=== PATIENT | female | born 1975 | race Caucasian/White ===

== ENCOUNTER 2024-04-29 10:21 | Emergency (ER) | payer OTHER, SELFPAY ==
--- NOTE | ~2024-04-29 | XR_ITS ---
CLINICAL HISTORY: ams sob cp 1 view chest x-ray Comparison: None Findings: The lungs are clear. Normal size heart. No acute fracture. IMPRESSION: 1. No acute findings. This document has been electronically signed by: Kavya Carnes MD on 04/29/2024 16:16:31
--- NOTE | ~2024-04-29 | CT_ITS ---
CLINICAL HISTORY: seizure CT head without contrast Comparison: None Findings: No intra-axial mass, midline shift, hydrocephalus, or acute hemorrhage. No significant atrophy-like change or white matter disease. The visualized paranasal sinuses and mastoid air cells are normal. The orbits are unremarkable. There is no acute fracture. IMPRESSION: 1. No acute intracranial findings. This document has been electronically signed by: Kavya Carnes MD on 04/29/2024 13:44:03
[2024-04-29 10:32] VITALS: BP 102/60; BP 98/47; PULSE 47; PULSE 58; RESP 15; TEMP 36.6; O2SAT 96; O2SAT 97; BMI 33.1
--- NOTE | 2024-04-29 10:36 | ECG_ITS ---
Test Reason : seizure Blood Pressure : */* mmHG Vent. Rate : 45 BPM Atrial Rate : 45 BPM P-R Int : 172 ms QRS Dur : 100 ms QT Int : 534 ms P-R-T Axes : 43 43 45 degrees QTcB Int : 461 ms Sinus bradycardia Otherwise normal ECG No previous ECGs available Referred By: Charles Bolton Electronically Signed By: VINAYAK PEDRO MD
--- NOTE | 2024-04-29 10:43 | ED_ITS ---
HPI - General Adult General Chief complaint: General Medical Stated complaint: SEIZURE PRIOR TO EMS Time Seen by Provider: 04/29/24 10:32 Source: patient Mode of arrival: ambulatory Limitations: altered mental status History of Present Illness ED Provider: DEMETRIS Bolton HPI narrative: 48-year-old female presents with complaints of chest pain that started this morning substernal nonradiating also states she thinks she had a seizure no seizure history. Patient is dozing off during my history taking she is unable to provide me with a good history. She states she does not feel well. She appears lethargic she arouses only to painful stimuli. Very limited history due to patient's altered mental status. Related Data Allergies Allergy/AdvReac Type Severity Reaction Status Date / Time haloperidol [From Haldol] Allergy Anaphylaxis Verified 04/29/24 10:34 naloxone Allergy Anaphylaxis Verified 04/29/24 10:34 promethazine [From Phenergan] Allergy Anaphylaxis Verified 04/29/24 10:34 Review of Systems 2 Review of Systems: Yes all other systems are reviewed and are negative PMFSH Past Medical History Attestation statement: The following information was validated with the patient. Source: old records reviewed and nursing notes reviewed Social History Social History Advance Directives: No Advance Directives Information Provided: Yes Do you have a plan to hurt others: No Plan Physical Exam ED Vital Signs: Vital Signs - 24 hr 04/29/24 10:32 Temperature 97.8 F Pulse Rate 47 L Respiratory Rate 15 Blood Pressure 102/60 Pulse Oximetry 97 Oxygen Delivery Method Room Air BMI result Body Mass Index 33.1 Mild hypotension and bradycardia Appearance: Alert.? Oriented X3.? No acute distress.? Head: Normocephalic, atraumatic, no step-offs or deformities Eyes: Pupils equal, round and reactive to light.? Neck: Normal inspection.? Neck supple.? CVS: Normal heart rate and rhythm.? Pulses normal.? Respiratory: No respiratory distress.? Breath sounds normal.? Abdomen: Soft and nontender.? Skin: Skin warm and dry.? Normal skin color.? Normal skin turgor.? Extremities: No lower extremity edema.? No calf ttp. 5/5 strength to bilateral upper and lower extremities Neuro: Oriented X 3.? No motor deficit.? No sensory deficit. CN 2-12 intact Course Reevaluation(s) Reevaluation #1: My attending put in a L EJ on this patient. As she has a very difficult stick. CBC with a normocytic anemia no acute findings. Chemistry unremarkable. CPK elevated however not meeting criteria for rhabdo. lactic normal unlikley seizure. Troponin negative, EKG nonischemic. Urine without infection. Urine toxicology positive for methadone negative for everything else. Ethanol negative. D-dimer negative. CT head is pending. Time: 13:04 Reevaluation #2: Patient is acting her normal self she is alert and oriented x4 she is sitting in the bed in coloring does not appear to be in any acute distress. Completely different presentation than when she 1st came in. Time: 13:05 Reevaluation #3: Head CT no acute findings. Repeat trop negative. Time: 14:41 Additional Reevaluation(s): Patient not having chest pain, shortness of breath no seizure-like activity while here. She appears well. Coloring acting normal. No complaints. Educated patient on diagnosis and treatment plan, answered all question, patient verbalizes understanding. At this time patient will be discharged home, advised to return with new or worsening symptoms. Educated on worrisome signs and symptoms and when to return. At this time I feel comfortable discharge home. Medical Decision Making Medical Decision Making [facility] Narrative: 1044 48-year-old female presents with a chest discomfort and question seizure. Poor historian appears lethargic Physical exam patient appears lethargic History and physical exam concerning for chest pain will rule out ACS although unlikely. Less likely PE. Patient may have had a seizure but I am concerned for substance abuse. Will rule out metabolic derangements. Plan- labs, urine, imaging Differential Diagnosis Differential Diagnoses: The differential diagnosis associated with the presentation includes Admission/Observation Consideration of admission/observation: Escalation of care including admission/observation considered Lab Data [facility] Lab Attestation statement: I reviewed the patient's lab results. 04/29/24 10:54 04/29/24 10:54 Labs: Lab Results 04/29/24 04/29/24 04/29/24 Range/Units 10:54 10:54 11:30 WBC 5.4 (4.8-10.8) X10*3/uL RBC 3.93 L (4.20-5.50) X10*6/uL Hgb 11.9 L (12.0-16.0) g/dl Hct 34.5 L (37.0-47.0) % MCV 87.8 (80.0-98.0) fL MCH 30.3 (27.0-33.0) pg MCHC 34.5 (31.0-35.0) g/dl RDW 13.1 (11.0-16.0) % Plt Count 118 L (160-400) X10*3/uL MPV 10.0 (9.4-12.3) fL Immature Gran % (Auto) 0.2 (0.0-0.4) % Neut % (Auto) 43.1 L (45-73) % Lymph % (Auto) 44.4 H (20-40) % [place] % (Auto) 8.2 (2-11) % Eos % (Auto) 3.7 (0-4) % Baso % (Auto) 0.4 (0-2) % Lymph # (Auto) 2.4 (1.2-4.9) X10*3/uL [place] # (Auto) 0.4 (0.1-1.2) X10*3/uL Eos # (Auto) 0.2 (0.0-0.4) X10*3/uL Baso # (Auto) 0.0 (0.0-0.2) X10*3/uL Abs Immat Gran (auto) 0.01 (0.00-0.03) X10*3/uL Absolute Neuts (auto) 2.3 (2.0-8.3) x10*3/uL Absolute Nucleated RBC 0.000 (0.0-0.012) X10*3/uL Nucleated RBC % (auto) 0.0 (0.0-0.2) /100WBC D-Dimer High Sensitivty < 150 NG/ML Sodium 139 (135-145) mmol/L Potassium 4.0 (3.3-5.1) mmol/L Chloride 109 H (96-108) mmol/L Carbon Dioxide 24 (22-29) mmol/L Anion Gap 10 L (12-20) BUN 11 (9-16) mg/dL Creatinine 0.60 (0.5-1.4) mg/dL Estim Creat Clear Calc 133.1 Estimated GFR > 60 Random Glucose 124 H (60-115) mg/dL Lactic Acid 1.5 (0.5-2.0) mmol/L Calcium 9.2 (8.4-10.2) mg/dL Magnesium 2.0 (1.6-2.6) mg/dL Total Bilirubin 0.2 (0.0-1.0) mg/dL AST 29 (5-31) U/L ALT 33 H (0-31) U/L Alkaline Phosphatase 74 (39-117) U/L Total Creatine Kinase 147 H (26-140) U/L Troponin I High Sens < 2.7 (<3.5-17.0) ng/L Total Protein 7.9 (6.5-8.0) g/dL Albumin 4.0 (3.5-5.0) g/dL Urine Color Urine Appearance Urine pH (5.0-9.0) Ur Specific [place] (1.005-1.025) Urine Protein (Neg-Trace) mg/dL Urine Glucose (UA) (Negative) mg/dL Urine Ketones (Negative) mg/dL Urine Blood (Negative) Urine Nitrite (Negative) Ur Leukocyte Esterase (Negative) Urine Opiates Screen (Not Detect) Ur Buprenorphine Scrn (Not Detect) ng/mL Ur Oxycodone Screen (Not Detect) ng/mL Urine Methadone Screen (Not Detect) ng/mL Urine Fentanyl Screen (Not Detect) Ur Barbiturates Screen (Not Detect) Ur Phencyclidine Scrn (Not Detect) Ur Amphetamines Screen (Not Detect) U Benzodiazepines Scrn (Not Detect) Urine Cocaine Screen (Not Detect) U Marijuana (THC) Screen (Not Detect) Ethyl Alcohol < 10 Cancelled mg/dL 04/29/24 04/29/24 04/29/24 Range/Units 11:59 12:00 13:49 WBC (4.8-10.8) X10*3/uL RBC (4.20-5.50) X10*6/uL Hgb (12.0-16.0) g/dl Hct (37.0-47.0) % MCV (80.0-98.0) fL MCH (27.0-33.0) pg MCHC (31.0-35.0) g/dl RDW (11.0-16.0) % Plt Count (160-400) X10*3/uL MPV (9.4-12.3) fL Immature Gran % (Auto) (0.0-0.4) % Neut % (Auto) (45-73) % Lymph % (Auto) (20-40) % [place] % (Auto) (2-11) % Eos % (Auto) (0-4) % Baso % (Auto) (0-2) % Lymph # (Auto) (1.2-4.9) X10*3/uL [place] # (Auto) (0.1-1.2) X10*3/uL Eos # (Auto) (0.0-0.4) X10*3/uL Baso # (Auto) (0.0-0.2) X10*3/uL Abs Immat Gran (auto) (0.00-0.03) X10*3/uL Absolute Neuts (auto) (2.0-8.3) x10*3/uL Absolute Nucleated RBC (0.0-0.012) X10*3/uL Nucleated RBC % (auto) (0.0-0.2) /100WBC D-Dimer High Sensitivty NG/ML Sodium (135-145) mmol/L Potassium (3.3-5.1) mmol/L Chloride (96-108) mmol/L Carbon Dioxide (22-29) mmol/L Anion Gap (12-20) BUN (9-16) mg/dL Creatinine (0.5-1.4) mg/dL Estim Creat Clear Calc Estimated GFR Random Glucose (60-115) mg/dL Lactic Acid (0.5-2.0) mmol/L Calcium (8.4-10.2) mg/dL Magnesium (1.6-2.6) mg/dL Total Bilirubin (0.0-1.0) mg/dL AST (5-31) U/L ALT (0-31) U/L Alkaline Phosphatase (39-117) U/L Total Creatine Kinase (26-140) U/L Troponin I High Sens < 2.7 (<3.5-17.0) ng/L Total Protein (6.5-8.0) g/dL Albumin (3.5-5.0) g/dL Urine Color Dark Yellow Urine Appearance Turbid Urine pH 5.5 (5.0-9.0) Ur Specific [place] >= 1.030 H (1.005-1.025) Urine Protein Trace (Neg-Trace) mg/dL Urine Glucose (UA) Negative (Negative) mg/dL Urine Ketones Negative (Negative) mg/dL Urine Blood Negative (Negative) Urine Nitrite Negative (Negative) Ur Leukocyte Esterase Negative (Negative) Urine Opiates Screen Not Detected (Not Detect) Ur Buprenorphine Scrn Not Detected (Not Detect) ng/mL Ur Oxycodone Screen Not Detected (Not Detect) ng/mL Urine Methadone Screen Positive H (Not Detect) ng/mL Urine Fentanyl Screen Not Detected (Not Detect) Ur Barbiturates Screen Not Detected (Not Detect) Ur Phencyclidine Scrn Not Detected (Not Detect) Ur Amphetamines Screen Not Detected (Not Detect) U Benzodiazepines Scrn Not Detected (Not Detect) Urine Cocaine Screen Not Detected (Not Detect) U Marijuana (THC) Screen Not Detected (Not Detect) Ethyl Alcohol mg/dL Critical Care Time Critical Care Time Critical Care Time: Yes Total Critical Care Time: 35 Attestation: I attest to this time spent taking care of the patient, obtaining history, physical, reviewing labs, imaging, treatment of patients condition +/- specialist/hospitalist consult Discharge Plan Discharge Clinical Impression: Chest pain, Malaise Patient Disposition: Home, Self-Care Instructions: Chest Pain (ED), Fatigue (ED) Additional Instructions: Take your medications as prescribed. If you were prescribed antibiotics today, it is important that you take your medication to their entirety, do not skip any doses, do not finish them early. Follow-up with your primary care provider this week. Return to the emergency department with new or worsening symptoms. Such as fevers, chills, chest pain, shortness of breath, nausea, vomiting, dizziness, headache, vision changes, lethargy In case of emergency call 911 Referrals: Physician,Davina J [Primary Care Provider] - 2 days Stand Alone Forms: Work/School Release Print Language: Bulgarian
[2024-04-29 11:01] LABS: MANUAL DIFF FLAG NO
[2024-04-29 11:02] LABS: Basophils Percent Auto 0.4 % (0-2); Eosinophils Absolute Auto 0.2 X10*3/uL (0.0-0.4); Eosinophils Percent Auto 3.7 % (0-4); Hematocrit 34.5 % (37.0-47.0); Hemoglobin 11.9 g/dl (12.0-16.0); Imm Gran Abs Auto 0.01 X10*3/uL (0.00-0.03); Imm Gran Pct Auto 0.2 % (0.0-0.4); Lymphocytes Absolute Auto 2.4 X10*3/uL (1.2-4.9); Lymphocytes Percent Auto 44.4 % (20-40); Mean Corpuscular HGB Conc 34.5 g/dl (31.0-35.0); Mean Corpuscular Hemoglobin 30.3 pg (27.0-33.0); Mean Corpuscular Volume 87.8 fL (80.0-98.0); Monocytes Absolute Auto 0.4 X10*3/uL (0.1-1.2); Monocytes Percent Auto 8.2 % (2-11); Neutrophils Absolute Auto 2.3 x10*3/uL (2.0-8.3); Neutrophils Percent Auto 43.1 % (45-73); Platelet Count 118 X10*3/uL (160-400); Red Blood Count 3.93 X10*6/uL (4.20-5.50); Red Cell Distribution Width 13.1 % (11.0-16.0); White Blood Count 5.4 X10*3/uL (4.8-10.8)
[2024-04-29 11:25] LABS: Lactic Acid 1.5 mmol/L (0.5-2.0)
[2024-04-29 11:27] LABS: Alanine Aminotransferase 33 U/L (0-31); Alkaline Phosphatase 74 U/L (39-117); Anion Gap 10 (12-20); Bilirubin Total 0.2 mg/dL (0.0-1.0); Blood Urea Nitrogen 11 mg/dL (9-16); Calcium 9.2 mg/dL (8.4-10.2); Carbon Dioxide 24 mmol/L (22-29); Chloride 109 mmol/L (96-108); Creatinine Clr Calc Pharmacy 133.1; Estimated Glomerular Filt Rate > 60; Ethanol < 10 mg/dL; Glucose Random 124 mg/dL (60-115); Sodium 139 mmol/L (135-145); Total Protein 7.9 g/dL (6.5-8.0)
[2024-04-29 11:33] LABS: Troponin-I High Sensitivity < 2.7 ng/L (<3.5-17.0)
[2024-04-29 11:38] LABS: Aspartate Amino Transferase 29 U/L (5-31)
[2024-04-29 11:44] LABS: D Dimer High Sensitivity < 150 NG/ML
[2024-04-29 12:07] LABS: Appearance Urine Turbid; Color Urine Dark Yellow; Glucose Urine UA Negative (Negative); Leukocyte Esterase Urine Negative (Negative); Nitrite Urine Negative (Negative); PH 5.5 (5.0-9.0); Specific Gravity - Urine >= 1.030 (1.005-1.025); Urine Blood Negative (Negative); Urine Ketones Negative (Negative); Urine Protein Trace mg/dL (Neg-Trace)
--- OUTSIDE RECORDS SUMMARY | 2024-04-29 12:12 | XMS_ITS | Encounter Summary ---
Author Organization [facility] Address [address] [place] [address] Care Team Providers Care Round Kiln Drawer Name Role Phone Isaac Alaniz MD, lAex Tariq Primary Care Provider [phone]- [phone] Encounter Details Date Type Department Care Team (Late st Contact Info) Description 03/22/2019 Lab Requisition [address] [id number] Unknown Illness, unspecified Social History Tobacco Use Types Packs/Day Years Used Date Smoking Tobacco: Every Day Cigarettes Smokeless Tobacco: Never Comments:vape Alcohol Use Standard Drinks/Week Comments Not Currently 4 (1 standard drink = 0.6 oz pur e alcohol) Comments No Sex and Gender Information Value Date Recorded Sex Assigned at Female 11/04/2023 7:55 PM EDT Legal Sex Female 11:16 AM EDT Gender Identity Female 11/04/2023 7:55 PM EDT Sexual Orientation Straight 11/04/2023 7: 55 PM EDT documented as of this encounter Plan of Treatment Not on file documented as of this encounter Visit Diagnoses Diagnosis Illness, unspecified documented in this encounter Additional Health Concerns Infection Onset Date Last Indicated Resolved Time MRSA Comment:Cleared 05/19/21 nf MRSA blood/chin 03/14/19 sa 03/14/2019 03/17/2019 2021 2 :15 PM EST PUI COVID 01/01/2024 01/01/2024 01/01/2024 1:19 PM EDT documented as of this encounter Care Teams Round Kiln Drawer Relationship Specialty Start Date End Date Alex Gray Jr., MD [address] [place] [phone] PCP - General Internal Medicine 08/15/18 documented as of this encounter
--- OUTSIDE RECORDS SUMMARY | 2024-04-29 12:12 | XMS_ITS | Encounter Summary ---
Author Organization [facility] Address [address] [place] [address] Care Team Providers Care Airline Reservationist Name Role Phone Isaac Alaniz MD, Alex Tariq Primary Care Provider [phone]- [phone] Encounter Details Date Type Department Care Team (Late st Contact Info) Description 03/17/2024 [facility] [address] [place] [address] Social History Tobacco Use Types Packs/Day Years Used Date Smoking Tobacco: Every Day Cigarettes Smokeless Tobacco: Never Comments:vape Alcohol Use Standard Drinks/Week Comments Not Currently 4 (1 standard drink = 0.6 oz pur e alcohol) Housing Stability - SDOH Screener Answer Date Recorded What is your living situation today? Unsteady ho using 01/02/2024 Do you need help with Housing/Long-Term resources? Not on file 01/02/2024 Patient indicated no issues from the most recent SDOH questionnaire Not on file 01/02/2024 Homeless diagnosis active in problem list or in an encounter in the past year? Not on file 01/02/2024 Transportation - SDOH Screener Answer D ate Recorded Do you have trouble getting transportation to medical appointments? Yes 01/02/2024 Do you need help with Transp ortation to medical appointments? Not on file 01/02/2024 Patient indicated no issues from the most recent SDOH questionnaire Not on file 01/02/2024 Food Insecurity - SDOH Screener Answer Date Recorded Within the past 12 months, t he food you bought just didn't last and you didn't have money to get more? Sometimes true Within the past 12 months, y ou worried whether your food would run out before you got money to buy more? Often true 2023 Do you need help with Food resources? Not on elinor e 01/02/2024 Patient indicated no issues from the most recent SDOH questionnaire Not on file 01/02/2024 Utilities - SDOH Screener Answer Date R ecorded Do you have trouble paying y our heating and/or electricity bill? Yes 01/02/2024 Do you need help with Utilities? Not on file 01/02/2024 Patient indicated no issues from the most recent SDOH questionnaire Not on file 01/02/2024 Comments No Sex and Gender Information Value Date Recorded Sex Assigned at Female 11/04/2023 7:55 PM EDT Legal Sex Female 11:16 AM EDT Gender Identity Female 11/04/2023 7:55 PM EDT Sexual Orientation Straight 11/04/2023 7: 55 PM EDT documented as of this encounter Plan of Treatment Not on file documented as of this encounter Visit Diagnoses Not on filedocumented in this encounter Care Teams Airline Reservationist Relationship Specialty Start Date End Date Alex Gray Jr., MD [address] [place] [phone] PCP - General Internal Medicine 08/15/18 documented as of this encounter
--- OUTSIDE RECORDS SUMMARY | 2024-04-29 12:12 | XMS_ITS | Encounter Summary ---
Author Organization [facility] Address [address] [place] [address] Care Team Providers Care Slitter Scorer Cut Off Operator Name Role Phone Isaac Alaniz MD, Alex Tariq Primary Care Provider [phone]- [phone] Encounter Details Date Type Department Care Team (Late st Contact Info) Description 05/25/2023 Procedure Pass [facility] - [address] [address] Social History Tobacco Use Types Packs/Day Years [...] PM EDT documented as of this encounter Last Filed Vital Signs Vital Sign Reading Time Taken Comments Blood Pressure - - Pulse - - Temperature - - Respiratory Rate - - Oxygen Saturation - - Inhaled Oxygen Concentration - - Weight 108 kg (239 lb) 05/25/2023 5:55 PM EST Height 170.2 cm (5' 7 ) 05/25/2023 5:55 PM EST Body Mass Index 37.43 05/25/2023 5:55 PM EST documented in this encounter Plan of Treatment Not on file documented as of this encounter Visit Diagnoses Not on filedocumented in this encounter Additional Health Concerns Infection Onset Date Last Indicated Resolved Time PUI COVID 01/01/2024 01/01/2024 01/01/2024 1:19 PM EDT documented as of this encounter Care Teams Slitter Scorer Cut Off Operator Relationship Specialty Start Date End Date Alex Gray Jr., MD [address] [place] [phone] PCP - General Internal Medicine 08/15/18 documented as of this encounter
--- OUTSIDE RECORDS SUMMARY | 2024-04-29 12:12 | XMS_ITS | Encounter Summary ---
Author Organization [facility] Address [address] [place] [address] Care Team Providers Care Merchandise Appraiser Name Role Phone Isaac Alaniz MD, Alex Tariq Primary Care Provider [phone]- [phone] Encounter Details Date Type Department Care Team (Late st Contact Info) Description 01/07/2024 Pharm[facility] [address] [place] [address] Social History Tobacco Use Types Packs/Day Years Used Date Smoking Tobacco: Every Day Cigarettes Smokeless Tobacco: Never Comments:vape Alcohol Use Standard Drinks/Week Comments Not Currently 4 (1 standard drink = 0.6 oz pur e alcohol) Housing Stability - SDOH Screener Answer Date Recorded What is your living situation today? Unsteady ho using 01/02/2024 Do you need help with Housing/Skilled Nursing resources? Not on file 01/02/2024 Patient indicated [...] on filedocumented in this encounter Care Teams Merchandise Appraiser Relationship Specialty Start Date End Date Alex Gray Jr., MD [address] [place] [phone] PCP - General Internal Medicine 08/15/18 documented as of this encounter
--- OUTSIDE RECORDS SUMMARY | 2024-04-29 12:12 | XMS_ITS | Encounter Summary ---
Author Organization [facility] Address [address] [place] [address] Care Team Providers Care Die Maker Bench Stamping Name Role Phone Jen Saunders NP Primary Care Provider [phone] Isaac Alaniz MD, Alex Tariq Primary Care Provider [phone]- [phone] Encounter Details Date Type Department Care Team (Late st Contact Info) Description 08/01/2018 Procedure Pass [address] [address] Social History Tobacco Use Types Packs/Day Years Used Date Smoking Tobacco: Every Day Cigarettes Smokeless Tobacco: Never Alcohol Use Standard Drinks/Week Comments Yes 4 (1 standard drink = 0.6 oz [...] - Inhaled Oxygen Concentration - - Weight 81.6 kg (180 lb) 08/03/2018 6:34 PM EDT Height 172.7 cm (5' 8 ) 08/03/2018 6:34 PM EDT Body Mass Index 27.37 08/03/2018 6:34 PM EDT documented in this encounter Plan of Treatment Not on file documented as of this encounter Visit Diagnoses Not on filedocumented in this encounter Additional Health Concerns Infection Onset Date Last Indicated Resolved Time MRSA Comment:Cleared 05/19/21 nf MRSA blood/chin 03/14/19 sa 03/14/2019 03/17/2019 2021 2 :15 PM EST PUI COVID 01/01/2024 01/01/2024 01/01/2024 1:19 PM EDT documented as of this encounter Care Teams Die Maker Bench Stamping Relationship Specialty Start Date End Date Jen Saunders NP PCP - General Pain Medicine 09/24/17 08/14/18 Alex Gray Jr., MD [address] [place] [phone] PCP - General Internal Medicine 08/15/18 documented as of this encounter
--- OUTSIDE RECORDS SUMMARY | 2024-04-29 12:12 | XMS_ITS | Encounter Summary ---
Author Organization [facility] Address [address] [facility] Main Number: [phone] (26/[address]) [place] [address] Care Team Providers Care Soft Crab Shedder Name Role Phone Alex Gray MD Primary Care Provider Encounter Details Date Type Department Care Team ([facility] st Contact Info) Description 04/13/2024 Telephone [facility] [address] [facility] [place] [address] Charlee Patterson LICSW [address] [address] Social History Tobacco Use Types Packs/Day Years Used Date Smoking Tobacco: Never Assessed Sex and Gender Information Value Date Recorded Sex Assigned at Not on file Gender Identity Not on file Sexual Orientation Not on file documented as of this encounter Miscellaneous Notes * Telephone Encounter - ERNST Toscano - 04/13/2024 2:05 PM EST I attempted to contact this patient for a post-acute follow-up encounter. I attempted patient by telephone 8 times, greater than 5 minutes apart. Outcome of outreach: Left voicemail at only working number on file, , and I provided the call back number for the post-acute follow-up voice message box, . documented in this encounter Plan of Treatment Not on file documented as of this encounter Visit Diagnoses Not on filedocumented in this encounter Care Teams Soft Crab Shedder Relationship Specialty Start Date End Date Alex Gray MD [address] [place] [id number] PCP - General 01/28/23 documented as of this encounter
--- OUTSIDE RECORDS SUMMARY | 2024-04-29 12:12 | XMS_ITS | Encounter Summary ---
Author Organization [facility] Address [address] [place] [address] Care Team Providers Care Sawing And Assembly Supervisor Name Role Phone Jen Saunders NP Primary Care Provider Isaac Alaniz MD, Alex Tariq Primary Care Provider [phone]- [phone] Encounter Details Date Type Department Care Team (Late st Contact Info) Description 10/01/[address] [facility] [address] [place] [address] Jen Saunders NP [address] [place], [place] [phone] Rash and other nonspecific skin eruption Social History Tobacco Use Types Packs/Day Years Used Date Smoking Tobacco: Every Day Cigarettes Smokeless Tobacco: Never Alcohol Use Standard Drinks/Week Comments No 0 (1 standard drink = 0.6 oz pur e alcohol) Comments Unknown Sex and Gender Information Value Date Recorded Sex Assigned at Female 11/04/2023 7:55 PM EDT Legal Sex Female 11:16 AM EDT Gender Identity Female 11/04/2023 7:55 PM EDT Sexual Orientation Straight 11/04/2023 7: 55 PM EDT documented as of this encounter Plan of Treatment Not on file documented as of this encounter Procedures Procedure Name Priority Date/Time Associated Diagnosis Comments OVA AND PARASITE Routine 10/01/2017 5:00 PM EDT Rash and other nonspecific skin eruption documented in this encounter Results * Ova and Parasite Screen (10/01/2017 5:00 PM EDT) Specimen Source Stool 5:57 AM EDT [facility] Concentrate Result No ova and parasites seen No O and P seen 10/09/2017 5:57 AM EDT [facility] Comment:REFERENCE RANGE: No ova and parasites seen Trichrome Result No ova and parasites seen No O and P seen 10/09/2017 5:57 AM EDT [facility] Comment: ? REFERENCE RANGE: No ova and parasites seen ?? Routine Ova and Parasite exam may not detect ?? some parasites that occasionally cause diarrheal ?? illness. Test code(s) 17453 67666E (82458) (Cryptosporidium Ag., ?? DFA) and/or 32256 [id number] (76899) (Cyclospora and Isospora Exam) ?? may be ordered to detect these parasites. One negative sample ?? does not necessarily rule out the presence of parasitic infection. Stool Collection / Unknown 10/01/2017 5:00 PM EDT 10/01/2017 6:00 PM EDT us Jen Saunders NP MICROBIOLOGY - GENERAL ORDERA BLES Final Result Performing Organization Address City/State/[facility] Co de Phone Number [facility] [address] [place] [phone] documented in this encounter Visit Diagnoses Diagnosis Rash and other nonspecific skin eruption documented in this encounter Additional Health Concerns Infection Onset Date Last Indicated Resolved Time MRSA Comment:Cleared 05/19/21 nf MRSA blood/chin 03/14/19 sa 03/14/2019 03/17/2019 2021 2 :15 PM EST PUI COVID 01/01/2024 01/01/2024 01/01/2024 1:19 PM EDT documented as of this encounter Care Teams Sawing And Assembly Supervisor Relationship Specialty Start Date End Date Jen Saunders NP PCP - General Pain Medicine 09/24/17 08/14/18 Alex Gray Jr., MD [address] [place] [phone] PCP - General Internal Medicine 08/15/18 documented as of this encounter
--- OUTSIDE RECORDS SUMMARY | 2024-04-29 12:12 | XMS_ITS | Encounter Summary ---
Author Organization [facility] Address [address] [place] [address] Care Team Providers Care Cessation Systems Outreach Specialist Name Role Phone Isaac Alaniz MD, Alex Tariq Primary Care Provider +1- [phone] Encounter Details Date Type Department Care Team (Late st Contact Info) Description 03/10/2023 Procedure Pass [address] [phone] Social History Tobacco Use Types [...] documented as of this encounter Care Teams Cessation Systems Outreach Specialist Relationship Specialty Start Date End Date Alex Gray Jr., MD [address] [place] [phone] PCP - General Internal Medicine 08/15/18 documented as of this encounter
--- OUTSIDE RECORDS SUMMARY | 2024-04-29 12:12 | XMS_ITS | Encounter Summary ---
Author Organization [facility] Address [address] [place] [address] Care Team Providers Care Employment Attorney Name Role Phone Isaac Alaniz MD, Alex Tariq Primary Care Provider +1- [phone] Encounter Details Date Type Department Care Team (Late st Contact Info) Description 02/07/2023 Procedure Pass [facility] - [address] [phone] Social History Tobacco Use Types [...] - Inhaled Oxygen Concentration - - Weight 101 kg (222 lb) 02/07/2023 10:31 AM EST Height 170.2 cm (5' 7 ) 02/07/2023 10:31 AM EST Body Mass Index 34.77 02/07/2023 10:31 AM EST documented in this encounter Plan of Treatment Not on file documented as of this encounter Visit Diagnoses Not on filedocumented in this encounter Additional Health Concerns Infection Onset Date Last Indicated Resolved Time PUI COVID 01/01/2024 01/01/2024 01/01/2024 1:19 PM EDT documented as of this encounter Care Teams Employment Attorney Relationship Specialty Start Date End Date Alex Gray Jr., MD [address] [place] [phone] PCP - General Internal Medicine 08/15/18 documented as of this encounter
--- OUTSIDE RECORDS SUMMARY | 2024-04-29 12:12 | XMS_ITS | Encounter Summary ---
Author Organization [facility] Address [address] [place] [address] Care Team Providers Care Global Chief Experience Officer Name Role Phone Isaac Alaniz MD, Alex Tariq Primary Care Provider +1- [phone] Encounter Details Date Type Department Care Team (Late st Contact Info) Description 04/17/2024 Orders Only [facility] [address] [place] [phone] Alex Gray Jr., MD [address] [place] [phone] Bipolar disorder, current episode depressed, severe, without psychotic features (HCC); Delusional disorders (HCC); Personal history of other endocrine, nutritional and metabolic disease; Chronic obstructive pulmonary disease with (acute) exacerbation (HCC) Social History Tobacco Use Types Packs/Day Years Used Date Smoking Tobacco: Every Day Cigarettes Smokeless Tobacco: Never Comments:vape Alcohol Use Standard Drinks/Week Comments Not Currently 4 (1 standard drink = 0.6 oz pur e alcohol) Housing Stability - SDOH Screener Answer Date Recorded What is your living situation today? Unsteady ho using 01/02/2024 Do you need help with Housing/Assisted resources? Not on file 01/02/2024 Patient indicated [...] as of this encounter Plan of Treatment Scheduled Orders Name Type Priority Associated Diagnoses Orde r Schedule CBC and Auto Differential Lab Routine Bipolar disorder, current episode depressed, severe, without psychotic features (HCC) Delusional disorders (HCC) Personal history of other endocrine, nutritional and metabolic disease Chronic obstructive pulmonary disease with (acute) exacerbation (HCC) 1 Occurrences starting 04/17/2024 until 07/16/2025 Comprehensive metabolic panel Lab Routine Bipolar disorder, current episode depressed, severe, without psychotic features (HCC) Delusional disorders (HCC) Personal history of other endocrine, nutritional and metabolic disease Chronic obstructive pulmonary disease with (acute) exacerbation (HCC) 1 Occurrences starting 04/17/2024 until 07/16/2025 Aptima HCV Quant Dx Lab Routine Bipolar disorder, current episode depressed, severe, without psychotic features (HCC) Delusional disorders (HCC) Personal history of other endocrine, nutritional and metabolic disease Chronic obstructive pulmonary disease with (acute) exacerbation (HCC) 1 Occurrences starting 04/17/2024 until 07/16/2025 Hepatitis C Genotype-R Lab Routine Bipolar disorder, current episode depressed, severe, without psychotic features (HCC) Delusional disorders (HCC) Personal history of other endocrine, nutritional and metabolic disease Chronic obstructive pulmonary disease with (acute) exacerbation (HCC) 1 Occurrences starting 04/17/2024 until 07/16/2025 TSH with reflex to Free T4 Lab Routine Bipolar disorder, current episode depressed, severe, without psychotic features (HCC) Delusional disorders (HCC) Personal history of other endocrine, nutritional and metabolic disease Chronic obstructive pulmonary disease with (acute) exacerbation (HCC) 1 Occurrences starting 04/17/2024 until 07/16/2025 T4, Free Lab Routine Bipolar disorder, current episode depressed, severe, without psychotic features (HCC) Delusional disorders (HCC) Personal history of other endocrine, nutritional and metabolic disease Chronic obstructive pulmonary disease with (acute) exacerbation (HCC) 1 Occurrences starting 04/17/2024 until 07/16/2025 Lipid panel Lab Routine Bipolar disorder, current episode depressed, severe, without psychotic features (HCC) Delusional disorders (HCC) Personal history of other endocrine, nutritional and metabolic disease Chronic obstructive pulmonary disease with (acute) exacerbation (HCC) 1 Occurrences starting 04/17/2024 until 07/16/2025 Hemoglobin A1c Lab Routine Bipolar disorder, current episode depressed, severe, without psychotic features (HCC) Delusional disorders (HCC) Personal history of other endocrine, nutritional and metabolic disease Chronic obstructive pulmonary disease with (acute) exacerbation (HCC) 1 Occurrences starting 04/17/2024 until 07/16/2025 Cortisol Lab Routine Bipolar disorder, current episode depressed, severe, without psychotic features (HCC) Delusional disorders (HCC) Personal history of other endocrine, nutritional and metabolic disease Chronic obstructive pulmonary disease with (acute) exacerbation (HCC) 1 Occurrences starting 04/17/2024 until 07/16/2025 Vitamin B12 Lab Routine Bipolar disorder, current episode depressed, severe, without psychotic features (HCC) Delusional disorders (HCC) Personal history of other endocrine, nutritional and metabolic disease Chronic obstructive pulmonary disease with (acute) exacerbation (HCC) 1 Occurrences starting 04/17/2024 until 07/16/2025 documented as of this encounter Visit Diagnoses Diagnosis Bipolar disorder, current episode depressed, severe, without psychotic features (HCC) Delusional disorders (HCC) Personal history of other endocrine, nutritional and metabolic disease Chronic obstructive pulmonary disease with (acute) exacerbation (HCC) documented in this encounter Care Teams Global Chief Experience Officer Relationship Specialty Start Date End Date Alex Gray Jr., MD [address] [place] [phone] PCP - General Internal Medicine 08/15/18 documented as of this encounter
--- OUTSIDE RECORDS SUMMARY | 2024-04-29 12:12 | XMS_ITS | Clinical Summary ---
Author Organization [facility] Address [address] [facility] Main Number: [phone] (26/10) [place] [address] Care Team Providers Care Residential Designer Name Role Phone Alex Gray MD Primary Care Provider [phone] Allergies No known active allergies Medications Medication Sig Dispensed Refills Start Date End Date Status gabapentin (NEURONTIN) 300 mg capsule take 2 capsules by mouth three times a day 01/23/2023 Active docusate (COLACE) 100 mg capsule Take 100 mg by mouth 2 (two) times a day. 01/23/2023 Active cloNIDine (CATAPRES) 0.2 mg tablet Take 0.2 mg by mouth 2 (two) times a day. 01/23/2023 Active clonazePAM (KLONOPIN) 1 mg tablet Take 1 mg by mouth 3 (three) times a day. 01/23/2023 Active cefadroxil (DURICEF) 500 MG capsule Take 500 mg by mouth 2 (two) times a day. 01/23/2023 Active bisacodyL (DULCOLAX) 10 mg suppository UNWRAP AND INSERT 1 SUPPOSITORY INTO RECTUM ONCE A DAY NEEDED FOR CONSTIPATION 01/23/2023 Active VENTOLIN HFA HFA inhaler inhale 1 puffs by mouth and INTO THE LUNGS every 4 hours if neede... (REFER TO PRESCRIPTION NOTES). 01/23/2023 Active hydrOXYzine (ATARAX) 25 mg tablet take 1 tablet by mouth twice a day if needed for anxiety 01/23/2023 Active ibuprofen (ADVIL,MOTRIN) 600 mg tablet take 1 tablet by mouth every 6 hours if needed for pain 01/23/2023 Active lurasidone (LATUDA) 20 mg tablet Take 20 mg by mouth. 01/23/2023 Ac tive mirtazapine (REMERON) 45 MG tablet Take 45 mg by mouth nightly. 01/23/2023 Active topiramate (TOPAMAX) 50 MG tablet Take 50 mg by mouth nightly. 01/23/2023 Active SENNA 8.6 mg tablet Take 2 tablets by mouth nightly. 01/23/2023 Active polyethylene glycol (MIRALAX) 17 gram packet dissolve 1 packet INTO WATER AND TAKE ONCE DAILY BY MOUTH 01/23/2023 Active zolpidem (AMBIEN) 10 mg tablet take 1 tablet by mouth at bedtime if needed for sleep 01/23/2023 Active methocarbamoL (ROBAXIN) 500 MG tablet take 1 tablet by mouth every 4 hours if needed for muscle spasm 01/23/2023 Active lamoTRIgine (LAMICTAL) 25 mg tablet TAKE 1 TABLET BY ORAL ROUTE EVERY DAY AT BEDTIME 11/07/2022 Active Active Problems No known active problems Encounters Date Type Department Care Team Description 04/13[facility] [address] [facility] [place] [address] Charlee Patterson LICSW from Last 3 Months Immunizations Name Administration Dates Next Due Covid-19 Vaccine, (MODERNA R ED CAP_12+ PRIMARY SERIES), mRNA, intramuscular PF injection 05/15/2021 Influenza vaccine (FLULAVAL/ FLUZONE/FLUARIX TRIV) intramuscular PF syringe (>=6 months and older) 03/17/2019 Influenza, seasonal, injecta ble, preservative free 11/13/2016,11/08/2015 TDAP 09/07/2022,02/11/2021,12/13/2016 Social History Tobacco Use Types Packs/Day Years Used Date Smoking Tobacco: Never Assessed Sex and Gender Information Value Date Recorded Sex Assigned at Not on file Gender Identity Not on file Sexual Orientation Not on file Plan of Treatment Health Maintenance Due Date Last Done Comments Colonoscopy FOBT- Positive 1976 Colonoscopy 1976 Colorectal Cancer Screening 1976 Diabetes Screening 1976 FOBT 1976 HIV Lifetime Screening 1976 Hepatitis B sAg Lifetime Screening 1976 Hepatitis C Antibody Lifetime Screening 1976 LIPID PANEL 1976 Sigmoidoscopy 1976 THRIVE SCREENING 1976 Oral Health Screen 1976 HEIP Disability Screen 1981 BEHAVIORAL HEALTH SCREEN 1988 Psych Substance Use Screen 1988 Relationship Safety Screening 1991 Cervical Cancer Screening 1997 Colposcopy 1997 PAP SMEAR 1997 Pap + HPV 1997 MAMMOGRAM 2016 COVID-19 Vaccine ( season) 2023 05/04/2023, 05/15/2021 INFLUENZA VACCINE (#1) 2023 , 03/17/2019, 11/13/2016, Additional history exists Zoster Vaccine (1 of 2) 2026 DTAP/TDAP VACCINE (4 - Td or Tdap) 09/07/2032 09/07/2022, 02/11/2021, 12/13/2016 HPV VACCINES Aged Out No longer eligi ble based on patient's age to complete this topic IPV VACCINES Aged Out No longer eligi ble based on patient's age to complete this topic Pneumonia Vaccine 0-64 Aged Out No lo nger eligible based on patient's age to complete this topic ROTAVIRUS VACCINES Aged Out No longer eligible based on patient's age to complete this topic Care Teams Residential Designer Relationship Specialty Start Date End Date Alex Gray MD [address] [place] [phone] PCP - General 01/28/23
--- OUTSIDE RECORDS SUMMARY | 2024-04-29 12:12 | XMS_ITS | Encounter Summary ---
Author Organization [facility] Address [address] [place] [address] Care Team Providers Care Child Care Attendant Name Role Phone Isaac Alaniz MD, Alex Tariq Primary Care Provider [phone]- [phone] Encounter Details Date Type Department Care Team (Late st Contact Info) Description 01/03/[address] [facility] [address] [place] [address] Social History Tobacco Use Types Packs/Day Years Used Date Smoking Tobacco: Every Day Cigarettes Smokeless Tobacco: Never Comments:vape Alcohol Use Standard Drinks/Week Comments Not Currently 4 (1 standard drink = 0.6 oz pur e alcohol) Housing Stability - SDOH Screener Answer Date Recorded What is your living situation today? Unsteady ho using 01/02/2024 Do you need help with Housing/Snf resources? Not on file 01/02/2024 Patient indicated [...] on filedocumented in this encounter Care Teams Child Care Attendant Relationship Specialty Start Date End Date Alex Gray Jr., MD [address] [place] [phone] PCP - General Internal Medicine 08/15/18 documented as of this encounter
--- OUTSIDE RECORDS SUMMARY | 2024-04-29 12:12 | XMS_ITS | Encounter Summary ---
Author Organization [facility] Address [address] [place] [address] Care Team Providers Care Home Weatherizing Worker Name Role Phone Isaac Alaniz MD, Alex Tariq Primary Care Provider [phone]- [phone] Encounter Details Date Type Department Care Team (Late Contact Info) Description 05/31/2023 Procedure Pass [facility] [address] [place] [phone] Social History Tobacco Use Types Packs/Day Years [...] documented as of this encounter Care Teams Home Weatherizing Worker Relationship Specialty Start Date End Date Alex Gray Jr., MD [address] [place] [phone] PCP - General Internal Medicine 08/15/18 documented as of this encounter
--- OUTSIDE RECORDS SUMMARY | 2024-04-29 12:12 | XMS_ITS | Encounter Summary ---
Author Organization [facility] Address [address] [place] [address] Care Team Providers Care Aircraft Painter Name Role Phone Isaac Alaniz MD, Alex Tariq Primary Care Provider [phone]- [phone] Encounter Details Date Type Department Care Team (Late st Contact Info) Description 12/03/2022 Lab Requisition [address] [phone] Demetria Garner, EDUCATION TRAINER [address] [place] [address] Illness, unspecified Social History Tobacco Use Types [...] Procedure Name Priority Date/Time Associated Diagnosis Comments MRSA CULTURE Routine 12/03/2022 5:00 AM EDT Illness, unspecified documented in this encounter Results * MRSA Culture (12/03/2022 5:00 AM EDT) Culture No S. aureus (MRSA or MSSA) isolated SUSCEPTIBIL ITY TESTING 12/04/2022 3:33 PM EDT [facility] Swab Both anterior nares / Unknown Collection / Unknown 12/03/2022 5:00 AM EDT 12/03/2022 9:05 AM EDT us Demetria Garner EDUCATION TRAINER MICROBIOLOGY - GENERAL ORD ERABLES Final Result [facility] [address] [place] [address] documented in this encounter Visit Diagnoses Diagnosis Illness, unspecified documented in this encounter Additional Health Concerns Infection Onset Date Last Indicated Resolved Time PUI COVID 01/01/2024 01/01/2024 01/01/2024 1:19 PM EDT documented as of this encounter Care Teams Aircraft Painter Relationship Specialty Start Date End Date Alex Gray Jr., MD [address] [place] [phone] PCP - General Internal Medicine 08/15/18 documented as of this encounter
--- OUTSIDE RECORDS SUMMARY | 2024-04-29 12:12 | XMS_ITS | Clinical Summary ---
Author Organization [facility] Address [address] [place] [address] Care Team Providers Care Machine Assistant Name Role Phone Isaac Alaniz MD, Alex Tariq Primary Care Provider [phone] Allergies Active Allergy Reactions Criticality Noted Date Comments Haloperidol Other (See Comments) 12/09/2015 lockjaw Naloxone 04/24/2016 Naltrexone Rash Low 11/18/2022 Promethazine Hcl Tremor High 03/21/2019 Dystonia Promethazine Anaphylaxis High 12/09/2015 Medications albuterol sulfate (PROAIR HFA) 108 (90 Base) MCG/ACT inhalation aerosol Inhale 2 puffs every 4 (four) hours as needed for wheezing or shortness of breath Active cloNIDine (CATAPRES) 0.2 MG tablet Take 1 tablet (0.2 mg total) by mouth 2 (two) times a day Active gabapentin (NEURONTIN) 300 MG capsule Take 2 capsules (600 mg total) by mouth 3 (three) times a day Active mirtazapine 45 MG tablet Take 1 tablet (45 mg total) by mouth at bedtime Active lidocaine 4 % patch Place 1 patch on the skin daily 30 patch 01/11/20 24 Active linaCLOtide (LINZESS) 145 MCG capsule Take 1 capsule (145 mcg total) by mouth every morning before breakfast 30 capsule 4 5:04 PM EDT 01/11/20 24 Active nicotine 14 MG/24HR transdermal system patch Place 1 patch on the skin daily 28 patch 01/11/20 24 Active valACYclovir (VALTREX) 500 MG tabletIndications :Recurrent Mucocutaneous Herpes Simplex Infection Take 2 tablets (1,000 mg total) by mouth 2 (two) times a day for 10 days Indications: 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 40 tablet 4 5:04 PM EDT 01/10/20 24 Active senna (SENOKOT) 8.6 MG tablet Take 1 tablet (8.6 mg total) by mouth 2 (two) times a day 60 tablet 4 5:04 PM EDT 01/10/20 24 Active polyethylene glycol 3350 17 g/Scoop powder for oral solution Mix 17 g as directed and take by mouth 2 (two) times a day 1020 g 4 5:04 PM EDT 01/10/20 24 Active doxycycline hyclate 100 MG capsule Take 1 capsule (100 mg total) by mouth 2 (two) times a day 20 capsule 02/14/20 24 Active permethrin 5 % cream Apply to affected area once 60 g 03/17/20 24 Active predniSONE (DELTASONE) 50 MG tablet Take 1 tablet (50 mg total) by mouth daily 4 tablet 11/06/19 21 022 Discontinued Active Problems Problem Noted Date Diagnosed Date Abscess of right elbow 01/08/2024 Splenomegaly 01/04/2024 Assessment & Plan (01/06/2024 12:52 PM EDT): Enlarged spleen noted on CT abdomen Assessment & Plan (01/05/2024 1:02 PM EDT): Enlarged spleen noted on CT abdomen Assessment & Plan (01/04/2024 4:04 PM EDT): Enlarged spleen noted on CT abdomen Retroperitoneal lymphadenopathy 01/04/2024 Assessment & Plan (01/06/2024 12:52 PM EDT): Retroperitoneal lymphadenopathy noted with largest lymph node around the yunier hepatitis measuring up to 6 cm According to Radiology, can not exclude underlying malignancy Oncology consulted - case personally discussed with Dr. Plasencia today - likely reactive LAD, however given large lymph node, recommended proceeding with abdominal MRI. Depending on the results, patient may need lymph node biopsy Flow cytometry pending Assessment & Plan (01/05/2024 1:02 PM EDT): Retroperitoneal lymphadenopathy noted with largest lymph node around the yunier hepatitis According to Radiology, can not exclude underlying malignancy Oncology consulted - likely reactive LAD, however recommended short term follow up image Assessment & Plan (01/04/2024 4:04 PM EDT): Retroperitoneal lymphadenopathy noted with largest lymph node around the yunier hepatitis According to Radiology, can not exclude underlying malignancy Oncology is being consulted for further recommendations Severe substance use disorder 01/03/2024 Assessment & Plan (01/06/2024 12:52 PM EDT): Severe substance use disorder, including IVDU SW consult in place - Seen by disaster recovery consultant who is assisting the patient on securing a bed at a detox program on discharge Patient tells me that she was sober until recently when she had a relapse - seems motivated to quit the use of illicit substances Continue home regimen of Remeron and clonidine Assessment & Plan (01/05/2024 1:02 PM EDT): Severe substance use disorder, including IVDU SW consult in place - Seen by disaster recovery consultant - working on securing a bed at a detox program. Patient tells me that she was sober until recently when she had a relapse - seems motivated to quit the use of illicit substances Continue home regimen of Remeron and clonidine Assessment & Plan (01/04/2024 4:04 PM EDT): Severe substance use disorder, including IVDU SW consult is still pending - Will involve disaster recovery consultant Patient tells me that she was sober until recently when she had a relapse - seems motivated to quit the use of illicit substances Continue home regimen of Remeron and clonidine Assessment & Plan (01/03/2024 3:31 PM EDT): Severe substance use disorder, smoking, snorting and IVDU SW consult is pending Resume home dose of Remeron and clonidine Cigarette nicotine dependence 01/03/2024 Assessment & Plan (01/06/2024 12:52 PM EDT): Nicotine patch daily Assessment & Plan (01/05/2024 1:02 PM EDT): Nicotine patch daily Assessment & Plan (01/04/2024 4:04 PM EDT): Nicotine patch daily Assessment & Plan (01/03/2024 3:31 PM EDT): Nicotine patch ordered Skin lesion due to intravenous drug abuse 2023 Assessment & Plan (01/06/2024 12:52 PM EDT): Multiple skin lesions, likely due to IV drug use, however can not exclude bedbugs as patient tells me that the apartment where she was living was not sanitary Skin care per protocol No evidence of skin infection Assessment & Plan (01/05/2024 1:02 PM EDT): Multiple skin lesions, likely due to IV drug use, however can not exclude bedbugs as patient tells me that the apartment where she was living was not sanitary Skin care per protocol No evidence of skin infection Assessment & Plan (01/04/2024 4:04 PM EDT): Multiple skin lesions, likely due to IV drug use, however can not exclude bedbugs as patient tells me that the apartment where she was living was not sanitary Skin care per protocol No evidence of skin infection Assessment & Plan (01/03/2024 3:31 PM EDT): Multiple skin lesions, likely due to IV drug use Patient reports smoking cocaine and injecting fentanyl - she is unaware if fentanyl was laced with Xylazine Skin care per protocol No evidence of skin infection Electrolyte imbalance 01/03/2024 Assessment & Plan (01/06/2024 12:52 PM EDT): Hypophosphatemia and hypokalemia corrected with repletion Assessment & Plan (01/05/2024 1:02 PM EDT): Hypophosphatemia and hypokalemia corrected with repletion Assessment & Plan (01/04/2024 4:04 PM EDT): Hypophosphatemia and hypokalemia corrected with repletion Assessment & Plan (01/03/2024 3:31 PM EDT): Severe hypophosphatemia, hypokalemia also noted Replete IV NPO, repeat labs in a.m. Methadone dependence 01/03/2024 Assessment & Plan (01/06/2024 12:52 PM EDT): Continue methadone 155 mg daily - dose has been confirmed with methadone clinic Assessment & Plan (01/05/2024 1:02 PM EDT): Continue methadone 155 mg daily - dose has been confirmed with methadone clinic Assessment & Plan (01/04/2024 4:04 PM EDT): Continue methadone 155 mg daily - dose has been confirmed with methadone clinic Assessment & Plan (01/03/2024 3:31 PM EDT): Continue methadone 155 mg daily - dose has been confirmed with methadone clinic Abnormal urine findings 01/03/2024 Assessment & Plan (01/06/2024 12:52 PM EDT): Urine studies on admission were consistent with contaminated sample No evidence of UTI Assessment & Plan (01/05/2024 1:02 PM EDT): Abnormal UA on admission likely secondary to contaminated sample Urine culture with mixed organisms corroborates suspicion for urine sample contamination No evidence of UTI Assessment & Plan (01/04/2024 4:04 PM EDT): Abnormal UA on admission likely secondary to contaminated sample Urine culture with mixed organisms corroborates suspicion for urine sample contamination No evidence of UTI Assessment & Plan (01/03/2024 3:31 PM EDT): UA on admission showed leukocyte esterase, WBCs, few bacteria and many squamous epithelial cells Urine culture showing more than 3 Gram-positive organisms High number of squamous epithelial cells is consistent with simple contamination Patient was initially started on Zosyn IV and finished 2 day course of antibiotic therapy Given lack of findings to support UTI, I will discontinue antibiotics Thrombocytopenia 01/03/2024 Assessment & Plan (01/06/2024 12:52 PM EDT): Patient has chronic thrombocytopenia, however platelet count noted to drop further following admission as low as 50,000 Thrombocytopenia most likely reactive in nature Platelet count up to 110,000 today Assessment & Plan (01/05/2024 1:02 PM EDT): Patient has chronic thrombocytopenia, however platelet count noted to drop further following admission Possibly related to viral infection Platelet count up to 100,000 today Assessment & Plan (01/04/2024 4:04 PM EDT): Patient has chronic thrombocytopenia, however platelet count noted to drop further following admission Possibly related to viral infection Platelet count up to 73,000 today Assessment & Plan (01/03/2024 3:31 PM EDT): Patient has chronic thrombocytopenia, however platelet count has been dropping since admission Possibly related to viral infection, less likely related to Zosyn IV Hold DVT prophylaxis, DC Zosyn Recheck platelet count in a.m. If further drop, will consider Hematology evaluation Lymphocytosis 01/03/2024 Assessment & Plan (01/06/2024 12:52 PM EDT): Elevated lymphocyte count noted on CBC - improving Possibly related to underlying viral infection however can not rule out hematologic malignancy Seen by Oncology - undergoing further investigation Assessment & Plan (01/05/2024 1:02 PM EDT): Elevated lymphocyte count noted on CBC Possibly related to underlying viral infection however can not rule out hematologic malignancy Seen by Oncology Assessment & Plan (01/04/2024 4:04 PM EDT): Elevated lymphocyte count noted on CBC Possibly related to underlying viral infection however can not rule out hematologic malignancy CMV/EBV serology Assessment & Plan (01/03/2024 3:31 PM EDT): Elevated lymphocyte count noted on CBC Possibly related to underlying viral infection - hepatitis C qualitative test is pending. Tested negative for COVID/RSV/influenza Will check CMV/EBV serology Elevated LFTs 01/01/2024 Assessment & Plan (01/06/2024 12:52 PM EDT): According to GI, likely DILI vs hep C reinfection AFP within normal limits INR 1.1 EBV/CMV serology consistent with prior infection, tick panel pending, Babesia smear negative, hepatitis-C antibody positive, hep C quantitative is pending. Hep B negative, hep a showing prior infection. Tylenol/salicylate levels were negative HIV negative GI recommended bowel regimen as they have a suspicion for overflow diarrhea and recommended initiating Movantik on discharge LFTs continue to improve Assessment & Plan (01/05/2024 1:02 PM EDT): Noted to have significant transaminitis on admission LFTs remain elevated, however continue to slowly trend down - hyperbilirubinemia resolved Right upper quadrant ultrasound showed CBD dilation Underwent MRCP which showed no evidence cholelithiasis or choledocholithiasis, no CBD dilation, mild hepatic enlargement CT abdomen and pelvis with contrast showed retroperitoneal lymphadenopathy for which malignancy could not be excluded, largest lymph node measuring 2.3 x 4 x 5.9 cm at the yunier hepatis, enlarged spleen also noted Patient reports being treated for hepatitis-C in the past - however transaminitis could possibly be resulting from reinfection with hepatitis-C hep C, viral load is currently pending AFP within normal limits INR 1.1 EBV/CMV serology consistent with prior infection Babesia smear was negative - tick panel pending Stool cx pending, fecal leukocytes negative, Shiga/E. Coli toxin negative Tylenol/salicylate levels were negative HIV negative GI suspects HCV reinfection vs DILI GI recommended bowel regimen as they have a suspicion for overflow diarrhea Assessment & Plan (01/04/2024 4:04 PM EDT): Noted to have significant transaminitis on admission LFTs remain elevated, however continue to slowly trend down - hyperbilirubinemia has now resolved Right upper quadrant ultrasound showed CBD dilation Underwent MRCP which showed no evidence cholelithiasis or choledocholithiasis, no CBD dilation, mild hepatic enlargement CT abdomen and pelvis with contrast showed retroperitoneal lymphadenopathy for which malignancy could not be excluded, largest lymph node measuring 2.3 x 4 x 5.9 cm at the yunier hepatis, enlarged spleen also noted Patient reports being treated for hepatitis-C in the past - however transaminitis could possibly be resulting from reinfection with hepatitis-C hep C, viral load is currently pending AFP within normal limits INR 1.1 EBV/CMV serology is pending Babesia smear was negative - tick panel pending Stool studies ordered and pending Tylenol/salicylate levels were negative HIV negative GI suspects HCV reinfection vs DILI GI recommended bowel regimen as they have a suspicion for overflow diarrhea Assessment & Plan (01/03/2024 3:31 PM EDT): Noted to have significant transaminitis on admission LFTs remain elevated, however slightly lower than yesterday - hyperbilirubinemia has now resolved Right upper quadrant ultrasound showed CBD dilation Underwent MRCP today which showed no evidence cholelithiasis or choledocholithiasis, no CBD dilation, mild hepatic enlargement Patient reports being treated for hepatitis-C in the past - possibly reinfected with hep C, viral load is currently pending AFP within normal limits I do not see coagulation tests ordered during this admission - INR stat ordered Patient noted to have worsening thrombocytopenia today, therefore I discontinued Lovenox and will provide DVT prophylaxis with compression device Patient reported diarrhea, stool studies ordered however not yet collected Tylenol/salicylate levels were negative Will check EBV/CMV serology Retest for HIV, however tested negative on 11/2023 Waiting on further GI recommendations Given persistent abdominal discomfort, will order CT abdomen/pelvis Neck pain 11/05/2023 Polysubstance use disorder 11/05/2023 Spondylodiscitis 11/05/2023 Uncomplicated alcohol dependence 11/05/2023 Cellulitis of finger of left hand 11/05/2023 Abnormal MRI 11/05/2023 Chronic sacroiliac joint pain 05/14/2023 S/P lumbar laminectomy 05/14/2023 Chronic bilateral low back pain without sciatica 02/07/2023 Assessment & Plan (01/06/2024 12:52 PM EDT): Patient reported severe LS back pain on admission Patient has a prior history of diskitis/osteomyelitis Underwent L-spine MRI with and without contrast - MRI showed abnormal signal enhancement within disc space of L5-S1, unchanged from prior images and likely chronic sequela of prior diskitis and osteomyelitis. No epidural extension and no evidence of epidural abscess/fluid collection. No new areas of diskitis/osteomyelitis identified. Minimal DJD with stable bilateral neuroforaminal narrowing at L5-S1 Continue supportive care Continue oxycodone 10 mg q.6 hours for severe pain S patient has a low pain tolerance in the setting of substance use disorder Continue gabapentin Daily lidocaine patch Assessment & Plan (01/05/2024 1:02 PM EDT): Patient reports severe LS back pain Patient has a prior history of diskitis/osteomyelitis Underwent L-spine MRI with and without contrast - MRI showed abnormal signal enhancement within disc space of L5-S1, unchanged from prior images and likely chronic sequela of prior diskitis and osteomyelitis. No epidural extension and no evidence of epidural abscess/fluid collection. No new areas of diskitis/osteomyelitis identified. Minimal DJD with stable bilateral neuroforaminal narrowing at L5-S1 Continue supportive care Continue oxycodone 10 mg q.4 hours for severe pain and oxycodone 5 mg q.4 hours for moderate pain Continue gabapentin Daily lidocaine patch Assessment & Plan (01/04/2024 4:04 PM EDT): Patient reports severe LS back pain Patient has a prior history of diskitis/osteomyelitis Underwent L-spine MRI with and without contrast - MRI showed abnormal signal enhancement within disc space of L5-S1, unchanged from prior images and likely chronic sequela of prior diskitis and osteomyelitis. No epidural extension and no evidence of epidural abscess/fluid collection. No new areas of diskitis/osteomyelitis identified. Minimal DJD with stable bilateral neuroforaminal narrowing at L5-S1 Continue supportive care Continue oxycodone 10 mg q.4 hours for severe pain and oxycodone 5 mg q.4 hours for moderate pain Continue gabapentin Daily lidocaine patch Assessment & Plan (01/03/2024 3:31 PM EDT): Patient reports severe LS back pain Patient has a prior history of diskitis/osteomyelitis Underwent L-spine MRI with and without contrast today. MRI showed abnormal signal enhancement within disc space of L5-S1, unchanged from prior images and likely chronic sequela of prior diskitis and osteomyelitis. No epidural extension and no evidence of epidural abscess/fluid collection. No new areas of diskitis/osteomyelitis identified. Minimal DJD with stable bilateral neuroforaminal narrowing at L5-S1 Continue supportive care Patient has a lower tolerance/threshold for pain considering IVDU and methadone use Increase oxycodone 10 mg q.4 hours for severe pain and oxycodone 5 mg q.4 hours for moderate pain Continue gabapentin Add lidocaine patch Osteomyelitis of lumbar spine 02/07/2023 Discitis of lumbar region 11/30/2022 Abscess in epidural space of cervical spine 11/04 Sepsis 11/30/2022 Transaminitis 11/30/2022 Obesity, Class I, BMI 30-34.9 11/25/2022 Cellulitis of foot 11/24/2022 Acute midline low back pain without sciatica Opiate overdose 04/11/2019 Cellulitis of chin 03/18/2019 Overview (03/18/2019): MRSA MSSA bacteremia 03/18/2019 Cellulitis due to MRSA 03/14/2019 PNA (pneumonia) 03/14/2019 Acute systolic heart failure 03/14/2019 Separation of left acromioclavicular joint 08/01 Overview (08/01/2018): Grade 5, with bone resorption Partial tear of left rotator cuff 08/01/2018 Bicipital tendinitis of left shoulder 08/01/2018 Overdose 08/04/2017 Altered mental status 08/04/2017 Encounters Date Type Department Care Team Description 04/17/2024 Orders Only [facility] - [address] [place] [address] Alex Gray Jr., MD Bipolar disorder, current episode depressed, severe, without psychotic features (HCC); Delusional disorders (HCC); Personal history of other endocrine, nutritional and metabolic disease; Chronic obstructive pulmonary disease with (acute) exacerbation (HCC) 03/17/2024 12:39 AM EST - 03/17/2024 3:[address] [address] Virgen Rivera DO Bug bites (Primary Dx) Discharge Disposition: Home or Self Care 03/17/[address] [facility] [address] [place] [address] 02/23/2024 5:05 PM EST - 02/23/2024 6:[address] [address] Angelito Rodriguez PA Substance abuse (HCC) (Primary Dx) Discharge Disposition: Home or Self Care 02/14/2024 1:09 AM EST - 02/14/2024 2:[address] [address] Cara Liz NP Skin infection (Primary Dx) Discharge Disposition: Home or Self Care 02/14/2024 Travel 01/31/[address] [facility] [address] [place] [phone] 01/28/[address] [facility] [address] [place] [address] from Last 3 Months Immunizations Name Administration Dates Next Due Influenza (Flucelvax), Egg F ree, Quadrivalent, Preservative Free 05/04/2023 Influenza, Quadrivalent, Preservative Free 03/17 Family History Medical History Relation Name Comments Cancer Father No Known Problems Mother Relation Name Status Comments Father Alive Mother Alive Social History Tobacco Use Types Packs/Day Years Used Date Smoking Tobacco: Every Day Cigarettes Smokeless Tobacco: Never Tobacco Cessation:Ready to Q uit: Not Asked; Counseling Given: Not Answered Comments:vape Alcohol Use Standard Drinks/Week Comments Not Currently 4 (1 standard drink = 0.6 oz pur e alcohol) Housing Stability - [facility] Screener Answer Date Recorded What is your living situation today? Unsteady ho using 01/02/2024 Do you need help with Housing/Alf resources? Not on file 01/02/2024 Patient indicated [...] Orientation Straight 11/04/2023 7: 55 PM EDT Last Filed Vital Signs Vital Sign Reading Time Taken Comments Blood Pressure 112/68 03/17/2024 12:42 AM EST Pulse 56 03/17/2024 12:42 AM EST Temperature 36.7 ??C (98 ??F) 03/17/2024 12:42 AM EST Respiratory Rate 16 03/17/2024 12:42 AM EST Oxygen Saturation 95% 03/17/2024 12:42 AM EST Inhaled Oxygen Concentration - - Weight 85 kg (187 lb 6.3 oz) 03/17/2024 12:42 AM EST Height 170.2 cm (5' 7 ) 02/14/2024 12:30 AM EST Body Mass Index 29.35 02/14/2024 12:30 AM EST Plan of Treatment Health Maintenance Due Date Last Done Comments Annual Physical 1979 Pneumococcal Vaccines 0-64 yrs (includes High Risk) (1 of 2 - PCV) 1982 Hepatitis B Screening 1994 Hepatitis A Vaccine (1 of 2 - Risk 2-dose series) 1995 Breast Cancer [address]ening [address] Colonography 2021 Cholesterol Screening 2021 Colonoscopy 2021 Colorectal Cancer Screening 2021 FIT-DNA 2021 FOBT 2021 Sigmoidoscopy 2021 COVID-19 Vaccine ( season) 2023 05/15/2021 Influenza Vaccine (#1) 2023 , 03/17/2019, 11/13/2016, Additional history exists DTaP,Tdap,and Td Vaccines (4 - Td or Tdap) 09/07/2032 09/07/2022, 02/11/2021, 12/13/2016 HIB Vaccines Aged Out No longer eligi ble based on patient's age to complete this topic Medical Devices Implanted Type Area Regulator Operator Device Identifier Shelf Expiration Date Model / Serial / Lot Screw Screw Left: Ankle Insurance [facility] [employer] Advance Directives For more information, please contact: [phone] Documents on File Type Date Recorded Patient [employer] Consultant Expl anation Health Care Proxy 03/21/2019 3:50 PM heal th care proxy * Full Code (Latest Code Status on File) Date Activated Date Inactivated Comments 01/01/2024 6:23 PM 01/10/2024 8:11 PM * Full Code Date Activated Date Inactivated Comments 11/05/2023 11:30 AM 11/08/2023 5:58 PM * Full Code Date Activated Date Inactivated Comments 02/07/2023 7:25 PM 02/25/2023 2:47 PM * Full Code Date Activated Date Inactivated Comments 11/25/2022 12:16 AM 12/02/2022 11:24 PM * Full Code Date Activated Date Inactivated Comments 04/11/2019 6:40 PM 04/11/2019 11:22 PM Care Teams Machine Assistant Relationship Specialty Start Date End Date Alex Gray Jr., MD [address] [place] [id number] PCP - General Internal Medicine 08/15/18
--- OUTSIDE RECORDS SUMMARY | 2024-04-29 12:12 | XMS_ITS | Encounter Summary ---
Author Organization [facility] Address [address] [place] [address] Care Team Providers Care Customer Care Agent Name Role Phone Isaac Alaniz MD, Alex Tariq Primary Care Provider +1- [phone] Reason for Referral * Diagnostic Imaging (Routine) - Closed Specialty Diagnoses / Procedures Referred By Suhas paris Referred To Contact Radiology Diagnoses Viral bronchitis Procedures X-ray chest 2 views Alex Gray Jr., MD [address] [place] [address] Phone: tel: fax: Referral ID Status Reason Start Date Expiration Date Visits Re quested Visits Authorized [id number] Closed 09/14/2018 09/15/2019 1 1 Encounter Details Date Type Department Care Team (Late st Contact Info) Description 09/14/2018 Ancillary Orders [facility] [address] [place] [phone] Alex Gray Jr., MD [address] [place] [address] Viral bronchitis Social History Tobacco Use Types Packs/Day Years [...] on file documented as of this encounter Results * X-ray chest 2 views (09/14/2018 4:20 PM EDT) Anatomical Region Laterality Modality Chest, Ortho Chest Digital Radio graphy 09/14/2018 4:45 PM EDT Narrative 09/18/2018 6:16 PM EDT HISTORY: Cough. Follow-up pneumonia. FINDINGS: Frontal and lateral views of the chest demonstrate resolution of the previously visualized opacities in the lungs. At this point, no consolidation, pleural effusion or pneumothorax is seen. Heart is not enlarged. Pulmonary vasculature is unremarkable. Procedure Note Angelito Salazar MD - 09/18/2018 HISTORY: Cough. Follow-up pneumonia. FINDINGS: Frontal and lateral views of the chest demonstrate resolution of thepreviously visualized opacities in the lungs. At this point, noconsolidation, pleural effusion or pneumothorax is seen. Heart is notenlarged. Pulmonary vasculature is unremarkable. Alex Gray Jr., MD IMG DIAGNOSTIC IMAGING ORD ERABLES Final Result documented in this encounter Visit Diagnoses Diagnosis Viral bronchitis Acute bronchitis Viral bronchitis Acute bronchitis documented in this encounter Additional Health Concerns Infection Onset Date Last Indicated Resolved Time MRSA Comment:Cleared 05/19/21 nf MRSA blood/chin 03/14/19 sa 03/14/2019 03/17/2019 2021 2 :15 PM EST PUI COVID 01/01/2024 01/01/2024 01/01/2024 1:19 PM EDT documented as of this encounter Care Teams Customer Care Agent Relationship Specialty Start Date End Date Alex Gray Jr., MD [address] [place] [phone] PCP - General Internal Medicine 08/15/18 documented as of this encounter
--- OUTSIDE RECORDS SUMMARY | 2024-04-29 12:12 | XMS_ITS | Encounter Summary ---
Author Organization [facility] Address [address] [place] [address] Care Team Providers Care Accounts Collector Name Role Phone Isaac Alaniz MD, Alex Tariq Primary Care Provider +1- [phone] Reason for Referral * Diagnostic Imaging (Routine) - Closed Specialty Diagnoses / Procedures Referred By Contac t Referred To Contact Radiology Diagnoses Abnormal MRI, lumbar spine History of lumbar laminectomy Procedures MRI lumbar spine without contrast MRI lumbar spine with and without contrast Nicci Delgado NP [address] [place] [address] Phone: tel: fax: Referral ID Status Reason Start Date Expiration Date Visits Re quested Visits Authorized [id number] Closed 03/30/2023 09/26/2023 1 1 Encounter Details Date Type Department Care Team (Late st Contact Info) Description 04/08/2023 Ancillary Orders [facility] [address] [phone] Nicci Delgado NP [address] [place] [id number] Abnormal MRI, lumbar spine (Primary Dx); History of lumbar laminectomy; Back pain; Bilateral leg paresthesia Social History Tobacco Use Types Packs/Day Years [...] documented as of this encounter Results * MRI lumbar spine without contrast (04/08/2023 5:44 PM EST) Anatomical Region Laterality Modality T-spine, Ortho L-spine Magnetic Resonance 04/09/2023 1:43 PM EST Impressions 04/09/2023 2:54 PM EST IMPRESSION: 1. Redemonstration of findings in keeping with discitis/osteomyelitis at L5-S1. The amount of fluid in the L5-S1 disc space has decreased compared to the prior exam. There is persistent ventral epidural thickening at L5-S1 which may represent phlegmon, granulation tissue, or a combination of these. While no gross evidence of focal epidural collection is detected, evaluation in this regard is quite limited without intravenous contrast, which could not be administered due to poor intravenous access. See above for a complete discussion. 2. Additional unchanged degenerative and postoperative findings. Report faxed to the office of Nicci Delgado 04/09/2023 at 2:13 PM Adri Mckinley confirmed receipt 04/09/2023 at 2:49 PM RS: [id number] Narrative 04/09/2023 2:54 PM EST HISTORY: repeat MRI exam per ID/internal medicine request/Abnormal MRI, lumbar spine/History of lumbar laminectomy. Patient reports chronic lumbar back pain radiating to the bilateral hips. Prior lumbar spine surgery. Relevant history obtained by the radiologist is that the patient has a known prior history of epidural abscess and discitis osteomyelitis. Status post L5-S1 laminectomy and epidural abscess evacuation. Lumbar spine MRI 02/07/2023 showed findings of discitis osteomyelitis with epidural phlegmon and/or granulation tissue. Most recent available clinical note from 03/10/2023 from neurosurgery reports that there are no focal neurological deficits and that the patient shows 5 out of 5 muscle strength. Ongoing low back pain and lower extremity paresthesias. TECHNIQUE: Noncontrast MR images of the lumbar spine were performed on a 3.0 Roseann magnet according to the standard protocol. Intravenous contrast was planned but could not be performed due to poor intravenous access despite multiple attempts according to the technologist note. COMPARISON: Lumbar spine MRI 02/07/2023. FINDINGS: Redemonstration of abnormal T1 hypointensity and T2/STIR hyperintensity involving the L5 and S1 vertebral bodies, with L5 inferior endplate and S1 superior endplate irregularity and disc space fluid. The osseous changes appears similar to the prior exam. The amount of fluid in the disc space has decreased. There remains apparent ventral dural thickening along the posterior aspects of the L5 and S1 vertebrae similar to the prior examination. No gross evidence of focal epidural fluid collection is detected, though evaluation is limited in this regard without intravenous contrast. Redemonstration of postsurgical changes related to L5/S1 decompressive laminectomy. Height and signal of the remaining lumbar vertebral bodies is grossly normal. The conus has a normal configuration and terminates at an appropriate level. No spondylolisthesis. Intervertebral disc space findings are as follows: L1/2: Disc space height loss and disc desiccation with a mild disc bulge that results in minimal central canal stenosis, unchanged. No significant neural foraminal narrowing. L2/3: No significant central canal stenosis or neural foraminal narrowing. L3/4: No significant central canal stenosis or neural foraminal narrowing. L4/5: Mild disc bulge results in flattening of the ventral thecal sac with mild central canal stenosis similar to prior. Degenerative changes result in mild inferior neural foraminal narrowing bilaterally. L5/S1: Redemonstration of abnormalities discussed above including abnormal signal, endplate irregularity, and disc space fluid. See above. In addition, degenerative changes result in severe bilateral neural foraminal narrowing. Paraspinal soft tissues: No acute abnormality. Procedure Note Prashanth Wyatt MD - 04/09/2023 HISTORY: repeat MRI exam per ID/internal medicine request/Abnormal MRI,lumbar spine/History of lumbar laminectomy. Patient reports chronic lumbarback pain radiating to the bilateral hips. Prior lumbar spine surgery.Relevant history obtained by the radiologist is that the patient has a known prior history of epiduralabscess and discitis osteomyelitis. Status post L5-S1 laminectomy andepidural abscess evacuation. Lumbar spine MRI 02/07/2023 showed findings ofdiscitis osteomyelitis with epidural phlegmon and/or granulation tissue. Most recent available clinical notefrom 03/10/2023 from neurosurgery reports that there are no focalneurological deficits and that the patient shows 5 out of 5 musclestrength. Ongoing low back pain and lower extremity paresthesias. TECHNIQUE: Noncontrast MR images of the lumbar spine were performed on a3.0 Roseann magnet according to the standard protocol. Intravenous contrastwas planned but could not be performed due to poor intravenous accessdespite multiple attempts according to the technologist note. COMPARISON: Lumbar spine MRI 02/07/2023. FINDINGS: Redemonstration of abnormal T1 hypointensity and T2/STIR hyperintensityinvolving the L5 and S1 vertebral bodies, with L5 inferior endplate and B4gadignfu endplate irregularity and disc space fluid. The osseous changesappears similar to the prior exam. The amount of fluid in the disc space has decreased. There remainsapparent ventral dural thickening along the posterior aspects of the L5and S1 vertebrae similar to the prior examination. No gross evidence offocal epidural fluid collection is detected, though evaluation is limited in this regard without intravenouscontrast. Redemonstration of postsurgical changes related to L5/S1 decompressivelaminectomy. Height and signal of the remaining lumbar vertebral bodies isgrossly normal. The conus has a normal configuration and terminates at anappropriate level. No spondylolisthesis. Intervertebral disc space findings are as follows: L1/2: Disc space height loss and disc desiccation with a mild disc bulgethat results in minimal central canal stenosis, unchanged. No significantneural foraminal narrowing. L2/3: No significant central canal stenosis or neural foraminalnarrowing. L3/4: No significant central canal stenosis or neural foraminalnarrowing. L4/5: Mild disc bulge results in flattening of the ventral thecal sac withmild central canal stenosis similar to prior. Degenerative changes resultin mild inferior neural foraminal narrowing bilaterally. L5/S1: Redemonstration of abnormalities discussed above including abnormalsignal, endplate irregularity, and disc space fluid. See above. Inaddition, degenerative changes result in severe bilateral neural foraminalnarrowing. Paraspinal soft tissues: No acute abnormality. IMPRESSION: 1. Redemonstration of findings in keeping with discitis/osteomyelitis atL5-S1. The amount of fluid in the L5-S1 disc space has decreased comparedto the prior exam. There is persistent ventral epidural thickening atL5-S1 which may represent phlegmon, granulation tissue, or a combination of these. While no gross evidence offocal epidural collection is detected, evaluation in this regard is quitelimited without intravenous contrast, which could not be administered dueto poor intravenous access. See above for a complete discussion. 2. Additional unchanged degenerative and postoperative findings. Report faxed to the office of Nicci Delgado 04/09/2023 at 2:13 PM Adri Mckinley confirmed receipt 04/09/2023 at 2:49 PM RS: [id number] Nicci Delgado SAND MILL OPERATOR IMG MRI ORDERABLES Final Result documented in this encounter Visit Diagnoses Diagnosis Abnormal MRI, lumbar spine History of lumbar laminectomy Abnormal MRI, lumbar spine- Primary History of lumbar laminectomy Back pain Unspecified backache Bilateral leg paresthesia Disturbance of skin sensation documented in this encounter Additional Health Concerns Infection Onset Date Last Indicated Resolved Time PUI COVID 01/01/2024 01/01/2024 01/01/2024 1:19 PM EDT documented as of this encounter Care Teams Accounts Collector Relationship Specialty Start Date End Date Alex Gray Jr., MD [address] [place] [phone] PCP - General Internal Medicine 08/15/18 documented as of this encounter
--- OUTSIDE RECORDS SUMMARY | 2024-04-29 12:12 | XMS_ITS | Encounter Summary ---
Author Organization [facility] Address [address] [place] [address] Care Team Providers Care Property Developer Name Role Phone Isaac Alaniz MD, Alex Tariq Primary Care Provider +1- [phone] Encounter Details Date Type Department Care Team (Late st Contact Info) Description 11/26/2022 Procedure Pass [address] [phone] Social History Tobacco Use Types [...] documented as of this encounter Care Teams Property Developer Relationship Specialty Start Date End Date Alex Gray Jr., MD [address] [place] [phone] PCP - General Internal Medicine 08/15/18 documented as of this encounter
--- OUTSIDE RECORDS SUMMARY | 2024-04-29 12:12 | XMS_ITS | Encounter Summary ---
Author Organization [facility] Address [address] [place] [address] Care Team Providers Care Fruit Vendor Name Role Phone Isaac Alaniz MD, Alex Tariq Primary Care Provider +1- [phone] Encounter Details Date Type Department Care Team (Late st Contact Info) Description 01/06/2024 Procedure Pass [facility] [address] [place] [address] Social History Tobacco Use Types Packs/Day Years Used Date Smoking Tobacco: Every Day Cigarettes Smokeless Tobacco: Never Comments:vape Alcohol Use Standard Drinks/Week Comments Not Currently 4 (1 standard drink = 0.6 oz pur e alcohol) Housing Stability - SDOH Screener Answer Date Recorded What is your living situation today? Unsteady ho using 01/02/2024 Do you need help with Housing/[facility] resources? Not on file 01/02/2024 Patient indicated [...] on filedocumented in this encounter Care Teams Fruit Vendor Relationship Specialty Start Date End Date Alex Gray Jr., MD [address] [place] [phone] PCP - General Internal Medicine 08/15/18 documented as of this encounter
--- OUTSIDE RECORDS SUMMARY | 2024-04-29 12:12 | XMS_ITS | Encounter Summary ---
Author Organization [facility] Address [address] [place] [address] Care Team Providers Care Plastic Design Applier Name Role Phone Isaac Alaniz MD, Alex Tariq Primary Care Provider +1- [phone] Encounter Details Date Type Department Care Team (Late st Contact Info) Description 03/22/2019 Lab Requisition [address] [phone] Unknown Illness, unspecified Social History Tobacco Use Types Packs/Day Years Used Date Smoking Tobacco: Never Assessed Comments No Sex and Gender Information Value [...] Priority Date/Time Associated Diagnosis Comments MRSA CULTURE Timed 03/21/2019 8:00 PM EST Illness, unspecified [ICD-10-CM] documented in this encounter Results * MRSA Culture (03/21/2019 8:00 PM EST) Culture No S. aureus (MRSA or MSSA) isolated SUSCEPTIBIL ITY TESTING 03/23/2019 10:16 AM EST [facility] Swab (specimen) Both anterior nares / Unknown Collection / Unknown 03/21/2019 8:00 PM EST 03/22/2019 6:35 AM EST us Unknown MICROBIOLOGY - GENERAL ORDERABLE S Final Result [facility] [address] [place], [place] documented in this encounter Visit Diagnoses Diagnosis Illness, unspecified documented in this encounter Additional Health Concerns Infection Onset Date Last Indicated Resolved Time MRSA Comment:Cleared 05/19/21 nf MRSA blood/chin 03/14/19 sa 03/14/2019 03/17/2019 2021 2 :15 PM EST PUI COVID 01/01/2024 01/01/2024 01/01/2024 1:19 PM EDT documented as of this encounter Care Teams Plastic Design Applier Relationship Specialty Start Date End Date Alex Gray Jr., MD [address] [place] [phone] PCP - General Internal Medicine 08/15/18 documented as of this encounter
--- OUTSIDE RECORDS SUMMARY | 2024-04-29 12:12 | XMS_ITS | Encounter Summary ---
Author Organization [facility] Address [address] [place] [address] Care Team Providers Care Leather Etcher Name Role Phone Jen Saunders NP Primary Care Provider Isaac Alaniz MD, Alex Tariq Primary Care Provider +1- [phone] Encounter Details Date Type Department Care Team (Late st Contact Info) Description 09/24/2017 Lab Requisition [facility] [address] [place] [address] Jen Saunders NP [address] [place], [place] [phone] Acute vaginitis Social History Tobacco Use Types Packs/Day Years [...] Procedure Name Priority Date/Time Associated Diagnosis Comments VAGINITIS PANEL(WET PREP) Routine 09/24/2017 8:20 AM EDT Acute vaginitis documented in this encounter Results * (ABNORMAL) Vaginitis Panel (09/24/2017 8:20 AM EDT) Clue Cells Clue cells seen (suggestive of Bacterial Vaginosis).(A ) Negative 09/24/2017 7:30 PM EDT [facility] Yeast, Wet Prep Negative Negative 8 7:30 PM EDT [facility] Trichomonas Antigen Negative Negative 09/24/2017 7:30 PM EDT [facility] Specimen from genital system (specimen) Vaginal structure / Unknown 09/24/2017 8:20 AM EDT 09/24/2017 5:48 PM EDT us Jen Saunders DIRECTOR OF HEALTHCARE SYSTEMS MICROBIOLOGY - GENERAL ORDERA BLES Final Result [facility] [address] [place] [address] documented in this encounter Visit Diagnoses Diagnosis Acute vaginitis Unspecified vaginitis and vulvovaginitis documented in this encounter Additional Health Concerns Infection Onset Date Last Indicated Resolved Time MRSA Comment:Cleared 05/19/21 nf MRSA blood/chin 03/14/19 sa 03/14/2019 03/17/2019 2021 2 :15 PM EST PUI COVID 01/01/2024 01/01/2024 01/01/2024 1:19 PM EDT documented as of this encounter Care Teams Leather Etcher Relationship Specialty Start Date End Date Jen Saunders NP PCP - General Pain Medicine 09/24/17 08/14/18 Alex Gray Jr., MD [address] [place] [phone] PCP - General Internal Medicine 08/15/18 documented as of this encounter
--- OUTSIDE RECORDS SUMMARY | 2024-04-29 12:12 | XMS_ITS | Encounter Summary ---
Author Organization [facility] Address [address] [place] [address] Care Team Providers Care Instrumentation Engineering Technician Name Role Phone Isaac Alaniz MD, Alex Tariq Primary Care Provider +1- [phone] Encounter Details Date Type Department Care Team (Late st Contact Info) Description 03/17/2019 Procedure Pass [facility] - [address] [address] Social History Tobacco Use Types [...] - Inhaled Oxygen Concentration - - Weight 77.1 kg (170 lb) 03/17/2019 12:28 PM EST Height 172.7 cm (5' 8 ) 03/17/2019 12:28 PM EST Body Mass Index 25.85 03/17/2019 12:28 PM EST documented in this encounter Plan [...] documented as of this encounter Care Teams Instrumentation Engineering Technician Relationship Specialty Start Date End Date Alex Gray Jr., MD [address] [place] [phone] PCP - General Internal Medicine 08/15/18 documented as of this encounter
--- OUTSIDE RECORDS SUMMARY | 2024-04-29 12:12 | XMS_ITS | Encounter Summary ---
Author Organization [facility] Address [address] [place] [address] Care Team Providers Care Marshmallow Maker Name Role Phone Isaac Alaniz MD, Alex Tariq Primary Care Provider +1- [phone] Reason for Visit * Reason Onset Date Comments Prior Authorization 06/03/2023 Encounter Details Date Type Department Care Team (Late st Contact Info) Description 06/03/2023 Telephone [facility] [address] [place] [phone] Violetta Dumont, BEHAVIORAL HEALTH ASSOCIATE [address] [place] [address] Prior Authorization Social History Tobacco Use Types Packs/Day Years [...] PM EDT documented as of this encounter Miscellaneous Notes * Telephone Encounter - Aurora Escalera - 06/03/2023 3:27 PM EST Please see below * Telephone Encounter - Violetta Dumont NP - 06/03/2023 2:47 PM EST MRI does NOT need to be done. She had MRI of cervical, thoracic and lumbar per ED after my visit. Thank you * Telephone Encounter - Aurora Escalera - 06/03/2023 11:53 AM EST Please see below documented in this encounter Plan of Treatment Not on file documented as of this encounter Visit Diagnoses Not on filedocumented in this encounter Additional Health Concerns Infection Onset Date Last Indicated Resolved Time PUI COVID 01/01/2024 01/01/2024 01/01/2024 1:19 PM EDT documented as of this encounter Care Teams Marshmallow Maker Relationship Specialty Start Date End Date Alex Gray Jr., MD [address] [place] [phone] PCP - General Internal Medicine 08/15/18 documented as of this encounter
--- OUTSIDE RECORDS SUMMARY | 2024-04-29 12:12 | XMS_ITS | Encounter Summary ---
Author Organization [facility] Address [address] [place] [address] Care Team Providers Care Water/Wastewater Project Manager Name Role Phone Isaac Alaniz MD, Alex Tariq Primary Care Provider +1- [phone] Encounter Details Date Type Department Care Team (Late st Contact Info) Description 12/07/2022 Lab Requisition [address] [id number] Unknown Illness, unspecified Social History Tobacco Use [...] Procedure Name Priority Date/Time Associated Diagnosis Comments C-REACTIVE PROTEIN INFLAMMATION Routine 12/07/2022 5:56 AM EDT Illness, unspecified CBC AND AUTO DIFFERENTIAL Routine 12/07/2022 5:56 AM EDT Illness, unspecified PHOSPHORUS Routine 12/07/2022 5:56 AM EDT Illness, unspecified MAGNESIUM Routine 12/07/2022 5:56 AM EDT Illness, unspecified COMPREHENSIVE METABOLIC PANEL Routine 12/07/2022 5:56 AM EDT Illness, unspecified documented in this encounter Results * Phosphorus (12/07/2022 5:56 AM EDT) Phosphorus 4.3 2.4 - 5.1 mg/dL 12/07/2022 10:18 AM EDT [facility] Blood Venipuncture / Unknown 12/07/2022 5:56 AM EDT 12/07/2022 9:28 AM EDT us Unknown LAB BLOOD ORDERABLES Final Resul t Performing Organization Address [facility] Co de Phone Number [facility] [address] [place] [phone] * (ABNORMAL) CRP, Inflammation (12/07/2022 5:56 AM EDT) CRP, Inflammation 55.35(H) 0.00 - 3.00 mg/L 12/07/2022 10:28 AM EDT [facility] Blood Venipuncture / Unknown 12/07/2022 5:56 AM EDT 12/07/2022 9:28 AM EDT Narrative [facility] - 12/07/2022 10:28 AM EDT >10.0 ?Consider infection/inflammation us Unknown LAB BLOOD ORDERABLES Final Resul t [facility] [address] [place] [address] * Magnesium (12/07/2022 5:56 AM EDT) Magnesium 1.8 1.6 - 2.6 mg/dL 12/07/2022 10:18 AM EDT [facility] Blood Venipuncture / Unknown 12/07/2022 5:56 AM EDT 12/07/2022 9:28 AM EDT us Unknown LAB BLOOD ORDERABLES Final Resul t [facility] [address] [place] [address] * (ABNORMAL) Comprehensive metabolic panel (12/07/2022 5:56 AM EDT) Sodium 134(L) 136 - 145 mEq/L 12/07/2022 10:28 AM EDT [facility] Potassium 3.6 3.5 - 5.1 mEq/L 12/07/2022 10:28 AM EDT [facility] Chloride 98 98 - 107 mEq/L 12/07/2022 10:28 AM EDT [facility] CO2 26 20 - 31 mEq/L 12/07/2022 10:28 AM EDT [facility] Anion Gap 10 4 - 15 mEq/L 12/07/2022 10:28 AM EDT [facility] Glucose 122(H) 70 - 100 mg/dL 12/07/2022 10:28 AM EDT [facility] Creatinine 0.67 0.50 - 1.00 mg/dL 12/07/2022 10:28 AM EDT [facility] eGFR (Female) >60 60 - 115 mL/min 12/07/2022 10:28 AM EDT [facility] BUN 10 9 - 23 mg/dL 12/07/2022 10:28 AM EDT [facility] Calcium 9.2 8.7 - 10.4 mg/dL 12/07/2022 10:28 AM EDT [facility] Total Protein 8.3(H) 5.7 - 8.2 g/dL 12/07/2022 10:28 AM EDT [facility] Albumin 3.6 3.2 - 4.8 g/dL 12/07/2022 10:28 AM EDT [facility] A/G Ratio 0.8(L) 1.0 - 2.3 12/07/2022 10:28 AM EDT [facility] Total Bilirubin 0.2 0.2 - 1.0 mg/dL 12/07/2022 10:28 AM EDT [facility] AST 78(H) 13 - 40 U/L 12/07/2022 10:28 AM EDT [facility] Alkaline Phosphatase 115 46 - 116 IU/L 12/07/2022 10:28 AM EDT [facility] ALT 87(H) 7 - 40 U/L 12/07/2022 10:28 AM EDT [facility] Blood Venipuncture / Unknown 12/07/2022 5:56 AM EDT 12/07/2022 9:28 AM EDT us Unknown LAB BLOOD ORDERABLES Final Resul t [facility] [address] [place] [address] * (ABNORMAL) CBC and Auto Differential (12/07/2022 5:56 AM EDT) WBC 7.9 4.8 - 11.2 10*3/??L 12/07/2022 9:55 AM EDT [facility] RBC 3.72 3.60 - 5.40 10*6/??L 12/07/2022 9:55 AM EDT [facility] HGB 11.4(L) 12.0 - 15.8 g/dL 12/07/2022 9:55 AM EDT [facility] HCT 33.3(L) 36.0 - 48.0 % 12/07/2022 9:55 AM EDT [facility] MCV 89.5 82.0 - 98.0 fL 12/07/2022 9:55 AM EDT [facility] MCH 30.5 27.0 - 35.0 pg 12/07/2022 9:55 AM EDT [facility] MCHC 34.1 32.0 - 37.0 g/dL 12/07/2022 9:55 AM EDT [facility] RDW 12.9 12.0 - 15.0 % 12/07/2022 9:55 AM EDT [facility] PLT 235 150 - 400 10*3/??L 12/07/2022 9:55 AM EDT [facility] MPV 8.2 7.0 - 14.0 fL 12/07/2022 9:55 AM EDT [facility] Neut % 55.1 45.0 - 85.0 % 12/07/2022 9:55 AM EDT [facility] Lymph % 32.3 15.0 - 45.0 % 12/07/2022 9:55 AM EDT [facility] [place] % 10.1 0.0 - 12.0 % 12/07/2022 9:55 AM EDT [facility] Eos % 1.6 0.0 - 7.0 % 12/07/2022 9:55 AM EDT [facility] Baso % 0.9 0.0 - 3.0 % 12/07/2022 9:55 AM EDT [facility] NRBC% 0 0 /100 WBC /100 WBC 12/07/2022 9:55 AM EDT [facility] Neut # 4.3 2.2 - 9.5 10*3/??L 12/07/2022 9:55 AM EDT [facility] Lym # 2.5 0.7 - 5.0 10*3/??L 12/07/2022 9:55 AM EDT [facility] [place] # 0.8 0.0 - 1.3 10*3/??L 12/07/2022 9:55 AM EDT [facility] Eos # 0.1 0.0 - 0.4 10*3/??L 12/07/2022 9:55 AM EDT [facility] Baso # 0.1 0.0 - 0.3 10*3/??L 12/07/2022 9:55 AM EDT [facility] Blood Venipuncture / Unknown 12/07/2022 5:56 AM EDT 12/07/2022 9:28 AM EDT us Unknown LAB BLOOD ORDERABLES Final Resul t [facility] [address] [place] [address] documented in this encounter Visit Diagnoses Diagnosis Illness, unspecified documented in this encounter Additional Health Concerns Infection Onset Date Last Indicated Resolved Time PUI COVID 01/01/2024 01/01/2024 01/01/2024 1:19 PM EDT documented as of this encounter Care Teams Water/Wastewater Project Manager Relationship Specialty Start Date End Date Alex Gray Jr., MD [address] [place] [phone] PCP - General Internal Medicine 08/15/18 documented as of this encounter
--- OUTSIDE RECORDS SUMMARY | 2024-04-29 12:12 | XMS_ITS | Encounter Summary ---
Author Organization [facility] Address [address] [place] [address] Care Team Providers Care Clerical Aide Teacher Name Role Phone Jen Saunders NP Primary Care Provider [phone] Isaac Alaniz MD, Alex Tariq Primary Care Provider [phone]- [phone] Encounter Details Date Type Department Care Team (Late st Contact Info) Description 10/14/2017 Lab Requisition [address] [address] Alex Gray Jr., MD [address] [place] [phone] Delusional disorder (HCC); Dysuria Social History Tobacco Use Types Packs/Day Years [...] Procedure Name Priority Date/Time Associated Diagnosis Comments URINE COMPLETE Routine 10/14/2017 9:00 AM EDT Delusional disorder (HCC) Dysuria OVA AND PARASITE Routine 10/14/2017 9:00 AM EDT Delusional disorder (HCC) Dysuria URINE CULTURE AND COLONY COUNT Routine 10/14/2017 9:00 AM EDT Delusional disorder (HCC) Dysuria documented in this encounter Results * Ova and Parasite Screen (10/14/2017 9:00 AM EDT) Pathologist [facility] Specimen Source Stool 8 6:26 PM EDT [facility] Concentrate Result No ova and parasites seen 10/20/2017 6:26 PM EDT [facility] Comment:REFERENCE RANGE: No ova and parasites seen Trichrome Result No ova and parasites seen 10/20/2017 6:26 PM EDT [facility] Comment: ? REFERENCE RANGE: No ova and parasites seen ?? Routine Ova and Parasite exam may not detect ?? some parasites that occasionally cause diarrheal ?? illness. Test code(s) 89026 80652Y (91998) (Cryptosporidium Ag., ?? DFA) and/or 16003 01917F (28343) (Cyclospora and Isospora Exam) ?? may be ordered to detect these parasites. One negative sample ?? does not necessarily rule out the presence of parasitic infection. Stool Collection / Unknown 10/14/2017 9:00 AM EDT 10/14/2017 2:49 PM EDT us Alex Gray Jr., MD MICROBIOLOGY - GENERAL ORD ERABLES Final Result [facility] [address] [place] [address] * (ABNORMAL) Urine Complete (10/14/2017 9:00 AM EDT) Pathologist [facility] Clarity, UA Slightly Cloudy(A) Clear 10/14/2017 5:16 PM EDT [facility] Color Yellow Yellow 10/14/2017 5:16 PM EDT [facility] Specific Sweet Grass 1.009 1.005 - 1.030 10/14/2017 5:16 PM EDT [facility] pH 8.0(H) 5.0 - 7.0 10/14/2017 5:16 PM EDT [facility] Protein Negative Negative mg/dL 10/14/2017 5:16 PM EDT [facility] Glucose Negative Negative mg/dL 10/14/2017 5:16 PM EDT [facility] Ketones Negative Negative mg/dL 10/14/2017 5:16 PM EDT [facility] Blood Negative Negative mg/dL 10/14/2017 5:16 PM EDT [facility] Bilirubin UA Negative Negative mg/dL 10/14/2017 5:16 PM EDT [facility] Urobilinogen Normal Normal mg/dL 10/14/2017 5:16 PM EDT [facility] Nitrite Negative Negative 10/14/2017 5:16 PM T [facility] Leukocyte Esterase 25(A) Negative Maggie/uL 10/14/2017 5:16 PM EDT [facility] WBC 3-5(A) 0 - 2 HPF 10/14/2017 5:16 PM EDT [facility] Squam Epithelial Many(A) Few HPF 10/15/[facility] Non-Squamous Epithelil Few(A) None Seen HPF 10/14/2017 5:16 PM T [facility] Mucus Few Few HPF 10/14/2017 5:16 PM EDT [facility] Bacteria Few(A) None Seen HPF 10/14/2017 5:16 PM T [facility] Ca Oxalate Crystals Few(A) None Seen HPF 10/14/2017 5:16 PM T [facility] Urine specimen (specimen) Urine specimen / Unknown Collection / Unknown 10/14/2017 9:00 AM EDT 10/14/2017 2:49 PM EDT us Alex Gray Jr., MD URINE ORDERABLES Final Res ult [facility] [address] [place] [address] * (ABNORMAL) Urine Culture and [place] Count (10/14/2017 9:00 AM EDT) Culture < 10,000 colonies/ml Gram Negative Organism SUSCEPTIBI LITY TESTING 10/15/2017 3:37 PM EDT [facility] Culture > 100,000 colonies/ml Staphylococcus coagulase negative(A) SUSCEPTIBI LITY TESTING 10/15/2017 3:37 PM EDT [facility] Urine specimen (specimen) Urine specimen / Unknown Collection / Unknown 10/14/2017 9:00 AM EDT 10/14/2017 2:49 PM EDT Narrative [facility] - 10/15/2017 3:37 PM EDT CLSI guideline:? Routine susceptibility testing of urine isolates of Coagulase negative Staph is not advised because infections respond to concentrations achieved in urine of ??antimicrobial agents commonly used to treat acute, ??uncomplicated urinary tract infections ??(i.e., nitrofurantoin, trimeth/sulfa, or a ??fluoroquinolone.) Alex Gray Jr., MD MICROBIOLOGY - GENERAL ORD ERABLES Final Result [facility] [address] [place], [place] documented in this encounter Visit Diagnoses Diagnosis Delusional disorder (HCC) Dysuria documented in this encounter Additional Health Concerns Infection Onset Date Last Indicated Resolved Time MRSA Comment:Cleared 05/19/21 nf MRSA blood/chin 03/14/19 sa 03/14/2019 03/17/2019 2021 2 :15 PM EST PUI COVID 01/01/2024 01/01/2024 01/01/2024 1:19 PM EDT documented as of this encounter Care Teams Clerical Aide Teacher Relationship Specialty Start Date End Date Jen Saunders NP PCP - General Pain Medicine 09/24/17 08/14/18 Alex Gray Jr., MD [address] [place] [phone] PCP - General Internal Medicine 08/15/18 documented as of this encounter
--- OUTSIDE RECORDS SUMMARY | 2024-04-29 12:12 | XMS_ITS | Encounter Summary ---
Author Organization [facility] Address [address] [place] [address] Care Team Providers Care Assistant Front End Manager Name Role Phone Isaac Alaniz MD, Alex Tariq Primary Care Provider [phone]- [phone] Encounter Details Date Type Department Care Team (Late st Contact Info) Description 11/04/2023 Procedure Pass [facility] - [address] [address] Social History Tobacco Use Types [...] - Inhaled Oxygen Concentration - - Weight 109 kg (240 lb) 11/04/2023 9:51 PM EDT Height 170.2 cm (5' 7 ) 11/04/2023 9:51 PM EDT Body Mass Index 37.59 11/04/2023 9:51 PM EDT documented in this encounter Plan of Treatment Not on file documented as of this encounter Visit Diagnoses Not on filedocumented in this encounter Additional Health Concerns Infection Onset Date Last Indicated Resolved Time PUI COVID 01/01/2024 01/01/2024 01/01/2024 1:19 PM EDT documented as of this encounter Care Teams Assistant Front End Manager Relationship Specialty Start Date End Date Alex Gray Jr., MD [address] [place] [phone] PCP - General Internal Medicine 08/15/18 documented as of this encounter
--- OUTSIDE RECORDS SUMMARY | 2024-04-29 12:12 | XMS_ITS | Referral Summary ---
Author Organization [facility] Address [address] Main Number: [phone] (26/10) [place] [address] Care Team Providers Care Motor Polarizer Name Role Phone Alex Gray MD Primary Care Provider Encounters Date Type Department Care Team Description 04/13/2024 Telephone [facility] [address] [place] [address] Charlee Patterson LICSW from Last 3 Months Allergies No known active allergies Medications Medication [...] Active Active Problems No known active problems Immunizations Name Administration Dates Next Due Covid-19 [...] Orientation Not on file Plan of Treatment Not on file Care Teams Motor Polarizer Relationship Specialty Start Date End Date Alex Gray MD [address] [place] [phone] PCP - General 01/28/23
--- OUTSIDE RECORDS SUMMARY | 2024-04-29 12:12 | XMS_ITS | Encounter Summary ---
Author Organization [facility] Address [address] [place] [address] Care Team Providers Care Medical Records Tech Name Role Phone Isaac Alaniz MD, Alex Tariq Primary Care Provider [phone]- [phone] Encounter Details Date Type Department Care Team (Late st Contact Info) Description 02/19/2023 Pharmacy Visit [facility] [address] [place] [address] Social History Tobacco Use Types Packs/Day [...] documented as of this encounter Care Teams Medical Records Tech Relationship Specialty Start Date End Date Alex Gray Jr., MD [address] [place] [phone] PCP - General Internal Medicine 08/15/18 documented as of this encounter
--- OUTSIDE RECORDS SUMMARY | 2024-04-29 12:12 | XMS_ITS | Encounter Summary ---
Author Organization [facility] Address [address] [place] [address] Care Team Providers Care Pipefitter Welder Name Role Phone Isaac Alaniz MD, Alex Tariq Primary Care Provider +[phone]- [phone] Encounter Details Date Type Department Care Team (Late st Contact Info) Description 08/13/2023 Procedure Pass [facility] - [address] [address] Social History Tobacco Use Types [...] - - Weight 109 kg (240 lb) 08/13/2023 9:00 AM EDT Height 170.2 cm (5' 7 ) 08/13/2023 9:00 AM EDT Body Mass Index 37.59 08/13/2023 9:00 AM EDT documented in this encounter Plan of Treatment Not on file documented as of this encounter Visit Diagnoses Not on filedocumented in this encounter Additional Health Concerns Infection Onset Date Last Indicated Resolved Time PUI COVID 01/01/2024 01/01/2024 01/01/2024 1:19 PM EDT documented as of this encounter Care Teams Pipefitter Welder Relationship Specialty Start Date End Date Alex Gray Jr., MD [address] [place] [phone] PCP - General Internal Medicine 08/15/18 documented as of this encounter
--- OUTSIDE RECORDS SUMMARY | 2024-04-29 12:12 | XMS_ITS | Clinical Summary ---
Author Organization [facility] Address [address] [place] [address] Care Team Providers Care Refrigerator Repairman Name Role Phone Alex Gray MD Primary Care Provider [phone] Allergies Active Allergy Reactions Criticality Noted Date Comments Haloperidol 09/16/2023 Naltrexone 09/16/2023 Phenergan Plain 09/16/2023 Medications mirtazapine (REMERON) 45 MG tablet Take 1 (one) tablet (45 mg total) by mouth at bedtime. Active methadone (DOLOPHINE) 10 MG tabletIndicatio ns:Intractable pain Take 20 (twenty) tablets (200 mg total) by mouth once daily. 1 tablet 09/23/2023 Active Active Problems Problem Noted Date Diagnosed Date Intractable pain 09/19/2023 Infectious diarrhea in adult patient 09/18/2023 Obesity 09/18/2023 Intractable abdominal pain 09/18/2023 Discitis 09/17/2023 Abnormal MRI 09/17/2023 Social History Tobacco Use Types Packs/Day Years Used Date Smoking Tobacco: Former Cigarettes Tobacco Cessation:Counseling Given: No [facility] Utilities Answer Date Recorded In the past 12 months has e [employer], oil, or water [employer] threatened to shut off services in your home? Yes 09/17/2023 Humiliation, Afraid, Rape, and Kick questionnair e Answer Date Recorded Within the last year, have y ou been afraid of your partner or ex-partner? No 09/17/2023 Emotionally Abused Not on file 09/17/2023 Physically Abused Not on file 09/17/2023 Sexually Abused Not on file 09/17/2023 AUDIT-C Answer Date Recorded Q1: How often do you have a drink containing alcohol? Never 09/17/2023 Q2: How many drinks containi ng alcohol do you have on a typical day when you are drinking? Patient does not drink Q3: How often do you have si x or more drinks on one occasion? Never 09/17/2023 Overall Financial Resource Strain (CARDIA) Answe r Date Recorded How hard is it for you to pa y for the very basics like food, housing, medical care, and heating? Very hard 09/17/2023 PHQ-2 Answer Date Recorded Patient Health Questionnaire-2 Score for SDOH 2 09/17/2023 [facility] Occupat ional Health - Occupational Stress Questionnaire Answer Date Recorded Do you feel stress - tense, restless, nervous, or anxious, or unable to sleep at night because your mind is troubled all the time - these days? Rather much 09/17/2023 Hunger Vital Sign Answer Date Recorded Within the past 12 months, y ou worried that your food would run out before you got the money to buy more. Often true 09/17/19 24 Ran Out of Food in the Last Year Not on file 09/17/2023 PRAPARE - Transportation Answer Date Re corded In the past 12 months, has l ack of transportation kept you from medical appointments or from getting medications? Yes 09/03 In the past 12 months, has l ack of transportation kept you from meetings, work, or from getting things needed for daily living? Yes 09/17/2023 Housing Stability Vital Sign Answer Juan e Recorded Unable to Pay for Housing in the Last Year Not o n file 09/17/2023 Number of Times Moved in the Last Year Not on fi le 09/17/2023 At any time in the [facility] were you homeless or living in a [facility] (including now)? Yes 09/17/2023 Substance Use Answer Date Recorded Use of Non-Prescription Medicines Yes 10/13/2023 Comments Unknown Sex and Gender Information Value Date Recorded Sex Assigned at Not on file Legal Sex Female 3:08 PM EST Gender Identity Not on file Sexual Orientation Not on file Last Filed Vital Signs Vital Sign Reading Time Taken Comments Blood Pressure 110/50 09/23/2023 8:12 AM EDT Pulse 53 09/23/2023 8:12 AM EDT Temperature 36.1 ??C (96.9 ??F) 09/23/2023 5:28 AM ED T Respiratory Rate 20 09/23/2023 8:12 AM EDT Oxygen Saturation 99% 09/23/2023 8:12 AM EDT Inhaled Oxygen Concentration - - Weight 101.1 kg (222 lb 12.8 oz) 2023 12:04 PM EDT Height 170.2 cm (5' 7 ) 09/17/2023 1:00 PM EDT Body Mass Index 34.9 09/17/2023 12:04 PM EDT Plan of Treatment Health Maintenance Due Date Last Done Comments HEPATITIS C SCREENING 1993 Cervical Cancer Screening 1997 Pap Smear 1997 HPV Test 2006 MAMMOGRAM 2016 COLONOSCOPY (CRC) 2021 COLORECTAL CANCER SCREENING (CRC) 2021 CT COLONOGRAPHY (CRC) 2021 FIT-DNA (CRC) 2021 FIT/iFOBT (CRC) 2021 SIGMOIDOSCOPY (CRC) 2021 INFLUENZA VACCINE (#1) 2023 , 03/17/2019, 11/13/2016, Additional history exists COVID-19 IMMUNIZATION (2 - season) 2023 05/15/2021 ZOSTER VACCINE (1 of 2) 2026 DTAP/TDAP/TD VACCINES (4 - Td or Tdap) 09/07/2032 09/07/2022, 02/11/2021, 12/13/2016 RSV IMMUNIZATION (1 - 1-dose 75+ series) 2051 IPV VACCINES Aged Out No longer eligi ble based on patient's age to complete this topic MENINGOCOCCAL B VACCINE Aged Out No l onger eligible based on patient's age to complete this topic Insurance [facility] Advance Directives For more information, please contact: [phone] * Full Code (Latest Code Status on File) Date Activated Date Inactivated Comments 09/17/2023 10:09 AM Care Teams Refrigerator Repairman Relationship Specialty Start Date End Date Alex Gray MD [address] [place] [phone] PCP - General Infectious Diseases 09/15/21
--- OUTSIDE RECORDS SUMMARY | 2024-04-29 12:12 | XMS_ITS | Encounter Summary ---
Author Organization [facility] Address [address] [place] [address] Care Team Providers Care Customer Experience Manager Name Role Phone Isaac Alaniz MD, Alex Tariq Primary Care Provider [phone]- [phone] Encounter Details Date Type Department Care Team (Late st Contact Info) Description 11/26/2022 Procedure Pass [address] [address] Social History Tobacco Use Types [...] as of this encounter Care Teams Customer Experience Manager Relationship Specialty Start Date End Date Alex Gray Jr., MD [address] [place] [phone] PCP - General Internal Medicine 08/15/18 documented as of this encounter
--- OUTSIDE RECORDS SUMMARY | 2024-04-29 12:12 | XMS_ITS | Encounter Summary ---
Author Organization [facility] Address [address] [place] [address] Care Team Providers Care Dipping Machine Operator Name Role Phone Isaac Alanzi MD, Alex Tariq Primary Care Provider [phone]- [phone] Encounter Details Date Type Department Care Team (Late st Contact Info) Description 02/08/2023 Procedure Pass [address] [address] Social History Tobacco Use Types [...] documented as of this encounter Care Teams Dipping Machine Operator Relationship Specialty Start Date End Date Alex Gray Jr., MD [address] [place] [phone] PCP - General Internal Medicine 08/15/18 documented as of this encounter
--- OUTSIDE RECORDS SUMMARY | 2024-04-29 12:12 | XMS_ITS | Encounter Summary ---
Author Organization [facility] Address [address] [place] [address] Care Team Providers Care Vice President Planning Name Role Phone Isaac Alaniz MD, Alex Tariq Primary Care Provider +1- [phone] Reason for Visit * Auth/Cert (Routine) Specialty Diagnoses / Procedures Referred By Suhas t Referred To Contact Diagnoses Sacroiliac Joint Pain Procedures ND INJECT SI JOINT ARTHRGRPHY&/ANES/STEROID W/YAIMA ND INJ FOR SACROILIAC JT ANESTH SACROILIAC JOINT INJECTION - LEFT Referral ID Status Reason Start Date Expiration Date Visits Re quested Visits Authorized [id number] 1 1 Encounter Details Date Type Department Care Team ([facility] Contact Info) Description 05/31/2023 Hospital Encounter [facility] [address] [place] [address] Khoi Garcia MD [address] [place] [id number] Social History Tobacco Use Types Packs/Day Years Used Date Smoking Tobacco: Every Day Cigarettes Smokeless Tobacco: Never Comments:vape Alcohol Use Standard Drinks/Week Comments Not Currently 4 (1 standard drink = 0.6 oz pur e alcohol) Housing Stability - SDOH Screener Answer Date Recorded What is your living situation today? Unsteady ho using 01/02/2024 Do you need help with Housing/Usp resources? Not on file 01/02/2024 Patient indicated [...] documented as of this encounter Care Teams Vice President Planning Relationship Specialty Start Date End Date Alex Gray Jr., MD [address] [place] [phone] PCP - General Internal Medicine 08/15/18 documented as of this encounter
--- OUTSIDE RECORDS SUMMARY | 2024-04-29 12:12 | XMS_ITS | Encounter Summary ---
Author Organization [facility] Address [address] [place] [address] Care Team Providers Care Technology Lab Teacher Name Role Phone Isaac Alaniz MD, Alex Tariq Primary Care Provider +1- [phone] Encounter Details Date Type Department Care Team (Late st Contact Info) Description 03/23/2019 Lab Requisition [address] [phone] Unknown Illness, unspecified Social History Tobacco Use [...] Name Priority Date/Time Associated Diagnosis Comments URINE MICROSCOPIC (SEDIMENT ONLY) Routine 03/22/2019 8:00 PM EST Illness, unspecified [ICD-10-CM] URINALYSIS, REFLEX TO CULTURE Routine 03/22/2019 8:00 PM EST Illness, unspecified [ICD-10-CM] documented in this encounter Results * (ABNORMAL) Urine Microscopic (sediment only) (03/22/2019 8:00 PM EST) WBC 3-5(A) 0 - 2 HPF 03/23/2019 8:30 AM [facility] RBC 0-2 0 - 2 HPF 03/23/2019 8:30 AM [facility] Squam Epithelial Many(A) Few HPF 03/23/2019 8:30 AM [facility] Mucus Few Few HPF 03/23/2019 8:30 AM [facility] Ca Oxalate Crystals Few(A) None Seen HPF 03/23/2019 8:30 AM [facility] Urine specimen (specimen) Urine specimen / Unknown Collection / Unknown 03/22/2019 8:00 PM EST 03/23/2019 6:46 AM EST us Unknown URINE ORDERABLES Final Result Performing Organization Address City/State/[facility] Co de Phone Number [facility] [address] [place] [address] * (ABNORMAL) Urinalysis, Reflex to Culture (03/22/2019 8:00 PM EST) Color Yellow Yellow 03/23/2019 8:27 AM [facility] Clarity, UA Slightly Cloudy(A) Clear 03/23/2019 8:27 AM [facility] Specific [place] 1.024 1.005 - 1.030 03/23/2019 8:27 AM [facility] pH 6.0 5.0 - 7.0 03/23/2019 8:27 AM [facility] Protein Negative Negative mg/dL 03/23/2019 8:27 AM [facility] Glucose Negative Negative mg/dL 03/23/2019 8:27 AM [facility] Ketones Negative Negative mg/dL 03/23/2019 8:27 AM [facility] Blood Negative Negative mg/dL 03/23/2019 8:27 AM [facility] Bilirubin UA Negative Negative mg/dL 03/23/2019 8:27 AM [facility] Urobilinogen Normal Normal mg/dL 03/23/2019 8:27 AM EST [facility] Nitrite Negative Negative 03/23/2019 8:27 AM EST [facility] Leukocyte Esterase 25(A) Negative Maggie/uL 03/23/2019 8:27 AM EST [facility] Urine specimen (specimen) Urine specimen / Unknown Collection / Unknown 03/22/2019 8:00 PM EST 03/23/2019 6:46 AM EST us Unknown URINE ORDERABLES Final Result [facility] [address] [place], [place] documented in this encounter Visit Diagnoses Diagnosis Illness, unspecified documented in this encounter Additional Health Concerns Infection Onset Date Last Indicated Resolved Time MRSA Comment:Cleared 05/19/21 nf MRSA blood/chin 03/14/19 sa 03/14/2019 03/17/2019 2021 2 :15 PM EST PUI COVID 01/01/2024 01/01/2024 01/01/2024 1:19 PM EDT documented as of this encounter Care Teams Technology Lab Teacher Relationship Specialty Start Date End Date Alex Gray Jr., MD [address] [place] [phone] PCP - General Internal Medicine 08/15/18 documented as of this encounter
--- OUTSIDE RECORDS SUMMARY | 2024-04-29 12:12 | XMS_ITS | Encounter Summary ---
Author Organization [facility] Address [address] [place] [address] Care Team Providers Care Processing Spec Name Role Phone Isaac Alaniz MD, Alex Tariq Primary Care Provider +1- [phone] Encounter Details Date Type Department Care Team (Late st Contact Info) Description 12/03/2022 Lab Requisition [address] [phone] Unknown Illness, unspecified Social History Tobacco Use [...] Associated Diagnosis Comments C-REACTIVE PROTEIN INFLAMMATION Routine 12/03/2022 5:45 AM EDT Illness, unspecified CBC AND AUTO DIFFERENTIAL Routine 12/03/2022 5:45 AM EDT Illness, unspecified PHOSPHORUS Routine 12/03/2022 5:45 AM EDT Illness, unspecified MAGNESIUM Routine 12/03/2022 5:45 AM EDT Illness, unspecified COMPREHENSIVE METABOLIC PANEL Routine 12/03/2022 5:45 AM EDT Illness, unspecified documented in this encounter Results * (ABNORMAL) CRP, Inflammation (12/03/2022 5:45 AM EDT) Pathologist [facility] CRP, Inflammation 49.10(H) 0.00 - 3.00 mg/L 12/03/2022 10:13 AM EDT [facility] Blood Venipuncture / Unknown 12/03/2022 5:45 AM EDT 12/03/2022 9:18 AM EDT Narrative [facility] - 12/03/2022 10:13 AM EDT >10.0 ?Consider infection/inflammation us Unknown LAB BLOOD ORDERABLES Final Resul t Performing Organization Address City/[facility] Co de Phone Number [facility] [address] [place] [phone] * Phosphorus (12/03/2022 5:45 AM EDT) Pathologist [facility] Phosphorus 4.4 2.4 - 5.1 mg/dL 12/03/2022 10:12 AM EDT [facility] Blood Venipuncture / Unknown 12/03/2022 5:45 AM EDT 12/03/2022 9:18 AM EDT us Unknown LAB BLOOD ORDERABLES Final Resul t Performing Organization Address City/[facility]/ZIP Co de Phone Number [facility] [address] [place] [phone] * Magnesium (12/03/2022 5:45 AM EDT) Pathologist [facility] Magnesium 2.1 1.6 - 2.6 mg/dL 12/03/2022 10:12 AM EDT [facility] Blood Venipuncture / Unknown 12/03/2022 5:45 AM EDT 12/03/2022 9:18 AM EDT us Unknown LAB BLOOD ORDERABLES Final Resul t [facility] [address] [place] [address] * (ABNORMAL) Comprehensive metabolic panel (12/03/2022 5:45 AM EDT) Sodium 134(L) 136 - 145 mEq/L 12/03/2022 10:13 AM EDT [facility] Potassium 4.5 3.5 - 5.1 mEq/L 12/03/2022 10:13 AM EDT [facility] Chloride 100 98 - 107 mEq/L 12/03/2022 10:13 AM EDT [facility] CO2 26 20 - 31 mEq/L 12/03/2022 10:13 AM EDT [facility] Anion Gap 8 4 - 15 mEq/L 12/03/2022 10:13 AM EDT [facility] Glucose 127(H) 70 - 100 mg/dL 12/03/2022 10:13 AM EDT [facility] Creatinine 0.68 0.50 - 1.00 mg/dL 12/03/2022 10:13 AM EDT [facility] eGFR (Female) >60 60 - 115 mL/min 12/03/2022 10:13 AM EDT [facility] BUN 14 9 - 23 mg/dL 12/03/2022 10:13 AM EDT [facility] Calcium 8.9 8.7 - 10.4 mg/dL 12/03/2022 10:13 AM EDT [facility] Total Protein 8.0 5.7 - 8.2 g/dL 12/03/2022 10:13 AM EDT [facility] Albumin 3.7 3.2 - 4.8 g/dL 12/03/2022 10:13 AM EDT [facility] A/G Ratio 0.9(L) 1.0 - 2.3 12/03/2022 10:13 AM EDT [facility] Total Bilirubin 0.3 0.2 - 1.0 mg/dL 12/03/2022 10:13 AM EDT [facility] AST 107(H) 13 - 40 U/L 12/03/2022 10:13 AM EDT [facility] Alkaline Phosphatase 121(H) 46 - 116 IU/L 12/03/2022 10:13 AM EDT [facility] ALT 128(H) 7 - 40 U/L 12/03/2022 10:13 AM EDT [facility] Blood Venipuncture / Unknown 12/03/2022 5:45 AM EDT 12/03/2022 9:18 AM EDT us Unknown LAB BLOOD ORDERABLES Final Resul t [facility] [address] [place] [address] * (ABNORMAL) CBC and Auto Differential (12/03/2022 5:45 AM EDT) WBC 10.3 4.8 - 11.2 10*3/??L 12/03/2022 10:24 AM EDT [facility] RBC 3.91 3.60 - 5.40 10*6/??L 12/03/2022 10:24 AM EDT [facility] HGB 12.0 12.0 - 15.8 g/dL 12/03/2022 10:24 AM EDT [facility] HCT 34.9(L) 36.0 - 48.0 % 12/03/2022 10:24 AM EDT [facility] MCV 89.3 82.0 - 98.0 fL 12/03/2022 10:24 AM EDT [facility] MCH 30.6 27.0 - 35.0 pg 12/03/2022 10:24 AM EDT [facility] MCHC 34.3 32.0 - 37.0 g/dL 12/03/2022 10:24 AM EDT [facility] RDW 13.5 12.0 - 15.0 % 12/03/2022 10:24 AM EDT [facility] PLT 351 150 - 400 10*3/??L 12/03/2022 10:24 AM EDT [facility] MPV 8.0 7.0 - 14.0 fL 12/03/2022 10:24 AM EDT [facility] Neut % 62.1 45.0 - 85.0 % 12/03/2022 10:24 AM EDT [facility] Lymph % 25.5 15.0 - 45.0 % 12/03/2022 10:24 AM EDT [facility] [place] % 10.3 0.0 - 12.0 % 12/03/2022 10:24 AM EDT [facility] Eos % 1.4 0.0 - 7.0 % 12/03/2022 10:24 AM EDT [facility] Baso % 0.7 0.0 - 3.0 % 12/03/2022 10:24 AM EDT [facility] NRBC% 0 0 /100 WBC /100 WBC 12/03/2022 10:24 AM EDT [facility] Neut # 6.4 2.2 - 9.5 10*3/??L 12/03/2022 10:24 AM EDT [facility] Lym # 2.6 0.7 - 5.0 10*3/??L 12/03/2022 10:24 AM EDT [facility] [place] # 1.1 0.0 - 1.3 10*3/??L 12/03/2022 10:24 AM EDT [facility] Eos # 0.1 0.0 - 0.4 10*3/??L 12/03/2022 10:24 AM EDT [facility] Baso # 0.1 0.0 - 0.3 10*3/??L 12/03/2022 10:24 AM EDT [facility] Blood Venipuncture / Unknown 12/03/2022 5:45 AM EDT 12/03/2022 9:18 AM EDT Narrative [facility] - 12/03/2022 10:24 AM EDT This is an appended report. ??These results have been appended to a previously verified report. us Unknown LAB BLOOD ORDERABLES Final Resul t [facility] [address] [place] [address] documented in this encounter Visit Diagnoses Diagnosis Illness, unspecified documented in this encounter Additional Health Concerns Infection Onset Date Last Indicated Resolved Time PUI COVID 01/01/2024 01/01/2024 01/01/2024 1:19 PM EDT documented as of this encounter Care Teams Processing Spec Relationship Specialty Start Date End Date Alex Gray Jr., MD [address] [place] [phone] PCP - General Internal Medicine 08/15/18 documented as of this encounter
--- OUTSIDE RECORDS SUMMARY | 2024-04-29 12:12 | XMS_ITS | Encounter Summary ---
Author Organization [facility] Address [address] [place] [address] Care Team Providers Care Blindstitch Machine Operator Name Role Phone Isaac Alaniz MD, Alex Tariq Primary Care Provider +1- [phone] Encounter Details Date Type Department Care Team (Late st Contact Info) Description 05/25/2023 Procedure Pass [facility] - [address] [phone] Social History Tobacco Use Types [...] - Weight 108 kg (239 lb) 05/25/2023 5:40 PM EST Height 170.2 cm (5' 7 ) 05/25/2023 5:40 PM EST Body Mass Index 37.43 05/25/2023 5:40 PM EST documented in this encounter Plan of Treatment Not on file documented as of this encounter Visit Diagnoses Not on filedocumented in this encounter Additional Health Concerns Infection Onset Date Last Indicated Resolved Time PUI COVID 01/01/2024 01/01/2024 01/01/2024 1:19 PM EDT documented as of this encounter Care Teams Blindstitch Machine Operator Relationship Specialty Start Date End Date Alex Gray Jr., MD [address] [place] [phone] PCP - General Internal Medicine 08/15/18 documented as of this encounter
--- OUTSIDE RECORDS SUMMARY | 2024-04-29 12:12 | XMS_ITS | Encounter Summary ---
Author Organization [facility] Address [address] [place] [address] Care Team Providers Care Career Representative Name Role Phone Isaac Alaniz MD, Alex Tariq Primary Care Provider +1- [phone] Encounter Details Date Type Department Care Team (Late st Contact Info) Description 05/25/2023 Procedure Pass [facility] - [address] [phone] Social History Tobacco Use Types [...] - Weight 108 kg (239 lb) 05/25/2023 6:57 PM EST Height 170.2 cm (5' 7 ) 05/25/2023 6:57 PM EST Body Mass Index 37.43 05/25/2023 6:57 PM EST documented in this encounter Plan of Treatment Not on file documented as of this encounter Visit Diagnoses Not on filedocumented in this encounter Additional Health Concerns Infection Onset Date Last Indicated Resolved Time PUI COVID 01/01/2024 01/01/2024 01/01/2024 1:19 PM EDT documented as of this encounter Care Teams Career Representative Relationship Specialty Start Date End Date Alex Gray Jr., MD [address] [place] [phone] PCP - General Internal Medicine 08/15/18 documented as of this encounter
--- OUTSIDE RECORDS SUMMARY | 2024-04-29 12:12 | XMS_ITS | Encounter Summary ---
Author Organization [facility] Address [address] [place] [address] Care Team Providers Care Thermometer Maker Name Role Phone Isaac Alaniz MD, Alex Tariq Primary Care Provider +1- [phone] Encounter Details Date Type Department Care Team (Late st Contact Info) Description 11/05/2023 Procedure Pass [facility] - [address] [phone] Social History Tobacco Use Types [...] - - Weight 109 kg (240 lb) 11/05/2023 10:35 AM EDT Height 170.2 cm (5' 7 ) 11/05/2023 10:35 AM EDT Body Mass Index 37.59 11/05/2023 10:35 AM EDT documented in this encounter Plan of Treatment Not on file documented as of this encounter Visit Diagnoses Not on filedocumented in this encounter Additional Health Concerns Infection Onset Date Last Indicated Resolved Time PUI COVID 01/01/2024 01/01/2024 01/01/2024 1:19 PM EDT documented as of this encounter Care Teams Thermometer Maker Relationship Specialty Start Date End Date Alex Gray Jr., MD [address] [place] [phone] PCP - General Internal Medicine 08/15/18 documented as of this encounter
--- OUTSIDE RECORDS SUMMARY | 2024-04-29 12:12 | XMS_ITS | Encounter Summary ---
Author Organization [facility] Address [address] [place] [address] Care Team Providers Care Concreter Name Role Phone Isaac Alaniz MD, Alex Tariq Primary Care Provider +1- [phone] Encounter Details Date Type Department Care Team (Late st Contact Info) Description 11/28/2022 Procedure Pass [address] [phone] Social History Tobacco Use Types [...] documented as of this encounter Care Teams Concreter Relationship Specialty Start Date End Date Alex Gray Jr., MD [address] [place] [phone] PCP - General Internal Medicine 08/15/18 documented as of this encounter
--- OUTSIDE RECORDS SUMMARY | 2024-04-29 12:12 | XMS_ITS | Encounter Summary ---
Author Organization [facility] Address [address] [place] [address] Care Team Providers Care Archeology Professor Name Role Phone Isaac Alaniz MD, Alex Tariq Primary Care Provider +1- [phone] Encounter Details Date Type Department Care Team (Late st Contact Info) Description 12/01/2022 Procedure Pass [facility] - [address] [phone] Social History Tobacco Use Types [...] - Inhaled Oxygen Concentration - - Weight 96.2 kg (212 lb) 12/01/2022 7:45 AM EDT Height 170.2 cm (5' 7 ) 12/01/2022 7:45 AM EDT Body Mass Index 33.2 12/01/2022 7:45 AM EDT documented in this encounter Plan of Treatment Not on file documented as of this encounter Visit Diagnoses Not on filedocumented in this encounter Additional Health Concerns Infection Onset Date Last Indicated Resolved Time PUI COVID 01/01/2024 01/01/2024 01/01/2024 1:19 PM EDT documented as of this encounter Care Teams Archeology Professor Relationship Specialty Start Date End Date Alex Gray Jr., MD [address] [place] [phone] PCP - General Internal Medicine 08/15/18 documented as of this encounter
--- OUTSIDE RECORDS SUMMARY | 2024-04-29 12:12 | XMS_ITS | Encounter Summary ---
Author Organization [facility] Address [address] [place] [address] Care Team Providers Care Wireless Development Manager Name Role Phone Isaac Alaniz MD, Alex Tariq Primary Care Provider [phone]- [phone] Encounter Details Date Type Department Care Team (Late st Contact Info) Description 03/22/2019 Lab Requisition [address] [phone] Unknown Illness, unspecified Social History Tobacco Use [...] Procedure Name Priority Date/Time Associated Diagnosis Comments SEDIMENTATION RATE, AUTOMATED Routine 03/22/2019 5:03 AM EST Illness, unspecified [ICD-10-CM] CBC AND AUTO DIFFERENTIAL Routine 03/22/2019 5:03 AM EST Illness, unspecified [ICD-10-CM] HEMOGLOBIN A1C Routine 03/22/2019 5:03 AM EST Illness, unspecified [ICD-10-CM] VANCOMYCIN TROUGH Routine 03/22/2019 5:0 3 AM EST Illness, unspecified [ICD-10-CM] COMPREHENSIVE METABOLIC PANEL Routine 03/22/2019 5:03 AM EST Illness, unspecified [ICD-10-CM] documented in this encounter Results * Vancomycin, trough (03/22/2019 5:03 AM EST) Vancomycin Tr 19.2 10.0 - 20.0 ug/mL 03/22/2019 8:36 AM EST [facility] Blood specimen (specimen) Non-[facility] Collection / Unknown 03/22/2019 5:03 AM EST 03/22/2019 6:51 AM EST us Unknown LAB BLOOD ORDERABLES Final Resul t Performing Organization Address [facility] Phone Number [facility] [address] [place] [address] * (ABNORMAL) Sedimentation Rate, automated (03/22/2019 5:03 AM EST) Sed Rate 35(H) 0 - 20 mm/hr 03/22/2019 7:30 AM EST [facility] Blood specimen (specimen) Non-[facility]G Collection / Unknown 03/22/2019 5:03 AM EST 03/22/2019 6:51 AM EST us Unknown LAB BLOOD ORDERABLES Final Resul t Performing Organization Address [facility] Phone Number [facility] [address] [place] [address] * Hemoglobin A1c (03/22/2019 5:03 AM EST) Hemoglobin A1C 5.0 4.6 - 6.0 % 03/22/2019 7:29 AM EST [facility] Estimated Average Glucose eAG 96.8 85.0 - 126.0 mg/dL 03/22/2019 7:29 AM EST [facility] Blood specimen (specimen) Non-[facility]G Collection / Unknown 03/22/2019 5:03 AM EST 03/22/2019 6:51 AM EST us Unknown LAB BLOOD ORDERABLES Final Resul t [facility] [address] [place] [place], [place] * (ABNORMAL) Comprehensive metabolic panel (03/22/2019 5:03 AM EST) Sodium 139 137 - 147 mEq/L 03/22/2019 8:31 AM [facility] Potassium 4.2 3.5 - 5.4 mEq/L 03/22/2019 8:31 AM [facility] Chloride 102 96 - 107 mEq/L 03/22/2019 8:31 AM [facility] CO2 24 24 - 34 mEq/L 03/22/2019 8:31 AM [facility] Anion Gap 13 4 - 15 mEq/L 03/22/2019 8:31 AM [facility] Glucose 140(H) 70 - 100 mg/dL 03/22/2019 8:31 AM [facility] Creatinine 0.61 0.50 - 1.30 mg/dL 03/22/2019 8:31 AM [facility] eGFR >60 60 - 115 mL/min 03/22/2019 8:31 AM [facility] BUN 15 6 - 26 mg/dL 03/22/2019 8:31 AM [facility] Calcium 8.7 8.7 - 10.5 mg/dL 03/22/2019 8:31 AM [facility] Total Protein 7.0 6.4 - 8.6 g/dL 03/22/2019 8:31 AM [facility] Albumin 3.6 3.4 - 4.8 g/dL 03/22/2019 8:31 AM [facility] A/G Ratio 1.1 1.0 - 2.3 03/22/2019 8:31 AM [facility] Total Bilirubin <0.2(L) 0.2 - 1.2 mg/dL 03/22/2019 8:31 AM [facility] AST 34 0 - 40 U/L 03/22/2019 8:31 AM [facility] Alkaline Phosphatase 60 40 - 150 IU/L 03/22/2019 8:31 AM [facility] ALT 68(H) 0 - 45 U/L 03/22/2019 8:31 AM [facility] Blood specimen (specimen) Non-[facility]G Collection / Unknown 03/22/2019 5:03 AM EST 03/22/2019 6:51 AM EST us Unknown LAB BLOOD ORDERABLES Final Resul t [facility] [address] [place] [address], [place] * CBC and Auto Differential (03/22/2019 5:03 AM EST) WBC 8.3 4.8 - 11.2 10*3/??L 03/22/2019 7:25 AM [facility] RBC 3.93 3.60 - 5.40 10*6/??L 03/22/2019 7:25 AM [facility] HGB 12.7 12.0 - 15.8 g/dL 03/22/2019 7:25 AM [facility] HCT 36.9 36.0 - 48.0 % 03/22/2019 7:25 AM [facility] MCV 94.0 82.0 - 98.0 fL 03/22/2019 7:25 AM [facility] MCH 32.4 27.0 - 35.0 pg 03/22/2019 7:25 AM [facility] MCHC 34.5 32.0 - 37.0 g/dL 03/22/2019 7:25 AM [facility] RDW 13.2 12.0 - 15.0 % 03/22/2019 7:25 AM [facility] PLT 231 150 - 400 10*3/??L 03/22/2019 7:25 AM [facility] MPV 8.3 7.0 - 14.0 fL 03/22/2019 7:25 AM [facility] Neut % 52.5 45.0 - 85.0 % 03/22/2019 7:25 AM [facility] Lymph % 36.0 15.0 - 45.0 % 03/22/2019 7:25 AM EST [facility] [place] % 10.3 0.0 - 12.0 % 03/22/2019 7:25 AM EST [facility] Eos % 0.9 0.0 - 7.0 % 03/22/2019 7:25 AM EST [facility] Baso % 0.3 0.0 - 3.0 % 03/22/2019 7:25 AM EST [facility] NRBC% 0 0 /100 WBC /100 WBC 03/22/2019 7:25 AM EST [facility] Neut # 4.4 2.2 - 9.5 10*3/??L 03/22/2019 7:25 AM EST [facility] Lym # 3.0 0.7 - 5.0 10*3/??L 03/22/2019 7:25 AM EST [facility] [place] # 0.9 0.0 - 1.3 10*3/??L 03/22/2019 7:25 AM EST [facility] Eos # 0.1 0.0 - 0.4 10*3/??L 03/22/2019 7:25 AM EST [facility] Baso # 0.0 0.0 - 0.3 10*3/??L 03/22/2019 7:25 AM EST [facility] Blood specimen (specimen) Non-SHG Collection / Unknown 03/22/2019 5:03 AM EST 03/22/2019 6:51 AM EST us Unknown LAB BLOOD ORDERABLES Final Resul t [facility] [address] [place], [place] documented in this encounter Visit Diagnoses Diagnosis Illness, unspecified documented in this encounter Additional Health Concerns Infection Onset Date Last Indicated Resolved Time MRSA Comment:Cleared 05/19/21 nf MRSA blood/chin 03/14/19 sa 03/14/2019 03/17/2019 2021 2 :15 PM EST PUI COVID 01/01/2024 01/01/2024 01/01/2024 1:19 PM EDT documented as of this encounter Care Teams Wireless Development Manager Relationship Specialty Start Date End Date Alex Gray Jr., MD [address] [place] [phone] PCP - General Internal Medicine 08/15/18 documented as of this encounter
--- OUTSIDE RECORDS SUMMARY | 2024-04-29 12:12 | XMS_ITS | Patient Health Record ---
Author Organization [facility] Address [address] [place] [address] Care Team Providers Care Validation Consultant Name Role Phone Isaac Alex Primary Care Provider Elsa Ballard Unavailable Unavailable Allergies Allergen (clinical drug ingredient) Drug/Non Drug Allergy documented on EMR Reaction Allergy Type Onset Date Status buprenorphine buprenorphine (uncoded) Unknown Allergy Active haloperidol haloperidol (uncoded) Unknown Allergy Active ibuprofen ibuprofen (uncoded) Unknown Allergy Active naloxone naloxone (uncoded) Unknown Allergy A ctive promethazine promethazine (uncoded) Unknown Allergy Active Results Component Value Reference Range Notes MR lumbar spine wo/w con (No t yet reviewed by provider) Interpretation: Performing Lab: Notes/Report: See Below For Report [facility] See Below For Report Reason For Referral No Information Medications Medication SIG (Take, Route, Frequency, Duration) Notes Start Date End Date Status Colace 100 MG 1 capsule as needed Orally Once a day for 30 day(s) Active Levothyroxine Sodium 75 MCG 1 PO QD Jasmeet12/29/2007 Entered by LALO LOU M.D. 12/14/2007 Entered by MEKA MAI 11/25/2007 Entered by LALO LOU M.D. 12/27/2007 Not-Taking Saline Nasal [place] 0.65 % 2 sprays in each nostril as needed Nasally every 2 hrs Active cloNIDine HCl 0.1 MG 1 tablet Orally Once a day for 30 day(s) Active Topicaine Active Gabapentin 300 MG 1 capsule Orally Once a day for 30 day(s) Active tiZANidine HCl 4 MG 1 tablet as needed Orally Three times a day Active Levothyroxine Sodium 75 MCG 1 PO QD Jasmeet12/29/2007 Entered by LALO LOU M.D. 12/14/2007 Entered by MEKA MAI 11/25/2007 Entered by LALO LOU M.D. 12/27/2007 Active Social History Tobacco Use: Social History Observation Description Date Details (start date - stop date) Current Smoker NA - NA Alcohol Screen Question Answer Notes Did you have a drink contain ing alcohol in the past year? Yes How often did you have a dri nk containing alcohol in the past year? Monthly or less (1 point) How many drinks did you have on a typical day when you were drinking in the past year? 1 or 2 drinks (0 point) How often did you have 6 or more drinks on one occasion in the past year? Monthly (2 points) Points 3 Interpretation Positive Tobacco Use/Smoking Question Answer Notes Patient is a: current smoker How often do you smoke? every day How many cigarettes a day do you smoke? 6-10 Section Notes: exercise-a little bit everyd ay Problems Problem Type SNOMED Code ICD Code Onset Dates Problem Status W/U Status Risk Notes Problem Ethanol abuse (84216296) ETOH abuse (F10.10) Active confirmed Problem 19349751 Ischemic colitis (K55.9) Active confirmed Problem 083426008 Polysubstance abuse (F19.10) Active confirmed Problem 923615165 Hallux valgus of right foot (M20.11) Active confirmed Problem 837966983 Chronic liver failure without hepatic coma (K72.10) Active confirmed Plan Of Treatment Pending Test Test Name Order Date MR lumbar spine wo/w con 10/22/2023 Future Test Test Name Order Date XRAY FOOT RIGHT 11/14/2018 Insurance Providers Payer Name Payer Address Payer Phone Subscriber Number Group Number Insured Name Patient Relationship to Insured Coverage Start Date Coverage End Date [facility] [employer] Plan [address] [address] [place], [place] [id number] Tabitha Weaver Self - patient is the insured 8 Medical (General) History Medical History History ICD Code high blood pressure anxiety depression adrenal insufficiency Surgical History Surgery Date(Month/Year) left ankle right foot right knee Hospitalization History Reason Date(Month/Year) right knee right foot left ankle
--- OUTSIDE RECORDS SUMMARY | 2024-04-29 12:12 | XMS_ITS | Encounter Summary ---
Author Organization [facility] Address [address] [place] [address] Care Team Providers Care Grant Officer Name Role Phone Isaac Alaniz MD, Alex Tariq Primary Care Provider +1- [phone] Reason for Visit * Reason Onset Date Comments Sick Call 02/04/2023 Encounter Details Date Type Department Care Team ([facility] st Contact Info) Description 02/04/2023 Telephone [facility] [address] [place] [phone] Pako Reed DO [address], [place] [phone] Sick Call Social History Tobacco Use Types Packs/Day Years [...] encounter Miscellaneous Notes * Telephone Encounter - Yris Resendez [place] - 02/04/2023 4:08 PM EDT Spoke with pt again and she states she will go home and grab some things and head to the ED * Telephone Encounter - Pako Reed DO - 02/04/2023 4:01 PM EDT Thank you Yris. My recommendation is for emergency department. She can call her neurologist as well but I think her symptoms warrant emergent evaluation. * Telephone Encounter - Yris Resendez MA - 02/04/2023 3:26 PM EDT Pt [place] that [place] and that she didn't want to go to the ED because she doesn'twant to wait hours to be seen and that the ED drs wouldn't know what to do to her states this is a matter to the neurologist who did her surgery She asked that I look up Dr Aguilar's # so that she could call his office * Telephone Encounter - Ene Maldonado MA - 02/04/2023 3:09 PM EDT Please be sure pt was seen in the ED. * Telephone Encounter - Pako Reed DO - 02/04/2023 3:07 PM EDT I would agree with the evaluation in the emergency room. * Telephone Encounter - Db Guerra - 02/04/2023 1:04 PM EDT Patient Reporting Increased Pain Location of pain: Legs Description of pain: burning legs, can't get up and or move. Best call back number: [phone] Are they are on the verbal consent? YES Patient calling in pain, experiencing a lot of pain feeling burning down her legs. States she can'ttake this pain anymore. She is having trouble moving and walking. I advised patient to go to ER andcall an ambulance. Please advise, thank you. documented in this encounter Plan of Treatment Not on file documented as of this encounter Visit Diagnoses Not on filedocumented in this encounter Additional Health Concerns Infection Onset Date Last Indicated Resolved Time PUI COVID 01/01/2024 01/01/2024 01/01/2024 1:19 PM EDT documented as of this encounter Care Teams Grant Officer Relationship Specialty Start Date End Date Alex Gray Jr., MD [address] [place] [phone] PCP - General Internal Medicine 08/15/18 documented as of this encounter
--- OUTSIDE RECORDS SUMMARY | 2024-04-29 12:12 | XMS_ITS | Encounter Summary ---
Author Organization 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 coma Social History Tobacco Use Types Packs/Day Years [...] Procedure Name Priority Date/Time Associated Diagnosis Comments HCV FIBROSURE Routine 10/05/2017 10:00 AM EDT Viral hepatitis C without hepatic coma IRON AND TIBC Routine 10/05/2017 10:00 AM EDT Viral hepatitis C without hepatic coma [id number] Routine 10/05/2017 1 0:00 AM EDT Viral hepatitis C without hepatic coma CERULOPLASMIN Routine 10/05/2017 10:00 AM EDT Viral hepatitis C without hepatic coma MITOCHONDRIAL (M2) ANTIBODY IGG Routine 10/05/2017 10:00 AM EDT Viral hepatitis C without hepatic coma SMOOTH MUSCLE ANTIBODY WITH REFLEX TO TITER Routine 10/05/2017 10:00 AM EDT Viral hepatitis C without hepatic coma PROTIME-INR Routine 10/05/2017 10:00 AM EDT Viral hepatitis C without hepatic coma LACTATE DEHYDROGENASE Routine 10/05/2017 10:00 AM EDT Viral hepatitis C without hepatic coma FERRITIN Routine 10/05/2017 10:00 AM EDT Viral hepatitis C without hepatic coma documented in this encounter Results * (ABNORMAL) Protime-INR (10/05/2017 10:00 AM EDT) Protime 14.8(H) 11.5 - 14.3 seconds 10/05/2017 6:43 PM EDT [facility] INR 1.20(L) 1.50 - 4.00 10/05/2017 6:43 PM EDT [facility] Blood specimen (specimen) Venipuncture / Unknown 10/05/2017 10:00 AM EDT 10/05/2017 6:06 PM EDT Narrative [facility] - 10/05/2017 6:43 PM EDT ? INR Recommendations for Oral Anticoagulant Therapy ? Populations ?INR Value ?New PT Value (Sec) Low Intensity OAC Therapy ?1.5-2.0 ?17.6-22.0 Mod Intensity OAC Therapy ?2.0-3.0 ?22.0-33.0 High Intensity OAC Therapy ?? 2.5-4.0 ?26.1-37.4 us Alex Gray Jr., MD LAB BLOOD ORDERABLES Final Result Performing Organization Address [facility] Co de Phone Number [facility] [address] [place] [address] * Mitochondrial (M2) antibody (10/05/2017 10:00 AM EDT) Pathologist [facility] Mitochondria M2 Ab (IgG) < 20.1 <20.1 Units 10/09/2017 10:35 AM EDT [facility] Comment: ?? REFERENCE RANGE for MITOCHONDRIA M2 ANTIBODY (IGG), EIA ?Less than 20.1 . . . . . . Negative ?20.1 - 24.9 ??. . . . . . . Equivocal ?Greater than 24.9 ??. . . . Positive Blood specimen (specimen) Venipuncture / Unknown 10/05/2017 10:00 AM EDT 10/05/2017 6:06 PM EDT us Alex Gray Jr., MD LAB BLOOD ORDERABLES Final Result Performing Organization Address [facility]/ZIP Co de Phone Number [facility] [address] [place] [address] * (ABNORMAL) Ferritin (10/05/2017 10:00 AM EDT) Ferritin 233.2(H) 10.0 - 130.0 ng/mL 10/05/2017 9:59 PM EDT [facility] Blood specimen (specimen) Venipuncture / Unknown 10/05/2017 10:00 AM EDT 10/05/2017 6:06 PM EDT us Alex Gray Jr., MD LAB BLOOD ORDERABLES Final Result Performing Organization Address City/[facility]/ZIP Co de Phone Number [facility] [address] [place], [place] * Lactate Dehydrogenase (10/05/2017 10:00 AM EDT) LD 225 100 - 245 IU/L 10/05/2017 7:03 PM EDT [facility] Blood specimen (specimen) Venipuncture / Unknown 10/05/2017 10:00 AM EDT 10/05/2017 6:06 PM EDT us Alex Gray Jr., MD LAB BLOOD ORDERABLES Final Result Performing Organization Address [facility] Co de Phone Number [facility] [address] [place] [address] * Iron and TIBC (10/05/2017 10:00 AM EDT) Iron 74 30 - 160 ug/dL 10/05/2017 9:59 PM EDT [facility] UIBC 200 110 - 370 ug/dL 10/05/2017 9:59 PM EDT [facility] TIBC 274 228 - 428 ug/dL 10/05/2017 9:59 PM EDT [facility] Iron Saturation 27 20 - 50 % 8 9:59 PM EDT [facility] Blood specimen (specimen) Venipuncture / Unknown 10/05/2017 10:00 AM EDT 10/05/2017 6:06 PM EDT Result Curtis Gray Jr., MD LAB BLOOD ORDERABLES Final Result Performing Organization Address [facility] Co de Phone Number [facility] [address] [place], [place] * (ABNORMAL) HCV Fibrosure $$$$ (10/05/2017 10:00 AM EDT) Fibrosis Score 0.64 10/09/2017 3:24 PM EDT [facility] Fibrosis Stage F3 10/09/2017 3:24 PM EDT [facility] Necroinflammat Activity Score 0.63 10/09/2017 3:24 PM EDT [facility] Necroinflammat Activity Grade A3 10/09/2017 3:24 PM EDT [facility] Alpha 2-Macroglobulins, Quant 435(A) 106 - 279 mg/dL 10/09/2017 3:24 PM EDT [facility] Comment:Abnormal Flag: H Haptoglobin 120 43 - 212 mg/dL 10/09/2017 3:24 PM EDT [facility] Comment: Apolipoprotein A-1 120 101 - 198 mg/dL 10/09/2017 3:24 PM EDT [facility] Comment: GGT 94(A) 3 - 55 U/L 10/09/2017 3:24 PM EDT [facility] Comment:Abnormal Flag: H ALT (SGPT) 86(A) 6 - 29 U/L 10/09/2017 3:24 PM EDT [facility] Comment:Abnormal Flag: H Interpretation SEE NOTE 10/09/2017 3:24 PM EDT [facility] Comment: advanced fibrosis Fibro Test Score ?? Metavir Score 0.00-0.21 ?F0 ? no fibrosis 0.22-0.27 ?F0-F1 0.28-0.31 ?F1 ? minimal fibrosis 0.32-0.48 ?F1-F2 0.49-0.58 ?F2 ? moderate fibrosis 0.59-0.72 ?F3 ? advanced fibrosis 0.73-0.74 ?F3-F4 0.75-1.00 ?F4 ? severe fibrosis Necroinflammant Interp. SEE NOTE 10/09/2017 3:24 PM EDT [facility] Comment: severe activity ActiTest Score ? Metavir Score 0.00-0.17 ?A0 ? no activity 0.18-0.29 ?A0-A1 0.30-0.36 ?A1 ? minimal activity 0.37-0.52 ?A1-A2 0.53-0.60 ?A2 ? significant activity 0.61-0.62 ?A2-A3 0.63-1.00 ?A3 ? severe activity Bilirubin, Total 0.5 0.2 - 1.2 mg/dL 10/09/2017 3:24 PM EDT [facility] Comment: Reference ID [id number] 10/09/2017 3:24 PM EDT [facility] Footnote SEE NOTE 10/09/2017 3:24 PM EDT [facility] Comment: The reliability of results is dependent on compliance with the preanalytical and analytical conditions recommended by [employer]. The tests have to be deferred for: acute hemolysis, acute hepatitis, acute inflammation, extra hepatic cholestasis. The advice of a specialist should be sought for interpretation in chronic hemolysis and Gilbert's syndrome. The test interpretation is not validated in liver transplant patients. Isolated extreme values of one of the components should lead to caution in interpreting the results. In case of discordance between a biopsy result and a test, it is recommended to seek the advice of a specialist. The causes of these discordances could be due to a flaw of the test or to a flaw in the biopsy: i.e. a liver biopsy has a 33% variability rate for one fibrosis stage. FibroTest is interpretable for chronic hepatitis B and C, alcoholic and non alcoholic steatosis. ActiTest is interpretable for chronic hepatitis B and C. The performance characteristics have been determined by [employer] [facility]. It has not been cleared or approved by the U.S. Food and Drug Administration. Performance characteristics refer to the analytical performance of the test. [facility], [employer], the associated logo, [employer] Experience and all associated [employer] fofana are the registered trademarks of [employer]. All third republican fofana - (R) and (TM) - are the property of their respective owners. (C) 5224-2063 [employer]. All rights reserved. Test(s) performed at: ?[facility] ?Ambreen Padilla M.D., Ph.D., BEKAH, Security Alarm Technician ?[id number] [place] [address] ?[place] [address] ?IA #[id number] Blood specimen (specimen) Venipuncture / Unknown 10/05/2017 10:00 AM EDT 10/05/2017 6:06 PM EDT Alex Gray Jr., MD LAB BLOOD ORDERABLES Final Result Performing Organization Address [facility]/ZIP Co de Phone Number [facility] [id number] [place] [address] * (ABNORMAL) Pryvw-2-wsflzwhmaoq (10/05/2017 10:00 AM EDT) Zefvw-2-Fvvvhrobz in, Quantitative 210(H) 83 - 199 mg/dL 10/09/2017 2:01 PM EDT [facility] Blood specimen (specimen) Venipuncture / Unknown 10/05/2017 10:00 AM EDT 10/05/2017 6:06 PM EDT Alex Gray Jr., MD LAB BLOOD ORDERABLES Final Result Performing Organization Address [facility] Co de Phone Number [facility] [id number] [place] [address] * Ceruloplasmin (10/05/2017 10:00 AM EDT) Ceruloplasmin 36 18 - 53 mg/dL 10/09/2017 2:00 PM EDT [facility] Comment: Adults: ?Males: ? 18-36 mg/dL ?Females: ?? 18-53 mg/dL Pediatrics: ?Males (mg/dL) ?Females (mg/dL) ?0-30 Days ? 8-25 ? 3-28 ??31 Days-11 Month ? 15-48 ?15-43 ??1-3 Years ?25-56 ?29-54 ??4-6 Years ?29-56 ?26-54 ??7-9 Years ?25-52 ?23-48 ??10-12 Years ?21-51 ?21-48 ??13-15 Years ?20-50 ?21-46 ??16-18 Years ?20-45 ?22-50 The pediatric ranges are derived from the following criteria: Judie SJ, Saranya JM, Zeenat J et al Pediatric reference ranges for Awrg-6-Ldnswkpaddshx and ceruloplasmin. Clin. Chem 1997; 43:S1999 Pediatric Reference Ranges, 2nd., [place] Judieet al. editors. [facility], [place], [place] 1997. Blood specimen (specimen) Venipuncture / Unknown 10/05/2017 10:00 AM EDT 10/05/2017 6:06 PM EDT us Alex Gray Jr., MD LAB BLOOD ORDERABLES Final Result Performing Organization Address [facility] Co de Phone Number [facility] [address] [place] [address] * Smooth Muscle Antibody Titer (10/05/2017 10:00 AM EDT) Smooth Muscle Ab <1:40 <1:40 titer 10/09/2017 2:34 AM EDT [facility] Comment: This test was developed and its analytical performance characteristics have been determined by [employer] [facility]. It has not been cleared or approved by the US Food and Drug Administration. This assay has been validated pursuant to the CLIA regulations and is used for clinical purposes. Blood specimen (specimen) Venipuncture / Unknown 10/05/2017 10:00 AM EDT 10/05/2017 6:06 PM EDT Alex Gray Jr., MD LAB BLOOD ORDERABLES Final Result Performing Organization Address [facility] de Phone Number [facility] [address] [place] [address] documented in this encounter Visit Diagnoses Diagnosis Viral hepatitis C without hepatic coma documented in this encounter Additional Health Concerns Infection Onset Date Last Indicated Resolved Time MRSA Comment:Cleared 05/19/21 nf MRSA blood/chin 03/14/19 sa 03/14/2019 03/17/2019 2021 2 :15 PM EST PUI COVID 01/01/2024 01/01/2024 01/01/2024 1:19 PM EDT documented as of this encounter Care Teams Underwriting Operations Manager Relationship Specialty Start Date End Date Jen Saunders NP PCP - General Pain Medicine 09/24/17 08/14/18 Alex Gray Jr., MD [address] [place] [phone] PCP - General Internal Medicine 08/15/18 documented as of this encounter
--- OUTSIDE RECORDS SUMMARY | 2024-04-29 12:12 | XMS_ITS | Encounter Summary ---
Author Organization [facility] Address [address] [place] [address] Care Team Providers Care Bond Analyst Name Role Phone Isaac Alaniz MD, Alex Tariq Primary Care Provider [phone] Encounter Details Date Type Department Care Team (Late st Contact Info) Description 11/25/2022 Procedure Pass [facility] - [address] [phone] Social History Tobacco Use Types [...] - - Weight 96.2 kg (212 lb) 11/25/2022 2:06 PM EDT Height 170.2 cm (5' 7 ) 11/25/2022 2:06 PM EDT Body Mass Index 33.2 11/25/2022 2:06 PM EDT documented in this encounter Plan of Treatment Not on file documented as of this encounter Visit Diagnoses Not on filedocumented in this encounter Additional Health Concerns Infection Onset Date Last Indicated Resolved Time PUI COVID 01/01/2024 01/01/2024 01/01/2024 1:19 PM EDT documented as of this encounter Care Teams Bond Analyst Relationship Specialty Start Date End Date Alex Gray Jr., MD [address] [place] [phone] PCP - General Internal Medicine 08/15/18 documented as of this encounter
--- OUTSIDE RECORDS SUMMARY | 2024-04-29 12:12 | XMS_ITS | Encounter Summary ---
Author Organization [facility] Address [address] [place] [address] Care Team Providers Care Prop And Scenery Maker Name Role Phone Jen Saunders NP Primary Care Provider [phone] Isaac Alaniz MD, Alex Tariq Primary Care Provider [phone] Encounter Details Date Type Department Care Team (Late st Contact Info) Description 09/24/2017 Lab Requisition [facility] [address] [place] [address] Jen Saunders NP [address] [place], [place] [phone] Viral hepatitis C without hepatic coma Social [...] Procedure Name Priority Date/Time Associated Diagnosis Comments HIV 1/2 AG+AB (4TH GEN) W/ REFLEX Routine 09/24/2017 10:06 AM EDT Viral hepatitis C without hepatic coma HEPATITIS C GENOTYPE Routine 09/24/2017 10:06 AM EDT Viral hepatitis C without hepatic coma HEPATITIS C QUAL->QUANT->VERONICA Routine 09/24/2017 10:06 AM EDT Viral hepatitis C without hepatic coma CBC AND AUTO DIFFERENTIAL Routine 09/24/2017 10:06 AM EDT Viral hepatitis C without hepatic coma HEMOGLOBIN A1C Routine 09/24/2017 10:06 AM EDT Viral hepatitis C without hepatic coma COMPREHENSIVE METABOLIC PANEL Routine 09/24/2017 10:06 AM EDT Viral hepatitis C without hepatic coma documented in this encounter Results * Hepatitis C Genotype-R (09/24/2017 10:06 AM EDT) HCV Genotype, LiPA 1a 2017 8:48 PM EDT [facility] Comment: The method used in this test is RT-PCR and reverse hybridization (Line Probe) of the 5' UTR and core region of the HCV genome. The analytical performance characteristics of this assay have been determined by [facility]. The modifications have not been cleared or approved by the FDA. This assay has been validated pursuant to the CLIA regulations and is used for clinical purposes. For additional information, please refer to http://education.[employer]iance /faq/HCVGenotyping (This link id being provided for informational/ educational purposes only.) Test(s) performed at: ?[facility] ?Godfrey Nava M.D., Solution Designer ?[address] [facility] ?[place] [address] ?CLIA #[id number] Blood specimen (specimen) Venipuncture / Unknown 09/24/2017 10:06 AM EDT 09/30/2017 8:47 AM EDT us Jen Saunders [facility] BLOOD ORDERABLES Final Re sult [facility] [address] [place] [address] * (ABNORMAL) Comprehensive metabolic panel (09/24/2017 10:06 AM EDT) Sodium 142 137 - 147 mEq/L 09/24/2017 1:39 PM EDT [facility] Potassium 4.2 3.5 - 5.4 mEq/L 09/24/2017 1:39 PM EDT [facility] Chloride 108(H) 96 - 107 mEq/L 09/24/2017 1:39 PM EDT [facility] CO2 22(L) 24 - 34 mEq/L 09/24/2017 1:39 PM T [facility] Anion Gap 12 4 - 15 mEq/L 09/24/2017 1:39 PM [facility] Glucose 113(H) 70 - 100 mg/dL 09/24/2017 1:39 PM T [facility] Creatinine 0.62 0.50 - 1.30 mg/dL 09/24/2017 1:39 PM T [facility] eGFR >60 60 - 115 mL/min 09/24/2017 1:39 PM T [facility] BUN 9 6 - 26 mg/dL 09/24/2017 1:39 PM [facility] Calcium 9.1 8.7 - 10.5 mg/dL 09/24/2017 1:39 PM [facility] Total Protein 7.8 6.4 - 8.6 g/dL 09/24/2017 1:39 PM T [facility] Albumin 3.8 3.4 - 4.8 g/dL 09/24/2017 1:39 PM [facility] A/G Ratio 1.0 1.0 - 2.3 09/24/2017 1:39 PM [facility] Total Bilirubin 0.3 0.2 - 1.2 mg/dL 09/24/2017 1:39 PM T [facility] AST 80(H) 0 - 40 U/L 09/24/2017 1:39 PM T [facility] Alkaline Phosphatase 70 40 - 150 IU/L 09/24/2017 1:39 PM EDT [facility] ALT 71(H) 0 - 45 U/L 09/24/2017 1:39 PM EDT [facility] Blood specimen (specimen) Venipuncture / Unknown 09/24/2017 10:06 AM EDT 09/24/2017 10:06 AM EDT us Jen Saunders NP LAB BLOOD ORDERABLES Final Re sult Performing Organization Address [facility] Co de Phone Number [facility] [address] [place] [address] * HIV 1/2 AG+AB (4th Gen) w/Reflex (09/24/2017 10:06 AM EDT) HIV 1-2 AG/AB (4th Gen) Nonreactive Nonreactive 09/24/2017 4:52 PM EDT [facility] Blood specimen (specimen) Venipuncture / Unknown 09/24/2017 10:06 AM EDT 09/24/2017 10:06 AM EDT Jen Saunders NP LAB BLOOD ORDERABLES Final Re sult Performing Organization Address [facility] de Phone Number [facility] [address] [place], [place] * Hemoglobin A1c (09/24/2017 10:06 AM EDT) Hemoglobin A1C 5.4 4.6 - 6.0 % 09/25/2017 6:43 AM EDT [facility] Estimated Average Glucose eAG 108.3 85.0 - 126.0 mg/dL 09/25/2017 6:43 AM EDT [facility] Blood specimen (specimen) 09/24/2017 10:06 AM EDT 09/24/2017 10:06 AM EDT us Jen Saundres [facility] BLOOD ORDERABLES Final Re sult Performing Organization Address [facility] Co de Phone Number [facility] [address] [place], [place] * (ABNORMAL) Hepatitis C Qualitative to Quantitative to Genotype (09/24/2017 10:06 AM EDT) [facility] HCV RNA Qualitative Detected( A) Non-detec windy 09/30/2017 8:47 AM EDT [facility] HCV Quantitative (PCR) 5,470,000 (H) <15 IU/mL 09/30/2017 8:47 AM EDT [facility] Comment:Viral load result is > 1000 IU/mL. HCV Genotype has been sent to the reference laboratory for testing. HCV (Log) 6.74(H) <1.18 log (10) 09/30/2017 8:47 AM EDT [facility] Blood specimen (specimen) Venipuncture / Unknown 09/24/2017 10:06 AM EDT 09/24/2017 10:06 AM EDT Narrative [facility] - 09/30/2017 8:47 AM EDT This test was performed using [employer] Ampliprep/Taqman HCV Test Kit ([employer] which is FDA approved and employs real time PCR methodology. us Jen Saunders [facility] BLOOD ORDERABLES Final Re sult [facility] [address] [place] [address] * (ABNORMAL) CBC and Auto Differential (09/24/2017 10:06 AM EDT) [facility] WBC 5.1 4.8 - 11.2 10*3/??L 09/24/2017 1:13 PM EDT [facility] RBC 4.13 3.60 - 5.40 10*6/??L 09/24/2017 1:13 PM EDT [facility] HGB 13.2 12.0 - 15.8 g/dL 09/24/2017 1:13 PM EDT [facility] HCT 39.5 36.0 - 48.0 % 09/24/2017 1:13 PM EDT [facility] MCV 95.7 82.0 - 98.0 fL 09/24/2017 1:13 PM EDT [facility] MCH 32.0 27.0 - 35.0 pg 09/24/2017 1:13 PM EDT [facility] MCHC 33.5 32.0 - 37.0 g/dL 09/24/2017 1:13 PM T [facility] RDW 13.0 12.0 - 15.0 % 09/24/2017 1:13 PM EDT [facility] PLT 105(L) 150 - 400 10*3/??L 09/24/2017 1:13 PM EDT [facility] MPV 9.5 7.0 - 14.0 fL 09/24/2017 1:13 PM T [facility] Neut % 35.5(L) 45.0 - 85.0 % 09/24/2017 1:13 PM [facility] Lymph % 47.6(H) 15.0 - 45.0 % 09/24/2017 1:13 PM EDT [facility] Emanuel % 11.2 0.0 - 12.0 % 09/24/2017 1:13 PM EDT [facility] Eos % 4.4 0.0 - 7.0 % 09/24/2017 1:13 PM T [facility] Baso % 1.3 0.0 - 3.0 % 09/24/2017 1:13 PM [facility] NRBC% 0 0 /100 WBC /100 WBC 09/24/2017 1:13 PM [facility] Neut # 1.8(L) 2.2 - 9.5 10*3/??L 09/24/2017 1:13 PM EDT [facility] Lym # 2.4 0.7 - 5.0 10*3/??L 09/24/2017 1:13 PM EDT [facility] Emanuel # 0.6 0.0 - 1.3 10*3/??L 09/24/2017 1:13 PM EDT [facility] Eos # 0.2 0.0 - 0.4 10*3/??L 09/24/2017 1:13 PM EDT [facility] Baso # 0.1 0.0 - 0.3 10*3/??L 09/24/2017 1:13 PM EDT [facility] Blood specimen (specimen) Venipuncture / Unknown 09/24/2017 10:06 AM EDT 09/24/2017 10:06 AM EDT us Jen Saunders [facility] BLOOD ORDERABLES Final Re sult [facility] [address] [place] [address] documented in this encounter Visit Diagnoses Diagnosis Viral hepatitis C without hepatic coma documented in this encounter Additional Health Concerns Infection Onset Date Last Indicated Resolved Time MRSA Comment:Cleared 05/19/21 nf MRSA blood/chin 03/14/19 sa 03/14/2019 03/17/2019 2021 2 :15 PM EST PUI COVID 01/01/2024 01/01/2024 01/01/2024 1:19 PM EDT documented as of this encounter Care Teams Prop And Scenery Maker Relationship Specialty Start Date End Date Jen Saunders NP PCP - General Pain Medicine 09/24/17 08/14/18 Alex Gray Jr., MD [address] [place] [phone] PCP - General Internal Medicine 08/15/18 documented as of this encounter
--- OUTSIDE RECORDS SUMMARY | 2024-04-29 12:13 | XMS_ITS | Encounter Summary ---
Author Organization [facility] Address [address] [place] [address] Care Team Providers Care Rn Community Name Role Phone Isaac Alaniz MD, Alex Tariq Primary Care Provider +1- [phone] Encounter Details Date Type Department Care Team (Late st Contact Info) Description 01/04/2023 Lab Requisition [address] [phone] Demetria Garner, ASSISTANT KITCHEN MANAGER [address] [place] [address] Illness, unspecified Social History Tobacco [...] Associated Diagnosis Comments C-REACTIVE PROTEIN INFLAMMATION Routine 01/04/2023 5:30 AM EDT Illness, unspecified CBC AND AUTO DIFFERENTIAL Routine 01/04/2023 5:30 AM EDT Illness, unspecified PHOSPHORUS Routine 01/04/2023 5:30 AM EDT Illness, unspecified MAGNESIUM Routine 01/04/2023 5:30 AM EDT Illness, unspecified COMPREHENSIVE METABOLIC PANEL Routine 01/04/2023 5:30 AM EDT Illness, unspecified documented in this encounter Results * (ABNORMAL) CRP, Inflammation (01/04/2023 5:30 AM EDT) CRP, Inflammation 25.09(H) 0.00 - 3.00 mg/L 01/04/2023 8:52 AM EDT [facility] Blood Venipuncture / Unknown 01/04/2023 5:30 AM EDT 01/04/2023 7:41 AM EDT Narrative [facility] - 01/04/2023 8:52 AM EDT >10.0 ?Consider infection/inflammation Demetria Garner ASSISTANT KITCHEN MANAGER LAB BLOOD ORDERABLES Final Result Performing Organization Address [facility]/ZIP Co de Phone Number [facility] [address] [place] [phone] * Phosphorus (01/04/2023 5:30 AM EDT) Pathologist [facility] Phosphorus 4.8 2.4 - 5.1 mg/dL 01/04/2023 8:42 AM EDT [facility] Blood Venipuncture / Unknown 01/04/2023 5:30 AM EDT 01/04/2023 7:41 AM EDT Demetria Garner ASSISTANT KITCHEN MANAGER LAB BLOOD ORDERABLES Final Result Performing Organization Address City/[facility]/ZIP Co de Phone Number [facility] [address] [place] [phone] * Magnesium (01/04/2023 5:30 AM EDT) Magnesium 1.8 1.6 - 2.6 mg/dL 01/04/2023 8:42 AM EDT [facility] Blood Venipuncture / Unknown 01/04/2023 5:30 AM EDT 01/04/2023 7:41 AM EDT Demetria Garner NP LAB BLOOD ORDERABLES Final Result [facility] [address] [place] [phone] * (ABNORMAL) CBC and Auto Differential (01/04/2023 5:30 AM EDT) WBC 6.4 4.8 - 11.2 10*3/??L 01/04/2023 7:52 AM EDT [facility] RBC 3.66 3.60 - 5.40 10*6/??L 01/04/2023 7:52 AM EDT [facility] HGB 10.6(L) 12.0 - 15.8 g/dL 01/04/2023 7:52 AM EDT [facility] HCT 31.5(L) 36.0 - 48.0 % 01/04/2023 7:52 AM EDT [facility] MCV 86.1 82.0 - 98.0 fL 01/04/2023 7:52 AM EDT [facility] MCH 29.0 27.0 - 35.0 pg 01/04/2023 7:52 AM EDT [facility] MCHC 33.6 32.0 - 37.0 g/dL 01/04/2023 7:52 AM EDT [facility] RDW 13.4 12.0 - 15.0 % 01/04/2023 7:52 AM EDT [facility] PLT 215 150 - 400 10*3/??L 01/04/2023 7:52 AM EDT [facility] MPV 8.0 7.0 - 14.0 fL 01/04/2023 7:52 AM EDT [facility] Neut % 32.0(L) 45.0 - 85.0 % 01/04/2023 7:52 AM EDT [facility] Lymph % 48.7(H) 15.0 - 45.0 % 01/04/2023 7:52 AM EDT [facility] Izard % 11.5 0.0 - 12.0 % 01/04/2023 7:52 AM EDT [facility] Eos % 7.2(H) 0.0 - 7.0 % 01/04/2023 7:52 AM EDT [facility] Baso % 0.6 0.0 - 3.0 % 01/04/2023 7:52 AM EDT [facility] NRBC% 0 0 /100 WBC /100 WBC 01/04/2023 7:52 AM EDT [facility] Neut # 2.0(L) 2.2 - 9.5 10*3/??L 01/04/2023 7:52 AM EDT [facility] Lym # 3.1 0.7 - 5.0 10*3/??L 01/04/2023 7:52 AM EDT [facility] Izard # 0.7 0.0 - 1.3 10*3/??L 01/04/2023 7:52 AM EDT [facility] Eos # 0.5(H) 0.0 - 0.4 10*3/??L 01/04/2023 7:52 AM EDT [facility] Baso # 0.0 0.0 - 0.3 10*3/??L 01/04/2023 7:52 AM EDT [facility] Blood Venipuncture / Unknown 01/04/2023 5:30 AM EDT 01/04/2023 7:41 AM EDT Demetria Garner NP LAB BLOOD ORDERABLES Final Result [facility] [address] [place] [address] * (ABNORMAL) Comprehensive metabolic panel (01/04/2023 5:30 AM EDT) Sodium 136 136 - 145 mEq/L 01/04/2023 8:42 AM EDT [facility] Potassium 4.0 3.5 - 5.1 mEq/L 01/04/2023 8:42 AM EDT [facility] Chloride 101 98 - 107 mEq/L 01/04/2023 8:42 AM EDT [facility] CO2 26 20 - 31 mEq/L 01/04/2023 8:42 AM EDT [facility] Anion Gap 9 4 - 15 mEq/L 01/04/2023 8:42 AM EDT [facility] Glucose 118(H) 70 - 100 mg/dL 01/04/2023 8:42 AM EDT [facility] Creatinine 0.63 0.50 - 1.00 mg/dL 01/04/2023 8:42 AM EDT [facility] eGFR (Female) >60 60 - 115 mL/min 01/04/2023 8:42 AM EDT [facility] BUN 9 9 - 23 mg/dL 01/04/2023 8:42 AM EDT [facility] Calcium 9.6 8.7 - 10.4 mg/dL 01/04/2023 8:42 AM EDT [facility] Total Protein 8.4(H) 5.7 - 8.2 g/dL 01/04/2023 8:42 AM EDT [facility] Albumin 3.7 3.2 - 4.8 g/dL 01/04/2023 8:42 AM EDT [facility] A/G Ratio 0.8(L) 1.0 - 2.3 01/04/2023 8:42 AM EDT [facility] Total Bilirubin <0.2(L) 0.2 - 1.0 mg/dL 01/04/2023 8:42 AM EDT [facility] AST 39 13 - 40 U/L 01/04/2023 8:42 AM EDT [facility] Alkaline Phosphatase 119(H) 46 - 116 IU/L 01/04/2023 8:42 AM EDT [facility] ALT 34 7 - 40 U/L 01/04/2023 8:42 AM EDT [facility] Blood Venipuncture / Unknown 01/04/2023 5:30 AM EDT 01/04/2023 7:41 AM EDT us Demetria Garner ASSISTANT KITCHEN MANAGER LAB BLOOD ORDERABLES Final Result [facility] [address] [place] [address] documented in this encounter Visit Diagnoses Diagnosis Illness, unspecified documented in this encounter Additional Health Concerns Infection Onset Date Last Indicated Resolved Time PUI COVID 01/01/2024 01/01/2024 01/01/2024 1:19 PM EDT documented as of this encounter Care Teams Rn Community Relationship Specialty Start Date End Date Alex Gray Jr., MD [address] [place] [phone] PCP - General Internal Medicine 08/15/18 documented as of this encounter
--- OUTSIDE RECORDS SUMMARY | 2024-04-29 12:13 | XMS_ITS | Encounter Summary ---
Author Organization [facility] Address [address] [place] [address] Care Team Providers Care Recreation Coordinator Name Role Phone Isaac Alaniz MD, Alex Tariq Primary Care Provider +1- [phone] Encounter Details Date Type Department Care Team (Late st Contact Info) Description 01/18/2023 Lab Requisition [address] [phone] Demetria Garner, FLUME RIDE OPERATOR [address] [place] [address] Illness, unspecified Social History Tobacco [...] Associated Diagnosis Comments C-REACTIVE PROTEIN INFLAMMATION Routine 01/18/2023 5:20 AM EDT Illness, unspecified CBC AND AUTO DIFFERENTIAL Routine 01/18/2023 5:20 AM EDT Illness, unspecified PHOSPHORUS Routine 01/18/2023 5:20 AM EDT Illness, unspecified MAGNESIUM Routine 01/18/2023 5:20 AM EDT Illness, unspecified COMPREHENSIVE METABOLIC PANEL Routine 01/18/2023 5:20 AM EDT Illness, unspecified documented in this encounter Results * (ABNORMAL) Comprehensive metabolic panel (01/18/2023 5:20 AM EDT) Sodium 137 136 - 145 mEq/L 01/18/2023 8:12 AM EDT [facility] Potassium 3.7 3.5 - 5.1 mEq/L 01/18/2023 8:12 AM EDT [facility] Chloride 102 98 - 107 mEq/L 01/18/2023 8:12 AM EDT [facility] CO2 28 20 - 31 mEq/L 01/18/2023 8:12 AM EDT [facility] Anion Gap 7 4 - 15 mEq/L 01/18/2023 8:12 AM EDT [facility] Glucose 140(H) 70 - 100 mg/dL 01/18/2023 8:12 AM EDT [facility] Creatinine 0.62 0.50 - 1.00 mg/dL 01/18/2023 8:12 AM EDT [facility] eGFR (Female) >60 60 - 115 mL/min 01/18/2023 8:12 AM EDT [facility] BUN 9 9 - 23 mg/dL 01/18/2023 8:12 AM EDT [facility] Calcium 9.6 8.7 - 10.4 mg/dL 01/18/2023 8:12 AM EDT [facility] Total Protein 8.4(H) 5.7 - 8.2 g/dL 01/18/2023 8:12 AM EDT [facility] Albumin 3.9 3.2 - 4.8 g/dL 01/18/2023 8:12 AM EDT [facility] A/G Ratio 0.9(L) 1.0 - 2.3 01/18/2023 8:12 AM EDT [facility] Total Bilirubin 0.3 0.2 - 1.0 mg/dL 01/18/2023 8:12 AM EDT [facility] AST 18 13 - 40 U/L 01/18/2023 8:12 AM EDT [facility] Alkaline Phosphatase 104 46 - 116 IU/L 01/18/2023 8:12 AM EDT [facility] ALT 13 7 - 40 U/L 01/18/2023 8:12 AM EDT [facility] Blood Venipuncture / Unknown 01/18/2023 5:20 AM EDT 01/18/2023 7:26 AM EDT Demetria Garner FLUME RIDE OPERATOR LAB BLOOD ORDERABLES Final Result Performing Organization Address City/[facility]/ZIP Co de Phone Number [facility] [address] [place] [phone] * CRP, Inflammation (01/18/2023 5:20 AM EDT) CRP, Inflammation 2.95 0.00 - 3.00 mg/L 01/18/2023 8:12 AM EDT [facility] Blood Venipuncture / Unknown 01/18/2023 5:20 AM EDT 01/18/2023 7:26 AM EDT [facility] Oneyda Garner FLUME RIDE OPERATOR LAB BLOOD ORDERABLES Final Result [facility] [address] [place] [phone] * Magnesium (01/18/2023 5:20 AM EDT) Magnesium 1.6 1.6 - 2.6 mg/dL 01/18/2023 8:12 AM EDT [facility] Blood Venipuncture / Unknown 01/18/2023 5:20 AM EDT 01/18/2023 7:26 AM EDT Demetria Garner FLUME RIDE OPERATOR LAB BLOOD ORDERABLES Final Result Performing Organization Address City/[facility]/ZIP Co de Phone Number [facility] [address] [place] [address] * Phosphorus (01/18/2023 5:20 AM EDT) Phosphorus 4.9 2.4 - 5.1 mg/dL 01/18/2023 8:12 AM EDT [facility] Blood Venipuncture / Unknown 01/18/2023 5:20 AM EDT 01/18/2023 7:26 AM EDT [facility] Oneyda MarianoGarner FLUME RIDE OPERATOR LAB BLOOD ORDERABLES Final Result Performing Organization Address [facility] de Phone Number [facility] [address] [place] [phone] * (ABNORMAL) CBC and Auto Differential (01/18/2023 5:20 AM EDT) Pathologist [facility] WBC 6.1 4.8 - 11.2 10*3/??L 01/18/2023 7:42 AM EDT [facility] RBC 3.88 3.60 - 5.40 10*6/??L 01/18/2023 7:42 AM EDT [facility] HGB 11.0(L) 12.0 - 15.8 g/dL 01/18/2023 7:42 AM EDT [facility] HCT 33.5(L) 36.0 - 48.0 % 01/18/2023 7:42 AM EDT [facility] MCV 86.2 82.0 - 98.0 fL 01/18/2023 7:42 AM EDT [facility] MCH 28.4 27.0 - 35.0 pg 01/18/2023 7:42 AM EDT [facility] MCHC 33.0 32.0 - 37.0 g/dL 01/18/2023 7:42 AM EDT [facility] RDW 13.8 12.0 - 15.0 % 01/18/2023 7:42 AM EDT [facility] PLT 171 150 - 400 10*3/??L 01/18/2023 7:42 AM EDT [facility] MPV 8.0 7.0 - 14.0 fL 01/18/2023 7:42 AM EDT [facility] Neut % 37.1(L) 45.0 - 85.0 % 01/18/2023 7:42 AM EDT [facility] Lymph % 47.2(H) 15.0 - 45.0 % 01/18/2023 7:42 AM EDT [facility] Nash % 9.2 0.0 - 12.0 % 01/18/2023 7:42 AM EDT [facility] Eos % 6.1 0.0 - 7.0 % 01/18/2023 7:42 AM EDT [facility] Baso % 0.4 0.0 - 3.0 % 01/18/2023 7:42 AM EDT [facility] NRBC% 0 0 /100 WBC /100 WBC 01/18/2023 7:42 AM EDT [facility] Neut # 2.3 2.2 - 9.5 10*3/??L 01/18/2023 7:42 AM EDT [facility] Lym # 2.9 0.7 - 5.0 10*3/??L 01/18/2023 7:42 AM EDT [facility] Nash # 0.6 0.0 - 1.3 10*3/??L 01/18/2023 7:42 AM EDT [facility] Eos # 0.4 0.0 - 0.4 10*3/??L 01/18/2023 7:42 AM EDT [facility] Baso # 0.0 0.0 - 0.3 10*3/??L 01/18/2023 7:42 AM EDT [facility] Blood Venipuncture / Unknown 01/18/2023 5:20 AM EDT 01/18/2023 7:26 AM EDT us Demetria Garner FLUME RIDE OPERATOR LAB BLOOD ORDERABLES Final Result [facility] [address] [place] [address] documented in this encounter Visit Diagnoses Diagnosis Illness, unspecified documented in this encounter Additional Health Concerns Infection Onset Date Last Indicated Resolved Time PUI COVID 01/01/2024 01/01/2024 01/01/2024 1:19 PM EDT documented as of this encounter Care Teams Recreation Coordinator Relationship Specialty Start Date End Date Alex Gray Jr., MD [address] [place] [phone] PCP - General Internal Medicine 08/15/18 documented as of this encounter
--- OUTSIDE RECORDS SUMMARY | 2024-04-29 12:13 | XMS_ITS | Encounter Summary ---
Author Organization [facility] Address [address] [place] [address] Care Team Providers Care Ragman Name Role Phone Isaac Alaniz MD, Alex Tariq Primary Care Provider +1- [phone] Encounter Details Date Type Department Care Team (Late st Contact Info) Description 04/10/2019 Lab Requisition [address] [phone] Unknown Illness, unspecified Social History Tobacco Use [...] MRSA blood/chin 03/14/19 sa 03/14/2019 03/17/2019 2021 2:15 PM EST PUI COVID 01/01/2024 01/01/2024 01/01/2024 1:19 PM EDT documented as of this encounter Care Teams Ragman Relationship Specialty Start Date End Date Alex Gray Jr., MD [address] [place] [phone] PCP - General Internal Medicine 08/15/18 documented as of this encounter
--- OUTSIDE RECORDS SUMMARY | 2024-04-29 12:13 | XMS_ITS | Encounter Summary ---
Author Organization [facility] Address [address] [place] [address] Care Team Providers Care Bleach Boiler Packer Name Role Phone Isaac Alaniz MD, Alex Tariq Primary Care Provider +1- [phone] Encounter Details Date Type Department Care Team (Late st Contact Info) Description 12/14/2022 Lab Requisition [address] [phone] Demetria Garner, SR. MANAGER CORPORATE COMMUNICATIONS [address] [place] [address] Illness, unspecified Social History Tobacco [...] Associated Diagnosis Comments C-REACTIVE PROTEIN INFLAMMATION Routine 12/14/2022 5:47 AM EDT Illness, unspecified CBC AND AUTO DIFFERENTIAL Routine 12/14/2022 5:47 AM EDT Illness, unspecified PHOSPHORUS Routine 12/14/2022 5:47 AM EDT Illness, unspecified MAGNESIUM Routine 12/14/2022 5:47 AM EDT Illness, unspecified COMPREHENSIVE METABOLIC PANEL Routine 12/14/2022 5:47 AM EDT Illness, unspecified documented in this encounter Results * (ABNORMAL) Comprehensive metabolic panel (12/14/2022 5:47 AM EDT) Sodium 134(L) 136 - 145 mEq/L 12/14/2022 11:28 AM EDT [facility] Potassium 3.6 3.5 - 5.1 mEq/L 12/14/2022 11:28 AM EDT [facility] Chloride 103 98 - 107 mEq/L 12/14/2022 11:28 AM EDT [facility] CO2 23 20 - 31 mEq/L 12/14/2022 11:28 AM EDT [facility] Anion Gap 8 4 - 15 mEq/L 12/14/2022 11:28 AM EDT [facility] Glucose 107(H) 70 - 100 mg/dL 12/14/2022 11:28 AM EDT [facility] Creatinine 0.63 0.50 - 1.00 mg/dL 12/14/2022 11:28 AM EDT [facility] eGFR (Female) >60 60 - 115 mL/min 12/14/2022 11:28 AM EDT [facility] BUN 13 9 - 23 mg/dL 12/14/2022 11:28 AM EDT [facility] Calcium 9.4 8.7 - 10.4 mg/dL 12/14/2022 11:28 AM EDT [facility] Total Protein 8.7(H) 5.7 - 8.2 g/dL 12/14/2022 11:28 AM EDT [facility] Albumin 3.7 3.2 - 4.8 g/dL 12/14/2022 11:28 AM EDT [facility] A/G Ratio 0.7(L) 1.0 - 2.3 12/14/2022 11:28 AM EDT [facility] Total Bilirubin 0.3 0.2 - 1.0 mg/dL 12/14/2022 11:28 AM EDT [facility] AST 36 13 - 40 U/L 12/14/2022 11:28 AM EDT [facility] Alkaline Phosphatase 134(H) 46 - 116 IU/L 12/14/2022 11:28 AM EDT [facility] ALT 46(H) 7 - 40 U/L 12/14/2022 11:28 AM EDT [facility] Blood Venipuncture / Unknown 12/14/2022 5:47 AM EDT 12/14/2022 7:17 AM EDT Demetria Garner NP LAB BLOOD ORDERABLES Final Result Performing Organization Address City/[facility]/ZIP Co de Phone Number [facility] [address] [place] [phone] * (ABNORMAL) CRP, Inflammation (12/14/2022 5:47 AM EDT) CRP, Inflammation 53.51(H) 0.00 - 3.00 mg/L 12/14/2022 11:36 AM EDT [facility] Blood Venipuncture / Unknown 12/14/2022 5:47 AM EDT 12/14/2022 7:17 AM EDT Narrative [facility] - 12/14/2022 11:36 AM EDT >10.0 ?Consider infection/inflammation Demetria Garner NP LAB BLOOD ORDERABLES Final Result [facility] [address] [place] [phone] * Magnesium (12/14/2022 5:47 AM EDT) Magnesium 1.9 1.6 - 2.6 mg/dL 12/14/2022 11:21 AM EDT [facility] Blood Venipuncture / Unknown 12/14/2022 5:47 AM EDT 12/14/2022 7:17 AM EDT Demetria Garner SR. MANAGER CORPORATE COMMUNICATIONS LAB BLOOD ORDERABLES Final Result Performing Organization Address [facility] Co de Phone Number [facility] [address] [place] [phone] * (ABNORMAL) Phosphorus (12/14/2022 5:47 AM EDT) Phosphorus 5.6(H) 2.4 - 5.1 mg/dL 12/14/2022 11:21 AM EDT [facility] Blood Venipuncture / Unknown 12/14/2022 5:47 AM EDT 12/14/2022 7:17 AM EDT [facility] Oneyda Garner SR. MANAGER CORPORATE COMMUNICATIONS LAB BLOOD ORDERABLES Final Result Performing Organization Address [facility] de Phone Number [facility] [address] [place] [phone] * (ABNORMAL) CBC and Auto Differential (12/14/2022 5:47 AM EDT) WBC 7.8 4.8 - 11.2 10*3/??L 12/14/2022 7:55 AM EDT [facility] RBC 3.66 3.60 - 5.40 10*6/??L 12/14/2022 7:55 AM EDT [facility] HGB 10.8(L) 12.0 - 15.8 g/dL 12/14/2022 7:55 AM EDT [facility] HCT 32.0(L) 36.0 - 48.0 % 12/14/2022 7:55 AM EDT [facility] MCV 87.4 82.0 - 98.0 fL 12/14/2022 7:55 AM EDT [facility] MCH 29.6 27.0 - 35.0 pg 12/14/2022 7:55 AM EDT [facility] MCHC 33.8 32.0 - 37.0 g/dL 12/14/2022 7:55 AM EDT [facility] RDW 13.0 12.0 - 15.0 % 12/14/2022 7:55 AM EDT [facility] PLT 258 150 - 400 10*3/??L 12/14/2022 7:55 AM EDT [facility] MPV 8.4 7.0 - 14.0 fL 12/14/2022 7:55 AM EDT [facility] Neut % 51.4 45.0 - 85.0 % 12/14/2022 7:55 AM EDT [facility] Lymph % 35.4 15.0 - 45.0 % 12/14/2022 7:55 AM EDT [facility] Comal % 10.8 0.0 - 12.0 % 12/14/2022 7:55 AM EDT [facility] Eos % 1.9 0.0 - 7.0 % 12/14/2022 7:55 AM EDT [facility] Baso % 0.5 0.0 - 3.0 % 12/14/2022 7:55 AM EDT [facility] NRBC% 0 0 /100 WBC /100 WBC 12/14/2022 7:55 AM EDT [facility] Neut # 4.0 2.2 - 9.5 10*3/??L 12/14/2022 7:55 AM EDT [facility] Lym # 2.8 0.7 - 5.0 10*3/??L 12/14/2022 7:55 AM EDT [facility] Comal # 0.8 0.0 - 1.3 10*3/??L 12/14/2022 7:55 AM EDT [facility] Eos # 0.1 0.0 - 0.4 10*3/??L 12/14/2022 7:55 AM EDT [facility] Baso # 0.0 0.0 - 0.3 10*3/??L 12/14/2022 7:55 AM EDT [facility] Blood Venipuncture / Unknown 12/14/2022 5:47 AM EDT 12/14/2022 7:17 AM EDT Demetria Garner [employer] [facility] BLOOD ORDERABLES Final Result [facility] [address] [place] [address] documented in this encounter Visit Diagnoses Diagnosis Illness, unspecified documented in this encounter Additional Health Concerns Infection Onset Date Last Indicated Resolved Time PUI COVID 01/01/2024 01/01/2024 01/01/2024 1:19 PM EDT documented as of this encounter Care Teams [employer] Relationship Specialty Start Date End Date Alex Gray Jr., MD [address] [place] [phone] PCP - General Internal Medicine 08/15/18 documented as of this encounter
--- OUTSIDE RECORDS SUMMARY | 2024-04-29 12:13 | XMS_ITS | Encounter Summary ---
Author Organization [facility] Address [address] [place] [address] Care Team Providers Care Business Process Engineer Name Role Phone Monique Rubio MD Primary Care Provider [phone] Raúl Landa MD Primary Care Provider [phone] Jen Saunders NP Primary Care Provider [phone] Isaac Alaniz MD, Donald P Primary Care Provider [phone] Encounter Details Date Type Department Care Team (Latest Contact Info) Description 12/24/2016 Lab Requisition [address] [address] Loco Bhatt MD [address] [place] [address] [phone] Other psychoactive substance dependence, uncomplicated (HCC) Social History Tobacco Use Types Packs/Day [...] Procedure Name Priority Date/Time Associated Diagnosis Comments CBC AND AUTO DIFFERENTIAL Routine 12/24/2016 3:00 PM EDT Other psychoactive substance dependence, uncomplicated (HCC) HEPATIC FUNCTION PANEL Routine 12/24/2016 3:00 PM EDT Other psychoactive substance dependence, uncomplicated (HCC) documented in this encounter Results * (ABNORMAL) CBC and Auto Differential (12/24/2016 3:00 PM EDT) WBC 10.6 4.8 - 11.2 10*3/??L 12/24/2016 7:34 PM EDT [facility] RBC 4.95 3.60 - 5.40 10*6/??L 12/24/2016 7:34 PM EDT [facility] HGB 15.8 12.0 - 15.8 g/dL 12/24/2016 7:34 PM T [facility] HCT 46.0 36.0 - 48.0 % 12/24/2016 7:34 PM EDT [facility] MCV 92.9 82.0 - 98.0 fL 12/24/2016 7:34 PM T [facility] MCH 31.9 27.0 - 35.0 pg 12/24/2016 7:34 PM T [facility] MCHC 34.3 32.0 - 37.0 g/dL 12/24/2016 7:34 PM EDT [facility] RDW 13.8 12.0 - 15.0 % 12/24/2016 7:34 PM EDT [facility] PLT 138(L) 150 - 400 10*3/??L 12/24/2016 7:34 PM EDT [facility] MPV 9.6 7.0 - 14.0 fL 12/24/2016 7:34 PM EDT [facility] Neut % 46.8 45.0 - 85.0 % 12/24/2016 7:34 PM EDT [facility] Lymph % 42.6 15.0 - 45.0 % 12/24/2016 7:34 PM EDT [facility] [place] % 8.1 0.0 - 12.0 % 12/24/2016 7:34 PM EDT [facility] Eos % 1.3 0.0 - 7.0 % 12/24/2016 7:34 PM EDT [facility] Baso % 1.2 0.0 - 3.0 % 12/24/2016 7:34 PM EDT [facility] Neut # 5.0 10*3/??L 12/24/2016 7:34 PM EDT [facility] NRBC% 0 0 /100 WBC /100 WBC 12/24/2016 7:34 PM EDT [facility] Blood specimen (specimen) Venipuncture / Unknown 12/24/2016 3:00 PM EDT 12/24/2016 7:11 PM EDT us Loco Bhatt MD LAB BLOOD ORDERABLES Final Result Performing Organization Address City/State/[facility] Co de Phone Number [facility] [address] [place] [phone] * (ABNORMAL) Hepatic Function Panel (12/24/2016 3:00 PM EDT) Albumin 4.5 3.4 - 4.8 g/dL 12/24/2016 7:52 PM T [facility] Total Bilirubin 0.7 0.2 - 1.2 mg/dL 12/24/2016 7:52 PM EDT [facility] Bilirubin, Direct 0.2 0.0 - 0.3 mg/dL 12/24/2016 7:52 PM EDT [facility] AST 184(H) 0 - 40 U/L 12/24/2016 7:52 PM EDT [facility] ALT 188(H) 0 - 45 U/L 12/24/2016 7:52 PM EDT [facility] Total Protein 9.5(H) 6.4 - 8.6 g/dL 12/24/2016 7:52 PM EDT [facility] Alkaline Phosphatase 86 40 - 150 IU/L 12/24/2016 7:52 PM EDT [facility] Blood specimen (specimen) Venipuncture / Unknown 12/24/2016 3:00 PM EDT 12/24/2016 7:11 PM EDT us Loco Bhatt MD LAB BLOOD ORDERABLES Final Result [facility] [address] [place] [address] documented in this encounter Visit Diagnoses Diagnosis Other psychoactive substance dependence, uncomplicated (HCC) documented in this encounter Additional Health Concerns Infection Onset Date Last Indicated Resolved Time MRSA Comment:Cleared 05/19/21 nf MRSA blood/chin 03/14/19 sa 03/14/2019 03/17/2019 2021 2 :15 PM EST PUI COVID 01/01/2024 01/01/2024 01/01/2024 1:19 PM EDT documented as of this encounter Care Teams Business Process Engineer Relationship Specialty Start Date End Date Monique Rubio MD [address] [place] [phone] PCP - General Internal Medicine 02/01/16 05/29/17 Raúl Landa MD [address] [place] [phone] PCP - General Family Medicine 05/30/17 09/23/17 Jen Saunders NP [address] [place] [address] PCP - General Pain Medicine 09/24/17 08/14/18 Alex Gray Jr., MD [address] [place] [phone] PCP - General Internal Medicine 08/15/18 documented as of this encounter
--- OUTSIDE RECORDS SUMMARY | 2024-04-29 12:13 | XMS_ITS | Encounter Summary ---
Author Organization [facility] Address [address] [place] [address] Care Team Providers Care Production Control Manager Name Role Phone Isaac Alaniz MD, Alex Tariq Primary Care Provider [phone] Encounter Details Date Type Department Care Team (Late st Contact Info) Description 03/25/2019 Lab Requisition [address] [id number] Unknown Illness, unspecified Social History Tobacco Use [...] Procedure Name Priority Date/Time Associated Diagnosis Comments VANCOMYCIN TROUGH Routine 03/25/2019 5:0 0 AM EST Illness, unspecified [ICD-10-CM] documented in this encounter Results * Vancomycin, trough (03/25/2019 5:00 AM EST) Vancomycin Tr 13.7 10.0 - 20.0 ug/mL 03/25/2019 7:31 AM EST [facility] Blood specimen (specimen) Non-[facility] Collection / Unknown 03/25/2019 5:00 AM EST 03/25/2019 7:02 AM EST us Unknown LAB BLOOD ORDERABLES Final Resul t Performing Organization Address City/State/[facility] Co de Phone Number [facility] [address] [place], [place] documented in this encounter Visit Diagnoses Diagnosis Illness, unspecified documented in this encounter Additional Health Concerns Infection Onset Date Last Indicated Resolved Time MRSA Comment:Cleared 05/19/21 nf MRSA blood/chin 03/14/19 sa 03/14/2019 03/17/2019 2021 2 :15 PM EST PUI COVID 01/01/2024 01/01/2024 01/01/2024 1:19 PM EDT documented as of this encounter Care Teams Production Control Manager Relationship Specialty Start Date End Date Alex Gray Jr., MD [address] [place] [phone] PCP - General Internal Medicine 08/15/18 documented as of this encounter
--- OUTSIDE RECORDS SUMMARY | 2024-04-29 12:13 | XMS_ITS | Encounter Summary ---
Author Organization [facility] Address [address] [place] [address] Care Team Providers Care Architect Internship Name Role Phone Isaac Alaniz MD, Alex Tariq Primary Care Provider [phone] Encounter Details Date Type Department Care Team (Late st Contact Info) Description 01/10/2024 [facility] [address] [place] [address] Social History Tobacco Use Types [...] on filedocumented in this encounter Care Teams Architect Internship Relationship Specialty Start Date End Date Alex Gray Jr., MD [address] [place] [phone] PCP - General Internal Medicine 08/15/18 documented as of this encounter
--- OUTSIDE RECORDS SUMMARY | 2024-04-29 12:13 | XMS_ITS | Encounter Summary ---
Author Organization [facility] Address [address] [place] [address] Care Team Providers Care Rail Assembler Name Role Phone Isaac Alaniz MD, Alex Tariq Primary Care Provider [phone] Encounter Details Date Type Department Care Team (Late st Contact Info) Description 03/27/2019 Lab Requisition [address] [phone] Unknown Illness, unspecified Social History Tobacco Use [...] Diagnosis Comments CBC AND AUTO DIFFERENTIAL Routine 03/27/2019 5:59 AM EST Illness, unspecified [ICD-10-CM] C-REACTIVE PROTEIN ULTRASENSITIVE Routine 03/27/2019 5:59 AM EST Illness, unspecified [ICD-10-CM] VANCOMYCIN TROUGH Routine 03/27/2019 5:5 9 AM EST Illness, unspecified [ICD-10-CM] BASIC METABOLIC PANEL Routine 03/27/2019 5:59 AM EST Illness, unspecified [ICD-10-CM] documented in this encounter Results * Vancomycin, trough (03/27/2019 5:59 AM EST) Vancomycin Tr 14.8 10.0 - 20.0 ug/mL 03/27/2019 8:52 AM EST [facility] Blood specimen (specimen) Non-[facility] Collection / Unknown 03/27/2019 5:59 AM EST 03/27/2019 7:49 AM EST us Unknown LAB BLOOD ORDERABLES Final Resul t [facility] [address] [place], [place] * CBC and Auto Differential (03/27/2019 5:59 AM EST) WBC 10.2 4.8 - 11.2 10*3/??L 03/27/2019 8:39 AM EST [facility] RBC 4.48 3.60 - 5.40 10*6/??L 03/27/2019 8:39 AM EST [facility] HGB 14.5 12.0 - 15.8 g/dL 03/27/2019 8:39 AM EST [facility] HCT 43.0 36.0 - 48.0 % 03/27/2019 8:39 AM [facility] MCV 96.1 82.0 - 98.0 fL 03/27/2019 8:39 AM [facility] MCH 32.3 27.0 - 35.0 pg 03/27/2019 8:39 AM [facility] MCHC 33.6 32.0 - 37.0 g/dL 03/27/2019 8:39 AM [facility] RDW 13.5 12.0 - 15.0 % 03/27/2019 8:39 AM [facility] PLT 207 150 - 400 10*3/??L 03/27/2019 8:39 AM [facility] MPV 8.7 7.0 - 14.0 fL 03/27/2019 8:39 AM EST [facility] Neut % 51.3 45.0 - 85.0 % 03/27/2019 8:39 AM [facility] Lymph % 40.7 15.0 - 45.0 % 03/27/2019 8:39 AM EST [facility] [place] % 5.9 0.0 - 12.0 % 03/27/2019 8:39 AM EST [facility] Eos % 1.5 0.0 - 7.0 % 03/27/2019 8:39 AM [facility] Baso % 0.6 0.0 - 3.0 % 03/27/2019 8:39 AM [facility] NRBC% 0 0 /100 WBC /100 WBC 03/27/2019 8:39 AM [facility] Neut # 5.2 2.2 - 9.5 10*3/??L 03/27/2019 8:39 AM EST [facility] Lym # 4.1 0.7 - 5.0 10*3/??L 03/27/2019 8:39 AM [facility] [place] # 0.6 0.0 - 1.3 10*3/??L 03/27/2019 8:39 AM [facility] Eos # 0.1 0.0 - 0.4 10*3/??L 03/27/2019 8:39 AM EST [facility] Baso # 0.1 0.0 - 0.3 10*3/??L 03/27/2019 8:39 AM [facility] Blood specimen (specimen) Non-SHG Collection / Unknown 03/27/2019 5:59 AM EST 03/27/2019 7:49 AM EST us Unknown LAB BLOOD ORDERABLES Final Resul t [facility] [address] [place], [place] * CRP, Ultrasensitive (03/27/2019 5:59 AM EST) Pathologist [facility] CRP, Ultrasensitive 0.6 0.0 - 8.0 mg/L 03/27/2019 9:09 AM EST [facility] Blood specimen (specimen) Non-SHG Collection / Unknown 03/27/2019 5:59 AM EST 03/27/2019 7:49 AM EST Narrative [facility] - 03/27/2019 9:09 AM EST C Reactive Protein High Sensitivity < 1.0 ? mg/L ?Low cardiovascular risk 1.0 - 3.0 ?? mg/L ?Average cardiovascular risk 3.1 - 10.0 ??mg/L ?High cardiovascular risk > 10.0 ?Consider infection/inflammation us Unknown LAB BLOOD ORDERABLES Final Resul t Performing Organization Address City/State/[facility] Co de Phone Number [facility] [address] [place], [place] * Basic metabolic panel (03/27/2019 5:59 AM EST) Pathologist [facility] Sodium 142 137 - 147 mEq/L 03/27/2019 8:59 AM EST [facility] Potassium 4.3 3.5 - 5.4 mEq/L 03/27/2019 8:59 AM EST [facility] Chloride 104 96 - 107 mEq/L 03/27/2019 8:59 AM EST [facility] CO2 27 24 - 34 mEq/L 03/27/2019 8:59 AM EST [facility] Anion Gap 11 4 - 15 mEq/L 03/27/2019 8:59 AM EST [facility] Glucose 96 70 - 100 mg/dL 03/27/2019 8:59 AM EST [facility] Creatinine 0.62 0.50 - 1.30 mg/dL 03/27/2019 8:59 AM EST [facility] eGFR >60 60 - 115 mL/min 03/27/2019 8:59 AM EST [facility] BUN 21 6 - 26 mg/dL 03/27/2019 8:59 AM EST [facility] Calcium 9.3 8.7 - 10.5 mg/dL 03/27/2019 8:59 AM EST [facility] Blood specimen (specimen) Non-SHG Collection / Unknown 03/27/2019 5:59 AM EST 03/27/2019 7:49 AM EST us Unknown LAB BLOOD ORDERABLES Final Resul t [facility] [address] [place], [place] documented in this encounter Visit Diagnoses Diagnosis Illness, unspecified documented in this encounter Additional Health Concerns Infection Onset Date Last Indicated Resolved Time MRSA Comment:Cleared 05/19/21 nf MRSA blood/chin 03/14/19 sa 03/14/2019 03/17/2019 2021 2 :15 PM EST PUI COVID 01/01/2024 01/01/2024 01/01/2024 1:19 PM EDT documented as of this encounter Care Teams Rail Assembler Relationship Specialty Start Date End Date Alex Gray Jr., MD [address] [place] [phone] PCP - General Internal Medicine 08/15/18 documented as of this encounter
--- OUTSIDE RECORDS SUMMARY | 2024-04-29 12:13 | XMS_ITS | Encounter Summary ---
Author Organization [facility] Address [address] [place] [address] Care Team Providers Care Licensed Insurance Agent Name Role Phone Monique Rubio MD Primary Care Provider Raúl Landa MD Primary Care Provider [phone] Jen Saunders NP Primary Care Provider [phone] Isaac Alaniz MD, Donald P Primary Care Provider [phone] Encounter Details Date Type Department Care Team (Latest Contact Info) Description 01/04/2017 Lab Requisition [address] [phone] Vazquez Kaufman MD [address] [place] [phone] Uncomplicated opioid dependence (HCC); Anxiety disorder; Rash and other nonspecific skin eruption Social [...] Diagnosis Comments CBC AND AUTO DIFFERENTIAL Routine 01/04/2017 1:30 PM EDT Uncomplicated opioid dependence (HCC) Anxiety disorder Rash and other nonspecific skin eruption HCG QUANTITATIVE SERUM Routine 7 1:30 PM EDT Uncomplicated opioid dependence (HCC) Anxiety disorder Rash and other nonspecific skin eruption COMPREHENSIVE METABOLIC PANEL Routine 01/04/2017 1:30 PM EDT Uncomplicated opioid dependence (HCC) Anxiety disorder Rash and other nonspecific skin eruption documented in this encounter Results * HCG Quantitative Serum (01/04/2017 1:30 PM EDT) Beta-hCG, Total <0.6 <5.0 mIU/ml 01/04/2017 8:12 PM EDT [facility] Blood specimen (specimen) 01/04/2017 1:30 PM EDT 01/04/2017 7:07 PM EDT Narrative [facility] - 01/04/2017 8:12 PM EDT Reference Ranges: Non ? <5 ?mIU/mL Indeterminante ? 5-25 ?? mIU/mL Approximate Last Menstrual Period: 0.2-1 Week ? 5-50 mIU/mL ??1-2 Weeks ?50-500 mIU/mL ??2-3 Weeks ? 100-5,000 mIU/mL ??3-4 Weeks ?500-10,000 mIU/mL ??4-5 Weeks ?1,000-50,000 mIU/mL ??5-6 Weeks ?10,000-100,000 mIU/mL ??6-8 Weeks ?15,000-200,000 mIU/mL ??2-3 Months ? 10,000-100,000 mIU/mL us Vazquez Kaufman MD LAB BLOOD ORDERABLES Final Result [facility] [address] [place] [address] * (ABNORMAL) Comprehensive metabolic panel (01/04/2017 1:30 PM EDT) Sodium 143 137 - 147 mEq/L 01/04/2017 8:30 PM EDT [facility] Potassium 4.2 3.5 - 5.4 mEq/L 01/04/2017 8:30 PM EDT [facility] Chloride 102 96 - 107 mEq/L 01/04/2017 8:30 PM EDT [facility] CO2 26 24 - 34 mEq/L 01/04/2017 8:30 PM EDT [facility] Anion Gap 15 4 - 15 mEq/L 01/04/2017 8:30 PM EDT [facility] Glucose 83 70 - 100 mg/dL 01/04/2017 8:30 PM EDT [facility] Creatinine 0.58 0.50 - 1.30 mg/dL 01/04/2017 8:30 PM EDT [facility] eGFR >60 60 - 115 mL/min 01/04/2017 8:30 PM EDT [facility] BUN 10 6 - 26 mg/dL 01/04/2017 8:30 PM EDT [facility] Calcium 9.2 8.7 - 10.5 mg/dL 01/04/2017 8:30 PM EDT [facility] Total Protein 9.2(H) 6.4 - 8.6 g/dL 01/04/2017 8:30 PM EDT [facility] Albumin 4.5 3.4 - 4.8 g/dL 01/04/2017 8:30 PM EDT [facility] A/G Ratio 1.0 1.0 - 2.3 01/04/2017 8:30 PM EDT [facility] Total Bilirubin 0.8 0.2 - 1.2 mg/dL 01/04/2017 8:30 PM EDT [facility] AST 109(H) 0 - 40 U/L 01/04/2017 8:30 PM EDT [facility] Alkaline Phosphatase 81 40 - 150 IU/L 01/04/2017 8:30 PM EDT [facility] ALT 120(H) 0 - 45 U/L 01/04/2017 8:30 PM EDT [facility] Blood specimen (specimen) Venipuncture / Unknown 01/04/2017 1:30 PM EDT 01/04/2017 7:07 PM EDT us Vazquez Kaufman MD LAB BLOOD ORDERABLES Final Result [facility] [address] [place] [phone] * (ABNORMAL) CBC and Auto Differential (01/04/2017 1:30 PM EDT) WBC 6.5 4.8 - 11.2 10*3/??L 01/04/2017 7:28 PM EDT [facility] RBC 4.62 3.60 - 5.40 10*6/??L 01/04/2017 7:28 PM EDT [facility] HGB 14.9 12.0 - 15.8 g/dL 01/04/2017 7:28 PM EDT [facility] HCT 42.7 36.0 - 48.0 % 01/04/2017 7:28 PM EDT [facility] MCV 92.4 82.0 - 98.0 fL 01/04/2017 7:28 PM EDT [facility] MCH 32.2 27.0 - 35.0 pg 01/04/2017 7:28 PM [facility] MCHC 34.9 32.0 - 37.0 g/dL 01/04/2017 7:28 PM EDT [facility] RDW 13.2 12.0 - 15.0 % 01/04/2017 7:28 PM EDT [facility] PLT 139(L) 150 - 400 10*3/??L 01/04/2017 7:28 PM T [facility] MPV 8.9 7.0 - 14.0 fL 01/04/2017 7:28 PM [facility] Neut % 39.4(L) 45.0 - 85.0 % 01/04/2017 7:28 PM [facility] Lymph % 47.7(H) 15.0 - 45.0 % 01/04/2017 7:28 PM T [facility] [place] % 7.9 0.0 - 12.0 % 01/04/2017 7:28 PM [facility] Eos % 3.8 0.0 - 7.0 % 01/04/2017 7:28 PM [facility] Baso % 1.2 0.0 - 3.0 % 01/04/2017 7:28 PM EDT [facility] Neut # 2.6 2.2 - 9.5 10*3/??L 01/04/2017 7:28 PM EDT [facility] NRBC% 0 0 /100 WBC /100 WBC 01/04/2017 7:28 PM EDT [facility] Lym # 3.1 0.7 - 5.0 10*3/??L 01/04/2017 7:28 PM EDT [facility] [place] # 0.5 0.0 - 1.3 10*3/??L 01/04/2017 7:28 PM EDT [facility] Eos # 0.2 0.0 - 0.4 10*3/??L 01/04/2017 7:28 PM EDT [facility] Baso # 0.1 0.0 - 0.3 10*3/??L 01/04/2017 7:28 PM EDT [facility] Blood specimen (specimen) Venipuncture / Unknown 01/04/2017 1:30 PM EDT 01/04/2017 7:07 PM EDT us Vazquez Kaufman MD LAB BLOOD ORDERABLES Final Result [facility] [address] [place] [address] documented in this encounter Visit Diagnoses Diagnosis Uncomplicated opioid dependence (HCC) Anxiety disorder Anxiety state, unspecified Rash and other nonspecific skin eruption documented in this encounter Additional Health Concerns Infection Onset Date Last Indicated Resolved Time MRSA Comment:Cleared 05/19/21 nf MRSA blood/chin 03/14/19 sa 03/14/2019 03/17/2019 2021 2 :15 PM EST PUI COVID 01/01/2024 01/01/2024 01/01/2024 1:19 PM EDT documented as of this encounter Care Teams Licensed Insurance Agent Relationship Specialty Start Date End Date Monique Rubio MD [address] [place] [phone] PCP - General Internal Medicine 02/01/16 05/29/17 Raúl Landa MD [address] [place] [phone] PCP - General Family Medicine 05/30/17 09/23/17 Jen Saunders NP [address] [place] [address] PCP - General Pain Medicine 09/24/17 08/14/18 Alex Gray Jr., MD [address] [place] [phone] PCP - General Internal Medicine 08/15/18 documented as of this encounter
--- OUTSIDE RECORDS SUMMARY | 2024-04-29 12:13 | XMS_ITS | Encounter Summary ---
Author Organization [facility] Address [address] [place] [address] Care Team Providers Care Tack Cutter Name Role Phone Isaac Alaniz MD, Alex Tariq Primary Care Provider [phone] Encounter Details Date Type Department Care Team (Late st Contact Info) Description 03/17/2019 Procedure Pass [facility] - [address] [phone] Social History Tobacco Use Types [...] - Weight 77.1 kg (170 lb) 03/17/2019 12:24 PM EST Height 172.7 cm (5' 8 ) 03/17/2019 12:24 PM EST Body Mass Index 25.85 03/17/2019 12:24 PM EST documented in this encounter Plan [...] documented as of this encounter Care Teams Tack Cutter Relationship Specialty Start Date End Date Alex Gray Jr., MD [address] [place] [phone] PCP - General Internal Medicine 08/15/18 documented as of this encounter
--- OUTSIDE RECORDS SUMMARY | 2024-04-29 12:13 | XMS_ITS | Encounter Summary ---
Author Organization [facility] Address [address] [place] [address] Care Team Providers Care High [employer] French Teacher Name Role Phone Isaac Alaniz MD, Alex Tariq Primary Care Provider [phone]- [phone] Encounter Details Date Type Department Care Team (Late st Contact Info) Description 12/23/2022 Lab Requisition [address] [phone] Raúl Vides, ENDLESS TRACK VEHICLE SUPERVISOR [address] [place] [phone] Illness, unspecified Social History Tobacco Use [...] Priority Date/Time Associated Diagnosis Comments URINE MICROSCOPIC (NO REFLEX TO URINE CULT) Routine 12/22/2022 10:00 PM EDT Illness, unspecified URINALYSIS (NO REFLEX TO CULTURE) Routine 12/22/2022 10:00 PM EDT Illness, unspecified URINE CULTURE AND COLONY COUNT Routine 12/22/2022 10:00 PM EDT Illness, unspecified documented in this encounter Results * (ABNORMAL) Urine Microscopic (sediment only) (12/22/2022 10:00 PM EDT) WBC 3-5(A) 0 - 2 HPF 12/23/2022 11:57 AM EDT [facility] RBC 0-2 0 - 2 HPF 12/23/2022 11:57 AM EDT [facility] Squam Epithelial Few Few HPF 12/23/2022 11:57 AM EDT [facility] Mucus Few Few HPF 12/23/2022 11:57 AM EDT [facility] Hyaline Casts UA 6-10(A) 0 - 2 LPF 12/23/2022 11:57 AM EDT [facility] Uric Acid Crystals Few(A) None Seen HPF 12/23/2022 11:57 AM EDT [facility] Urine Urine specimen obtained by clean catch procedure / Unknown Collection / Unknown 12/22/2022 10:00 PM EDT 12/23/2022 9:29 AM EDT us Raúl Vides ENDLESS TRACK VEHICLE SUPERVISOR URINE ORDERABLES Final Resul t [facility] [address] [place] [id number] * Urine Culture and [place] Count (12/22/2022 10:00 PM EDT) Culture No Growth at 18-24 hrs. SUSCEPTIBILI TY TESTING 12/24/2022 12:19 PM EDT [facility] Urine Urine specimen obtained by clean catch procedure / Unknown Collection / Unknown 12/22/2022 10:00 PM EDT 12/23/2022 11:15 AM EDT Narrative [facility] - 12/24/2022 12:19 PM EDT < 1,000 colonies/ml or No Growth us Raúl Vides NP MICROBIOLOGY - GENERAL ORDER RADHA Final Result [facility] [address] [place] [address] * (ABNORMAL) Urinalysis (NO reflex to culture) (12/22/2022 10:00 PM EDT) Color Yellow Yellow 12/23/2022 11:33 AM EDT [facility] Clarity, UA Slightly Cloudy(A) Clear 12/23/2022 11:33 AM EDT [facility] Specific [place] 1.020 1.005 - 1.030 12/23/2022 11:33 AM EDT [facility] pH 5.0 5.0 - 7.0 12/23/2022 11:33 AM EDT [facility] Protein Negative Negative mg/dL 12/23/2022 11:33 AM EDT [facility] Glucose Negative Negative mg/dL 12/23/2022 11:33 AM EDT [facility] Ketones Negative Negative mg/dL 12/23/2022 11:33 AM EDT [facility] Blood Negative Negative mg/dL 12/23/2022 11:33 AM EDT [facility] Bilirubin UA Negative Negative mg/dL 12/23/2022 11:33 AM EDT [facility] Urobilinogen Normal Normal mg/dL 12/23/2022 11:33 AM EDT [facility] Nitrite Negative Negative 12/23/2022 11:33 AM EDT [facility] Leukocyte Esterase 25(A) Negative Maggie/uL 12/23/2022 11:33 AM EDT [facility] Urine Urine specimen obtained by clean catch procedure / Unknown Collection / Unknown 12/22/2022 10:00 PM EDT 12/23/2022 9:29 AM EDT us Raúl Vides NP URINE ORDERABLES Final Resul t [facility] [address] [place] [address] documented in this encounter Visit Diagnoses Diagnosis Illness, unspecified documented in this encounter Additional Health Concerns Infection Onset Date Last Indicated Resolved Time PUI COVID 01/01/2024 01/01/2024 01/01/2024 1:19 PM EDT documented as of this encounter Care Teams High School French Teacher Relationship Specialty Start Date End Date Alex Gray Jr., MD [address] [place] [phone] PCP - General Internal Medicine 08/15/18 documented as of this encounter
--- OUTSIDE RECORDS SUMMARY | 2024-04-29 12:13 | XMS_ITS | Referral Summary ---
Demographics Address [address] [facility] [address] [place] [address] Home Phone Preferred Language Nepali Marital Status Unknown Synagogue Affiliation Unknown Race White Ethnic Group Not or Lati no Author Organization [facility] Address [address] [place] [address] Care Team Providers Care Motorcycle Mechanic Name Role Phone Patient, Has No Pcp Or Ref Primary Care Provider Unavailable Encounters Date Type Department Care Team Description 02/25/2024 12:29 PM EST - 02/25/2024 8:24 PM EST Emergency [facility] Emergency Department [address] [place] [phone] Courtney Gooden MD O'Connor, Alyse Whitehead MD Transient alteration of awareness (Primary Dx) [facility]charge [facility]position[facility] Psych facility/unit) (65) from Last 3 Months Allergies Active Allergy Reactions Criticality Noted Date Comments Buprenorphine Unknown 02/24/2024 Haloperidol Anaphylaxis,Other (s ee comments),Unknown High 12/09/2015 lockjaw Ibuprofen Unknown 02/25/2024 Naltrexone Rash Low 11/18/2022 Phenergan Plain Unknown 09/16/2023 Promethazine Anaphylaxis,Tremor,Unknown High 016 Dystonia Medications No known medications Social History Tobacco Use Types Packs/Day Years Used Date Smoking Tobacco: Never Assessed Comments Unknown Sex and Gender Information Value Date Recorded Sex Assigned at Female 02/25/2024 12:33 PM EST Legal Sex Female 2:39 PM EDT Gender Identity Female 02/25/2024 12:33 PM EST Sexual Orientation Not on file Last Filed Vital Signs Vital Sign Reading Time Taken Comments Blood Pressure 141/83 02/25/2024 7:45 PM EST Pulse 55 02/25/2024 7:45 PM EST Temperature 36.9 ??C (98.5 ??F) 02/25/2024 12:[address] Respiratory Rate 16 02/25/2024 7:45 PM EST Oxygen Saturation 97% 02/25/2024 7:45 PM EST Inhaled Oxygen Concentration - - Weight - - Height - - Body Mass Index - - Plan of Treatment Not on file Procedures * Due to [place] [employer] law, this organization might not be sharing negative HIV tests. Procedure Name Priority Date/Time Associated Diagnosis Comments HCG, QUALITATIVE, SERUM STAT 02/25/2024 3:43 PM EST HEPATIC FUNCTION PANEL STAT 02/25/2024 3:43 PM EST BASIC METABOLIC PANEL STAT 02/25/2024 3:43 PM EST CBC AUTO DIFFERENTIAL STAT 02/25/2024 3:43 PM EST XR CHEST 1 VW STAT 02/25/2024 2:33 PM EST POCT GLUCOSE Routine 02/25/2024 12:36 PM EST PAP Routine 02/26/2003 10:04 PM EST from Last 3 Months or Most Recently Relevant to Health Maintenance Results * Due to [place] [employer] law, this organization might not be sharing negative HIV tests. * (ABNORMAL) CBC Auto Differential (02/25/2024 3:43 PM EST) WBC 6.0 3.8 - 10.8 10*3/uL 02/25/2024 4:02 PM EST [facility] RBC 4.34 3.80 - 5.10 10*6/uL 02/25/2024 4:02 PM EST [facility] Hemoglobin 12.9 11.7 - 15.5 g/dL 02/25/2024 4:02 PM EST [facility] Hematocrit 38.4 35.0 - 45.0 % 02/25/2024 4:02 PM EST [facility] MCV 88.5 80.0 - 100.0 fL 02/25/2024 4:02 PM EST [facility] MCH 29.7 27.0 - 33.0 pg 02/25/2024 4:02 PM EST [facility] MCHC 33.6 32.0 - 36.0 g/dL 02/25/2024 4:02 PM EST [facility] RDW 13.3 11.0 - 15.0 % 02/25/2024 4:02 PM EST [facility] Platelets 147 140 - 400 10*3/uL 02/25/2024 4:02 PM EST [facility] MPV 10.5 7.5 - 12.5 fL 02/25/2024 4:02 PM EST [facility] Neutrophil % 78.7 % 02/25/2024 4:02 PM EST [facility] Immature Grans % 0.2 0.0 - 0.9 % 02/25/2024 4:02 PM EST [facility] Lymphocyte % 18.9 % 02/25/2024 4:02 PM EST [facility] Monocyte % 2.0 % 02/25/2024 4:02 PM EST [facility] Eosinophil % 0.0 % 02/25/2024 4:02 PM EST [facility] Basophil % 0.2 % 02/25/2024 4:02 PM EST [facility] Neutrophil # 4.76 1.50 - 7.80 10*3/uL 02/25/2024 4:02 PM EST [facility] Immature Grans # <0.03 <=0.03 10*3/uL 02/25/2024 4:02 PM EST [facility] Lymphocyte # 1.10 0.85 - 3.90 10*3/uL 02/25/2024 4:02 PM EST [facility] Monocyte # 0.10(L) 0.20 - 0.95 10*3/uL 02/25/2024 4:02 PM EST [facility] Eosinophil # <0.03 0.02 - 0.50 10*3/uL 02/25/2024 4:02 PM EST [facility] Basophil # <0.03 0.00 - 0.20 10*3/uL 02/25/2024 4:02 PM EST [facility] nRBC % 0.0 /100 WBCs 02/25/2024 4:02 PM EST [facility] nRBC # <0.01 <0.01 10*3/uL 02/25/2024 4:02 PM EST [facility] Blood Structure of peripheral vein / Unknown Venipuncture / Unknown 02/25/2024 3:43 PM EST 02/25/2024 3:53 PM EST Courtney Gooden MD LAB BLOOD ORDERABLES Columba l Result Performing Organization Address [facility] de Phone Number [facility] [address] [place] [address], * hCG, Qualitative, Serum (02/25/2024 3:43 PM EST) HCG Qualitative, Serum Negative Negative 02/25/2024 4:31 PM EST [facility] Comment: hCG greater than or equal to 5.0 mlU/mL is considered positive. hCG may be negative in early . Suggest repeat testing in 2-4 days if clinically indicated. Human anti-mouse antibodies (HAMA) and other heterophilic antibodies if present can interfere with the assay. The result of this test should be interpreted with the patient's clinical presentation. Blood Structure of peripheral vein / Unknown Venipuncture / Unknown 02/25/2024 3:43 PM EST 02/25/2024 3:54 PM EST Courtney Gooden MD LAB BLOOD ORDERABLES Columba l Result Performing Organization Address [facility]/ZIP Co de Phone Number [facility] [address] [place] [address], * (ABNORMAL) Hepatic Function Panel (02/25/2024 3:43 PM EST) Total Protein 7.2 6.0 - 8.0 g/dL 02/25/2024 4:31 PM EST [facility] Albumin 3.9 3.5 - 5.2 g/dL 02/25/2024 4:31 PM EST [facility] Globulin, Total 3.3 2.1 - 4.2 g/dL 02/25/2024 4:31 PM EST [facility] Bilirubin, Total 0.3 0.2 - 1.2 mg/dL 02/25/2024 4:31 PM EST [facility] Bilirubin, Direct 0.1 <=0.4 mg/dL 02/25/2024 4:31 PM EST [facility] Alkaline Phosphatase 68 35 - 129 U/L 02/25/2024 4:31 PM EST [facility] AST 29 10 - 40 U/L 02/25/2024 4:31 PM EST [facility] ALT 18 10 - 40 U/L 02/25/2024 4:31 PM EST [facility] Bilirubin, Indirect 0.20 <=0.70 mg/dL 02/25/2024 4:31 PM EST [facility] A/G Ratio 1.2(L) 1.5 - 3.0 02/25/2024 4:31 PM EST [facility] Blood Structure of peripheral vein / Unknown Venipuncture / Unknown 02/25/2024 3:43 PM EST 02/25/2024 3:54 PM EST us Courtney Gooden MD LAB BLOOD ORDERABLES Columba l Result [facility] [address] [place] [address], [place] * (ABNORMAL) Basic Metabolic Panel (02/25/2024 3:43 PM EST) NA 138 135 - 145 mmol/L 02/25/2024 4:31 PM EST [facility] K 3.6 3.5 - 5.3 mmol/L 02/25/2024 4:31 PM EST [facility] Cl 105 98 - 107 mmol/L 02/25/2024 4:31 PM EST [facility] CO2 22 22 - 32 mmol/L 02/25/2024 4:31 PM EST [facility] BUN 6(L) 7 - 23 mg/dL 02/25/2024 4:31 PM EST [facility] Creatinine 0.43(L) 0.50 - 1.20 mg/dL 02/25/2024 4:31 PM EST [facility] Glucose 151(H) 65 - 99 mg/dL 02/25/2024 4:31 PM EST [facility] Calcium 9.1 8.6 - 10.5 mg/dL 02/25/2024 4:31 PM EST [facility] Anion Gap 11 5 - 15 02/25/2024 4:31 PM EST [facility] eGFR >90 >=60 mL/min/1 .73m2 02/25/2024 4:31 PM EST [facility] Comment:The estimated glomer ular filtration rate (eGFR) is calculated using a new formula developed by the NKF-ASN task force to eliminate race-based correction factors. The new formula uses serum/plasma creatinine, age, and gender to determine eGFR. A value below 60mls/min might indicate kidney disease and will be flagged. For additional information, see Niall martinez al, Am J Kidney Dis. 2021;79(2):268- 288, A Unifying Approach for GFR estimation: Recommendations of the NKF-ASN Task Force on Reassessing the Inclusion of Race in Diagnosing Kidney Disease . Blood Structure of peripheral vein / Unknown Venipuncture / Unknown 02/25/2024 3:43 PM EST 02/25/2024 3:54 PM EST Courtney Gooden MD LAB BLOOD ORDERABLES Columba martinez Result [facility] [address] [place] [address], [place] * X-Ray Chest 1 View (02/25/2024 2:33 PM EST) Anatomical Region Laterality Modality Body Computed Radiogr aphy 02/25/2024 2:36 PM EST Impressions 02/25/2024 2:38 PM EST No consolidation, pleural effusion, or pneumothorax. ??Normal heart size. No pulmonary vascular congestion. ??No acute displaced fracture identified. If this radiology report contains a blank impression section, it is an incomplete radiology report. ??Please contact the interpreting radiologist or applicable radiology division as soon as possible to obtain the completed interpretation. ? Workstation ID: [id number] Narrative 02/25/2024 2:38 PM EST COMPARISON: None FINDINGS AND Resulting Agency Comment [id number] Procedure Note Raúl Centeno MD - 02/25/2024 COMPARISON: None FINDINGS AND IMPRESSION: No consolidation, pleural effusion, or pneumothorax. Normal heart size.No pulmonary vascular congestion. No acute displaced fracture identified. If this radiology report contains a blank impression section, it is anincomplete radiology report. Please contact the interpreting radiologistor applicable radiology division as soon as possible to obtain thecompleted interpretation. Workstation ID: [id number] us Courtney Gooden MD IMG XR PROCEDURES Final R esult * (ABNORMAL) POCT Glucose, interfaced (02/25/2024 12:36 PM EST) Glucose, POCT 169(H) 70 - 99 mg/dL 02/25/2024 12:37 PM EST [facility] Comment: The stripper latex has not determined the efficacy of this test in Critically ill patients. ??[facility] defines Critically ill patients for the purpose of blood glucose monitoring (BGM) by glucometer, as patients meeting one or more of the following criteria: Hypotension- non-ICU patients (systolic blood pressure Less than 90 mmHg) due to shock Hypotension -ICU patients ??(Mean Arterial Pressure (MAP) <60 mmHg or systolic blood pressure < 90 mmHg due to shock Patients receiving Vasopressors (phenylephrine, vasopressin or norepinephrine) Anasarca In all locations, BGM test results should not be relied upon in the above situations, unless these results confirmed with lab-based glucose values. Blood 02/25/2024 12:3 6 PM EST 02/25/2024 12:37 PM EST us Doctor Unknown LAB POCT ORDERABLES - DEVICE Fin al Result Performing Organization Address City/State/[facility] Co de Phone Number [facility] [address] [phone], * Pap (02/26/2003 10:04 PM EST) Path Procedure PAP OUTSOURCED 1 ?? Edited by: [id number] JUANCHO [facility] Specimen Labeled As: 1 CERVICAL/ENDOCERVI ROZ CYTO MATERIAL - Edited by: [id number] SALO [facility] Diagnosis Gyne Pap Smear ? Adequacy: Satisfactory for evaluation ? Interpretation: Negative for Intraepithelial Lesion or Malignancy ? Remarks/Recommenda tions: ? This is the result of a screening test with an inherent, but low, ?? probability of false negative interpretation. Additional studies may be ?? indicated in spite of a normal Pap test result. ? REACTIVE CELLULAR CHANGES ? Test performed at [facility]; A [facility] ?[facility] ?? Edited by: [id number] [facility] Marker 1 NILM,NILM [facility] Cc Results To [facility] Signature REPORT SIGNED: MERLINE SIMS MD 03/13/03 [facility] Sign Out Audit MERLINE SIMS MD [id number] FINAL Y [place] [id number] [facility] Cytology / Unknown 3 10:04 PM EST 02/28/2003 10:04 PM EST us Historical Conversion Provider LAB PATHOLOGY/CYT OLOGY ORDERABLES Final Result [facility] [address] [place] [address], from Last 3 Months or Most Recently Relevant to Health Maintenance Insurance * Guarantor: Tabitha Weaver Account Type Relation to Patient Date of Phone Billing Address Personal/Family Self 1975 [address] [facility] [facility] [address] [place] [address] [place] [address] Care Teams Motorcycle Mechanic Relationship Specialty Start Date End Date Patient, Has No Pcp Or Ref DO NOT EDIT THIS RECORD VIA PROVIDER ON THE FLY PCP - General Recreation Programmer 02/25/24
--- OUTSIDE RECORDS SUMMARY | 2024-04-29 12:13 | XMS_ITS | Encounter Summary ---
Author Organization [facility] Address [address] [place] [address] Care Team Providers Care Upper Cutter Out Name Role Phone Isaac Alaniz MD, Alex Tariq Primary Care Provider [phone]- [phone] Encounter Details Date Type Department Care Team (Late st Contact Info) Description 01/02/2024 Procedure Pass [facility] [address] [place] [address] Social History Tobacco Use Types Packs/Day Years Used Date Smoking Tobacco: Every Day Cigarettes Smokeless Tobacco: Never Comments:vape Alcohol Use Standard Drinks/Week Comments Not Currently 4 (1 standard drink = 0.6 oz pur e alcohol) Housing Stability - SDOH Screener Answer Date Recorded What is your living situation today? Unsteady ho using 01/02/2024 Do you need help with Housing/Correction resources? Not on file 01/02/2024 Patient indicated [...] on filedocumented in this encounter Care Teams Upper Cutter Out Relationship Specialty Start Date End Date Alex Gray Jr., MD [address] [place] [phone] PCP - General Internal Medicine 08/15/18 documented as of this encounter
--- OUTSIDE RECORDS SUMMARY | 2024-04-29 12:13 | XMS_ITS | Encounter Summary ---
Author Organization [facility] Address [address] [place] [address] Care Team Providers Care Blending Tank Tender Helper Name Role Phone Isaac Alaniz MD, Alex Tariq Primary Care Provider [phone]- [phone] Reason for Visit * Reason Onset Date Comments Appointment Time Question Or Need To Reschedule 01/04/2023 Encounter Details Date Type Department Care Team ([facility] Contact Info) Description 01/04/2023 Telephone [facility] [address] [place] [phone] Angelito Aguilar MD [address] [facility] [place] [address] Appointment Time Question Or Need To Reschedule Social History Tobacco Use Types Packs/Day Years [...] encounter Miscellaneous Notes * Telephone Encounter - Milady Rome - 01/05/2023 10:31 AM EDT Spoke to the nurse manager application development at the number below and was able to rebook this apt for 02/02 in the [place] office for an in person visit. * Telephone Encounter - Violetta Dumont NP - 01/05/2023 9:41 AM EDT Please reschedule patient MD postop appointment until after he is DC from [facility]. See prior call. Thank you * Telephone Encounter - Db Guerra - 01/04/2023 4:27 PM EDT Patient's nurse manager application development calling from [facility] in [place]. Patient won't be discharged before 01/25. Wanted to know if it was possible to make appointment telehealth or if not to postpone after that date. Please advise. P: [phone] documented in this encounter Plan of Treatment Not on file documented as of this encounter Visit Diagnoses Not on filedocumented in this encounter Additional Health Concerns Infection Onset Date Last Indicated Resolved Time PUI COVID 01/01/2024 01/01/2024 01/01/2024 1:19 PM EDT documented as of this encounter Care Teams Blending Tank Tender Helper Relationship Specialty Start Date End Date Alex Gray Jr., MD [address] [place] [phone] PCP - General Internal Medicine 08/15/18 documented as of this encounter
--- OUTSIDE RECORDS SUMMARY | 2024-04-29 12:13 | XMS_ITS | Encounter Summary ---
Author Organization [facility] Address [address] [place] [address] Care Team Providers Care Blender Machine Operator Name Role Phone Isaac Alaniz MD, Alex Tariq Primary Care Provider [phone]- [phone] Encounter Details Date Type Department Care Team (Late st Contact Info) Description 04/03/2019 Lab Requisition [address] [id number] Unknown Illness, unspecified Social History Tobacco Use [...] Procedure Name Priority Date/Time Associated Diagnosis Comments MANUAL DIFFERENTIAL Routine 04/03/2019 5 :00 AM EST Illness, unspecified [ICD-10-CM] CBC AND AUTO DIFFERENTIAL Routine 04/03/2019 5:00 AM EST Illness, unspecified [ICD-10-CM] C-REACTIVE PROTEIN ULTRASENSITIVE Routine 04/03/2019 5:00 AM EST Illness, unspecified [ICD-10-CM] VANCOMYCIN TROUGH Routine 04/03/2019 5:0 0 AM EST Illness, unspecified [ICD-10-CM] BASIC METABOLIC PANEL Routine 04/03/2019 5:00 AM EST Illness, unspecified [ICD-10-CM] documented in this encounter Results * (ABNORMAL) Manual Differential (04/03/2019 5:00 AM EST) WBC 5.6 10*3/??L 04/03/2019 9:45 AM EST [facility] Neut % 32(L) 40 - 85 % 04/03/2019 9:45 AM [facility] Bands % 1 0 - 8 % 04/03/2019 9:45 AM [facility] Lymph % 45 15 - 45 % 04/03/2019 9:45 AM EST [facility] Edmonson % 17(H) 0 - 12 % 04/03/2019 9:45 AM [facility] Eos % 4 0 - 7 % 04/03/2019 9:45 AM EST [facility] Baso % 1 0 - 2 % 04/03/2019 9:45 AM [facility] Total Cells Count 100 019 9:45 AM [facility] Platelet Estimate Decreased (A) Normal 04/03/2019 9:45 AM [facility] Polychromasia Slight(A) None Seen 04/03/2019 9:45 AM [facility] Hypochromia Slight/Mo derate(A) None Seen 04/03/2019 9:45 AM [facility] Basophilic Stippling Slight(A) None Seen 04/03/2019 9:45 AM [facility] Blood specimen (specimen) Non-SHG Collection / Unknown 04/03/2019 5:00 AM EST 04/03/2019 8:15 AM EST us Unknown LAB BLOOD ORDERABLES Final Resul t [facility] [address] [place], [place] * Vancomycin, trough (04/03/2019 5:00 AM EST) Vancomycin Tr 14.3 10.0 - 20.0 ug/mL 04/03/2019 9:15 AM EST [facility] Blood specimen (specimen) Non-SHG Collection / Unknown 04/03/2019 5:00 AM EST 04/03/2019 8:15 AM EST us Unknown LAB BLOOD ORDERABLES Final Resul t Performing Organization Address [facility]/ZIP Co de Phone Number [facility] [address] [place], [place] * (ABNORMAL) CBC and Auto Differential (04/03/2019 5:00 AM EST) WBC 5.6 4.8 - 11.2 10*3/??L 04/03/2019 9:27 AM [facility] RBC 3.72 3.60 - 5.40 10*6/??L 04/03/2019 9:27 AM [facility] HGB 11.7(L) 12.0 - 15.8 g/dL 04/03/2019 9:27 AM [facility] HCT 35.5(L) 36.0 - 48.0 % 04/03/2019 9:27 AM [facility] MCV 95.4 82.0 - 98.0 fL 04/03/2019 9:27 AM [facility] MCH 31.6 27.0 - 35.0 pg 04/03/2019 9:27 AM [facility] MCHC 33.1 32.0 - 37.0 g/dL 04/03/2019 9:27 AM [facility] RDW 13.6 12.0 - 15.0 % 04/03/2019 9:27 AM [facility] PLT 93(L) 150 - 400 10*3/??L 04/03/2019 9:27 AM [facility] Comment:Checked by review of brand stained smear MPV 9.4 7.0 - 14.0 fL 04/03/2019 9:27 AM EST [facility] NRBC% 0 0 /100 WBC /100 WBC 04/03/2019 9:27 AM EST [facility] Add Manual Diff Yes Per Protocol 04/03/2019 9:27 AM EST [facility] Blood specimen (specimen) Non-SHG Collection / Unknown 04/03/2019 5:00 AM EST 04/03/2019 8:15 AM EST us Unknown LAB BLOOD ORDERABLES Final Resul t Performing Organization Address [facility] de Phone Number [facility] [address] [place], [place] * CRP, Ultrasensitive (04/03/2019 5:00 AM EST) Pathologist [facility] CRP, Ultrasensitive 7.3 0.0 - 8.0 mg/L 04/03/2019 9:15 AM EST [facility] Blood specimen (specimen) Non-SHG Collection / Unknown 04/03/2019 5:00 AM EST 04/03/2019 8:15 AM EST Narrative [facility] - 04/03/2019 9:15 AM EST C Reactive Protein High Sensitivity < 1.0 ? mg/L ?Low cardiovascular risk 1.0 - 3.0 ?? mg/L ?Average cardiovascular risk 3.1 - 10.0 ??mg/L ?High cardiovascular risk > 10.0 ?Consider infection/inflammation us Unknown LAB BLOOD ORDERABLES Final Resul t Performing Organization Address [facility] Co de Phone Number [facility] [address] [place], [place] * Basic metabolic panel (04/03/2019 5:00 AM EST) Pathologist [facility] Sodium 141 137 - 147 mEq/L 04/03/2019 9:08 AM EST [facility] Potassium 3.9 3.5 - 5.4 mEq/L 04/03/2019 9:[address] [facility] Chloride 104 96 - 107 mEq/L 04/03/2019 9:08 AM EST [facility] CO2 27 24 - 34 mEq/L 04/03/2019 9:08 AM EST [facility] Anion Gap 10 4 - 15 mEq/L 04/03/2019 9:08 AM EST [facility] Glucose 98 70 - 100 mg/dL 04/03/2019 9:08 AM EST [facility] Creatinine 0.56 0.50 - 1.30 mg/dL 04/03/2019 9:08 AM EST [facility] eGFR >60 60 - 115 mL/min 04/03/2019 9:08 AM EST [facility] BUN 16 6 - 26 mg/dL 04/03/2019 9:08 AM EST [facility] Calcium 8.9 8.7 - 10.5 mg/dL 04/03/2019 9:08 AM [facility] Blood specimen (specimen) Non-SHG Collection / Unknown 04/03/2019 5:00 AM EST 04/03/2019 8:15 AM EST us Unknown LAB BLOOD ORDERABLES Final Resul t [facility] [address] [place], [place] documented in this encounter Visit Diagnoses Diagnosis Illness, unspecified documented in this encounter Additional Health Concerns Infection Onset Date Last Indicated Resolved Time MRSA Comment:Cleared 05/19/21 nf MRSA blood/chin 03/14/19 sa 03/14/2019 03/17/2019 2021 2 :15 PM EST PUI COVID 01/01/2024 01/01/2024 01/01/2024 1:19 PM EDT documented as of this encounter Care Teams Blender Machine Operator Relationship Specialty Start Date End Date Alex Gray Jr., MD [address] [place] [phone] PCP - General Internal Medicine 08/15/18 documented as of this encounter
--- OUTSIDE RECORDS SUMMARY | 2024-04-29 12:13 | XMS_ITS | Encounter Summary ---
Author Organization [facility] Address [address] [place] [address] Care Team Providers Care Special Education Educational Assistant Name Role Phone Isaac Alaniz MD, Alex Tariq Primary Care Provider [phone] Encounter Details Date Type Department Care Team (Late st Contact Info) Description 01/31/2024 [facility] [address] [place] [address] Social History Tobacco Use Types Packs/Day Years Used Date Smoking Tobacco: Every Day Cigarettes Smokeless Tobacco: Never Comments:vape Alcohol Use Standard Drinks/Week Comments Not Currently 4 (1 standard drink = 0.6 oz pur e alcohol) Housing Stability - SDOH Screener Answer Date Recorded What is your living situation today? Unsteady ho using 01/02/2024 Do you need help with Housing/Prison resources? Not on file 01/02/2024 Patient indicated [...] on filedocumented in this encounter Care Teams Special Education Educational Assistant Relationship Specialty Start Date End Date Alex Gray Jr., MD [address] [place] [phone] PCP - General Internal Medicine 08/15/18 documented as of this encounter
--- OUTSIDE RECORDS SUMMARY | 2024-04-29 12:13 | XMS_ITS | Encounter Summary ---
Author Organization [facility] Address [address] [place] [address] Care Team Providers Care School Lunch Monitor Name Role Phone Isaac Alaniz MD, Alex Tariq Primary Care Provider [phone] Encounter Details Date Type Department Care Team (Late st Contact Info) Description 01/28/2024 [facility] [address] [place] [address] Social History Tobacco Use Types [...] on filedocumented in this encounter Care Teams School Lunch Monitor Relationship Specialty Start Date End Date Alex Gray Jr., MD [address] [place] [phone] PCP - General Internal Medicine 08/15/18 documented as of this encounter
--- OUTSIDE RECORDS SUMMARY | 2024-04-29 12:13 | XMS_ITS | Encounter Summary ---
Author Organization [facility] Address [address] [place] [address] Care Team Providers Care Psychiatric Secretary Name Role Phone Monique Rubio MD Primary Care Provider [phone] Raúl Landa MD Primary Care Provider [phone] Jen Saunders NP Primary Care Provider Isaac Alaniz MD, Donald P Primary Care Provider [phone] Encounter Details Date Type Department Care Team (Late st Contact Info) Description 03/24/[address] [facility] [address] [place] [address] Zunilda Sneed NP [address] [place] [address] Encounter for general adult medical examination without abnormal findings Social History Tobacco Use Types Packs/Day Years [...] Procedure Name Priority Date/Time Associated Diagnosis Comments TOXICOLOGY SCREEN, URINE Routine 03/24/2017 3:25 PM EST Encounter for general adult medical examination without abnormal findings documented in this encounter Results * (ABNORMAL) Toxicology screen, urine (03/24/2017 3:25 PM EST) Amphetamine Qualitative, Ur None Detected None Detected 03/24/2017 6:51 PM EST [facility] Barbiturates Qualitative, Ur None Detected None Detected 03/24/2017 6:51 PM [facility] Benzodiazepines Qualitative, Ur None Detected None Detected 03/24/2017 6:51 PM [facility] Methadone Qualitative, Ur Detected(A) None Detected 03/24/2017 6:51 PM [facility] Opiates Qualitative, Ur None Detected None Detected 03/24/2017 6:51 PM [facility] Creatinine, Urine 142.5 20.0 - 400.0 mg/dL 03/24/2017 6:51 PM [facility] Cannabinoids Qualitative, Ur None Detected None Detected 03/24/2017 6:51 PM [facility] Cocaine Qualitative, Ur None Detected None Detected 03/24/2017 6:51 PM [facility] Urine specimen (specimen) 03/24/2017 3:25 PM EST 03/24/2017 3:25 PM EST [facility] - 03/24/2017 6:51 PM EST This urine immunoassay drug method is for medical ??SCREENING only and should not be used for non-medical ??(employment,legal) purposes. ??The test result(s) may be ??affected by dietary and over the counter medications. ??Negative cut-offs for these tests are set to detect DRUG ??ABUSE. ??Therapeutic levels of these drugs may not be ??detected. ??(The negative cut-offs for the drug classes are: ??Benzodiazepines, Cocaine and Methadone 300 ng/ml; ??Barbituates 200 ng/ml; Opiates 2000 ng/ml; Amphetamines ??1000 ng/ml; Cannabinoids 50 ng/ml). ??As this is a screening methodology, any positive results are ??UNCONFIRMED. ??Confirmation of positive results may be ??requested from the laboratory within 7 days. ??All test ??results should be interpreted in context of the patient's ??clinical condition. us Zunilda Sneed [facility] URINE ORDERABLES Final Result [facility] [address] [place] [address] documented in this encounter Visit Diagnoses Diagnosis Encounter for general adult medical examination without abnormal findings documented in this encounter Additional Health Concerns Infection Onset Date Last Indicated Resolved Time MRSA Comment:Cleared 05/19/21 nf MRSA blood/chin 03/14/19 sa 03/14/2019 03/17/2019 2021 2 :15 PM EST PUI COVID 01/01/2024 01/01/2024 01/01/2024 1:19 PM EDT documented as of this encounter Care Teams Psychiatric Secretary Relationship Specialty Start Date End Date Monique Rubio MD [address] [place] [phone] PCP - General Internal Medicine 02/01/16 05/29/17 Raúl Landa MD [address] [place] [phone] PCP - General Family Medicine 05/30/17 09/23/17 Jen Saunders NP [address] [place] [address] PCP - General Pain Medicine 09/24/17 08/14/18 Alex Gray Jr., MD [address] [place] [phone] PCP - General Internal Medicine 08/15/18 documented as of this encounter
--- OUTSIDE RECORDS SUMMARY | 2024-04-29 12:13 | XMS_ITS | Clinical Summary ---
Demographics Address [address] [facility] [address] [place] [address] Home Phone Preferred Language Danish Marital Status Unknown Hindu Affiliation Unknown Race White Ethnic Group Not or Lati no Author Organization [facility] Address [address] [place] [address] Care Team Providers Care Shellfish Grower Name Role Phone Patient, Has No Pcp Or Ref Primary Care Provider Unavailable Allergies Active Allergy Reactions Criticality Noted Date Comments Buprenorphine Unknown 02/24/2024 Haloperidol Anaphylaxis,Other (s ee comments),Unknown High 12/09/2015 lockjaw Ibuprofen Unknown 02/25/2024 Naltrexone Rash Low 11/18/2022 Phenergan Plain Unknown 09/16/2023 Promethazine Anaphylaxis,Tremor,Unknown High 016 Dystonia Medications No known medications Encounters Date Type Department Care Team Description 02/25/2024 12:29 PM EST - 02/25/2024 8:24 PM EST Emergency [facility] Emergency Department [address] [place] [address] Courtney Gooden MD O'Connor, Laurel C., MD Transient alteration of awareness (Primary Dx) Discharge Disposition: Psychiatric Hospital (INPT Psych facility/unit) (65) from Last 3 Months Social History Tobacco Use Types Packs/Day Years [...] Mass Index - - Plan of Treatment Health Maintenance Due Date Last Done Comments Cologuard 1975 Colon Cancer Screening 1975 Colonoscopy 1975 FOBT / Fit Test 1975 HIV Screening 1975 HPV and Pap Smear 1976 Sigmoidoscopy 1976 Pneumococcal Vaccine: Pediat alfredo (0-5 Years) and At-Risk Patients (6-64 Years) (1 of 2 - PCV) 1982 Hepatitis B Vaccines (1 of 3 - 19+ 3-dose series) 1995 Cervical Cancer Screening 02/26/2006 Pap Smear 02/26/2006 02/26/2003, 09/05/2002 Mammogram 2016 COVID-19 Vaccine (3 - 2023-2 5 season) 2023 05/04/2023, 05/15/2021 Influenza Vaccine (#1) 2023 , 03/17/2019, 11/13/2016, Additional history exists Alcohol/Substance Use Screening 04/05/2024 Depression Screening and Follow-Up 04/05/2024 Social Drivers of Health Brenda ual Screening 04/05/2024 DTaP,Tdap,and Td Vaccines (4 - Td or Tdap) 09/07/2032 09/07/2022, 02/11/2021, 12/13/2016 RSV Vaccine (60+ years old a nd patients) (1 - 1-dose 75+ series) 2051 Hepatitis C Screening Completed 01/01/2024 , 01/01/2024, 01/01/2024 Procedures * Due to [place] state law, this organization might not be sharing [...] Health Maintenance Results * Due to [place] state law, this organization might not be sharing [...] - 12.5 fL 02/25/2024 4:02 PM EST [facility] Neutrophil % 78.7 % 02/25/2024 4:02 PM EST [facility] Immature Grans % 0.2 0.0 - 0.9 % 02/25/2024 4:02 PM EST [facility] Lymphocyte % 18.9 % 02/25/2024 4:02 PM EST [facility] Monocyte % 2.0 % 02/25/2024 4:02 PM EST [facility] Eosinophil % 0.0 % 02/25/2024 4:02 PM EST [facility] Basophil % 0.2 % 02/25/2024 4:02 PM EST [employer] [facility] Neutrophil # 4.76 1.50 - 7.80 10*3/uL 02/25/2024 4:02 PM EST [employer] [facility] Immature Grans # <0.03 <=0.03 10*3/uL 02/25/2024 4:02 PM EST [employer] [facility] Lymphocyte # 1.10 0.85 - 3.90 10*3/uL 02/25/2024 4:02 PM EST [employer] [facility] Monocyte # 0.10(L) 0.20 - 0.95 10*3/uL 02/25/2024 4:02 PM EST [employer] [facility] Eosinophil # <0.03 0.02 - 0.50 10*3/uL 02/25/2024 4:02 PM EST [facility] Basophil # <0.03 0.00 - 0.20 10*3/uL 02/25/2024 4:02 PM EST [facility] nRBC % 0.0 /100 WBCs 02/25/2024 4:02 PM EST [facility] nRBC # <0.01 <0.01 10*3/uL 02/25/2024 4:02 PM EST [facility] Blood Structure of peripheral vein / Unknown Venipuncture / Unknown 02/25/2024 3:43 PM EST 02/25/2024 3:53 PM EST Courtney Gooden MD LAB BLOOD ORDERABLES Columba l Result Performing Organization Address [facility] Co de Phone Number [email or web address] [address] [place] [address], [place] * hCG, Qualitative, Serum (02/25/2024 3:43 PM EST) HCG Qualitative, Serum Negative Negative 02/25/2024 4:31 PM EST [facility] Comment: hCG greater than [...] ORDERABLES Columba l Result Performing Organization Address [facility] Co de Phone Number [facility] [address] [place] [address], [place] * (ABNORMAL) Hepatic Function Panel (02/25/2024 3:43 PM EST) Total Protein 7.2 6.0 - 8.0 g/dL 02/25/2024 4:31 PM EST [facility] Albumin 3.9 3.5 - 5.2 g/dL 02/25/2024 4:31 PM EST [facility] Globulin, Total 3.3 2.1 - 4.2 g/dL 02/25/2024 4:31 PM EST [facility] Bilirubin, Total 0.3 0.2 - 1.2 mg/dL 02/25/2024 4:31 PM EST [facility] Bilirubin, Direct 0.1 <=0.4 mg/dL 02/25/2024 4:31 PM EST [facility] Alkaline Phosphatase 68 35 - 129 U/L 02/25/2024 4:31 PM EST [facility] AST 29 10 - 40 U/L 02/25/2024 4:31 PM EST [facility] ALT 18 10 - 40 U/L 02/25/2024 4:31 PM EST [facility] Bilirubin, Indirect 0.20 <=0.70 mg/dL 02/25/2024 4:31 PM EST [facility] A/G Ratio 1.2(L) 1.5 - 3.0 02/25/2024 4:31 PM EST [facility] Blood Structure of peripheral vein / Unknown Venipuncture / Unknown 02/25/2024 3:43 PM EST 02/25/2024 3:54 PM EST us Courtney Gooden MD LAB BLOOD ORDERABLES Columba l Result [email or web address] [address] [place] [address], * (ABNORMAL) Basic Metabolic Panel (02/25/2024 3:43 PM EST) NA 138 135 - 145 mmol/L 02/25/2024 4:31 PM EST [facility] K 3.6 3.5 - 5.3 mmol/L 02/25/2024 4:31 PM EST [facility] Cl 105 98 - 107 mmol/L 02/25/2024 4:31 PM EST [facility] CO2 22 22 - 32 mmol/L 02/25/2024 4:31 PM EST [facility] BUN 6(L) 7 - 23 mg/dL 02/25/2024 4:31 PM EST [facility] Creatinine 0.43(L) 0.50 - 1.20 mg/dL 02/25/2024 4:31 PM EST [facility] Glucose 151(H) 65 - 99 mg/dL 02/25/2024 4:31 PM EST [facility] Calcium 9.1 8.6 - 10.5 mg/dL 02/25/2024 4:31 PM EST [facility] Anion Gap 11 5 - 15 02/25/2024 4:31 PM EST [facility] eGFR >90 >=60 mL/min/1 .73m2 02/25/2024 4:31 PM EST [facility] Comment:The estimated glomer ular filtration rate (eGFR) is calculated using a new formula developed by the NKF-ASN task force to eliminate race-based correction factors. The new formula uses serum/plasma creatinine, age, and gender to determine eGFR. A value below 60mls/min might indicate kidney disease and will be flagged. For additional information, see Tierney et al, Am J Kidney Dis. 2021;79(2):268- 288, A Unifying Approach for GFR estimation: Recommendations of the NKF-ASN Task Force on Reassessing the Inclusion of Race in Diagnosing Kidney Disease . Blood Structure of peripheral vein / Unknown Venipuncture / Unknown 02/25/2024 3:43 PM EST 02/25/2024 3:54 PM EST us Courtney Gooden MD LAB BLOOD ORDERABLES Columba martinez Result [email or web address] [address] [place] [address], * X-Ray Chest 1 View (02/25/2024 2:33 [...] obtain the completed interpretation. ? Workstation ID: [id number] Narrative 02/25/2024 2:38 PM EST COMPARISON: None FINDINGS AND Resulting Agency Comment [id number] Procedure Note Raúl Centeno MD - 02/25/2024 COMPARISON: None FINDINGS AND IMPRESSION: No consolidation, pleural effusion, or pneumothorax. Normal heart size.No pulmonary vascular congestion. No acute displaced fracture identified. If this radiology report contains a blank impression section, it is anincomplete radiology report. Please contact the interpreting radiologistor applicable radiology division as soon as possible to obtain thecompleted interpretation. Workstation ID: [id number] us Courtney Gooden MD IMG XR PROCEDURES Final R esult * (ABNORMAL) POCT Glucose, interfaced (02/25/2024 12:36 PM EST) [facility] Signature Glucose, POCT 169(H) 70 - 99 mg/dL 02/25/2024 12:37 PM EST [facility] Comment: The numerical control machine machinist has not determined the efficacy of this test in Critically ill patients. ??[facility] defines Critically ill patients for the purpose [...] POCT ORDERABLES - DEVICE Fin al Result [facility] [address] [place] [address], * Pap (02/26/2003 10:04 PM EST) Path Procedure PAP OUTSOURCED 1 ?? Edited by: [id number] [facility] Specimen Labeled As: 1 CERVICAL/ENDOCERVI ROZ CYTO MATERIAL - Edited by: [id number] [facility] - [facility] Diagnosis Gyne [...] REACTIVE CELLULAR CHANGES ? Test performed at [facility]; A [facility] Affiliate ?[place] ?? Edited by: [id number] [facility] - [facility] Marker 1 NILM,NILM [facility] Cc Results To [facility] - [facility] Signature REPORT SIGNED: MERLINE SIMS MD 03/13/03 [facility] Sign Out Audit MERLINE SIMS MD [id number] FINAL Y DANIEL DAI [id number] [facility] Cytology / Unknown 3 10:04 PM EST 02/28/2003 10:04 PM EST us Historical Conversion Provider LAB PATHOLOGY/CYT OLOGY ORDERABLES Final Result [facility] [address] [place] [address], from Last 3 Months or Most Recently Relevant to Health Maintenance Insurance * Guarantor: Tabitha Weaver Account Type Relation to Patient Date of Phone Billing Address Personal/Family Self 1975 [address] [place] [address] [facility] MEDICAID Care Teams Shellfish Grower Relationship Specialty Start Date End Date Patient, Has No Pcp Or Ref DO NOT EDIT THIS RECORD VIA PROVIDER ON THE FLY PCP - General Fitter Up 02/25/24
--- OUTSIDE RECORDS SUMMARY | 2024-04-29 12:13 | XMS_ITS | Encounter Summary ---
Author Organization [facility] Address [address] [place] [address] Care Team Providers Care Special Officer Name Role Phone Isaac Alaniz MD, Alex Tariq Primary Care Provider +1- [phone] Encounter Details Date Type Department Care Team (Late st Contact Info) Description 01/13/2023 Lab Requisition [facility] [address] [place] [phone] Woo Granados [address] [facility], [address] [place], [place] Illness, unspecified Social History Tobacco Use Types [...] Date/Time Associated Diagnosis Comments C-REACTIVE PROTEIN INFLAMMATION STAT 01/13/2023 6:57 AM EDT Illness, unspecified SEDIMENTATION RATE, AUTOMATED STAT 01/13/2023 6:57 AM EDT Illness, unspecified CBC AND AUTO DIFFERENTIAL STAT 01/13/2023 6:57 AM EDT Illness, unspecified PHOSPHORUS STAT 01/13/2023 6:57 AM EDT Illness, unspecified MAGNESIUM STAT 01/13/2023 6:57 AM EDT Illness, unspecified COMPREHENSIVE METABOLIC PANEL STAT 01/13/2023 6:57 AM EDT Illness, unspecified documented in this encounter Results * (ABNORMAL) CBC and Auto Differential (01/13/2023 6:57 AM EDT) WBC 6.4 4.8 - 11.2 10*3/??L 01/13/2023 8:31 AM EDT [facility] RBC 3.74 3.60 - 5.40 10*6/??L 01/13/2023 8:31 AM EDT [facility] HGB 10.6(L) 12.0 - 15.8 g/dL 01/13/2023 8:31 AM EDT [facility] HCT 32.0(L) 36.0 - 48.0 % 01/13/2023 8:31 AM EDT [facility] MCV 85.7 82.0 - 98.0 fL 01/13/2023 8:31 AM EDT [facility] MCH 28.5 27.0 - 35.0 pg 01/13/2023 8:31 AM EDT [facility] MCHC 33.2 32.0 - 37.0 g/dL 01/13/2023 8:31 AM EDT [facility] RDW 13.6 12.0 - 15.0 % 01/13/2023 8:31 AM EDT [facility] PLT 219 150 - 400 10*3/??L 01/13/2023 8:31 AM EDT [facility] MPV 7.5 7.0 - 14.0 fL 01/13/2023 8:31 AM EDT [facility] Neut % 38.5(L) 45.0 - 85.0 % 01/13/2023 8:31 AM EDT [facility] Lymph % 43.2 15.0 - 45.0 % 01/13/2023 8:31 AM EDT [facility] [place] % 11.2 0.0 - 12.0 % 01/13/2023 8:31 AM EDT [facility] Eos % 6.7 0.0 - 7.0 % 01/13/2023 8:31 AM EDT [facility] Baso % 0.4 0.0 - 3.0 % 01/13/2023 8:31 AM EDT [facility] NRBC% 0 0 /100 WBC /100 WBC 01/13/2023 8:31 AM EDT [facility] Neut # 2.5 2.2 - 9.5 10*3/??L 01/13/2023 8:31 AM EDT [facility] Lym # 2.7 0.7 - 5.0 10*3/??L 01/13/2023 8:31 AM EDT [facility] [place] # 0.7 0.0 - 1.3 10*3/??L 01/13/2023 8:31 AM EDT [facility] Eos # 0.4 0.0 - 0.4 10*3/??L 01/13/2023 8:31 AM EDT [facility] Baso # 0.0 0.0 - 0.3 10*3/??L 01/13/2023 8:31 AM EDT [facility] Blood Venipuncture / Unknown 01/13/2023 6:57 AM EDT 01/13/2023 8:10 AM EDT us Woo Granados LAB BLOOD ORDERABLES Fin al Result [facility] [address] [place] [address] * (ABNORMAL) Comprehensive metabolic panel (01/13/2023 6:57 AM EDT) Sodium 137 136 - 145 mEq/L 01/13/2023 8:54 AM EDT [facility] Potassium 4.2 3.5 - 5.1 mEq/L 01/13/2023 8:54 AM EDT [facility] Chloride 103 98 - 107 mEq/L 01/13/2023 8:54 AM EDT [facility] CO2 28 20 - 31 mEq/L 01/13/2023 8:54 AM EDT [facility] Anion Gap 6 4 - 15 mEq/L 01/13/2023 8:54 AM EDT [facility] Glucose 111(H) 70 - 100 mg/dL 01/13/2023 8:54 AM EDT [facility] Creatinine 0.63 0.50 - 1.00 mg/dL 01/13/2023 8:54 AM EDT [facility] eGFR (Female) >60 60 - 115 mL/min 01/13/2023 8:54 AM EDT [facility] BUN 10 9 - 23 mg/dL 01/13/2023 8:54 AM T [facility] Calcium 9.2 8.7 - 10.4 mg/dL 01/13/2023 8:54 AM T [facility] Total Protein 7.9 5.7 - 8.2 g/dL 01/13/2023 8:54 AM T [facility] Albumin 3.6 3.2 - 4.8 g/dL 01/13/2023 8:54 AM T [facility] A/G Ratio 0.8(L) 1.0 - 2.3 01/13/2023 8:54 AM EDT [facility] Total Bilirubin 0.2 0.2 - 1.0 mg/dL 01/13/2023 8:54 AM EDT [facility] AST 19 13 - 40 U/L 01/13/2023 8:54 AM EDT [facility] Alkaline Phosphatase 118(H) 46 - 116 IU/L 01/13/2023 8:54 AM EDT [facility] ALT 19 7 - 40 U/L 01/13/2023 8:54 AM EDT [facility] Blood Venipuncture / Unknown 01/13/2023 6:57 AM EDT 01/13/2023 8:10 AM EDT [employer] LAB BLOOD ORDERABLES Fin al Result Performing Organization Address City/[facility] de Phone Number [facility] [address] [place] [phone] * Magnesium (01/13/2023 6:57 AM EDT) Magnesium 1.8 1.6 - 2.6 mg/dL 01/13/2023 8:54 AM EDT [facility] Blood Venipuncture / Unknown 01/13/2023 6:57 AM EDT 01/13/2023 8:10 AM EDT [employer] LAB BLOOD ORDERABLES Fin al Result Performing Organization Address [facility] de Phone Number [facility] [address] [place] [phone] * Phosphorus (01/13/2023 6:57 AM EDT) Phosphorus 4.4 2.4 - 5.1 mg/dL 01/13/2023 8:54 AM EDT [facility] Blood Venipuncture / Unknown 01/13/2023 6:57 AM EDT 01/13/2023 8:10 AM EDT [employer] LAB BLOOD ORDERABLES Fin al Result Performing Organization Address [facility] de Phone Number [facility] [address] [place] [phone] * (ABNORMAL) CRP, Inflammation (01/13/2023 6:57 AM EDT) CRP, Inflammation 10.44(H) 0.00 - 3.00 mg/L 01/13/2023 9:18 AM EDT [facility] Blood Venipuncture / Unknown 01/13/2023 6:57 AM EDT 01/13/2023 8:10 AM EDT Narrative [facility] - 01/13/2023 9:18 AM EDT >10.0 ?Consider infection/inflammation [employer] Creator [employer] LAB BLOOD ORDERABLES Fin al Result Performing Organization Address City/[facility] de Phone Number [facility] [address] [place] [phone] * (ABNORMAL) Sedimentation Rate, automated (01/13/2023 6:57 AM EDT) Sed Rate >130(H) 0 - 20 mm/hr 01/13/2023 8:43 AM EDT [facility] Blood Venipuncture / Unknown 01/13/2023 6:57 AM EDT 01/13/2023 8:10 AM EDT [email or web address] LAB BLOOD ORDERABLES Fin al Result Performing Organization Address [facility] de Phone Number [facility] [address] [place] [phone] documented in this encounter Visit Diagnoses Diagnosis Illness, unspecified documented in this encounter Additional Health Concerns Infection Onset Date Last Indicated Resolved Time PUI COVID 01/01/2024 01/01/2024 01/01/2024 1:19 PM EDT documented as of this encounter Care Teams Special Officer Relationship Specialty Start Date End Date Alex Gray Jr., MD [address] [place] [phone] PCP - General Internal Medicine 08/15/18 documented as of this encounter
--- OUTSIDE RECORDS SUMMARY | 2024-04-29 12:13 | XMS_ITS | Encounter Summary ---
Author Organization [facility] Address [address] [place] [address] Care Team Providers Care Nursing Scheduler Name Role Phone Isaac Alaniz MD, Alex Tariq Primary Care Provider +1- [phone] Encounter Details Date Type Department Care Team ([facility] st Contact Info) Description 01/26/2024 Procedure Pass [facility] - [address] [address] Social History Tobacco Use Types [...] on filedocumented in this encounter Care Teams Nursing Scheduler Relationship Specialty Start Date End Date Alex Gray Jr., MD [address] [place] [phone] PCP - General Internal Medicine 08/15/18 documented as of this encounter
--- OUTSIDE RECORDS SUMMARY | 2024-04-29 12:13 | XMS_ITS | Encounter Summary ---
Author Organization [facility] Address [address] [place] [address] Care Team Providers Care Clinic Lead Name Role Phone Isaac Alaniz MD, Alex Tariq Primary Care Provider +1- [phone] Encounter Details Date Type Department Care Team ([facility] st Contact Info) Description 01/26/2024 Procedure Pass [facility] - [address] [address] Social History Tobacco Use Types [...] on filedocumented in this encounter Care Teams Clinic Lead Relationship Specialty Start Date End Date Alex Gray Jr., MD [address] [place] [phone] PCP - General Internal Medicine 08/15/18 documented as of this encounter
--- OUTSIDE RECORDS SUMMARY | 2024-04-29 12:13 | XMS_ITS | Encounter Summary ---
Author Organization [facility] Address [address] [place] [address] Care Team Providers Care Product Ambassador Name Role Phone Isaac Alaniz MD, Alex Tariq Primary Care Provider +1- [phone] Encounter Details Date Type Department Care Team (Late st Contact Info) Description 12/21/2022 Lab Requisition [address] [phone] Demetria Garner, HAY BUCKLER [address] [place] [address] Illness, unspecified Social History Tobacco [...] Associated Diagnosis Comments C-REACTIVE PROTEIN INFLAMMATION Routine 12/21/2022 5:12 AM EDT Illness, unspecified CBC AND AUTO DIFFERENTIAL Routine 12/21/2022 5:12 AM EDT Illness, unspecified PHOSPHORUS Routine 12/21/2022 5:12 AM EDT Illness, unspecified MAGNESIUM Routine 12/21/2022 5:12 AM EDT Illness, unspecified COMPREHENSIVE METABOLIC PANEL Routine 12/21/2022 5:12 AM EDT Illness, unspecified documented in this encounter Results * Phosphorus (12/21/2022 5:12 AM EDT) Phosphorus 4.2 2.4 - 5.1 mg/dL 12/21/2022 8:23 AM EDT [facility] Blood Venipuncture / Unknown 12/21/2022 5:12 AM EDT 12/21/2022 7:33 AM EDT [facility] Oneyda Garner LAB BLOOD ORDERABLES Final Result Performing Organization Address City/[facility] Co de Phone Number [facility] [address] [place] [phone] * Magnesium (12/21/2022 5:12 AM EDT) Pathologist [facility] Magnesium 1.7 1.6 - 2.6 mg/dL 12/21/2022 8:23 AM EDT [facility] Blood Venipuncture / Unknown 12/21/2022 5:12 AM EDT 12/21/2022 7:33 AM EDT [facility] HAY BUCKLER LAB BLOOD ORDERABLES Final Result [facility] [address] [place] [address] * (ABNORMAL) CRP, Inflammation (12/21/2022 5:12 AM EDT) CRP, Inflammation 54.43(H) 0.00 - 3.00 mg/L 12/21/2022 8:[address] [facility] Blood Venipuncture / Unknown 12/21/2022 5:12 AM EDT 12/21/2022 7:33 AM EDT Narrative [facility] - 12/21/2022 8:24 AM EDT >10.0 ?Consider infection/inflammation Demetria Garner NP LAB BLOOD ORDERABLES Final Result [facility] [address] [place] [address] * (ABNORMAL) CBC and Auto Differential (12/21/2022 5:12 AM EDT) WBC 8.7 4.8 - 11.2 10*3/??L 12/21/2022 7:56 AM EDT [facility] RBC 3.63 3.60 - 5.40 10*6/??L 12/21/2022 7:56 AM EDT [facility] HGB 10.5(L) 12.0 - 15.8 g/dL 12/21/2022 7:56 AM EDT [facility] HCT 31.7(L) 36.0 - 48.0 % 12/21/2022 7:56 AM EDT [facility] MCV 87.4 82.0 - 98.0 fL 12/21/2022 7:56 AM EDT [facility] MCH 28.9 27.0 - 35.0 pg 12/21/2022 7:56 AM EDT [facility] MCHC 33.1 32.0 - 37.0 g/dL 12/21/2022 7:56 AM EDT [facility] RDW 13.0 12.0 - 15.0 % 12/21/2022 7:56 AM EDT [facility] PLT 270 150 - 400 10*3/??L 12/21/2022 7:56 AM EDT [facility] MPV 8.1 7.0 - 14.0 fL 12/21/2022 7:56 AM EDT [facility] Neut % 57.0 45.0 - 85.0 % 12/21/2022 7:56 AM EDT [facility] Lymph % 29.7 15.0 - 45.0 % 12/21/2022 7:56 AM EDT [facility] Alpine % 10.5 0.0 - 12.0 % 12/21/2022 7:56 AM EDT [facility] Eos % 2.5 0.0 - 7.0 % 12/21/2022 7:56 AM EDT [facility] Baso % 0.3 0.0 - 3.0 % 12/21/2022 7:56 AM EDT [facility] NRBC% 0 0 /100 WBC /100 WBC 12/21/2022 7:56 AM EDT [facility] Neut # 5.0 2.2 - 9.5 10*3/??L 12/21/2022 7:56 AM EDT [facility] Lym # 2.6 0.7 - 5.0 10*3/??L 12/21/2022 7:56 AM EDT [facility] [place]pine # 0.9 0.0 - 1.3 10*3/??L 12/21/2022 7:56 AM EDT [facility] Eos # 0.2 0.0 - 0.4 10*3/??L 12/21/2022 7:56 AM EDT [facility] Baso # 0.0 0.0 - 0.3 10*3/??L 12/21/2022 7:56 AM EDT [facility] Blood Venipuncture / Unknown 12/21/2022 5:12 AM EDT 12/21/2022 7:33 AM EDT us Demetria Garner NP LAB BLOOD ORDERABLES Final Result [facility] [address] [place] [address] * (ABNORMAL) Comprehensive metabolic panel (12/21/2022 5:12 AM EDT) Sodium 133(L) 136 - 145 mEq/L 12/21/2022 8:24 AM EDT [facility] Potassium 3.9 3.5 - 5.1 mEq/L 12/21/2022 8:24 AM EDT [facility] Chloride 100 98 - 107 mEq/L 12/21/2022 8:24 AM EDT [facility] CO2 24 20 - 31 mEq/L 12/21/2022 8:24 AM EDT [facility] Anion Gap 9 4 - 15 mEq/L 12/21/2022 8:24 AM EDT [facility] Glucose 132(H) 70 - 100 mg/dL 12/21/2022 8:24 AM EDT [facility] Creatinine 0.57 0.50 - 1.00 mg/dL 12/21/2022 8:24 AM T [facility] eGFR (Female) >60 60 - 115 mL/min 12/21/2022 8:24 AM EDT [facility] BUN 12 9 - 23 mg/dL 12/21/2022 8:24 AM EDT [facility] Calcium 9.3 8.7 - 10.4 mg/dL 12/21/2022 8:24 AM T [facility] Total Protein 8.5(H) 5.7 - 8.2 g/dL 12/21/2022 8:24 AM T [facility] Albumin 3.7 3.2 - 4.8 g/dL 12/21/2022 8:24 AM T [facility] A/G Ratio 0.8(L) 1.0 - 2.3 12/21/2022 8:24 AM EDT [facility] Total Bilirubin 0.2 0.2 - 1.0 mg/dL 12/21/2022 8:24 AM EDT [facility] AST 35 13 - 40 U/L 12/21/2022 8:24 AM EDT [facility] Alkaline Phosphatase 132(H) 46 - 116 IU/L 12/21/2022 8:24 AM EDT [facility] ALT 40 7 - 40 U/L 12/21/2022 8:24 AM T [facility] Blood Venipuncture / Unknown 12/21/2022 5:12 AM EDT 12/21/2022 7:33 AM EDT us Demetria Garner HAY BUCKLER LAB BLOOD ORDERABLES Final Result [facility] [address] [place] [address] documented in this encounter Visit Diagnoses Diagnosis Illness, unspecified documented in this encounter Additional Health Concerns Infection Onset Date Last Indicated Resolved Time PUI COVID 01/01/2024 01/01/2024 01/01/2024 1:19 PM EDT documented as of this encounter Care Teams Product Ambassador Relationship Specialty Start Date End Date Alex Gray Jr., MD [address] [place] [phone] PCP - General Internal Medicine 08/15/18 documented as of this encounter
--- OUTSIDE RECORDS SUMMARY | 2024-04-29 12:13 | XMS_ITS | Encounter Summary ---
Author Organization [facility] Address [address] [place] [address] Care Team Providers Care Certified Hand Therapist Name Role Phone Isaac Alaniz MD, Alex Tariq Primary Care Provider +1- [phone] Encounter Details Date Type Department Care Team (Late st Contact Info) Description 01/02/2024 Procedure Pass [facility] - [facility] [address] [place] [phone] Social History Tobacco Use Types Packs/Day Years Used Date Smoking Tobacco: Every Day Cigarettes Smokeless Tobacco: Never Comments:vape Alcohol Use Standard Drinks/Week Comments Not Currently 4 (1 standard drink = 0.6 oz pur e alcohol) Housing Stability - SDOH Screener Answer Date Recorded What is your living situation today? Unsteady ho using 01/02/2024 Do you need help with Housing/Chcf resources? Not on file 01/02/2024 Patient indicated [...] on filedocumented in this encounter Care Teams Certified Hand Therapist Relationship Specialty Start Date End Date Alex Gray Jr., MD [address] [place] [phone] PCP - General Internal Medicine 08/15/18 documented as of this encounter
--- OUTSIDE RECORDS SUMMARY | 2024-04-29 12:13 | XMS_ITS | Encounter Summary ---
Author Organization [facility] Address [address] [place] [address] Care Team Providers Care Administrative Office Clerk Name Role Phone Isaac Alaniz MD, Alex Tariq Primary Care Provider +1- [phone] Encounter Details Date Type Department Care Team (Late st Contact Info) Description 01/03/2024 Procedure Pass [facility] [address] [place] [address] Social History Tobacco Use Types Packs/Day Years Used Date Smoking Tobacco: Every Day Cigarettes Smokeless Tobacco: Never Comments:vape Alcohol Use Standard Drinks/Week Comments Not Currently 4 (1 standard drink = 0.6 oz pur e alcohol) Housing Stability - SDOH Screener Answer Date Recorded What is your living situation today? Unsteady ho using 01/02/2024 Do you need help with Housing/Group Home resources? Not on file 01/02/2024 Patient indicated [...] on filedocumented in this encounter Care Teams Administrative Office Clerk Relationship Specialty Start Date End Date Alex Gray Jr., MD [address] [place] [phone] PCP - General Internal Medicine 08/15/18 documented as of this encounter
--- OUTSIDE RECORDS SUMMARY | 2024-04-29 12:13 | XMS_ITS | Encounter Summary ---
Author Organization [facility] Address [address] [place] [address] Care Team Providers Care Coating Engineer Name Role Phone Isaac Alaniz MD, Alex Tariq Primary Care Provider +1- [phone] Encounter Details Date Type Department Care Team (Late st Contact Info) Description 01/11/2024 [facility] [address] [place] [address] Social History Tobacco Use Types Packs/Day Years Used Date Smoking Tobacco: Every Day Cigarettes Smokeless Tobacco: Never Comments:vape Alcohol Use Standard Drinks/Week Comments Not Currently 4 (1 standard drink = 0.6 oz pur e alcohol) Housing Stability - SDOH Screener Answer Date Recorded What is your living situation today? Unsteady ho using 01/02/2024 Do you need help with Housing/Senior Care resources? Not on file 01/02/2024 Patient indicated [...] on filedocumented in this encounter Care Teams Coating Engineer Relationship Specialty Start Date End Date Alex Gray Jr., MD [address] [place] [phone] PCP - General Internal Medicine 08/15/18 documented as of this encounter
--- OUTSIDE RECORDS SUMMARY | 2024-04-29 12:13 | XMS_ITS | Encounter Summary ---
Author Organization [facility] [place] Address [address] [place] [address] Care Team Providers Care Gas Plant Repairer Name Role Phone Isaac Alaniz MD, Alex Tariq Primary Care Provider +1- [phone] Encounter Details Date Type Department Care Team (Late st Contact Info) Description 12/28/2022 Lab Requisition [address] [phone] Demetria Garner, CHICKEN DRESSER [address] [place] [address] Illness, unspecified Social History Tobacco [...] Associated Diagnosis Comments C-REACTIVE PROTEIN INFLAMMATION Routine 12/28/2022 6:26 AM EDT Illness, unspecified CBC AND AUTO DIFFERENTIAL Routine 12/28/2022 6:26 AM EDT Illness, unspecified PHOSPHORUS Routine 12/28/2022 6:26 AM EDT Illness, unspecified MAGNESIUM Routine 12/28/2022 6:26 AM EDT Illness, unspecified COMPREHENSIVE METABOLIC PANEL Routine 12/28/2022 6:26 AM EDT Illness, unspecified documented in this encounter Results * (ABNORMAL) Comprehensive metabolic panel (12/28/2022 6:26 AM EDT) Sodium 137 136 - 145 mEq/L 12/28/2022 10:14 AM EDT [facility] Potassium 3.6 3.5 - 5.1 mEq/L 12/28/2022 10:14 AM EDT [facility] Chloride 103 98 - 107 mEq/L 12/28/2022 10:14 AM EDT [facility] CO2 28 20 - 31 mEq/L 12/28/2022 10:14 AM EDT [facility] Anion Gap 6 4 - 15 mEq/L 12/28/2022 10:14 AM EDT [facility] Glucose 104(H) 70 - 100 mg/dL 12/28/2022 10:14 AM EDT [facility] Creatinine 0.62 0.50 - 1.00 mg/dL 12/28/2022 10:14 AM EDT [facility] eGFR (Female) >60 60 - 115 mL/min 12/28/2022 10:14 AM EDT [facility] BUN 14 9 - 23 mg/dL 12/28/2022 10:14 AM EDT [facility] Calcium 9.3 8.7 - 10.4 mg/dL 12/28/2022 10:14 AM T [facility] Total Protein 8.5(H) 5.7 - 8.2 g/dL 12/28/2022 10:14 AM EDT [facility] Albumin 3.5 3.2 - 4.8 g/dL 12/28/2022 10:14 AM EDT [facility] A/G Ratio 0.7(L) 1.0 - 2.3 12/28/2022 10:14 AM EDT [facility] Total Bilirubin 0.2 0.2 - 1.0 mg/dL 12/28/2022 10:14 AM EDT [facility] AST 32 13 - 40 U/L 12/28/2022 10:14 AM EDT [facility] Alkaline Phosphatase 119(H) 46 - 116 IU/L 12/28/2022 10:14 AM EDT [facility] ALT 33 7 - 40 U/L 12/28/2022 10:14 AM EDT [facility] Blood Venipuncture / Unknown 12/28/2022 6:26 AM EDT 12/28/2022 7:27 AM EDT Demetria Garner CHICKEN DRESSER LAB BLOOD ORDERABLES Final Result Performing Organization Address City/[facility] Co de Phone Number [facility] [address] [place] [phone] * (ABNORMAL) CRP, Inflammation (12/28/2022 6:26 AM EDT) CRP, Inflammation 34.24(H) 0.00 - 3.00 mg/L 12/28/2022 10:15 AM EDT [facility] Blood Venipuncture / Unknown 12/28/2022 6:26 AM EDT 12/28/2022 7:27 AM EDT Narrative [facility] - 12/28/2022 10:15 AM EDT >10.0 ?Consider infection/inflammation Demetria Garner CHICKEN DRESSER LAB BLOOD ORDERABLES Final Result [facility] [address] [place] [phone] * Magnesium (12/28/2022 6:26 AM EDT) Magnesium 1.8 1.6 - 2.6 mg/dL 12/28/2022 10:14 AM EDT [facility] Blood Venipuncture / Unknown 12/28/2022 6:26 AM EDT 12/28/2022 7:27 AM EDT Demetriaher Oneyda Garner CHICKEN DRESSER LAB BLOOD ORDERABLES Final Result Performing Organization Address [facility] de Phone Number [facility] [address] [place] [phone] * Phosphorus (12/28/2022 6:26 AM EDT) Phosphorus 4.8 2.4 - 5.1 mg/dL 12/28/2022 10:14 AM EDT [facility] Blood Venipuncture / Unknown 12/28/2022 6:26 AM EDT 12/28/2022 7:27 AM EDT [facility] CHICKEN DRESSER LAB BLOOD ORDERABLES Final Result Performing Organization Address [facility] Phone Number [facility] [address] [place] [phone] * (ABNORMAL) CBC and Auto Differential (12/28/2022 6:26 AM EDT) WBC 7.1 4.8 - 11.2 10*3/??L 12/28/2022 7:38 AM EDT [facility] RBC 3.59(L) 3.60 - 5.40 10*6/??L 12/28/2022 7:38 AM EDT [facility] HGB 10.3(L) 12.0 - 15.8 g/dL 12/28/2022 7:38 AM EDT [facility] HCT 31.0(L) 36.0 - 48.0 % 12/28/2022 7:38 AM EDT [facility] MCV 86.3 82.0 - 98.0 fL 12/28/2022 7:38 AM EDT [facility] MCH 28.8 27.0 - 35.0 pg 12/28/2022 7:38 AM EDT [facility] MCHC 33.3 32.0 - 37.0 g/dL 12/28/2022 7:38 AM EDT [facility] RDW 13.0 12.0 - 15.0 % 12/28/2022 7:38 AM EDT [facility] PLT 228 150 - 400 10*3/??L 12/28/2022 7:38 AM EDT [facility] MPV 7.4 7.0 - 14.0 fL 12/28/2022 7:38 AM EDT [facility] Neut % 44.3(L) 45.0 - 85.0 % 12/28/2022 7:38 AM EDT [facility] Lymph % 38.7 15.0 - 45.0 % 12/28/2022 7:38 AM EDT [facility] [place] % 12.4(H) 0.0 - 12.0 % 12/28/2022 7:38 AM EDT [facility] Eos % 4.3 0.0 - 7.0 % 12/28/2022 7:38 AM EDT [facility] Baso % 0.3 0.0 - 3.0 % 12/28/2022 7:38 AM EDT [facility] NRBC% 0 0 /100 WBC /100 WBC 12/28/2022 7:38 AM EDT [facility] Neut # 3.2 2.2 - 9.5 10*3/??L 12/28/2022 7:38 AM EDT [facility] Lym # 2.8 0.7 - 5.0 10*3/??L 12/28/2022 7:38 AM EDT [facility] [place] # 0.9 0.0 - 1.3 10*3/??L 12/28/2022 7:38 AM EDT [facility] Eos # 0.3 0.0 - 0.4 10*3/??L 12/28/2022 7:38 AM EDT [facility] Baso # 0.0 0.0 - 0.3 10*3/??L 12/28/2022 7:38 AM EDT [facility] Blood Venipuncture / Unknown 12/28/2022 6:26 AM EDT 12/28/2022 7:27 AM EDT us Demetria Garner CHICKEN DRESSER LAB BLOOD ORDERABLES Final Result [facility] [address] [place] [address] documented in this encounter Visit Diagnoses Diagnosis Illness, unspecified documented in this encounter Additional Health Concerns Infection Onset Date Last Indicated Resolved Time PUI COVID 01/01/2024 01/01/2024 01/01/2024 1:19 PM EDT documented as of this encounter Care Teams Gas Plant Repairer Relationship Specialty Start Date End Date Alex Gray Jr., MD [address] [place] [phone] PCP - General Internal Medicine 08/15/18 documented as of this encounter
[2024-04-29 12:14] LABS: Amphetamine Screen Urine Not Detected (Not Detect); Barbiturates, Urine Not Detected (Not Detect); Benzodiazepines Screen Urine Not Detected (Not Detect); Buprenorphine Scr Not Detected (Not Detect); Cannabinoid Screen Urine Not Detected (Not Detect); Cocaine Screen Urine Not Detected (Not Detect); Fentanyl, urine Not Detected (Not Detect); Methadone Screen, Urine Positive (Not Detect); Opiate Screen Urine Not Detected (Not Detect); Oxycodone Screen Urine Not Detected (Not Detect); Phencyclidine Screen Urine Not Detected (Not Detect)
[2024-04-29 14:40] LABS: Troponin-I High Sensitivity < 2.7 ng/L (<3.5-17.0)
[2024-04-29 15:00] LABS: Influenza A PCR NEGATIVE (Negative); Influenza B PCR NEGATIVE (Negative); Resp Syncy Virus RNA Qual PCR NEGATIVE (Negative); SARS COV2 PCR INHOUSE NEGATIVE (Negative)
[2024-04-29 15:26] VITALS: BP 113/64; PULSE 50; RESP 16; TEMP 36.7; O2SAT 98
[2024-04-29 16:00] LABS: TSH reflex Free T4 0.81 uIU/mL (0.32-4.0)
[2024-04-29 16:30] VITALS: BP 120/62; PULSE 52; RESP 16; TEMP 36.7; O2SAT 98
== END 2024-04-29 16:30 | disposition home or self-care (01) ==
PROVIDERS: Physician Assistant; Emergency Provider Emergency Medicine
DX: R07.9 Chest pain, unspecified (principal); R53.81 Other malaise; Z03.818 Encounter for observation for suspected exposure to other biological agents ruled out
CPT/HCPCS: 0241U; 36415; 70450; 71045; 80053; 80307; 81003; 82550; 83605; 83735; 84443; 84484; 85025; 85379; 93005; 99284

== ENCOUNTER 2024-05-01 08:04 | Emergency (ER) | payer OTHER, SELFPAY ==
--- NOTE | ~2024-05-01 | XR_ITS ---
EXAMINATION: XR CHEST CLINICAL INFORMATION: prod cough COMPARISON: 04/29/2024. TECHNIQUE: 2 views of the chest were obtained. FINDINGS: The cardiac, hilar, and mediastinal contours are normal. The lungs are clear bilaterally. There is no pneumothorax or pleural effusion. There is no focal osseous or soft tissue abnormality. XR/XR chest 2V IMPRESSION: No active pulmonary disease. Electronically signed by: Robert Mo MD 05/01/2024 12:29 PM [facility]
[2024-05-01 08:10] VITALS: BP 120/76; PULSE 86; RESP 16; TEMP 37.3; O2SAT 96; BMI 33.1
[2024-05-01 08:46] LABS: IDNOW Serial# 58CA691E; Strep A Nucleic Acid Negative (Negative)
[2024-05-01 09:33] LABS: Influenza A PCR NEGATIVE (Negative); Influenza B PCR NEGATIVE (Negative); Resp Syncy Virus RNA Qual PCR NEGATIVE (Negative); SARS COV2 PCR INHOUSE NEGATIVE (Negative)
--- NOTE | 2024-05-01 11:46 | ED_ITS ---
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 States she is in a nursing home house surrounded by multiple potential sick contacts. Denies recent travel, difficulty or inability to swallow, CP/SOB, abdominal pain Related Data Previous Rx's ?Medication ?Instructions ?Recorded fluticasone propionate 50 2 spray intranasal DAILY #16 grams 05/01/24 mcg/actuation nasal spray,suspension (Flonase Allergy Relief) Allergies Allergy/AdvReac Type Severity Reaction Status Date / Time haloperidol [From Haldol] Allergy Anaphylaxis Verified 05/01/24 08:10 naloxone Allergy Anaphylaxis Verified 05/01/24 08:10 promethazine [From Phenergan] Allergy Anaphylaxis Verified 05/01/24 08:10 Review of Systems Review of Systems: Yes all other systems are reviewed and are negative Constitutional: Constitutional: Reports as per [facility] Past Medical History Attestation statement: The following information was validated with the patient. Source: old records reviewed Social History Social History Advance Directives: No Advance Directives Information Provided: Yes Do you have a plan to hurt others: No Plan Physical Exam Vital Signs: Vital Signs: Last Vital Signs Temp 99.1 F 05/01/24 13:30 Pulse 86 05/01/24 13:30 Resp 16 05/01/24 13:30 BP 120/76 05/01/24 13:30 Pulse Ox 96 05/01/24 13:30 O2 Del Method Room Air 05/01/24 13:30 BMI result Body Mass Index 33.1 Const: General: cooperative, healthy appearing and no acute distress Orientation/consciousness: patient oriented x3 Limitations: no limitations HEENT: Head: Yes normal to inspection and Yes atraumatic Ears: hearing grossly normal bilaterally, external ears normal and TM's normal bilaterally General nose exam: Normal external nose present Face and sinus: Yes normal facial exam Mouth: Normal oral and palatal mucosa present and no drooling Throat: Yes posterior oropharynx normal, Yes tonsils normal, Yes uvula midline, No peritonsillar mass, No uvula laterally displaced and No uvular edema Eyes: General: appearance normal, both eyes and all related structures EOM: EOMs intact bilaterally Neck: Neck: Yes normal visual inspection and Yes no meningeal signs Resp: Effort & Inspection: normal respiratory effort, not labored and no respiratory distress Auscultation: clear to auscultation bilaterally, no crackles and no wheezes Cardio: Rate: regular rate Heart sounds: S1 normal heart sound present and S2 normal heart sound present Skin: Rashes: no rashes Wounds: no wounds Neuro: General: patient oriented x3, tone normal and no meningeal signs Cranial nerves: Yes CN's II-XII intact bilaterally Gait exam (Neuro): Normal gait present Extrem: General: Yes normal to inspection and Yes no pedal edema Course Course Course Narrative: -1259--COVID/flu/RSV and rapid strep negative -CXR unremarkable Results discussed with patient including worrisome signs and symptoms and strict return precautions, and when to return to the emergency department. They verbalized understanding and feel safe for discharge at this time. Medical Decision Making Medical Decision Making 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 On exam low-grade temp 99.1 degrees, NAD, nontoxic appearing, lungs CTA, oropharynx WNL, uvula midline. Concern for viral illness vs strep pharyngitis vs PNA vs bronchitis. No evidence of HISTORIC SITE ADMINISTRATOR/retropharyngeal abscess. Lower suspicion for ACS/PE or dissection Plan: Viral testing, rapid strep, CXR Please refer to course for remaining clinical decision making, interpretation of labs/imaging results, and discussions with consultants and/or family members. Differential Diagnosis Differential Diagnoses: The differential diagnosis associated with the presentation includes As above Admission/Observation Consideration of admission/observation: Escalation of care including admission/observation considered Lab Data [facility] Lab Attestation statement: I reviewed the patient's lab results. Labs: Lab Results 05/01/24 Range/Units 08:27 Influenza Type A (PCR) NEGATIVE (Negative) Influenza Type B (PCR) NEGATIVE (Negative) RSV RNA Qual (PCR) NEGATIVE (Negative) SARS-CoV-2 RNA (RT-PCR) NEGATIVE (Negative) S. pyogenes GrpA RONALDO Negative (Negative) Independent Interpretation I performed an independent interpretation of an: Plain X-Ray Radiology Impression Discussion of test interpretation with radiology: I have reviewed the radiologist's reading. External Record Review External record reviewed: Inpatient record, Office record, Outpatient record, Prior outpatient labs, Prior outpatient radiology, Primary care record and Outside ED record Tests considered The following testing was considered but not selected: As above Prescription Management I considered prescription management with: Pain Medication, Antiviral and Antibiotic Chronic Conditions Patient?s care impacted by: Other Social Determinants Patient?s care significantly limited by Social Determinants of Health including: Other Social Determinant of Health Discharge Plan Discharge Clinical Impression: Upper respiratory infection Patient Disposition: Home, Self-Care Instructions: Upper Respiratory Infection (DC) Additional Instructions: You have a virus You tested negative for COVID, flu, RSV Your chest x-ray is unremarkable No antibiotics are indicated at this time Make sure you are staying hydrated. Drink plenty of fluids. Rest Alternate Tylenol and Motrin at home as needed for body aches and fever Follow-up with your doctor. If symptoms persist or worsen return to the emergency department *If you are a child & not tolerating liquid or urinating for more than 6 hours, or fevers are uncontrolled with medications at home, return to the emergency department* Prescriptions: New fluticasone propionate [Flonase Allergy Relief] 50 mcg/actuation spray,suspension 2 spray intranasal DAILY Qty: 16 0RF Rx Instructions: administer into each nostril Referrals: Physician,Unknown J [Primary Care Provider] - 5 days Stand Alone Forms: Work/School Release Interventions: ED Discharge Assessment Last Done: 05/01/24 13:30 Discharge Date/Time: 05/01/24 13:32 Print Language: Indonesian
[2024-05-01 13:30] VITALS: BP 120/76; PULSE 86; RESP 16; TEMP 37.3; O2SAT 96
--- NOTE | 2024-05-01 13:30 | PC.NURSE ---
Pt. refused VS at time of d/c per [facility].
--- OUTSIDE RECORDS SUMMARY | 2024-05-01 16:30 | XMS_ITS | Encounter Summary ---
Author Organization [facility] Address [address] [place] [address] Care Team Providers Care Blow Pit Helper Name Role Phone Isaac Alaniz MD, Alex Tariq Primary Care Provider +1- [phone] Encounter Details Date Type Department Care Team (Late st Contact Info) Description 11/28/2022 Procedure Pass [address] [phone] Social History Tobacco Use Types [...] documented as of this encounter Care Teams Blow Pit Helper Relationship Specialty Start Date End Date Alex Gray Jr., MD [address] [place] [phone] PCP - General Internal Medicine 08/15/18 documented as of this encounter
--- OUTSIDE RECORDS SUMMARY | 2024-05-01 16:30 | XMS_ITS | Encounter Summary ---
Author Organization [facility] Address [address] [place] [address] Care Team Providers Care Workforce Services Representative Name Role Phone Isaac Alaniz MD, Alex Tariq Primary Care Provider +1- [phone] Encounter Details Date Type Department Care Team (Late st Contact Info) Description 08/13/2023 Procedure Pass [facility] - [address] [phone] Social History Tobacco Use [...] documented as of this encounter Care Teams Workforce Services Representative Relationship Specialty Start Date End Date Alex Gray Jr., MD [address] [place] [phone] PCP - General Internal Medicine 08/15/18 documented as of this encounter
--- OUTSIDE RECORDS SUMMARY | 2024-05-01 16:30 | XMS_ITS | Encounter Summary ---
Author Organization [facility] Address [address] [place] [address] Care Team Providers Care International Manager Name Role Phone Isaac Alaniz MD, Alex Traiq Primary Care Provider [phone]- [phone] Reason for Visit * Auth/Cert (Routine) Specialty Diagnoses / Procedures Referred By Suhas t Referred To Contact Diagnoses Sacroiliac Joint Pain Procedures WA INJECT SI JOINT ARTHRGRPHY&/ANES/STEROID W/YAIMA WA INJ FOR SACROILIAC JT ANESTH SACROILIAC JOINT INJECTION - LEFT Referral ID Status Reason Start Date Expiration Date Visits Re quested Visits Authorized [id number] 1 1 Encounter Details Date Type Department Care Team ([facility] Contact Info) Description 05/31/2023 Hospital Encounter [facility] [address] [place] [address] Khoi Garcia MD [address] [place] [phone] Social History Tobacco Use Types Packs/Day Years Used Date Smoking Tobacco: Every Day Cigarettes Smokeless Tobacco: Never Comments:vape Alcohol Use Standard Drinks/Week Comments Not Currently 4 (1 standard drink = 0.6 oz pur e alcohol) Housing Stability - SDOH Screener Answer Date Recorded What is your living situation today? Unsteady ho using 01/02/2024 Do you need help with Housing/[facility] resources? Not on file 01/02/2024 Patient indicated [...] documented as of this encounter Care Teams International Manager Relationship Specialty Start Date End Date Alex Gray Jr., MD [address] [place] [phone] PCP - General Internal Medicine 08/15/18 documented as of this encounter
--- OUTSIDE RECORDS SUMMARY | 2024-05-01 16:30 | XMS_ITS | Encounter Summary ---
Author Organization [facility] Address [address] [place] [address] Care Team Providers Care Pressure Dispatcher Name Role Phone Isaac Alaniz MD, Alex Tariq Primary Care Provider +1- [phone] Encounter Details Date Type Department Care Team (Late st Contact Info) Description 11/05/2023 Procedure Pass [facility] - [address] [address] Social History Tobacco Use Types [...] documented as of this encounter Care Teams Pressure Dispatcher Relationship Specialty Start Date End Date Alex Gray Jr., MD [address] [place] [phone] PCP - General Internal Medicine 08/15/18 documented as of this encounter
--- OUTSIDE RECORDS SUMMARY | 2024-05-01 16:30 | XMS_ITS | Patient Health Record ---
Author Organization [facility] Address [address] [place] [address] Care Team Providers Care Data Designer Name Role Phone Isaac Alex Primary Care [...] Performing Lab: Notes/Report: See Below For Report [facility] See Below For Report Reason For Referral [...] LALO LOU M.D. 12/27/2007 Not-Taking Saline Nasal [place] 0.65 % 2 sprays in each nostril [...] W/U Status Risk Notes Problem Ethanol abuse (74896339) ETOH abuse (F10.10) Active confirmed Problem 00235048 Ischemic colitis (K55.9) Active confirmed Problem 520044498 Polysubstance abuse (F19.10) Active confirmed Problem 131107127 Hallux valgus of right foot (M20.11) Active confirmed Problem 648240373 Chronic liver failure without hepatic coma (K72.10) Active confirmed Plan Of Treatment Pending Test Test Name Order Date MR lumbar spine wo/w con 10/22/2023 Future Test Test Name Order Date XRAY FOOT RIGHT 11/14/2018 Insurance Providers Payer Name Payer Address Payer Phone Subscriber Number Group Number Insured Name Patient Relationship to Insured Coverage Start Date Coverage End Date [facility] [employer] Plan [address] [address] [place], [place] [id number] Tabitha Weaver Self - patient is the insured 8 Medical (General) History Medical History History ICD Code high blood pressure anxiety depression adrenal insufficiency Surgical History Surgery Date(Month/Year) left ankle right foot right knee Hospitalization History Reason Date(Month/Year) right knee right foot left ankle
--- OUTSIDE RECORDS SUMMARY | 2024-05-01 16:30 | XMS_ITS | Encounter Summary ---
Author Organization [facility] Address [address] [place] [address] Care Team Providers Care Convenience Store Manager Name Role Phone Jen Saunders NP Primary Care Provider [phone] Isaac Alaniz MD, Alex Tariq Primary Care Provider [phone]- [phone] Encounter Details Date Type Department Care Team (Late st Contact Info) Description 09/24/2017 Lab Requisition [facility] [address] [place] [phone] eJn Saunders NP [address] [place], [place] [phone] Acute vaginitis Social History Tobacco Use Types [...] Vaginosis).(A ) Negative 09/24/2017 7:30 PM EDT [facility] Yeast, Wet Prep Negative Negative 8 7:30 PM EDT [facility] Trichomonas Antigen Negative Negative 09/24/2017 7:30 PM EDT [facility] Specimen from genital system (specimen) Vaginal structure / Unknown 09/24/2017 8:20 AM EDT 09/24/2017 5:48 PM EDT us Jen Saunders CLOTH SHRINKING TESTER MICROBIOLOGY - GENERAL ORDERA BLES Final Result [facility] [address] [place] [address] documented in this encounter Visit Diagnoses Diagnosis Acute vaginitis Unspecified vaginitis and vulvovaginitis documented in this encounter Additional Health Concerns Infection Onset Date Last Indicated Resolved Time MRSA Comment:Cleared 05/19/21 nf MRSA blood/chin 03/14/19 sa 03/14/2019 03/17/2019 2021 2 :15 PM EST PUI COVID 01/01/2024 01/01/2024 01/01/2024 1:19 PM EDT documented as of this encounter Care Teams Convenience Store Manager Relationship Specialty Start Date End Date Jen Saunders NP PCP - General Pain Medicine 09/24/17 08/14/18 Alex Gray Jr., MD [address] [place] [phone] PCP - General Internal Medicine 08/15/18 documented as of this encounter
--- OUTSIDE RECORDS SUMMARY | 2024-05-01 16:30 | XMS_ITS | Encounter Summary ---
Author Organization [facility] Address [address] [place] [address] Care Team Providers Care Coordinator Mining Products Name Role Phone Isaac Alaniz MD, Alex Tariq Primary Care Provider [phone]- [phone] Encounter Details Date Type Department Care Team (Late st Contact Info) Description 02/07/2023 Procedure Pass [facility] - [address] [address] Social History Tobacco Use Types [...] documented as of this encounter Care Teams Coordinator Mining Products Relationship Specialty Start Date End Date Alex Gray Jr., MD [address] [place] [phone] PCP - General Internal Medicine 08/15/18 documented as of this encounter
--- OUTSIDE RECORDS SUMMARY | 2024-05-01 16:30 | XMS_ITS | Encounter Summary ---
Author Organization [facility] Address [address] [place] [address] Care Team Providers Care Branch Sales Manager Name Role Phone Isaac Alaniz MD, Alex Tariq Primary Care Provider [phone]- [phone] Encounter Details Date Type Department Care Team (Late st Contact Info) Description 05/25/2023 Procedure Pass [facility] - [address] [address] Social History Tobacco Use [...] documented as of this encounter Care Teams Branch Sales Manager Relationship Specialty Start Date End Date Alex Gray Jr., MD [address] [place] [phone] PCP - General Internal Medicine 08/15/18 documented as of this encounter
--- OUTSIDE RECORDS SUMMARY | 2024-05-01 16:30 | XMS_ITS | Encounter Summary ---
Author Organization [facility] Address [address] [place] [address] Care Team Providers Care Technical Support Manager Name Role Phone Jen Saunders NP Primary Care Provider [phone] Isaac Alaniz MD, Alex Tariq Primary Care Provider [phone]- [phone] Encounter Details Date Type Department Care Team (Late st Contact Info) Description 10/05/2017 Lab Requisition [address] [phone] Alex Gray Jr., MD [address] [place] [phone] Viral hepatitis C without hepatic coma [...] EDT Viral hepatitis C without hepatic coma [id number] Routine 10/05/2017 1 0:00 AM EDT Viral [...] - 14.3 seconds 10/05/2017 6:43 PM EDT [facility] INR 1.20(L) 1.50 - 4.00 10/05/2017 6:43 PM EDT [facility] Blood specimen (specimen) Venipuncture / Unknown 10/05/2017 10:00 AM EDT 10/05/2017 6:06 PM EDT Narrative [facility] - 10/05/2017 6:43 PM EDT ? INR Recommendations for Oral Anticoagulant Therapy ? Populations ?INR Value ?New PT Value (Sec) Low Intensity OAC Therapy ?1.5-2.0 ?17.6-22.0 Mod Intensity OAC Therapy ?2.0-3.0 ?22.0-33.0 High Intensity OAC Therapy ?? 2.5-4.0 ?26.1-37.4 us Alex Gray Jr., MD LAB BLOOD ORDERABLES Final Result Performing Organization Address [facility] Co de Phone Number [facility] [address] [place] [address] * Mitochondrial (M2) antibody (10/05/2017 10:00 AM EDT) Pathologist [facility] Mitochondria M2 Ab (IgG) < 20.1 <20.1 [...] BLOOD ORDERABLES Final Result Performing Organization Address City/[facility]/ZIP Co de Phone Number [facility] [address] [place] [address] * (ABNORMAL) Ferritin (10/05/2017 10:00 AM EDT) Ferritin 233.2(H) 10.0 - 130.0 ng/mL 10/05/2017 9:59 PM EDT [facility] Blood specimen (specimen) Venipuncture / Unknown 10/05/2017 10:00 AM EDT 10/05/2017 6:06 PM EDT us Alex Gray Jr., MD LAB BLOOD ORDERABLES Final Result Performing Organization Address City/[facility]/ZIP Co de Phone Number [facility] [address] [place], [place] * Lactate Dehydrogenase (10/05/2017 10:00 AM EDT) LD 225 100 - 245 IU/L 10/05/2017 7:03 PM EDT [facility] Blood specimen (specimen) Venipuncture / Unknown 10/05/2017 10:00 AM EDT 10/05/2017 6:06 PM EDT us Alex Gray Jr., MD LAB BLOOD ORDERABLES Final Result Performing Organization Address [facility] Co de Phone Number [facility] [address] [place] [address] * Iron and TIBC (10/05/2017 10:00 AM EDT) Iron 74 30 - 160 ug/dL 10/05/2017 9:59 PM EDT [facility] UIBC 200 110 - 370 ug/dL 10/05/2017 9:59 PM EDT [facility] TIBC 274 228 - 428 ug/dL 10/05/2017 9:59 PM EDT [facility] Iron Saturation 27 20 - 50 % 8 9:59 PM EDT [facility] Blood specimen (specimen) Venipuncture / Unknown 10/05/2017 10:00 AM EDT 10/05/2017 6:06 PM EDT Result Curtis Gray Jr., MD LAB BLOOD ORDERABLES Final Result Performing Organization Address [facility] Co de Phone Number [facility] [address] [place], [place] * (ABNORMAL) HCV Fibrosure $$$$ (10/05/2017 [...] EDT [facility] Comment: Reference ID [id number] 10/09/2017 3:24 PM EDT [facility] Footnote SEE NOTE 10/09/2017 3:24 PM EDT [facility] Comment: The reliability of results is dependent on compliance with the preanalytical and analytical conditions recommended by [employer]. The tests have to be deferred for: [...] The performance characteristics have been determined by [employer] [facility]. It has not been cleared or approved by the U.S. Food and Drug Administration. Performance characteristics refer to the analytical performance of the test. [facility], [employer], the associated logo, [employer] and all associated [employer] fofana are the registered trademarks of [employer]. All third alliance party fofana - (R) and (TM) - are the property of their respective owners. (C) 5693-8373 [employer]. All rights reserved. Test(s) performed at: ?[employer] ?Ambreen Padilla M.D., Ph.D., BEKAH, Human Resources Benefits Manager ?[id number] [place] [address] ?[place] [address] ?IA #[id number] Blood specimen (specimen) Venipuncture / Unknown 10/05/2017 10:00 AM EDT 10/05/2017 6:06 PM EDT Alex Gray Jr., MD LAB BLOOD ORDERABLES Final Result Performing Organization Address [facility]/ZIP Co de Phone Number [facility] [id number] [place] [address] * (ABNORMAL) Pgntq-6-azxqrikglyl (10/05/2017 10:00 AM EDT) Jqewm-9-Cyrunnzgh in, Quantitative 210(H) 83 - 199 mg/dL 10/09/2017 2:01 PM EDT [facility] Blood specimen (specimen) Venipuncture / Unknown 10/05/2017 10:00 AM EDT 10/05/2017 6:06 PM EDT Alex Gray Jr., MD LAB BLOOD ORDERABLES Final Result Performing Organization Address [facility] Co de Phone Number [facility] [id number] [place] [address] * Ceruloplasmin (10/05/2017 10:00 AM EDT) Ceruloplasmin [...] J et al Pediatric reference ranges for Dqrb-8-Losauuvinvozd and ceruloplasmin. Clin. Chem 1997; 43:S1999 Pediatric Reference Ranges, 2nd., [place] Judieet al. editors. [facility], [place], [place] 1997. Blood specimen (specimen) Venipuncture / Unknown 10/05/2017 10:00 AM EDT 10/05/2017 6:06 PM EDT us Alex Gray Jr., MD LAB BLOOD ORDERABLES Final Result Performing Organization Address [facility] Co de Phone Number [facility] [address] [place] [address] * Smooth Muscle Antibody Titer (10/05/2017 10:00 AM EDT) Smooth Muscle Ab <1:40 <1:40 titer 10/09/2017 2:34 AM EDT [facility] Comment: This test was developed and its analytical performance characteristics have been determined by [facility]. It has not been cleared or approved by the US Food and Drug Administration. This assay has been validated pursuant to the CLIA regulations and is used for clinical purposes. Blood specimen (specimen) Venipuncture / Unknown 10/05/2017 10:00 AM EDT 10/05/2017 6:06 PM EDT Alex Gray Jr., MD LAB BLOOD ORDERABLES Final Result Performing Organization Address [facility] de Phone Number [facility] [address] [place] [address] documented in this encounter Visit Diagnoses Diagnosis Viral hepatitis C without hepatic coma documented in this encounter Additional Health Concerns Infection Onset Date Last Indicated Resolved Time MRSA Comment:Cleared 05/19/21 nf MRSA blood/chin 03/14/19 sa 03/14/2019 03/17/2019 2021 2 :15 PM EST PUI COVID 01/01/2024 01/01/2024 01/01/2024 1:19 PM EDT documented as of this encounter Care Teams Technical Support Manager Relationship Specialty Start Date End Date Jen Saunders NP PCP - General Pain Medicine 09/24/17 08/14/18 Alex Gray Jr., MD [address] [place] [phone] PCP - General Internal Medicine 08/15/18 documented as of this encounter
--- OUTSIDE RECORDS SUMMARY | 2024-05-01 16:30 | XMS_ITS | Encounter Summary ---
Author Organization [facility] Address [address] [place] [address] Care Team Providers Care Air Compressor Engineer Name Role Phone Jen Saunders NP Primary Care Provider [phone] Isaac Alaniz MD, Alex Tariq Primary Care Provider [phone]- [phone] Encounter Details Date Type Department Care Team (Late st Contact Info) Description 10/01/2017 Lab Requisition [facility] [address] [place] [address] Jen Saunders NP [address] [place], [place] [phone] Rash and other nonspecific skin eruption Social [...] occasionally cause diarrheal ?? illness. Test code(s) 58373 00169S (03173) (Cryptosporidium Ag., ?? DFA) and/or 39529 20953D (59152) (Cyclospora and Isospora Exam) ?? may be ordered to detect these parasites. One negative sample ?? does not necessarily rule out the presence of parasitic infection. Stool Collection / Unknown 10/01/2017 5:00 PM EDT 10/01/2017 6:00 PM EDT us Jen Saunders NP MICROBIOLOGY - GENERAL ORDERA BLES Final Result Performing Organization Address City/State/[facility] Co de Phone Number [facility] [address] [place] [phone] documented in this encounter Visit Diagnoses Diagnosis Rash and other nonspecific skin eruption documented in this encounter Additional Health Concerns Infection Onset Date Last Indicated Resolved Time MRSA Comment:Cleared 05/19/21 nf MRSA blood/chin 03/14/19 sa 03/14/2019 03/17/2019 2021 2 :15 PM EST PUI COVID 01/01/2024 01/01/2024 01/01/2024 1:19 PM EDT documented as of this encounter Care Teams Air Compressor Engineer Relationship Specialty Start Date End Date Jen Saunders NP PCP - General Pain Medicine 09/24/17 08/14/18 Alex Gray Jr., MD [address] [place] [phone] PCP - General Internal Medicine 08/15/18 documented as of this encounter
--- OUTSIDE RECORDS SUMMARY | 2024-05-01 16:30 | XMS_ITS | Encounter Summary ---
Author Organization [facility] Address [address] [place] [address] Care Team Providers Care Emergency Planning And Response Manager Name Role Phone Isaac Alaniz MD, Alex Tariq Primary Care Provider [phone] Encounter Details Date Type Department Care Team (Late st Contact Info) Description 05/25/2023 Procedure Pass [facility] - [address] [phone] Social History Tobacco Use Types [...] documented as of this encounter Care Teams Emergency Planning And Response Manager Relationship Specialty Start Date End Date Alex Gray Jr., MD [address] [place] [phone] PCP - General Internal Medicine 08/15/18 documented as of this encounter
--- OUTSIDE RECORDS SUMMARY | 2024-05-01 16:30 | XMS_ITS | Encounter Summary ---
Author Organization [email or web address] Address [address] [place] [address] Care Team Providers Care Trimmer Helper Name Role Phone Isaac Alaniz MD, Alex Tariq Primary Care Provider [phone]- [phone] Reason for Referral * Diagnostic Imaging (Routine) - Closed Specialty Diagnoses / Procedures Referred By Contac t Referred To Contact Radiology Diagnoses Abnormal MRI, lumbar spine History of lumbar laminectomy Procedures MRI lumbar spine without contrast MRI lumbar spine with and without contrast Nicci Delgado NP [address] [place] [address] Phone: tel: fax: Referral ID Status Reason Start Date Expiration Date Visits Re quested Visits Authorized [id number] Closed 03/30/2023 09/26/2023 1 1 Encounter Details Date Type Department Care Team (Late st Contact Info) Description 04/08/2023 Ancillary Orders [facility] [address] [phone] Nicci Delgado NP [address] [place] [address] Abnormal MRI, lumbar spine (Primary Dx); History [...] confirmed receipt 04/09/2023 at 2:49 PM RS: [id number] Narrative 04/09/2023 2:54 PM EST HISTORY: repeat [...] vertebral bodies, with L5 inferior endplate and C0fmxyndcj endplate irregularity and disc space fluid. The [...] confirmed receipt 04/09/2023 at 2:49 PM RS: [id number] Nicci Delgado OPTICAL INSTRUMENT INSPECTOR IMG MRI ORDERABLES Final Result documented in [...] documented as of this encounter Care Teams Trimmer Helper Relationship Specialty Start Date End Date Alex Gray Jr., MD [address] [place] [phone] PCP - General Internal Medicine 08/15/18 documented as of this encounter
--- OUTSIDE RECORDS SUMMARY | 2024-05-01 16:30 | XMS_ITS | Encounter Summary ---
Author Organization [facility] Address [address] [place] [address] Care Team Providers Care Shearer Screen Measurer And Trimmer Name Role Phone Jen Saunders NP Primary Care Provider [phone] Isaac Alaniz MD, Alex Tariq Primary Care Provider [phone]- [phone] Encounter Details Date Type Department Care Team (Late st Contact Info) Description 08/01/2018 Procedure Pass [address] [address] Social History Tobacco Use Types [...] documented as of this encounter Care Teams Shearer Screen Measurer And Trimmer Relationship Specialty Start Date End Date Jen Saunders NP PCP - General Pain Medicine 09/24/17 08/14/18 Alex Gray Jr., MD [address] [place] [phone] PCP - General Internal Medicine 08/15/18 documented as of this encounter
--- OUTSIDE RECORDS SUMMARY | 2024-05-01 16:30 | XMS_ITS | Encounter Summary ---
Author Organization [facility] Address [address] [place] [address] Care Team Providers Care Brim Stiffener Name Role Phone Isaac Alaniz MD, Alex Tariq Primary Care Provider [phone]- [phone] Encounter Details Date Type Department Care Team (Late st Contact Info) Description 02/19/2023 Pharmacy Visit [facility] [address] [place] [address] Social History Tobacco Use Types [...] documented as of this encounter Care Teams Brim Stiffener Relationship Specialty Start Date End Date Alex Gray Jr., MD [address] [place] [phone] PCP - General Internal Medicine 08/15/18 documented as of this encounter
--- OUTSIDE RECORDS SUMMARY | 2024-05-01 16:30 | XMS_ITS | Encounter Summary ---
Author Organization [facility] Address [address] [place] [address] Care Team Providers Care Refinery Operator Helper Crude Unit Name Role Phone Isaac Alaniz MD, Alex Tariq Primary Care Provider [phone]- [phone] Encounter Details Date Type Department Care Team (Late st Contact Info) Description 03/10/2023 Procedure Pass [address] [address] Social History Tobacco Use Types [...] documented as of this encounter Care Teams Refinery Operator Helper Crude Unit Relationship Specialty Start Date End Date Alex Gray Jr., MD [address] [place] [phone] PCP - General Internal Medicine 08/15/18 documented as of this encounter
--- OUTSIDE RECORDS SUMMARY | 2024-05-01 16:30 | XMS_ITS | Encounter Summary ---
Author Organization [facility] Address [address] [place] [address] Care Team Providers Care User Support Analyst Supervisor Name Role Phone Jen Saunders NP Primary Care Provider [phone] Isaac Alaniz MD, Alex Tariq Primary Care Provider [phone]- [phone] Encounter Details Date Type Department Care Team (Late st Contact Info) Description 09/24/2017 Lab Requisition [facility] [address] [place] [phone] Jen Saunders NP [address] [place], [place] [phone] Viral hepatitis C without hepatic coma Social [...] Genotype, LiPA 1a 2017 8:48 PM EDT [email or web address] Comment: The method used in this test is RT-PCR and reverse hybridization (Line Probe) of the 5' UTR and core region of the HCV genome. The analytical performance characteristics of this assay have been determined by [facility]. The modifications have not been cleared or approved by the FDA. This assay has been validated pursuant to the CLIA regulations and is used for clinical purposes. For additional information, please refer to http://education.[employer] /faq/HCVGenotyping (This link id being provided for informational/ educational purposes only.) Test(s) performed at: ?[facility] ?Godfrey Nava M.D., Supervisor [employer]acing ?[address] [facility] ?[place] [address] ?CLIA #[id number] Blood specimen (specimen) Venipuncture / Unknown 09/24/2017 10:06 AM EDT 09/30/2017 8:47 AM EDT us Jen Saunders PATTERN CLEANER LAB BLOOD ORDERABLES Final Re sult [facility] [address] [place] [address] * (ABNORMAL) Comprehensive metabolic panel (09/24/2017 10:06 AM EDT) Sodium 142 137 - 147 mEq/L 09/24/2017 1:39 PM EDT [facility] Potassium 4.2 3.5 - 5.4 mEq/L 09/24/2017 1:39 PM EDT [facility] Chloride 108(H) 96 - 107 mEq/L 09/24/2017 1:39 PM EDT [facility] CO2 22(L) 24 - 34 mEq/L 09/24/2017 1:39 PM T [facility] Anion Gap 12 4 - 15 mEq/L 09/24/2017 1:39 PM [facility] Glucose 113(H) 70 - 100 mg/dL 09/24/2017 1:39 PM T [facility] Creatinine 0.62 0.50 - 1.30 mg/dL 09/24/2017 1:39 PM T [facility] eGFR >60 60 - 115 mL/min 09/24/2017 1:39 PM T [facility] BUN 9 6 - 26 mg/dL 09/24/2017 1:39 PM [facility] Calcium 9.1 8.7 - 10.5 mg/dL 09/24/2017 1:39 PM [facility] Total Protein 7.8 6.4 - 8.6 g/dL 09/24/2017 1:39 PM T [facility] Albumin 3.8 3.4 - 4.8 g/dL 09/24/2017 1:39 PM [facility] A/G Ratio 1.0 1.0 - 2.3 09/24/2017 1:39 PM [facility] Total Bilirubin 0.3 0.2 - 1.2 mg/dL 09/24/2017 1:39 PM T [facility] AST 80(H) 0 - 40 U/L 09/24/2017 1:39 PM T [facility] Alkaline Phosphatase 70 40 - 150 IU/L 09/24/2017 1:39 PM EDT [facility] ALT 71(H) 0 - 45 U/L 09/24/2017 1:39 PM EDT [facility] Blood specimen (specimen) Venipuncture / Unknown 09/24/2017 10:06 AM EDT 09/24/2017 10:06 AM EDT us Jen Saunders NP LAB BLOOD ORDERABLES Final Re sult Performing Organization Address [facility] Co de Phone Number [facility] [address] [place] [address] * HIV 1/2 AG+AB (4th Gen) w/Reflex (09/24/2017 10:06 AM EDT) HIV 1-2 AG/AB (4th Gen) Nonreactive Nonreactive 09/24/2017 4:52 PM EDT [facility] Blood specimen (specimen) Venipuncture / Unknown 09/24/2017 10:06 AM EDT 09/24/2017 10:06 AM EDT Jen Saunders NP LAB BLOOD ORDERABLES Final Re sult Performing Organization Address [facility] de Phone Number [facility] [address] [place], [place] * Hemoglobin A1c (09/24/2017 10:06 AM EDT) Hemoglobin A1C 5.4 4.6 - 6.0 % 09/25/2017 6:43 AM EDT [facility] Estimated Average Glucose eAG 108.3 85.0 - 126.0 mg/dL 09/25/2017 6:43 AM EDT [facility] Blood specimen (specimen) 09/24/2017 10:06 AM EDT 09/24/2017 10:06 AM EDT us Jen Saunders PATTERN CLEANER LAB BLOOD ORDERABLES Final Re sult Performing Organization Address [facility] Co de Phone Number [facility] [address] [place], [place] * (ABNORMAL) Hepatitis C Qualitative to Quantitative to Genotype (09/24/2017 10:06 AM EDT) [facility] HCV RNA Qualitative Detected( A) Non-detec windy 09/30/2017 8:47 AM EDT [facility] HCV Quantitative (PCR) 5,470,000 (H) <15 IU/mL 09/30/2017 8:47 AM EDT [facility] Comment:Viral load result is > 1000 IU/mL. HCV Genotype has been sent to the reference laboratory for testing. HCV (Log) 6.74(H) <1.18 log (10) 09/30/2017 8:47 AM EDT [facility] Blood specimen (specimen) Venipuncture / Unknown 09/24/2017 10:06 AM EDT 09/24/2017 10:06 AM EDT Narrative [facility] - 09/30/2017 8:47 AM EDT This test was performed using [employer] Ampliprep/Taqman HCV Test Kit ([employer] which is FDA approved and employs real time PCR methodology. us Jen Saunders PATTERN CLEANER LAB BLOOD ORDERABLES Final Re sult [facility] [address] [place] [address] * (ABNORMAL) CBC and Auto Differential (09/24/2017 10:06 AM EDT) [facility] WBC 5.1 4.8 - 11.2 10*3/??L 09/24/2017 1:13 PM EDT [facility] RBC 4.13 3.60 - 5.40 10*6/??L 09/24/2017 1:13 PM EDT [facility] HGB 13.2 12.0 - 15.8 g/dL 09/24/2017 1:13 PM EDT [facility] HCT 39.5 36.0 - 48.0 % 09/24/2017 1:13 PM EDT [facility] MCV 95.7 82.0 - 98.0 fL 09/24/2017 1:13 PM EDT [facility] MCH 32.0 27.0 - 35.0 pg 09/24/2017 1:13 PM EDT [facility] MCHC 33.5 32.0 - 37.0 g/dL 09/24/2017 1:13 PM T [facility] RDW 13.0 12.0 - 15.0 % 09/24/2017 1:13 PM EDT [facility] PLT 105(L) 150 - 400 10*3/??L 09/24/2017 1:13 PM EDT [facility] MPV 9.5 7.0 - 14.0 fL 09/24/2017 1:13 PM T [facility] Neut % 35.5(L) 45.0 - 85.0 % 09/24/2017 1:13 PM [facility] Lymph % 47.6(H) 15.0 - 45.0 % 09/24/2017 1:13 PM EDT [facility] [place] % 11.2 0.0 - 12.0 % 09/24/2017 1:13 PM EDT [facility] Eos % 4.4 0.0 - 7.0 % 09/24/2017 1:13 PM T [facility] Baso % 1.3 0.0 - 3.0 % 09/24/2017 1:13 PM [facility] NRBC% 0 0 /100 WBC /100 WBC 09/24/2017 1:13 PM [facility] Neut # 1.8(L) 2.2 - 9.5 10*3/??L 09/24/2017 1:13 PM EDT [facility] Lym # 2.4 0.7 - 5.0 10*3/??L 09/24/2017 1:13 PM EDT [facility] [place] # 0.6 0.0 - 1.3 10*3/??L 09/24/2017 1:13 PM EDT [facility] Eos # 0.2 0.0 - 0.4 10*3/??L 09/24/2017 1:13 PM EDT [facility] Baso # 0.1 0.0 - 0.3 10*3/??L 09/24/2017 1:13 PM EDT [facility] Blood specimen (specimen) Venipuncture / Unknown 09/24/2017 10:06 AM EDT 09/24/2017 10:06 AM EDT us Jen Saunders PATTERN CLEANER LAB BLOOD ORDERABLES Final Re sult [facility] [address] [place] [address] documented in this encounter Visit Diagnoses Diagnosis Viral hepatitis C without hepatic coma documented in this encounter Additional Health Concerns Infection Onset Date Last Indicated Resolved Time MRSA Comment:Cleared 05/19/21 nf MRSA blood/chin 03/14/19 sa 03/14/2019 03/17/2019 2021 2 :15 PM EST PUI COVID 01/01/2024 01/01/2024 01/01/2024 1:19 PM EDT documented as of this encounter Care Teams User Support Analyst Supervisor Relationship Specialty Start Date End Date Jen Saunders NP PCP - General Pain Medicine 09/24/17 08/14/18 Alex Gray Jr., MD [address] [place] [phone] PCP - General Internal Medicine 08/15/18 documented as of this encounter
--- OUTSIDE RECORDS SUMMARY | 2024-05-01 16:30 | XMS_ITS | Encounter Summary ---
Author Organization [facility] Address [address] [place] [address] Care Team Providers Care Cath Lab Technologist Name Role Phone Isaac Alaniz MD, Alex Tariq Primary Care Provider [phone]- [phone] Encounter Details Date Type Department Care Team (Late Contact Info) Description 05/31/2023 Procedure Pass [facility] [address] [place] [phone] Social History Tobacco Use Types Packs/Day Years [...] documented as of this encounter Care Teams Cath Lab Technologist Relationship Specialty Start Date End Date Alex Gray Jr., MD [address] [place] [phone] PCP - General Internal Medicine 08/15/18 documented as of this encounter
--- OUTSIDE RECORDS SUMMARY | 2024-05-01 16:30 | XMS_ITS | Encounter Summary ---
Author Organization [facility] Address [address] [place] [address] Care Team Providers Care Ground Control Approach Technician Name Role Phone Jen Saunders NP Primary Care Provider [phone] Isaac Alaniz MD, Alex Tariq Primary Care Provider [phone]- [phone] Encounter Details Date Type Department Care Team (Late st Contact Info) Description 10/14/2017 Lab Requisition [address] [address] Alex Gray Jr., MD [address] [place] [phone] Delusional disorder (HCC); Dysuria Social History [...] Parasite Screen (10/14/2017 9:00 AM EDT) Pathologist [facility] Specimen Source Stool 8 6:26 PM EDT [...] occasionally cause diarrheal ?? illness. Test code(s) 84553 14358S (46918) (Cryptosporidium Ag., ?? DFA) and/or 02525 29251M (20670) (Cyclospora and Isospora Exam) ?? may be ordered to detect these parasites. One negative sample ?? does not necessarily rule out the presence of parasitic infection. Stool Collection / Unknown 10/14/2017 9:00 AM EDT 10/14/2017 2:49 PM EDT us Alex Gray Jr., MD MICROBIOLOGY - GENERAL ORD ERABLES Final Result [facility] [address] [place] [address] * (ABNORMAL) Urine Complete (10/14/2017 9:00 AM EDT) Pathologist [facility] Clarity, UA Slightly Cloudy(A) Clear 10/14/2017 5:16 PM EDT [facility] Color Yellow Yellow 10/14/2017 5:16 PM EDT [facility] Specific George 1.009 1.005 - 1.030 10/14/2017 5:16 PM EDT [facility] pH 8.0(H) 5.0 - 7.0 10/14/2017 5:16 PM EDT [facility] Protein Negative Negative mg/dL 10/14/2017 5:16 PM EDT [facility] Glucose Negative Negative mg/dL 10/14/2017 5:16 PM EDT [facility] Ketones Negative Negative mg/dL 10/14/2017 5:16 PM EDT [facility] Blood Negative Negative mg/dL 10/14/2017 5:16 PM EDT [facility] Bilirubin UA Negative Negative mg/dL 10/14/2017 5:16 PM EDT [facility] Urobilinogen Normal Normal mg/dL 10/14/2017 5:16 PM EDT [facility] Nitrite Negative Negative 10/14/2017 5:16 PM T [facility] Leukocyte Esterase 25(A) Negative Maggie/uL 10/14/2017 5:16 PM EDT [facility] WBC 3-5(A) 0 - 2 HPF 10/14/2017 5:16 PM EDT [facility] Squam Epithelial Many(A) Few HPF 10/15/19 18 5:[facility] Non-Squamous Epithelil Few(A) None Seen HPF 10/14/2017 5:16 PM T [facility] Mucus Few Few HPF 10/14/2017 5:16 PM EDT [facility] Bacteria Few(A) None Seen HPF 10/14/2017 5:16 PM T [facility] Ca Oxalate Crystals Few(A) None Seen HPF 10/14/2017 5:16 PM T [facility] Urine specimen (specimen) Urine specimen / Unknown Collection / Unknown 10/14/2017 9:00 AM EDT 10/14/2017 2:49 PM EDT us Alex Gray Jr., MD URINE ORDERABLES Final Res ult [facility] [address] [place] [address] * (ABNORMAL) Urine Culture and [place] Count (10/14/2017 9:00 AM EDT) Culture < 10,000 colonies/ml Gram Negative Organism SUSCEPTIBI LITY TESTING 10/15/2017 3:37 PM EDT [facility] Culture > 100,000 colonies/ml Staphylococcus coagulase negative(A) SUSCEPTIBI LITY TESTING 10/15/2017 3:37 PM EDT [facility] Urine specimen (specimen) Urine specimen / Unknown Collection / Unknown 10/14/2017 9:00 AM EDT 10/14/2017 2:49 PM EDT Narrative [facility] - 10/15/2017 3:37 PM EDT CLSI guideline:? Routine susceptibility testing of urine isolates of Coagulase negative Staph is not advised because infections respond to concentrations achieved in urine of ??antimicrobial agents commonly used to treat acute, ??uncomplicated urinary tract infections ??(i.e., nitrofurantoin, trimeth/sulfa, or a ??fluoroquinolone.) Alex Gray Jr., MD MICROBIOLOGY - GENERAL ORD ERABLES Final Result [facility] [address] [place], [place] documented in this encounter Visit Diagnoses Diagnosis Delusional disorder (HCC) Dysuria documented in this encounter Additional Health Concerns Infection Onset Date Last Indicated Resolved Time MRSA Comment:Cleared 05/19/21 nf MRSA blood/chin 03/14/19 sa 03/14/2019 03/17/2019 2021 2 :15 PM EST PUI COVID 01/01/2024 01/01/2024 01/01/2024 1:19 PM EDT documented as of this encounter Care Teams Ground Control Approach Technician Relationship Specialty Start Date End Date Jen Saunders NP PCP - General Pain Medicine 09/24/17 08/14/18 Alex Gray Jr., MD [address] [place] [phone] PCP - General Internal Medicine 08/15/18 documented as of this encounter
--- OUTSIDE RECORDS SUMMARY | 2024-05-01 16:30 | XMS_ITS | Encounter Summary ---
Author Organization [facility] Address [address] [place] [address] Care Team Providers Care Rehabilitation Manager Name Role Phone Isaac Alaniz MD, Alex Tariq Primary Care Provider [phone]- [phone] Reason for Visit * Reason Onset Date Comments Prior Authorization 06/03/2023 Encounter Details Date Type Department Care Team (Late st Contact Info) Description 06/03/2023 Telephone [facility] [address] [place] [phone] Violetta Dumont, ROTATIONAL MOULDING OPERATOR [address] [place] [address] Prior Authorization Social History Tobacco Use Types [...] documented as of this encounter Care Teams Rehabilitation Manager Relationship Specialty Start Date End Date Alex Gray Jr., MD [address] [place] [phone] PCP - General Internal Medicine 08/15/18 documented as of this encounter
--- OUTSIDE RECORDS SUMMARY | 2024-05-01 16:30 | XMS_ITS | Encounter Summary ---
Author Organization [facility] Address [address] [place] [address] Care Team Providers Care Contract Negotiation Manager Name Role Phone Isaac Alaniz MD, Alex Tariq Primary Care Provider [phone]- [phone] Reason for Visit * Reason Onset Date Comments Sick Call 02/04/2023 Encounter Details Date Type Department Care Team ([facility] st Contact Info) Description 02/04/2023 Telephone [facility] [address] [place] [phone] Pako Reed DO [address] [place], [place] [phone] Sick Call Social History Tobacco Use Types [...] and or move. Best call back number: [phone] Are they are on the verbal consent? [...] documented as of this encounter Care Teams Contract Negotiation Manager Relationship Specialty Start Date End Date Alex Gray Jr., MD [address] [place] [phone] PCP - General Internal Medicine 08/15/18 documented as of this encounter
--- OUTSIDE RECORDS SUMMARY | 2024-05-01 16:30 | XMS_ITS | Encounter Summary ---
Author Organization [facility][Note 3] Address [address] [place] [address] Care Team Providers Care Bridge Welder Name Role Phone Isaac Alaniz MD, Alex Tariq Primary Care Provider +1- [phone] Encounter Details Date Type Department Care Team (Late st Contact Info) Description 02/08/2023 Procedure Pass [address] [address] Social History Tobacco Use [...] documented as of this encounter Care Teams Bridge Welder Relationship Specialty Start Date End Date Alex Gray Jr., MD [address] [place] [phone] PCP - General Internal Medicine 08/15/18 documented as of this encounter
--- OUTSIDE RECORDS SUMMARY | 2024-05-01 16:30 | XMS_ITS | Encounter Summary ---
Author Organization [facility] Address [address] [place] [address] Care Team Providers Care Supervisor Smoke Control Name Role Phone Isaac Alaniz MD, Alex Tariq Primary Care Provider [phone]- [phone] Encounter Details Date Type Department Care Team (Late st Contact Info) Description 05/25/2023 Procedure Pass [facility] - [address] [address] Social History Tobacco Use Types [...] documented as of this encounter Care Teams Supervisor Smoke Control Relationship Specialty Start Date End Date Alex Gray Jr., MD [address] [place] [phone] PCP - General Internal Medicine 08/15/18 documented as of this encounter
--- OUTSIDE RECORDS SUMMARY | 2024-05-01 16:30 | XMS_ITS | Encounter Summary ---
Author Organization [facility] Address [address] [place] [address] Care Team Providers Care Class A Lineman Name Role Phone Isaac Alaniz MD, Alex Tariq Primary Care Provider [phone]- [phone] Reason for Referral * Diagnostic Imaging (Routine) - Closed Specialty Diagnoses / Procedures Referred By Suhas paris Referred To Contact Radiology Diagnoses Viral bronchitis Procedures X-ray chest 2 views Alex Gray Jr., MD [address] [place] [address] Phone: tel: fax: Referral ID Status Reason Start Date Expiration Date Visits Re quested Visits Authorized [id number] Closed 09/14/2018 09/15/2019 1 1 Encounter Details Date Type Department Care Team (Late st Contact Info) Description 09/14/2018 Ancillary Orders [facility] [address] [place] [phone] Alex Gray Jr., MD [address] [place] [address] Viral bronchitis Social History Tobacco [...] documented as of this encounter Care Teams Class A Lineman Relationship Specialty Start Date End Date Alex Gray Jr., MD [address] [place] [phone] PCP - General Internal Medicine 08/15/18 documented as of this encounter
--- OUTSIDE RECORDS SUMMARY | 2024-05-01 16:30 | XMS_ITS | Encounter Summary ---
Author Organization [facility] Address [address] [place] [address] Care Team Providers Care Technician Trainee Name Role Phone Isaac Alaniz MD, Alex Tariq Primary Care Provider [phone]- [phone] Encounter Details Date Type Department Care Team (Late st Contact Info) Description 11/04/2023 Procedure Pass [facility] - [address] [address] Social History Tobacco Use Types [...] documented as of this encounter Care Teams Technician Trainee Relationship Specialty Start Date End Date Alex Gray Jr., MD [address] [place] [phone] PCP - General Internal Medicine 08/15/18 documented as of this encounter
--- OUTSIDE RECORDS SUMMARY | 2024-05-01 16:31 | XMS_ITS | Encounter Summary ---
Author Organization [facility] Address [address] [place] [address] Care Team Providers Care Group Home Worker Name Role Phone Isaac Alaniz MD, Alex Tariq Primary Care Provider +1- [phone] Encounter Details Date Type Department Care Team (Late st Contact Info) Description 03/17/2019 Procedure Pass [facility] - [address] [address] Social History Tobacco Use Types [...] documented as of this encounter Care Teams Group Home Worker Relationship Specialty Start Date End Date Alex Gray Jr., MD [address] [place] [phone] PCP - General Internal Medicine 08/15/18 documented as of this encounter
--- OUTSIDE RECORDS SUMMARY | 2024-05-01 16:31 | XMS_ITS | Encounter Summary ---
Author Organization [facility] Address [address] [place] [address] Care Team Providers Care Agricultural Produce Commission Agent Name Role Phone Isaac Alaniz MD, Alex Tariq Primary Care Provider [phone]- [phone] Encounter Details Date Type Department Care Team ([facility] st Contact Info) Description 01/26/2024 Procedure Pass [facility] - [address] [address] Social History Tobacco Use Types [...] on filedocumented in this encounter Care Teams Agricultural Produce Commission Agent Relationship Specialty Start Date End Date Alex Gray Jr., MD [address] [place] [phone] PCP - General Internal Medicine 08/15/18 documented as of this encounter
--- OUTSIDE RECORDS SUMMARY | 2024-05-01 16:31 | XMS_ITS | Encounter Summary ---
Author Organization [facility] Address [address] [place] [address] Care Team Providers Care Medical Record Clerk Name Role Phone Monique Rubio MD Primary Care Provider [phone] Raúl Landa MD Primary Care Provider [phone] Jen Saunders NP Primary Care Provider Isaac Alaniz MD, Donald P Primary Care Provider [phone]- [phone] Encounter Details Date Type Department Care Team (Latest Contact Info) Description 12/24/2016 Lab Requisition [address] [address] Loco Bhatt MD [address] [place] [phone] Other psychoactive substance dependence, uncomplicated (HCC) Social [...] - 11.2 10*3/??L 12/24/2016 7:34 PM EDT [facility] RBC 4.95 3.60 - 5.40 10*6/??L 12/24/2016 7:34 PM EDT [facility] HGB 15.8 12.0 - 15.8 g/dL 12/24/2016 7:34 PM T [facility] HCT 46.0 36.0 - 48.0 % 12/24/2016 7:34 PM EDT [facility] MCV 92.9 82.0 - 98.0 fL 12/24/2016 7:34 PM T [facility] MCH 31.9 27.0 - 35.0 pg 12/24/2016 7:34 PM T [facility] MCHC 34.3 32.0 - 37.0 g/dL 12/24/2016 7:34 PM EDT [facility] RDW 13.8 12.0 - 15.0 % 12/24/2016 7:34 PM EDT [facility] PLT 138(L) 150 - 400 10*3/??L 12/24/2016 7:34 PM EDT [facility] MPV 9.6 7.0 - 14.0 fL 12/24/2016 7:34 PM EDT [facility] Neut % 46.8 45.0 - 85.0 % 12/24/2016 7:34 PM EDT [facility] Lymph % 42.6 15.0 - 45.0 % 12/24/2016 7:34 PM EDT [facility] [place] % 8.1 0.0 - 12.0 % 12/24/2016 7:34 PM EDT [facility] Eos % 1.3 0.0 - 7.0 % 12/24/2016 7:34 PM EDT [facility] Baso % 1.2 0.0 - 3.0 % 12/24/2016 7:34 PM EDT [facility] Neut # 5.0 10*3/??L 12/24/2016 7:34 PM EDT [facility] NRBC% 0 0 /100 WBC /100 WBC 12/24/2016 7:34 PM EDT [facility] Blood specimen (specimen) Venipuncture / Unknown 12/24/2016 3:00 PM EDT 12/24/2016 7:11 PM EDT us Loco Bhatt MD LAB BLOOD ORDERABLES Final Result Performing Organization Address City/State/[facility] Co de Phone Number [facility] [address] [place] [phone] * (ABNORMAL) Hepatic Function Panel (12/24/2016 3:00 PM EDT) Albumin 4.5 3.4 - 4.8 g/dL 12/24/2016 7:52 PM T [facility] Total Bilirubin 0.7 0.2 - 1.2 mg/dL 12/24/2016 7:52 PM EDT [facility] Bilirubin, Direct 0.2 0.0 - 0.3 mg/dL 12/24/2016 7:52 PM EDT [facility] AST 184(H) 0 - 40 U/L 12/24/2016 7:52 PM EDT [facility] ALT 188(H) 0 - 45 U/L 12/24/2016 7:52 PM EDT [facility] Total Protein 9.5(H) 6.4 - 8.6 g/dL 12/24/2016 7:52 PM EDT [facility] Alkaline Phosphatase 86 40 - 150 IU/L 12/24/2016 7:52 PM EDT [facility] Blood specimen (specimen) Venipuncture / Unknown 12/24/2016 3:00 PM EDT 12/24/2016 7:11 PM EDT us Loco Bhatt MD LAB BLOOD ORDERABLES Final Result [facility] [address] [place] [address] documented in this encounter Visit Diagnoses Diagnosis Other psychoactive substance dependence, uncomplicated (HCC) documented in this encounter Additional Health Concerns Infection Onset Date Last Indicated Resolved Time MRSA Comment:Cleared 05/19/21 nf MRSA blood/chin 03/14/19 sa 03/14/2019 03/17/2019 2021 2 :15 PM EST PUI COVID 01/01/2024 01/01/2024 01/01/2024 1:19 PM EDT documented as of this encounter Care Teams Medical Record Clerk Relationship Specialty Start Date End Date Monique Rubio MD [address] [place] [phone] PCP - General Internal Medicine 02/01/16 05/29/17 Raúl Landa MD [address] [place] [phone] PCP - General Family Medicine 05/30/17 09/23/17 Jen Saunders NP [address] [place] [phone] PCP - General Pain Medicine 09/24/17 08/14/18 Alex Gray Jr., MD [address] [place] [phone] PCP - General Internal Medicine 08/15/18 documented as of this encounter
--- OUTSIDE RECORDS SUMMARY | 2024-05-01 16:31 | XMS_ITS | Encounter Summary ---
Author Organization [facility] Address [address] [place] [address] Care Team Providers Care Log Roller Name Role Phone Isaac Alaniz MD, Alex Tariq Primary Care Provider [phone]- [phone] Encounter Details Date Type Department Care Team (Late st Contact Info) Description 11/25/2022 Procedure Pass [facility] - [address] [address] Social History Tobacco Use Types [...] documented as of this encounter Care Teams Log Roller Relationship Specialty Start Date End Date Alex Gray Jr., MD [address] [place] [phone] PCP - General Internal Medicine 08/15/18 documented as of this encounter
--- OUTSIDE RECORDS SUMMARY | 2024-05-01 16:31 | XMS_ITS | Encounter Summary ---
Author Organization [facility] Address [address] [place] [address] Care Team Providers Care Retort Engineer Name Role Phone Isaac Alaniz MD, Alex Tariq Primary Care Provider [phone]- [phone] Encounter Details Date Type Department Care Team (Late st Contact Info) Description 12/07/2022 Lab Requisition [address] [phone] Unknown Illness, unspecified Social History Tobacco Use [...] 5.1 mg/dL 12/07/2022 10:18 AM EDT [facility] Blood Venipuncture / Unknown 12/07/2022 5:56 AM EDT 12/07/2022 9:28 AM EDT us Unknown LAB BLOOD ORDERABLES Final Resul t Performing Organization Address [facility] [address]/[facility] Co de Phone Number [facility] [address] [place] [phone] * (ABNORMAL) CRP, Inflammation (12/07/2022 5:56 AM EDT) CRP, Inflammation 55.35(H) 0.00 - 3.00 mg/L 12/07/2022 10:28 AM EDT [facility] Blood Venipuncture / Unknown 12/07/2022 5:56 AM EDT 12/07/2022 9:28 AM EDT Narrative [facility] - 12/07/2022 10:28 AM EDT >10.0 ?Consider infection/inflammation us Unknown LAB BLOOD ORDERABLES Final Resul t [facility] [address] [place] [phone] * Magnesium (12/07/2022 5:56 AM EDT) Magnesium 1.8 1.6 - 2.6 mg/dL 12/07/2022 10:18 AM EDT [facility] Blood Venipuncture / Unknown 12/07/2022 5:56 AM EDT 12/07/2022 9:28 AM EDT us Unknown LAB BLOOD ORDERABLES Final Resul t [facility] [address] [place] [address] * (ABNORMAL) Comprehensive metabolic panel (12/07/2022 5:56 AM EDT) Sodium 134(L) 136 - 145 mEq/L 12/07/2022 10:28 AM EDT [facility] Potassium 3.6 3.5 - 5.1 mEq/L 12/07/2022 10:28 AM EDT [facility] Chloride 98 98 - 107 mEq/L 12/07/2022 10:28 AM EDT [facility] CO2 26 20 - 31 mEq/L 12/07/2022 10:28 AM EDT [facility] Anion Gap 10 4 - 15 mEq/L 12/07/2022 10:28 AM EDT [facility] Glucose 122(H) 70 - 100 mg/dL 12/07/2022 10:28 AM EDT [facility] Creatinine 0.67 0.50 - 1.00 mg/dL 12/07/2022 10:28 AM EDT [facility] eGFR (Female) >60 60 - 115 mL/min 12/07/2022 10:28 AM EDT [facility] BUN 10 9 - 23 mg/dL 12/07/2022 10:28 AM EDT [facility] Calcium 9.2 8.7 - 10.4 mg/dL 12/07/2022 10:28 AM EDT [facility] Total Protein 8.3(H) 5.7 - 8.2 g/dL 12/07/2022 10:28 AM EDT [facility] Albumin 3.6 3.2 - 4.8 g/dL 12/07/2022 10:28 AM EDT [facility] A/G Ratio 0.8(L) 1.0 - 2.3 12/07/2022 10:28 AM EDT [facility] Total Bilirubin 0.2 0.2 - 1.0 mg/dL 12/07/2022 10:28 AM EDT [facility] AST 78(H) 13 - 40 U/L 12/07/2022 10:28 AM EDT [facility] Alkaline Phosphatase 115 46 - 116 IU/L 12/07/2022 10:28 AM EDT [facility] ALT 87(H) 7 - 40 U/L 12/07/2022 10:28 AM EDT [facility] Blood Venipuncture / Unknown 12/07/2022 5:56 AM EDT 12/07/2022 9:28 AM EDT us Unknown LAB BLOOD ORDERABLES Final Resul t [facility] [address] [place] [address] * (ABNORMAL) CBC and Auto Differential (12/07/2022 5:56 AM EDT) WBC 7.9 4.8 - 11.2 10*3/??L 12/07/2022 9:55 AM EDT [facility] RBC 3.72 3.60 - 5.40 10*6/??L 12/07/2022 9:55 AM EDT [facility] HGB 11.4(L) 12.0 - 15.8 g/dL 12/07/2022 9:55 AM EDT [facility] HCT 33.3(L) 36.0 - 48.0 % 12/07/2022 9:55 AM EDT [facility] MCV 89.5 82.0 - 98.0 fL 12/07/2022 9:55 AM EDT [facility] MCH 30.5 27.0 - 35.0 pg 12/07/2022 9:55 AM EDT [facility] MCHC 34.1 32.0 - 37.0 g/dL 12/07/2022 9:55 AM EDT [facility] RDW 12.9 12.0 - 15.0 % 12/07/2022 9:55 AM EDT [facility] PLT 235 150 - 400 10*3/??L 12/07/2022 9:55 AM EDT [facility] MPV 8.2 7.0 - 14.0 fL 12/07/2022 9:55 AM EDT [facility] Neut % 55.1 45.0 - 85.0 % 12/07/2022 9:55 AM EDT [facility] Lymph % 32.3 15.0 - 45.0 % 12/07/2022 9:55 AM EDT [facility] [place] % 10.1 0.0 - 12.0 % 12/07/2022 9:55 AM EDT [facility] Eos % 1.6 0.0 - 7.0 % 12/07/2022 9:55 AM EDT [facility] Baso % 0.9 0.0 - 3.0 % 12/07/2022 9:55 AM EDT [facility] NRBC% 0 0 /100 WBC /100 WBC 12/07/2022 9:55 AM EDT [facility] Neut # 4.3 2.2 - 9.5 10*3/??L 12/07/2022 9:55 AM EDT [facility] Lym # 2.5 0.7 - 5.0 10*3/??L 12/07/2022 9:55 AM EDT [facility] [place] # 0.8 0.0 - 1.3 10*3/??L 12/07/2022 9:55 AM EDT [facility] Eos # 0.1 0.0 - 0.4 10*3/??L 12/07/2022 9:55 AM EDT [facility] Baso # 0.1 0.0 - 0.3 10*3/??L 12/07/2022 9:55 AM EDT [facility] Blood Venipuncture / Unknown 12/07/2022 5:56 AM EDT 12/07/2022 9:28 AM EDT us Unknown LAB BLOOD ORDERABLES Final Resul t [facility] [address] [place] [address] documented in this encounter Visit Diagnoses Diagnosis Illness, unspecified documented in this encounter Additional Health Concerns Infection Onset Date Last Indicated Resolved Time PUI COVID 01/01/2024 01/01/2024 01/01/2024 1:19 PM EDT documented as of this encounter Care Teams Retort Engineer Relationship Specialty Start Date End Date Alex Gray Jr., MD [address] [place] [phone] PCP - General Internal Medicine 08/15/18 documented as of this encounter
--- OUTSIDE RECORDS SUMMARY | 2024-05-01 16:31 | XMS_ITS | Encounter Summary ---
Author Organization [facility] Address [address] [place] [address] Care Team Providers Care Industrial Technology Education Teacher Name Role Phone Isaac Alaniz MD, Alex Tariq Primary Care Provider +1- [phone] Encounter Details Date Type Department Care Team (Late st Contact Info) Description 12/01/2022 Procedure Pass [facility] - [address] [phone] Social History Tobacco Use Types [...] documented as of this encounter Care Teams Industrial Technology Education Teacher Relationship Specialty Start Date End Date Alex Gray Jr., MD [address] [place] [phone] PCP - General Internal Medicine 08/15/18 documented as of this encounter
--- OUTSIDE RECORDS SUMMARY | 2024-05-01 16:31 | XMS_ITS | Encounter Summary ---
Author Organization [facility] Address [address] [place] [address] Care Team Providers Care Email Marketing Executive Name Role Phone Isaac Alaniz MD, Alex Tariq Primary Care Provider [phone] Encounter Details Date Type Department Care Team (Late st Contact Info) Description 01/02/2024 Procedure Pass [facility] [address] [place] [address] Social History Tobacco Use Types Packs/Day Years Used Date Smoking Tobacco: Every Day Cigarettes Smokeless Tobacco: Never Comments:vape Alcohol Use Standard Drinks/Week Comments Not Currently 4 (1 standard drink = 0.6 oz pur e alcohol) Housing Stability - SDOH Screener Answer Date Recorded What is your living situation today? Unsteady ho using 01/02/2024 Do you need help with Housing/Long Term resources? Not on file 01/02/2024 Patient indicated [...] on filedocumented in this encounter Care Teams Email Marketing Executive Relationship Specialty Start Date End Date Alex Gray Jr., MD [address] [place] [phone] PCP - General Internal Medicine 08/15/18 documented as of this encounter
--- OUTSIDE RECORDS SUMMARY | 2024-05-01 16:31 | XMS_ITS | Clinical Summary ---
Author Organization [facility] Address [address] [place] [address] Care Team Providers Care Assistant Basketball Coach Name Role Phone Alex Gray MD Primary Care Provider [phone] Allergies Active Allergy Reactions Criticality Noted Date [...] Tobacco: Former Cigarettes Tobacco Cessation:Counseling Given: No [facility] Utilities Answer Date Recorded In the past 12 months has e [employer], oil, or water [employer] threatened to shut off services in your [...] Health Questionnaire-2 Score for SDOH 2 09/17/2023 [facility] - Occupational Stress [...] time in the past 12 m [facility], were you homeless or living in a custodial (including now)? Yes 09/17/2023 Substance Use Answer [...] patient's age to complete this topic Insurance [facility] Advance Directives For more information, please contact: [phone] * Full Code (Latest Code Status on File) Date Activated Date Inactivated Comments 09/17/2023 10:09 AM Care Teams Assistant Basketball Coach Relationship Specialty Start Date End Date Alex Gray MD [address] [place] [phone] PCP - General Infectious Diseases 09/15/21
--- OUTSIDE RECORDS SUMMARY | 2024-05-01 16:31 | XMS_ITS | Clinical Summary ---
Demographics Address [address] [place] [address] Home Phone Preferred Language Indonesian Marital Status Unknown Sikh Affiliation Unknown Race White Ethnic Group Not or Lati no Author Organization [facility] Address [address] [place] [address] Care Team Providers Care Assistant Laboratory Director Name Role Phone Patient, Has No Pcp [...] EST - 02/25/2024 8:24 PM EST Emergency [facility] Emergency Department [address] [place] [address] Courtney Gooden MD O'Connor, Laurel C., MD [...] , 01/01/2024, 01/01/2024 Procedures * Due to [place] state law, this organization might not be [...] to Health Maintenance Results * Due to [place] state law, this organization might not be [...] % 78.7 % 02/25/2024 4:02 PM EST [facility] Immature Grans % 0.2 0.0 - 0.9 % 02/25/2024 4:02 PM EST [facility] Lymphocyte % 18.9 % 02/25/2024 4:02 PM EST [facility] Monocyte % 2.0 % 02/25/2024 4:02 PM EST [facility] Eosinophil % 0.0 % 02/25/2024 4:02 PM EST [facility] Basophil % 0.2 % 02/25/2024 4:02 PM EST [facility] Neutrophil # 4.76 1.50 - 7.80 10*3/uL 02/25/2024 4:02 PM EST [facility] Immature Grans # <0.03 <=0.03 10*3/uL 02/25/2024 4:02 PM EST [facility] Lymphocyte # 1.10 0.85 - 3.90 10*3/uL 02/25/2024 4:02 PM EST [facility] Monocyte # 0.10(L) 0.20 - 0.95 10*3/uL 02/25/2024 4:02 PM EST [facility] Eosinophil # <0.03 0.02 - 0.50 10*3/uL 02/25/2024 4:02 PM EST [facility] Basophil # <0.03 0.00 - 0.20 10*3/uL 02/25/2024 4:02 PM EST [facility] nRBC % 0.0 /100 WBCs 02/25/2024 4:02 PM EST [facility] nRBC # <0.01 <0.01 10*3/uL 02/25/2024 4:02 PM EST [facility] Blood Structure of peripheral vein / Unknown Venipuncture / Unknown 02/25/2024 3:43 PM EST 02/25/2024 3:53 PM EST Courtney Gooden MD LAB BLOOD ORDERABLES Columba l Result Performing Organization Address [facility] Co de Phone Number [facility] [address] [place] [address], [place] * hCG, Qualitative, Serum (02/25/2024 3:43 PM EST) HCG Qualitative, Serum Negative Negative 02/25/2024 4:31 PM EST [facility] Comment: hCG greater than [...] ORDERABLES Columba l Result Performing Organization Address [facility] Co de Phone Number [facility] [address] [place] [address], [place] * (ABNORMAL) Hepatic Function Panel (02/25/2024 3:43 PM EST) Total Protein 7.2 6.0 - 8.0 g/dL 02/25/2024 4:31 PM EST [facility] Albumin 3.9 3.5 - 5.2 g/dL 02/25/2024 4:31 PM EST [facility] Globulin, Total 3.3 2.1 - 4.2 g/dL 02/25/2024 4:31 PM EST [facility] Bilirubin, Total 0.3 0.2 - 1.2 mg/dL 02/25/2024 4:31 PM EST [facility] Bilirubin, Direct 0.1 <=0.4 mg/dL 02/25/2024 4:31 PM EST [facility] Alkaline Phosphatase 68 35 - 129 U/L 02/25/2024 4:31 PM EST [facility] AST 29 10 - 40 U/L 02/25/2024 4:31 PM EST [facility] ALT 18 10 - 40 U/L 02/25/2024 4:31 PM EST [facility] Bilirubin, Indirect 0.20 <=0.70 mg/dL 02/25/2024 4:31 PM EST [facility] A/G Ratio 1.2(L) 1.5 - 3.0 02/25/2024 4:31 PM EST [facility] Blood Structure of peripheral vein / Unknown Venipuncture / Unknown 02/25/2024 3:43 PM EST 02/25/2024 3:54 PM EST us Courtney Gooden MD LAB BLOOD ORDERABLES Columba l Result [facility] [address] [place] [address], * (ABNORMAL) Basic Metabolic Panel (02/25/2024 3:43 PM EST) NA 138 135 - 145 mmol/L 02/25/2024 4:31 PM EST [facility] K 3.6 3.5 - 5.3 mmol/L 02/25/2024 4:31 PM EST [facility] Cl 105 98 - 107 mmol/L 02/25/2024 4:31 PM EST [facility] CO2 22 22 - 32 mmol/L 02/25/2024 4:31 PM EST [facility] BUN 6(L) 7 - 23 mg/dL 02/25/2024 4:31 PM EST [facility] Creatinine 0.43(L) 0.50 - 1.20 mg/dL 02/25/2024 4:31 PM EST [facility] Glucose 151(H) 65 - 99 mg/dL 02/25/2024 4:31 PM EST [facility] Calcium 9.1 8.6 - 10.5 mg/dL 02/25/2024 4:31 PM EST [facility] Anion Gap 11 5 - 15 02/25/2024 4:31 PM EST [facility] eGFR >90 >=60 mL/min/1 .73m2 02/25/2024 4:31 PM EST [facility] Comment:The estimated glomer ular [...] MD LAB BLOOD ORDERABLES Columba martinez Result [facility] [address] [place] [address], * X-Ray Chest 1 View (02/25/2024 2:33 [...] obtain the completed interpretation. ? Workstation ID: [id number] Narrative 02/25/2024 2:38 PM EST COMPARISON: None FINDINGS AND Resulting Agency Comment [id number] Procedure Note Raúl Centeno MD - 02/25/2024 COMPARISON: None FINDINGS AND IMPRESSION: No consolidation, pleural effusion, or pneumothorax. Normal heart size.No pulmonary vascular congestion. No acute displaced fracture identified. If this radiology report contains a blank impression section, it is anincomplete radiology report. Please contact the interpreting radiologistor applicable radiology division as soon as possible to obtain thecompleted interpretation. Workstation ID: [id number] us Courtney Gooden MD IMG XR PROCEDURES Final R esult * (ABNORMAL) POCT Glucose, interfaced (02/25/2024 12:36 PM EST) [facility] Signature Glucose, POCT 169(H) 70 - 99 mg/dL 02/25/2024 12:37 PM EST [facility] Comment: The account manager education has not determined the efficacy of this test in Critically ill patients. ??[facility] defines Critically ill patients for the [...] POCT ORDERABLES - DEVICE Fin al Result [facility] [address] [place] [address], * Pap (02/26/2003 10:04 PM EST) Path Procedure PAP OUTSOURCED 1 ?? Edited by: [id number] [facility] Specimen Labeled As: 1 CERVICAL/ENDOCERVI ROZ CYTO MATERIAL - Edited by: [id number] [facility] ANATOM[facility] PATHOLOGY - [facility] Diagnosis Gyne [...] REACTIVE CELLULAR CHANGES ? Test performed at [facility]; A [facility] Affiliate ?[place] ?? Edited by: [id number] [facility] ANATOMIC PATHOLOGY - [facility] Marker 1 NILM,NILM [facility] ANATOM[facility] PATHOLOGY - [facility] Cc Results To [facility] ANATOMIC PATHOLOGY - [facility] Signature REPORT SIGNED: MERLINE SIMS MD 03/13/03 [facility] ANATOM[facility] PATHOLOGY - [facility] Sign Out Audit MERLINE SIMS MD [id number] FINAL Y DANIEL DAI [id number] [facility] ANATOM[facility] PATHOLOGY - [facility] Cytology / Unknown 3 10:04 PM EST 02/28/2003 10:04 PM EST us Historical Conversion Provider LAB PATHOLOGY/CYT OLOGY ORDERABLES Final Result [facility]ATOM[facility] PATHOLOG[facility] - [facility] [address] [place] [address], from Last 3 Months or Most Recently Relevant to Health Maintenance Insurance * Guarantor: Tabitha Weaver Account Type Relation to Patient Date of Phone Billing Address Personal/Family Self 1975 [address] [place] [address] [facility] MEDICAID Care Teams Assistant Laboratory Director Relationship Specialty Start Date End Date Patient, Has No Pcp Or Ref DO NOT EDIT THIS RECORD VIA PROVIDER ON THE FLY PCP - General Gate Person 02/25/24
--- OUTSIDE RECORDS SUMMARY | 2024-05-01 16:31 | XMS_ITS | Encounter Summary ---
Author Organization [facility] Address [address] [place] [address] Care Team Providers Care Cooky Machine Operator Name Role Phone Isaac Alaniz MD, Alex Tariq Primary Care Provider [phone] Encounter Details Date Type Department Care Team (Late st Contact Info) Description 03/22/2019 Lab Requisition [address] [phone] Unknown Illness, unspecified Social History Tobacco Use [...] ORDERABLES Final Resul t Performing Organization Address [facility] Phone Number [facility] [address] [place] [address] * (ABNORMAL) Sedimentation Rate, automated (03/22/2019 5:03 AM EST) Sed Rate 35(H) 0 - 20 mm/hr 03/22/2019 7:30 AM EST [facility] Blood specimen (specimen) Non-SHG Collection / Unknown 03/22/2019 5:03 AM EST 03/22/2019 6:51 AM EST us Unknown LAB BLOOD ORDERABLES Final Resul t Performing Organization Address [facility] Phone Number [facility] [address] [place] [address] * Hemoglobin A1c (03/22/2019 5:03 AM EST) [...] Final Resul t [facility] [address] [place], [place] * (ABNORMAL) Comprehensive metabolic panel (03/22/2019 5:03 AM EST) Sodium 139 137 - 147 mEq/L 03/22/2019 8:31 AM [facility] Potassium 4.2 3.5 - 5.4 mEq/L 03/22/2019 8:31 AM [facility] Chloride 102 96 - 107 mEq/L 03/22/2019 8:31 AM [facility] CO2 24 24 - 34 mEq/L 03/22/2019 8:31 AM [facility] Anion Gap 13 4 - 15 mEq/L 03/22/2019 8:31 AM [facility] Glucose 140(H) 70 - 100 mg/dL 03/22/2019 8:31 AM [facility] Creatinine 0.61 0.50 - 1.30 mg/dL 03/22/2019 8:31 AM [facility] eGFR >60 60 - 115 mL/min 03/22/2019 8:31 AM [facility] BUN 15 6 - 26 mg/dL 03/22/2019 8:31 AM [facility] Calcium 8.7 8.7 - 10.5 mg/dL 03/22/2019 8:31 AM [facility] Total Protein 7.0 6.4 - 8.6 g/dL 03/22/2019 8:31 AM [facility] Albumin 3.6 3.4 - 4.8 g/dL 03/22/2019 8:31 AM [facility] A/G Ratio 1.1 1.0 - 2.3 03/22/2019 8:31 AM [facility] Total Bilirubin <0.2(L) 0.2 - 1.2 mg/dL 03/22/2019 8:31 AM [facility] AST 34 0 - 40 U/L 03/22/2019 8:31 AM [facility] Alkaline Phosphatase 60 40 - 150 IU/L 03/22/2019 8:31 AM [facility] ALT 68(H) 0 - 45 U/L 03/22/2019 8:31 AM [facility] Blood specimen (specimen) Non-SHG Collection / Unknown 03/22/2019 5:03 AM EST 03/22/2019 6:51 AM EST us Unknown LAB BLOOD ORDERABLES Final Resul t [facility] [address] [place], [place] * CBC and Auto Differential (03/22/2019 5:03 AM EST) WBC 8.3 4.8 - 11.2 10*3/??L 03/22/2019 7:25 AM [facility] RBC 3.93 3.60 - 5.40 10*6/??L 03/22/2019 7:25 AM [facility] HGB 12.7 12.0 - 15.8 g/dL 03/22/2019 7:25 AM [facility] HCT 36.9 36.0 - 48.0 % 03/22/2019 7:25 AM [facility] MCV 94.0 82.0 - 98.0 fL 03/22/2019 7:25 AM [facility] MCH 32.4 27.0 - 35.0 pg 03/22/2019 7:25 AM [facility] MCHC 34.5 32.0 - 37.0 g/dL 03/22/2019 7:25 AM [facility] RDW 13.2 12.0 - 15.0 % 03/22/2019 7:25 AM [facility] PLT 231 150 - 400 10*3/??L 03/22/2019 7:25 AM [facility] MPV 8.3 7.0 - 14.0 fL 03/22/2019 7:25 AM [facility] Neut % 52.5 45.0 - 85.0 % 03/22/2019 7:25 AM [facility] Lymph % 36.0 15.0 - 45.0 % 03/22/2019 7:25 AM EST [facility] [place] % 10.3 0.0 - 12.0 % 03/22/2019 [...] 03/22/2019 7:25 AM EST [facility] [place] # 0.9 0.0 - 1.3 10*3/??L 03/22/2019 [...] Final Resul t [facility] [address] [place], [place] documented in this encounter Visit Diagnoses Diagnosis Illness, unspecified documented in this encounter Additional Health Concerns Infection Onset Date Last Indicated Resolved Time MRSA Comment:Cleared 05/19/21 nf MRSA blood/chin 03/14/19 sa 03/14/2019 03/17/2019 2021 2 :15 PM EST PUI COVID 01/01/2024 01/01/2024 01/01/2024 1:19 PM EDT documented as of this encounter Care Teams Cooky Machine Operator Relationship Specialty Start Date End Date Alex Gray Jr., MD [address] [place] [phone] PCP - General Internal Medicine 08/15/18 documented as of this encounter
--- OUTSIDE RECORDS SUMMARY | 2024-05-01 16:31 | XMS_ITS | Encounter Summary ---
Author Organization [facility] Address [address] [place] [address] Care Team Providers Care Cloth Shrinker Name Role Phone Isaac Alaniz MD, Alex Tariq Primary Care Provider [phone]- [phone] Encounter Details Date Type Department Care Team (Late st Contact Info) Description 01/31/2024 Pharm[facility] [address] [place] [address] Social History Tobacco Use Types Packs/Day Years Used Date Smoking Tobacco: Every Day Cigarettes Smokeless Tobacco: Never Comments:vape Alcohol Use Standard Drinks/Week Comments Not Currently 4 (1 standard drink = 0.6 oz pur e alcohol) Housing Stability - SDOH Screener Answer Date Recorded What is your living situation today? Unsteady ho using 01/02/2024 Do you need help with Housing/Jail resources? Not on file 01/02/2024 Patient indicated [...] on filedocumented in this encounter Care Teams Cloth Shrinker Relationship Specialty Start Date End Date Alex Gray Jr., MD [address] [place] [phone] PCP - General Internal Medicine 08/15/18 documented as of this encounter
--- OUTSIDE RECORDS SUMMARY | 2024-05-01 16:31 | XMS_ITS | Encounter Summary ---
Author Organization [facility] Address [address] [place] [address] Care Team Providers Care Lieutenant Ballistics Name Role Phone Isaac Alaniz MD, Alex Tariq Primary Care Provider [phone]- [phone] Encounter Details Date Type Department Care Team ([facility] st Contact Info) Description 01/26/2024 Procedure Pass [facility] - [address] [phone] Social History Tobacco Use Types Packs/Day Years Used Date Smoking Tobacco: Every Day Cigarettes Smokeless Tobacco: Never Comments:vape Alcohol Use Standard Drinks/Week Comments Not Currently 4 (1 standard drink = 0.6 oz pur e alcohol) Housing Stability - SDOH Screener Answer Date Recorded What is your living situation today? Unsteady ho using 01/02/2024 Do you need help with Housing/Longterm resources? Not on file 01/02/2024 Patient indicated [...] on filedocumented in this encounter Care Teams Lieutenant Ballistics Relationship Specialty Start Date End Date Alex Gray Jr., MD [address] [place] [phone] PCP - General Internal Medicine 08/15/18 documented as of this encounter
--- OUTSIDE RECORDS SUMMARY | 2024-05-01 16:31 | XMS_ITS | Encounter Summary ---
Author Organization [facility] Address [address] [place] [address] Care Team Providers Care Credit Investigator Name Role Phone Isaac Alaniz MD, Alex Tariq Primary Care Provider [phone]- [phone] Encounter Details Date Type Department Care Team (Late st Contact Info) Description 01/28/2024 [facility] [address] [place] [address] Social History Tobacco Use Types Packs/Day Years Used Date Smoking Tobacco: Every Day Cigarettes Smokeless Tobacco: Never Comments:vape Alcohol Use Standard Drinks/Week Comments Not Currently 4 (1 standard drink = 0.6 oz pur e alcohol) Housing Stability - SDOH Screener Answer Date Recorded What is your living situation today? Unsteady ho using 01/02/2024 Do you need help with Housing/Half-Way resources? Not on file 01/02/2024 Patient indicated [...] on filedocumented in this encounter Care Teams Credit Investigator Relationship Specialty Start Date End Date Alex Gray Jr., MD [address] [place] [phone] PCP - General Internal Medicine 08/15/18 documented as of this encounter
--- OUTSIDE RECORDS SUMMARY | 2024-05-01 16:31 | XMS_ITS | Encounter Summary ---
Author Organization [facility] Address [address] [place] [address] Care Team Providers Care Fire Sprinkler Service Technician Name Role Phone Isaac Alaniz MD, Alex Tariq Primary Care Provider [phone]- [phone] Encounter Details Date Type Department Care Team (Late st Contact Info) Description 01/03/2024 Pharm[facility] [address] [place] [address] Social History Tobacco Use Types [...] on filedocumented in this encounter Care Teams Fire Sprinkler Service Technician Relationship Specialty Start Date End Date Alex Gray Jr., MD [address] [place] [phone] PCP - General Internal Medicine 08/15/18 documented as of this encounter
--- OUTSIDE RECORDS SUMMARY | 2024-05-01 16:31 | XMS_ITS | Encounter Summary ---
Author Organization [facility] Address [address] [place] [address] Care Team Providers Care Welt Trimming Machine Operator Name Role Phone Isaac Alaniz MD, Alex Tariq Primary Care Provider +1- [phone] Encounter Details Date Type Department Care Team (Late st Contact Info) Description 04/03/2019 Lab Requisition [address] [phone] Unknown Illness, unspecified Social History Tobacco Use [...] WBC 5.6 10*3/??L 04/03/2019 9:45 AM EST [facility] Neut % 32(L) 40 - 85 % 04/03/2019 9:45 AM [facility] Bands % 1 0 - 8 % 04/03/2019 9:45 AM [facility] Lymph % 45 15 - 45 % 04/03/2019 9:45 AM EST [facility] Ramsey % 17(H) 0 - 12 % 04/03/2019 9:45 AM [facility] Eos % 4 0 - 7 % 04/03/2019 9:45 AM EST [facility] Baso % 1 0 - 2 % 04/03/2019 9:45 AM [facility] Total Cells Count 100 019 9:45 AM [facility] Platelet Estimate Decreased (A) Normal 04/03/2019 9:45 AM [facility] Polychromasia Slight(A) None Seen 04/03/2019 9:45 AM [facility] Hypochromia Slight/Mo derate(A) None Seen 04/03/2019 9:45 AM [facility] Basophilic Stippling Slight(A) None Seen 04/03/2019 9:45 AM [facility] Blood specimen (specimen) Non-SHG Collection / Unknown 04/03/2019 5:00 AM EST 04/03/2019 8:15 AM EST us Unknown LAB BLOOD ORDERABLES Final Resul t [facility] [address] [place], [place] * Vancomycin, trough (04/03/2019 5:00 AM EST) Vancomycin Tr 14.3 10.0 - 20.0 ug/mL 04/03/2019 9:15 AM EST [facility] Blood specimen (specimen) Non-SHG Collection / Unknown 04/03/2019 5:00 AM EST 04/03/2019 8:15 AM EST us Unknown LAB BLOOD ORDERABLES Final Resul t Performing Organization Address [facility]/ZIP Co de Phone Number [facility] [address] [place], [place] * (ABNORMAL) CBC and Auto Differential (04/03/2019 5:00 AM EST) WBC 5.6 4.8 - 11.2 10*3/??L 04/03/2019 9:27 AM [facility] RBC 3.72 3.60 - 5.40 10*6/??L 04/03/2019 9:27 AM [facility] HGB 11.7(L) 12.0 - 15.8 g/dL 04/03/2019 9:27 AM [facility] HCT 35.5(L) 36.0 - 48.0 % 04/03/2019 9:27 AM [facility] MCV 95.4 82.0 - 98.0 fL 04/03/2019 9:27 AM [facility] MCH 31.6 27.0 - 35.0 pg 04/03/2019 9:27 AM [facility] MCHC 33.1 32.0 - 37.0 g/dL 04/03/2019 9:27 AM [facility] RDW 13.6 12.0 - 15.0 % 04/03/2019 9:27 AM [facility] PLT 93(L) 150 - 400 10*3/??L 04/03/2019 9:27 AM [facility] Comment:Checked by review of brand stained smear MPV 9.4 7.0 - 14.0 fL 04/03/2019 9:27 AM EST [facility] NRBC% 0 0 /100 WBC /100 WBC 04/03/2019 9:27 AM EST [facility] Add Manual Diff Yes Per Protocol 04/03/2019 9:27 AM EST [facility] Blood specimen (specimen) Non-SHG Collection / Unknown 04/03/2019 5:00 AM EST 04/03/2019 8:15 AM EST us Unknown LAB BLOOD ORDERABLES Final Resul t Performing Organization Address [facility] de Phone Number [facility] [address] [place], [place] * CRP, Ultrasensitive (04/03/2019 5:00 AM EST) Pathologist [facility] CRP, Ultrasensitive 7.3 0.0 - 8.0 mg/L 04/03/2019 9:15 AM EST [facility] Blood specimen (specimen) Non-SHG Collection / Unknown 04/03/2019 5:00 AM EST 04/03/2019 8:15 AM EST Narrative [facility] - 04/03/2019 9:15 AM EST C Reactive Protein High Sensitivity < 1.0 ? mg/L ?Low cardiovascular risk 1.0 - 3.0 ?? mg/L ?Average cardiovascular risk 3.1 - 10.0 ??mg/L ?High cardiovascular risk > 10.0 ?Consider infection/inflammation us Unknown LAB BLOOD ORDERABLES Final Resul t Performing Organization Address [facility] Co de Phone Number [facility] [address] [place], [place] * Basic metabolic panel (04/03/2019 5:00 AM EST) Pathologist [facility] Sodium 141 137 - 147 mEq/L 04/03/2019 9:08 AM EST [facility] Potassium 3.9 3.5 - 5.4 mEq/L 04/03/2019 9:[address] [facility] Chloride 104 96 - 107 mEq/L 04/03/2019 9:08 AM EST [facility] CO2 27 24 - 34 mEq/L 04/03/2019 9:08 AM EST [facility] Anion Gap 10 4 - 15 mEq/L 04/03/2019 9:08 AM EST [facility] Glucose 98 70 - 100 mg/dL 04/03/2019 9:08 AM EST [facility] Creatinine 0.56 0.50 - 1.30 mg/dL 04/03/2019 9:08 AM EST [facility] eGFR >60 60 - 115 mL/min 04/03/2019 9:08 AM EST [facility] BUN 16 6 - 26 mg/dL 04/03/2019 9:08 AM EST [facility] Calcium 8.9 8.7 - 10.5 mg/dL 04/03/2019 9:08 AM [facility] Blood specimen (specimen) Non-SHG Collection / Unknown 04/03/2019 5:00 AM EST 04/03/2019 8:15 AM EST us Unknown LAB BLOOD ORDERABLES Final Resul t [facility] [address] [place], [place] documented in this encounter Visit Diagnoses Diagnosis Illness, unspecified documented in this encounter Additional Health Concerns Infection Onset Date Last Indicated Resolved Time MRSA Comment:Cleared 05/19/21 nf MRSA blood/chin 03/14/19 sa 03/14/2019 03/17/2019 2021 2 :15 PM EST PUI COVID 01/01/2024 01/01/2024 01/01/2024 1:19 PM EDT documented as of this encounter Care Teams Welt Trimming Machine Operator Relationship Specialty Start Date End Date Alex Gray Jr., MD [address] [place] [phone] PCP - General Internal Medicine 08/15/18 documented as of this encounter
--- OUTSIDE RECORDS SUMMARY | 2024-05-01 16:31 | XMS_ITS | Encounter Summary ---
Author Organization [facility] Address [address] [place] [address] Care Team Providers Care Timing Inspector Name Role Phone Monique Rubio MD Primary Care Provider Raúl Landa MD Primary Care Provider [phone] Jen Saunders NP Primary Care Provider Isaac Alaniz MD, Donald P Primary Care Provider [phone]- [phone] Encounter Details Date Type Department Care Team (Latest Contact Info) Description 01/04/2017 Lab Requisition [address] [phone] Vazquez Kaufman MD [address] [place] [address] [phone] Uncomplicated opioid dependence (HCC); Anxiety disorder; Rash [...] <0.6 <5.0 mIU/ml 01/04/2017 8:12 PM EDT [facility] Blood specimen (specimen) 01/04/2017 1:30 PM EDT 01/04/2017 7:07 PM EDT Narrative [facility] - 01/04/2017 8:12 PM EDT [...] Kaufman MD LAB BLOOD ORDERABLES Final Result [facility] [address] [place] [address] * (ABNORMAL) Comprehensive metabolic panel (01/04/2017 1:30 PM EDT) Sodium 143 137 - 147 mEq/L 01/04/2017 8:30 PM EDT [facility] Potassium 4.2 3.5 - 5.4 mEq/L 01/04/2017 8:30 PM EDT [facility] Chloride 102 96 - 107 mEq/L 01/04/2017 8:30 PM EDT [facility] CO2 26 24 - 34 mEq/L 01/04/2017 8:30 PM EDT [facility] Anion Gap 15 4 - 15 mEq/L 01/04/2017 8:30 PM EDT [facility] Glucose 83 70 - 100 mg/dL 01/04/2017 8:30 PM EDT [facility] Creatinine 0.58 0.50 - 1.30 mg/dL 01/04/2017 8:30 PM EDT [facility] eGFR >60 60 - 115 mL/min 01/04/2017 8:30 PM EDT [facility] BUN 10 6 - 26 mg/dL 01/04/2017 8:30 PM EDT [facility] Calcium 9.2 8.7 - 10.5 mg/dL 01/04/2017 8:30 PM EDT [facility] Total Protein 9.2(H) 6.4 - 8.6 g/dL 01/04/2017 8:30 PM EDT [facility] Albumin 4.5 3.4 - 4.8 g/dL 01/04/2017 8:30 PM EDT [facility] A/G Ratio 1.0 1.0 - 2.3 01/04/2017 8:30 PM EDT [facility] Total Bilirubin 0.8 0.2 - 1.2 mg/dL 01/04/2017 8:30 PM EDT [facility] AST 109(H) 0 - 40 U/L 01/04/2017 8:30 PM EDT [facility] Alkaline Phosphatase 81 40 - 150 IU/L 01/04/2017 8:30 PM EDT [facility] ALT 120(H) 0 - 45 U/L 01/04/2017 8:30 PM EDT [facility] Blood specimen (specimen) Venipuncture / Unknown 01/04/2017 1:30 PM EDT 01/04/2017 7:07 PM EDT us Vazquez Kaufman MD LAB BLOOD ORDERABLES Final Result [facility] [address] [place] [id number] * (ABNORMAL) CBC and Auto Differential (01/04/2017 1:30 PM EDT) WBC 6.5 4.8 - 11.2 10*3/??L 01/04/2017 7:28 PM EDT [facility] RBC 4.62 3.60 - 5.40 10*6/??L 01/04/2017 7:28 PM EDT [facility] HGB 14.9 12.0 - 15.8 g/dL 01/04/2017 7:28 PM EDT [facility] HCT 42.7 36.0 - 48.0 % 01/04/2017 7:28 PM EDT [facility] MCV 92.4 82.0 - 98.0 fL 01/04/2017 7:28 PM EDT [facility] MCH 32.2 27.0 - 35.0 pg 01/04/2017 7:28 PM [facility] MCHC 34.9 32.0 - 37.0 g/dL 01/04/2017 7:28 PM EDT [facility] RDW 13.2 12.0 - 15.0 % 01/04/2017 7:28 PM EDT [facility] PLT 139(L) 150 - 400 10*3/??L 01/04/2017 7:28 PM T [facility] MPV 8.9 7.0 - 14.0 fL 01/04/2017 7:28 PM [facility] Neut % 39.4(L) 45.0 - 85.0 % 01/04/2017 7:28 PM [facility] Lymph % 47.7(H) 15.0 - 45.0 % 01/04/2017 7:28 PM T [facility] [place] % 7.9 0.0 - 12.0 % 01/04/2017 7:28 PM [facility] Eos % 3.8 0.0 - 7.0 % 01/04/2017 7:28 PM [facility] Baso % 1.2 0.0 - 3.0 % 01/04/2017 7:28 PM EDT [facility] Neut # 2.6 2.2 - 9.5 10*3/??L 01/04/2017 7:28 PM EDT [facility] NRBC% 0 0 /100 WBC /100 WBC 01/04/2017 7:28 PM EDT [facility] Lym # 3.1 0.7 - 5.0 10*3/??L 01/04/2017 7:28 PM EDT [facility] [place] # 0.5 0.0 - 1.3 10*3/??L 01/04/2017 7:28 PM EDT [facility] Eos # 0.2 0.0 - 0.4 10*3/??L 01/04/2017 7:28 PM EDT [facility] Baso # 0.1 0.0 - 0.3 10*3/??L 01/04/2017 7:28 PM EDT [facility] Blood specimen (specimen) Venipuncture / Unknown 01/04/2017 1:30 PM EDT 01/04/2017 7:07 PM EDT us Vazquez Kaufman MD LAB BLOOD ORDERABLES Final Result [facility] [address] [place] [address] documented in this encounter Visit Diagnoses Diagnosis [...] documented as of this encounter Care Teams Timing Inspector Relationship Specialty Start Date End Date Monique Rubio MD [address] [place] [address] PCP - General Internal Medicine 02/01/16 05/29/17 Raúl Landa MD [address] [place] [address] PCP - General Family Medicine 05/30/17 09/23/17 Jen Saunders NP [address] [place] [address] PCP - General Pain Medicine 09/24/17 08/14/18 lAex Gray Jr., MD [address] [place] [phone] PCP - General Internal Medicine 08/15/18 documented as of this encounter
--- OUTSIDE RECORDS SUMMARY | 2024-05-01 16:31 | XMS_ITS | Encounter Summary ---
Author Organization [facility] Address [address] [place] [address] Care Team Providers Care Senior Agricultural Assistant Name Role Phone Isaac Alaniz MD, Alex Tariq Primary Care Provider [phone]- [phone] Encounter Details Date Type Department Care Team (Late st Contact Info) Description 01/02/2024 Procedure Pass [facility] - [facility] [address] [place] [address] Social History Tobacco Use Types Packs/Day Years [...] on filedocumented in this encounter Care Teams Senior Agricultural Assistant Relationship Specialty Start Date End Date Alex Gray Jr., MD [address] [place] [phone] PCP - General Internal Medicine 08/15/18 documented as of this encounter
--- OUTSIDE RECORDS SUMMARY | 2024-05-01 16:31 | XMS_ITS | Encounter Summary ---
Author Organization [facility] Address [address] [place] [address] Care Team Providers Care Knitting Machine Operator Name Role Phone Isaac Alaniz MD, Alex Tariq Primary Care Provider +1- [phone] Encounter Details Date Type Department Care Team (Late st Contact Info) Description 03/17/2019 Procedure Pass [facility] - [address] [phone] Social History Tobacco Use Types [...] documented as of this encounter Care Teams Knitting Machine Operator Relationship Specialty Start Date End Date Alex Gray Jr., MD [address] [place] [phone] PCP - General Internal Medicine 08/15/18 documented as of this encounter
--- OUTSIDE RECORDS SUMMARY | 2024-05-01 16:31 | XMS_ITS | Encounter Summary ---
Author Organization [facility] Address [address] [place] [address] Care Team Providers Care Quarter Folder Name Role Phone Isaac Alaniz MD, Alex Tariq Primary Care Provider +1- [phone] Encounter Details Date Type Department Care Team (Late st Contact Info) Description 03/17/2024 [facility] [address] [place] [address] Social History Tobacco Use Types Packs/Day Years Used Date Smoking Tobacco: Every Day Cigarettes Smokeless Tobacco: Never Comments:vape Alcohol Use Standard Drinks/Week Comments Not Currently 4 (1 standard drink = 0.6 oz pur e alcohol) Housing Stability - SDOH Screener Answer Date Recorded What is your living situation today? Unsteady ho using 01/02/2024 Do you need help with Housing/Custodial resources? Not on file 01/02/2024 Patient indicated [...] on filedocumented in this encounter Care Teams Quarter Folder Relationship Specialty Start Date End Date Alex Gray Jr., MD [address] [place] [phone] PCP - General Internal Medicine 08/15/18 documented as of this encounter
--- OUTSIDE RECORDS SUMMARY | 2024-05-01 16:31 | XMS_ITS | Encounter Summary ---
Author Organization [facility] Address [address] [place] [address] Care Team Providers Care Concrete Panel Installer Name Role Phone Isaac Alaniz MD, Alex Tariq Primary Care Provider +1- [phone] Encounter Details Date Type Department Care Team (Late st Contact Info) Description 03/22/2019 Lab Requisition [address] [phone] Unknown Illness, unspecified Social History Tobacco Use [...] documented as of this encounter Care Teams Concrete Panel Installer Relationship Specialty Start Date End Date Alex Gray Jr., MD [address] [place] [phone] PCP - General Internal Medicine 08/15/18 documented as of this encounter
--- OUTSIDE RECORDS SUMMARY | 2024-05-01 16:31 | XMS_ITS | Encounter Summary ---
Author Organization [facility] Address [address] [place] [address] Care Team Providers Care Ui Software Developer Name Role Phone Isaac Alaniz MD, Alex Tariq Primary Care Provider +1- [phone] Encounter Details Date Type Department Care Team (Late st Contact Info) Description 04/17/2024 Orders Only [facility] [address] [place] [phone] Alex Gray Jr., MD [address] [place] [phone] Bipolar disorder, current episode depressed, severe, [...] using 01/02/2024 Do you need help with Housing/Detention resources? Not on file 01/02/2024 Patient indicated [...] (HCC) documented in this encounter Care Teams Ui Software Developer Relationship Specialty Start Date End Date Alex Gray Jr., MD [address] [place] [phone] PCP - General Internal Medicine 08/15/18 documented as of this encounter
--- OUTSIDE RECORDS SUMMARY | 2024-05-01 16:31 | XMS_ITS | Clinical Summary ---
Author Organization [facility] Address [address] [place] [address] Care Team Providers Care Inventory Audit Clerk Name Role Phone Isaac Alaniz MD, Alex Tariq Primary Care Provider +1- [phone] Allergies Active Allergy Reactions Criticality Noted Date [...] SW consult in place - Seen by motor coach supervisor who is assisting the patient on securing [...] SW consult in place - Seen by motor coach supervisor - working on securing a bed at a detox program. Patient tells me that she was sober until recently when she had a relapse - seems motivated to quit the use of illicit substances Continue home regimen of Remeron and clonidine Assessment & Plan (01/04/2024 4:04 PM EDT): Severe substance use disorder, including IVDU SW consult is still pending - Will involve motor coach supervisor Patient tells me that she was sober [...] Department Care Team Description 04/17/2024 Orders Only [facility] - [address] [place] [address] Alex Gray Jr., MD Bipolar disorder, current episode depressed, severe, without psychotic features (HCC); Delusional disorders (HCC); Personal history of other endocrine, nutritional and metabolic disease; Chronic obstructive pulmonary disease with (acute) exacerbation (HCC) 03/17/2024 12:39 AM EST - 03/17/2024 3:[address] [phone] Virgen Rivera DO Bug bites (Primary Dx) Discharge Disposition: Home or Self Care 03/17/[address] [facility] [address] [place] [address] 02/23/2024 5:05 PM EST - 02/23/2024 6:[address] [phone] Angelito Rodriguez PA Substance abuse (HCC) (Primary Dx) Discharge Disposition: Home or Self Care 02/14/2024 1:09 AM EST - 02/14/2024 2:[address] [phone] Cara Liz NP Skin infection (Primary Dx) Discharge Disposition: Home or Self Care 02/14/2024 Travel 01/31/2024 Pharmacy Visit [facility] [address] [place] [phone] from Last 3 Months Immunizations Name Administration [...] FOBT 2021 Sigmoidoscopy 2021 COVID-19 Vaccine ( - season) 2023 05/15/2021 Influenza Vaccine (#1) 2023 , 03/17/2019, 11/13/2016, Additional history exists DTaP,Tdap,and Td Vaccines (4 - Td or Tdap) 09/07/2032 09/07/2022, 02/11/2021, 12/13/2016 HIB Vaccines Aged Out No longer eligi ble based on patient's age to complete this topic Medical Devices Implanted Type Area Snowblower Mechanic Device Identifier Shelf Expiration Date Model / Serial / Lot Screw Screw Left: Ankle Insurance [facility] ACO Advance Directives For more information, please contact: [phone] Documents on File Type Date Recorded Patient Talent Acquisition Operations Manager Expl anation Health Care Proxy 03/21/2019 3:50 [...] 6:40 PM 04/11/2019 11:22 PM Care Teams Inventory Audit Clerk Relationship Specialty Start Date End Date Alex Gray Jr., MD [address] [place] [phone] PCP - General Internal Medicine 08/15/18
--- OUTSIDE RECORDS SUMMARY | 2024-05-01 16:31 | XMS_ITS | Encounter Summary ---
Author Organization [facility] Address [address] [facility] Main Number: [phone] (26/10) [place] [address] Care Team Providers Care Media Theorist And Author Of Name Role Phone Alex Gray MD Primary Care Provider [phone] Encounter Details Date Type Department Care Team ([facility] st Contact Info) Description 04/13/2024 Telephone Team [place] [facility] [address] [facility]th [place] [address] Charlee Patterson LICSW [address] [facility] [address] Social History Tobacco Use Types Packs/Day Years [...] on filedocumented in this encounter Care Teams Media Theorist And Author Of Relationship Specialty Start Date End Date Alex Gray MD [address] [place] [phone] PCP - General 01/28/23 documented as of this encounter
--- OUTSIDE RECORDS SUMMARY | 2024-05-01 16:31 | XMS_ITS | Encounter Summary ---
Author Organization [facility] Address [address] [place] [address] Care Team Providers Care Rotary Adjuster Name Role Phone Isaac Alaniz MD, Alex Tariq Primary Care Provider [phone]- [phone] Encounter Details Date Type Department Care Team (Late st Contact Info) Description 03/22/2019 Lab Requisition [address] [phone] Unknown Illness, unspecified Social History Tobacco Use [...] SUSCEPTIBIL ITY TESTING 03/23/2019 10:16 AM EST [facility] Swab (specimen) Both anterior nares / Unknown Collection / Unknown 03/21/2019 8:00 PM EST 03/22/2019 6:35 AM EST us Unknown MICROBIOLOGY - GENERAL ORDERABLE S Final Result [facility] [address] [place], [place] documented in this encounter Visit Diagnoses Diagnosis Illness, unspecified documented in this encounter Additional Health Concerns Infection Onset Date Last Indicated Resolved Time MRSA Comment:Cleared 05/19/21 nf MRSA blood/chin 03/14/19 sa 03/14/2019 03/17/2019 2021 2 :15 PM EST PUI COVID 01/01/2024 01/01/2024 01/01/2024 1:19 PM EDT documented as of this encounter Care Teams Rotary Adjuster Relationship Specialty Start Date End Date Alex Gray Jr., MD [address] [place] [phone] PCP - General Internal Medicine 08/15/18 documented as of this encounter
--- OUTSIDE RECORDS SUMMARY | 2024-05-01 16:31 | XMS_ITS | Encounter Summary ---
Author Organization [facility] Address [address] [place] [address] Care Team Providers Care Gun Sealing Machine Operator Name Role Phone Isaac Alaniz MD, Alex Tariq Primary Care Provider [phone]- [phone] Encounter Details Date Type Department Care Team (Late st Contact Info) Description 12/03/2022 Lab Requisition [facility] [address] [place] [phone] Demetria Garner, LASER BEAM MACHINE OPERATOR [address] [place] [address] Illness, unspecified Social History Tobacco [...] SUSCEPTIBIL ITY TESTING 12/04/2022 3:33 PM EDT [facility] Swab Both anterior nares / Unknown Collection / Unknown 12/03/2022 5:00 AM EDT 12/03/2022 9:05 AM EDT us Demetria Garner LASER BEAM MACHINE OPERATOR MICROBIOLOGY - GENERAL ORD ERABLES Final Result [facility] [address] [place] [address] documented in this encounter Visit Diagnoses Diagnosis Illness, unspecified documented in this encounter Additional Health Concerns Infection Onset Date Last Indicated Resolved Time PUI COVID 01/01/2024 01/01/2024 01/01/2024 1:19 PM EDT documented as of this encounter Care Teams Gun Sealing Machine Operator Relationship Specialty Start Date End Date Alex Gray Jr., MD [address] [place] [phone] PCP - General Internal Medicine 08/15/18 documented as of this encounter
--- OUTSIDE RECORDS SUMMARY | 2024-05-01 16:31 | XMS_ITS | Referral Summary ---
Author Organization [facility] Address [address] [facility] [address] Main Number: [phone] (26/10) [place] [address] Care Team Providers Care Pipe Cleaner Name Role Phone Alex Gray MD Primary Care Provider [phone] Encounters Date Type Department Care Team Description 04/13/2024 Telephone [place] [address] [facility]th [place] [address] Charlee Patterson LICSW from Last 3 Months [...] of Treatment Not on file Care Teams Pipe Cleaner Relationship Specialty Start Date End Date Alex Gray MD [address] [place] [phone] PCP - General 01/28/23
--- OUTSIDE RECORDS SUMMARY | 2024-05-01 16:31 | XMS_ITS | Encounter Summary ---
Author Organization [facility] Address [address] [place] [address] Care Team Providers Care Night Supervisor Name Role Phone Monique Rubio MD Primary Care Provider Raúl Landa MD Primary Care Provider [phone] Jen Saunders NP Primary Care Provider Isaac Alaniz MD, Donald P Primary Care Provider [phone]- [phone] Encounter Details Date Type Department Care Team (Late st Contact Info) Description 03/24/2017 Lab Requisition [facility] [address] [place] [address] Zunilda Sneed NP [address] [place] [address] Encounter for general adult medical [...] Detected None Detected 03/24/2017 6:51 PM EST [facility] Barbiturates Qualitative, Ur None Detected None Detected 03/24/2017 6:51 PM [facility] Benzodiazepines Qualitative, Ur None Detected None Detected 03/24/2017 6:51 PM [facility] Methadone Qualitative, Ur Detected(A) None Detected 03/24/2017 6:51 PM [facility] Opiates Qualitative, Ur None Detected None Detected 03/24/2017 6:51 PM [facility] Creatinine, Urine 142.5 20.0 - 400.0 mg/dL 03/24/2017 6:51 PM [facility] Cannabinoids Qualitative, Ur None Detected None Detected 03/24/2017 6:51 PM [facility] Cocaine Qualitative, Ur None Detected None Detected 03/24/2017 6:51 PM [facility] Urine specimen (specimen) 03/24/2017 3:25 PM EST 03/24/2017 3:25 PM EST [facility] - 03/24/2017 6:51 PM EST This [...] the patient's ??clinical condition. us Zunilda Sneed [employer] URINE ORDERABLES Final Result [facility] [address] [place] [address] documented in this encounter Visit Diagnoses Diagnosis Encounter for general adult medical examination without abnormal findings documented in this encounter Additional Health Concerns Infection Onset Date Last Indicated Resolved Time MRSA Comment:Cleared 05/19/21 nf MRSA blood/chin 03/14/19 sa 03/14/2019 03/17/2019 2021 2 :15 PM EST PUI COVID 01/01/2024 01/01/2024 01/01/2024 1:19 PM EDT documented as of this encounter Care Teams Night Supervisor Relationship Specialty Start Date End Date Monique Rubio MD [address] [place] [id number] PCP - General Internal Medicine 02/01/16 05/29/17 Raúl Landa MD [address] [place] [phone] PCP - General Family Medicine 05/30/17 09/23/17 Jen Saunders NP [address] [place] [address] PCP - General Pain Medicine 09/24/17 08/14/18 Alex Gray Jr., MD [address] [place] [address] PCP - General Internal Medicine 08/15/18 documented as of this encounter
--- OUTSIDE RECORDS SUMMARY | 2024-05-01 16:31 | XMS_ITS | Encounter Summary ---
Author Organization [facility] Address [address] [place] [address] Care Team Providers Care Talent Acquisition Partner Name Role Phone Isaac lAaniz MD, Alex Tariq Primary Care Provider [phone] Encounter Details Date Type Department Care Team (Late st Contact Info) Description 01/10/2024 Pharm[facility] Visit [facility] [address] [place] [address] Social History Tobacco Use Types [...] on filedocumented in this encounter Care Teams Talent Acquisition Partner Relationship Specialty Start Date End Date Alex Gray Jr., MD [address] [place] [phone] PCP - General Internal Medicine 08/15/18 documented as of this encounter
--- OUTSIDE RECORDS SUMMARY | 2024-05-01 16:31 | XMS_ITS | Encounter Summary ---
Author Organization [facility] Address [address] [place] [address] Care Team Providers Care Compounding Scaler Name Role Phone Isaac Alaniz MD, Alex Tariq Primary Care Provider [phone]- [phone] Encounter Details Date Type Department Care Team (Late st Contact Info) Description 11/26/2022 Procedure Pass [address] [address] Social History Tobacco Use Types [...] documented as of this encounter Care Teams Compounding Scaler Relationship Specialty Start Date End Date Alex Gray Jr., MD [address] [place] [phone] PCP - General Internal Medicine 08/15/18 documented as of this encounter
--- OUTSIDE RECORDS SUMMARY | 2024-05-01 16:31 | XMS_ITS | Encounter Summary ---
Author Organization [facility] Address [address] [place] [address] Care Team Providers Care Maintenance Advisor Name Role Phone Isaac Alaniz MD, Alex Tariq Primary Care Provider [phone]- [phone] Encounter Details Date Type Department Care Team (Late st Contact Info) Description 11/26/2022 Procedure Pass [address] [address] Social History Tobacco Use [...] documented as of this encounter Care Teams Maintenance Advisor Relationship Specialty Start Date End Date Alex Gray Jr., MD [address] [place] [phone] PCP - General Internal Medicine 08/15/18 documented as of this encounter
--- OUTSIDE RECORDS SUMMARY | 2024-05-01 16:31 | XMS_ITS | Encounter Summary ---
Author Organization [facility] Address [address] [place] [address] Care Team Providers Care Choir Director Name Role Phone Isaac Alaniz MD, Alex Tariq Primary Care Provider [phone]- [phone] Encounter Details Date Type Department Care Team (Late st Contact Info) Description 12/03/2022 Lab Requisition [address] [phone] Unknown Illness, unspecified Social History Tobacco Use [...] CRP, Inflammation (12/03/2022 5:45 AM EDT) Pathologist [facility] CRP, Inflammation 49.10(H) 0.00 - 3.00 mg/L 12/03/2022 10:13 AM EDT [facility] Blood Venipuncture / Unknown 12/03/2022 5:45 AM EDT 12/03/2022 9:18 AM EDT Narrative [facility] - 12/03/2022 10:13 AM EDT >10.0 ?Consider infection/inflammation us Unknown LAB BLOOD ORDERABLES Final Resul t Performing Organization Address City/[facility] Co de Phone Number [facility] [address] [place] [phone] * Phosphorus (12/03/2022 5:45 AM EDT) Pathologist [facility] Phosphorus 4.4 2.4 - 5.1 mg/dL 12/03/2022 10:12 AM EDT [facility] Blood Venipuncture / Unknown 12/03/2022 5:45 AM EDT 12/03/2022 9:18 AM EDT us Unknown LAB BLOOD ORDERABLES Final Resul t Performing Organization Address City/[facility]/ZIP Co de Phone Number [facility] [address] [place] [phone] * Magnesium (12/03/2022 5:45 AM EDT) Pathologist [facility] Magnesium 2.1 1.6 - 2.6 mg/dL 12/03/2022 10:12 AM EDT [facility] Blood Venipuncture / Unknown 12/03/2022 5:45 AM EDT 12/03/2022 9:18 AM EDT us Unknown LAB BLOOD ORDERABLES Final Resul t [facility] [address] [place] [address] * (ABNORMAL) Comprehensive metabolic panel (12/03/2022 5:45 AM EDT) Sodium 134(L) 136 - 145 mEq/L 12/03/2022 10:13 AM EDT [facility] Potassium 4.5 3.5 - 5.1 mEq/L 12/03/2022 10:13 AM EDT [facility] Chloride 100 98 - 107 mEq/L 12/03/2022 10:13 AM EDT [facility] CO2 26 20 - 31 mEq/L 12/03/2022 10:13 AM EDT [facility] Anion Gap 8 4 - 15 mEq/L 12/03/2022 10:13 AM EDT [facility] Glucose 127(H) 70 - 100 mg/dL 12/03/2022 10:13 AM EDT [facility] Creatinine 0.68 0.50 - 1.00 mg/dL 12/03/2022 10:13 AM EDT [facility] eGFR (Female) >60 60 - 115 mL/min 12/03/2022 10:13 AM EDT [facility] BUN 14 9 - 23 mg/dL 12/03/2022 10:13 AM EDT [facility] Calcium 8.9 8.7 - 10.4 mg/dL 12/03/2022 10:13 AM EDT [facility] Total Protein 8.0 5.7 - 8.2 g/dL 12/03/2022 10:13 AM EDT [facility] Albumin 3.7 3.2 - 4.8 g/dL 12/03/2022 10:13 AM EDT [facility] A/G Ratio 0.9(L) 1.0 - 2.3 12/03/2022 10:13 AM EDT [facility] Total Bilirubin 0.3 0.2 - 1.0 mg/dL 12/03/2022 10:13 AM EDT [facility] AST 107(H) 13 - 40 U/L 12/03/2022 10:13 AM EDT [facility] Alkaline Phosphatase 121(H) 46 - 116 IU/L 12/03/2022 10:13 AM EDT [facility] ALT 128(H) 7 - 40 U/L 12/03/2022 10:13 AM EDT [facility] Blood Venipuncture / Unknown 12/03/2022 5:45 AM EDT 12/03/2022 9:18 AM EDT us Unknown LAB BLOOD ORDERABLES Final Resul t [facility] [address] [place] [address] * (ABNORMAL) CBC and Auto Differential (12/03/2022 5:45 AM EDT) WBC 10.3 4.8 - 11.2 10*3/??L 12/03/2022 10:24 AM EDT [facility] RBC 3.91 3.60 - 5.40 10*6/??L 12/03/2022 10:24 AM EDT [facility] HGB 12.0 12.0 - 15.8 g/dL 12/03/2022 10:24 AM EDT [facility] HCT 34.9(L) 36.0 - 48.0 % 12/03/2022 10:24 AM EDT [facility] MCV 89.3 82.0 - 98.0 fL 12/03/2022 10:24 AM EDT [facility] MCH 30.6 27.0 - 35.0 pg 12/03/2022 10:24 AM EDT [facility] MCHC 34.3 32.0 - 37.0 g/dL 12/03/2022 10:24 AM EDT [facility] RDW 13.5 12.0 - 15.0 % 12/03/2022 10:24 AM EDT [facility] PLT 351 150 - 400 10*3/??L 12/03/2022 10:24 AM EDT [facility] MPV 8.0 7.0 - 14.0 fL 12/03/2022 10:24 AM EDT [facility] Neut % 62.1 45.0 - 85.0 % 12/03/2022 10:24 AM EDT [facility] Lymph % 25.5 15.0 - 45.0 % 12/03/2022 10:24 AM EDT [facility] [place] % 10.3 0.0 - 12.0 % 12/03/2022 10:24 AM EDT [facility] Eos % 1.4 0.0 - 7.0 % 12/03/2022 10:24 AM EDT [facility] Baso % 0.7 0.0 - 3.0 % 12/03/2022 10:24 AM EDT [facility] NRBC% 0 0 /100 WBC /100 WBC 12/03/2022 10:24 AM EDT [facility] Neut # 6.4 2.2 - 9.5 10*3/??L 12/03/2022 10:24 AM EDT [facility] Lym # 2.6 0.7 - 5.0 10*3/??L 12/03/2022 10:24 AM EDT [facility] [place] # 1.1 0.0 - 1.3 10*3/??L 12/03/2022 10:24 AM EDT [facility] Eos # 0.1 0.0 - 0.4 10*3/??L 12/03/2022 10:24 AM EDT [facility] Baso # 0.1 0.0 - 0.3 10*3/??L 12/03/2022 10:24 AM EDT [facility] Blood Venipuncture / Unknown 12/03/2022 5:45 AM EDT 12/03/2022 9:18 AM EDT Narrative [facility] - 12/03/2022 10:24 AM EDT This is an appended report. ??These results have been appended to a previously verified report. us Unknown LAB BLOOD ORDERABLES Final Resul t [facility] [address] [place] [address] documented in this encounter Visit Diagnoses Diagnosis Illness, unspecified documented in this encounter Additional Health Concerns Infection Onset Date Last Indicated Resolved Time PUI COVID 01/01/2024 01/01/2024 01/01/2024 1:19 PM EDT documented as of this encounter Care Teams Choir Director Relationship Specialty Start Date End Date Alex Gray Jr., MD [address] [place] [phone] PCP - General Internal Medicine 08/15/18 documented as of this encounter
--- OUTSIDE RECORDS SUMMARY | 2024-05-01 16:31 | XMS_ITS | Encounter Summary ---
Author Organization [facility] Address [address] [place] [address] Care Team Providers Care [employer] Name Role Phone Isaac Alaniz MD, Alex Tariq Primary Care Provider +1- [phone] Encounter Details Date Type Department Care Team (Late st Contact Info) Description 03/27/2019 Lab Requisition [address] [phone] Unknown Illness, unspecified Social History Tobacco Use [...] - 20.0 ug/mL 03/27/2019 8:52 AM EST [facility] Blood specimen (specimen) Non-[facility]G Collection / Unknown 03/27/2019 5:59 AM EST 03/27/2019 7:49 AM EST us Unknown LAB BLOOD ORDERABLES Final Resul t [facility] [address] [place], [place] * CBC and Auto Differential (03/27/2019 5:59 AM EST) WBC 10.2 4.8 - 11.2 10*3/??L 03/27/2019 8:39 AM EST [facility] RBC 4.48 3.60 - 5.40 10*6/??L 03/27/2019 8:39 AM EST [facility] HGB 14.5 12.0 - 15.8 g/dL 03/27/2019 8:39 AM EST [facility] HCT 43.0 36.0 - 48.0 % 03/27/2019 8:39 AM [facility] MCV 96.1 82.0 - 98.0 fL 03/27/2019 8:39 AM [facility] MCH 32.3 27.0 - 35.0 pg 03/27/2019 8:39 AM [facility] MCHC 33.6 32.0 - 37.0 g/dL 03/27/2019 8:39 AM [facility] RDW 13.5 12.0 - 15.0 % 03/27/2019 8:39 AM [facility] PLT 207 150 - 400 10*3/??L 03/27/2019 8:39 AM [facility] MPV 8.7 7.0 - 14.0 fL 03/27/2019 8:39 AM EST [facility] Neut % 51.3 45.0 - 85.0 % 03/27/2019 8:39 AM [facility] Lymph % 40.7 15.0 - 45.0 % 03/27/2019 8:39 AM EST [facility] [place] % 5.9 0.0 - 12.0 % 03/27/2019 8:39 AM EST [facility] Eos % 1.5 0.0 - 7.0 % 03/27/2019 8:39 AM [facility] Baso % 0.6 0.0 - 3.0 % 03/27/2019 8:39 AM [facility] NRBC% 0 0 /100 WBC /100 WBC 03/27/2019 8:39 AM [facility] Neut # 5.2 2.2 - 9.5 10*3/??L 03/27/2019 8:39 AM EST [facility] Lym # 4.1 0.7 - 5.0 10*3/??L 03/27/2019 8:39 AM [facility] [place] # 0.6 0.0 - 1.3 10*3/??L 03/27/2019 8:39 AM [facility] Eos # 0.1 0.0 - 0.4 10*3/??L 03/27/2019 8:39 AM EST [facility] Baso # 0.1 0.0 - 0.3 10*3/??L 03/27/2019 8:39 AM [facility] Blood specimen (specimen) Non-SHG Collection / Unknown 03/27/2019 5:59 AM EST 03/27/2019 7:49 AM EST us Unknown LAB BLOOD ORDERABLES Final Resul t [facility] [address] [place], [place] * CRP, Ultrasensitive (03/27/2019 5:59 AM EST) Pathologist [facility] CRP, Ultrasensitive 0.6 0.0 - 8.0 mg/L 03/27/2019 9:09 AM EST [facility] Blood specimen (specimen) Non-SHG Collection / Unknown 03/27/2019 5:59 AM EST 03/27/2019 7:49 AM EST Narrative [facility] - 03/27/2019 9:09 AM EST C Reactive Protein High Sensitivity < 1.0 ? mg/L ?Low cardiovascular risk 1.0 - 3.0 ?? mg/L ?Average cardiovascular risk 3.1 - 10.0 ??mg/L ?High cardiovascular risk > 10.0 ?Consider infection/inflammation us Unknown LAB BLOOD ORDERABLES Final Resul t Performing Organization Address City/State/[facility] Co de Phone Number [facility] [address] [place], [place] * Basic metabolic panel (03/27/2019 5:59 AM EST) Pathologist [facility] Sodium 142 137 - 147 mEq/L 03/27/2019 8:59 AM EST [facility] Potassium 4.3 3.5 - 5.4 mEq/L 03/27/2019 8:59 AM EST [facility] Chloride 104 96 - 107 mEq/L 03/27/2019 8:59 AM EST [facility] CO2 27 24 - 34 mEq/L 03/27/2019 8:59 AM EST [facility] Anion Gap 11 4 - 15 mEq/L 03/27/2019 8:59 AM EST [facility] Glucose 96 70 - 100 mg/dL 03/27/2019 8:59 AM EST [facility] Creatinine 0.62 0.50 - 1.30 mg/dL 03/27/2019 8:59 AM EST [facility] eGFR >60 60 - 115 mL/min 03/27/2019 8:59 AM EST [facility] BUN 21 6 - 26 mg/dL 03/27/2019 8:59 AM EST [facility] Calcium 9.3 8.7 - 10.5 mg/dL 03/27/2019 8:59 AM EST [facility] Blood specimen (specimen) Non-SHG Collection / Unknown 03/27/2019 5:59 AM EST 03/27/2019 7:49 AM EST us Unknown LAB BLOOD ORDERABLES Final Resul t [facility] [address] [place], [place] documented in this encounter Visit Diagnoses Diagnosis Illness, unspecified documented in this encounter Additional Health Concerns Infection Onset Date Last Indicated Resolved Time MRSA Comment:Cleared 05/19/21 nf MRSA blood/chin 03/14/19 sa 03/14/2019 03/17/2019 2021 2 :15 PM EST PUI COVID 01/01/2024 01/01/2024 01/01/2024 1:19 PM EDT documented as of this encounter Care Teams [employer] Relationship Specialty Start Date End Date Alex Gray Jr., MD [address] [place] [phone] PCP - General Internal Medicine 08/15/18 documented as of this encounter
--- OUTSIDE RECORDS SUMMARY | 2024-05-01 16:31 | XMS_ITS | Encounter Summary ---
Author Organization [facility] Address [address] [place] [address] Care Team Providers Care Farm Truck Driver Name Role Phone Isaac Alaniz MD, Alex Tariq Primary Care Provider +[phone]- [phone] Encounter Details Date Type Department Care Team (Late st Contact Info) Description 01/07/2024 Pharm[facility] [address] [place] [phone] Social History Tobacco Use Types [...] on filedocumented in this encounter Care Teams Farm Truck Driver Relationship Specialty Start Date End Date Alex Gray Jr., MD [address] [place] [phone] PCP - General Internal Medicine 08/15/18 documented as of this encounter
--- OUTSIDE RECORDS SUMMARY | 2024-05-01 16:31 | XMS_ITS | Referral Summary ---
Demographics Address [address] [facility] [facility] [address] Home Phone Preferred Language Telugu Marital Status Unknown Buddhism Affiliation Unknown Race White Ethnic Group Not or Lati no Author Organization [facility] Address [address] [place] [address] Care Team Providers Care Pantry Attendant Name Role Phone Patient, Has No Pcp Or Ref Primary Care Provider Unavailable Encounters Date Type Department Care Team Description 02/25/2024 12:29 PM EST - 02/25/2024 8:24 PM EST Emergency [facility] Emergency Department [address] [place] [address] [phone] Courtney Gooden MD O'Connor, Alyse Whitehead MD [...] Not on file Procedures * Due to [place] [employer] law, this organization might not be sharing [...] to Health Maintenance Results * Due to [place] [employer] law, this organization might not be sharing [...] - 12.5 fL 02/25/2024 4:02 PM EST [facility] Neutrophil % 78.7 % 02/25/2024 4:02 PM EST [facility] Immature Grans [...] - 0.50 10*3/uL 02/25/2024 4:02 PM EST [facility] Basophil # <0.03 0.00 - 0.20 10*3/uL 02/25/2024 4:02 PM EST [facility] nRBC % 0.0 /100 WBCs 02/25/2024 4:02 PM EST [facility] nRBC # <0.01 <0.01 10*3/uL 02/25/2024 4:02 PM EST [facility] Blood Structure of peripheral vein / Unknown Venipuncture / Unknown 02/25/2024 3:43 PM EST 02/25/2024 3:53 PM EST Courtney Gooden MD LAB BLOOD ORDERABLES Columba l Result Performing Organization Address [facility] de Phone Number [facility] [address] [place] [address], * hCG, Qualitative, Serum (02/25/2024 3:43 PM EST) HCG Qualitative, Serum Negative Negative 02/25/2024 4:31 PM EST [facility] Comment: hCG greater than [...] ORDERABLES Columba l Result Performing Organization Address [facility]/ZIP Co de Phone Number [facility] [address] [place] [address], * (ABNORMAL) Hepatic Function Panel (02/25/2024 3:43 PM EST) Total Protein 7.2 6.0 - 8.0 g/dL 02/25/2024 4:31 PM EST [facility] Albumin 3.9 3.5 - 5.2 g/dL 02/25/2024 4:31 PM EST [facility] Globulin, Total 3.3 2.1 - 4.2 g/dL 02/25/2024 4:31 PM EST [facility] Bilirubin, Total 0.3 0.2 - 1.2 mg/dL 02/25/2024 4:31 PM EST [facility] Bilirubin, Direct 0.1 <=0.4 mg/dL 02/25/2024 4:31 PM EST [facility] Alkaline Phosphatase 68 35 - 129 U/L 02/25/2024 4:31 PM EST [facility] AST 29 10 - 40 U/L 02/25/2024 4:31 PM EST [facility] ALT 18 10 - 40 U/L 02/25/2024 4:31 PM EST [facility] Bilirubin, Indirect 0.20 <=0.70 mg/dL 02/25/2024 4:31 PM EST [facility] A/G Ratio 1.2(L) 1.5 - 3.0 02/25/2024 4:31 PM EST [facility] Blood Structure of peripheral vein / Unknown Venipuncture / Unknown 02/25/2024 3:43 PM EST 02/25/2024 3:54 PM EST us Courtney Gooden MD LAB BLOOD ORDERABLES Columba l Result [facility] [address] [place] [address], [place] * (ABNORMAL) Basic Metabolic Panel (02/25/2024 3:43 PM EST) NA 138 135 - 145 mmol/L 02/25/2024 4:31 PM EST [facility] K 3.6 3.5 - 5.3 mmol/L 02/25/2024 4:31 PM EST [facility] Cl 105 98 - 107 mmol/L 02/25/2024 4:31 PM EST [facility] CO2 22 22 - 32 mmol/L 02/25/2024 4:31 PM EST [facility] BUN 6(L) 7 - 23 mg/dL 02/25/2024 4:31 PM EST [facility] Creatinine 0.43(L) 0.50 - 1.20 mg/dL 02/25/2024 4:31 PM EST [facility] Glucose 151(H) 65 - 99 mg/dL 02/25/2024 4:31 PM EST [facility] Calcium 9.1 8.6 - 10.5 mg/dL 02/25/2024 4:31 PM EST [email or web address] Anion Gap 11 5 - 15 02/25/2024 4:31 PM EST [facility] eGFR >90 >=60 mL/min/1 .73m2 02/25/2024 4:31 PM EST [email or web address] Comment:The estimated glomer ular [...] BLOOD ORDERABLES Columba martinez Result [facility] [address] [place] [address], [place] * X-Ray Chest 1 View (02/25/2024 [...] obtain the completed interpretation. ? Workstation ID: [id number] Narrative 02/25/2024 2:38 PM EST COMPARISON: None FINDINGS AND Resulting Agency Comment [id number] Procedure Note Raúl Centeno MD - 02/25/2024 COMPARISON: None FINDINGS AND IMPRESSION: No consolidation, pleural effusion, or pneumothorax. Normal heart size.No pulmonary vascular congestion. No acute displaced fracture identified. If this radiology report contains a blank impression section, it is anincomplete radiology report. Please contact the interpreting radiologistor applicable radiology division as soon as possible to obtain thecompleted interpretation. Workstation ID: [id number] us Courtney Gooden MD IMG XR PROCEDURES Final R esult * (ABNORMAL) POCT Glucose, interfaced (02/25/2024 12:36 PM EST) Glucose, POCT 169(H) 70 - 99 mg/dL 02/25/2024 12:37 PM EST [facility] Comment: The correction warden has not determined the efficacy of this test in Critically ill patients. ??[facility] defines Critically ill patients for the [...] DEVICE Fin al Result Performing Organization Address City/State/[facility] Co de Phone Number [facility] [address] [phone], * Pap (02/26/2003 10:04 PM EST) Path Procedure PAP OUTSOURCED 1 ?? Edited by: [id number] [facility] Specimen Labeled As: 1 CERVICAL/ENDOCERVI ROZ CYTO MATERIAL - Edited by: [id number] SALO [facility] Diagnosis [...] REACTIVE CELLULAR CHANGES ? Test performed at [facility]; A [facility] Affiliate ?[facility] [place] ?? Edited by: [id number] - [id number] [facility] Marker 1 NILM,NILM [facility] Cc Results To [facility] Signature REPORT SIGNED: MERLINE SIMS MD 03/13/03 [facility] Sign Out Audit MERLINE SIMS MD [id number] FINAL Y [place] [id number] [facility] Cytology / Unknown 3 10:04 PM EST 02/28/2003 10:04 PM EST us Historical Conversion Provider LAB PATHOLOGY/CYT OLOGY ORDERABLES Final Result [facility] [address] [place] [address], from Last 3 Months or Most Recently Relevant to Health Maintenance Insurance * Guarantor: Tabitha Weaver Account Type Relation to Patient Date of Phone Billing Address Personal/Family Self 1975 [address] [facility] [address] [place] [address] [facility] MEDICAID Care Teams Pantry Attendant Relationship Specialty Start Date End Date Patient, Has No Pcp Or Ref DO NOT EDIT THIS RECORD VIA PROVIDER ON THE FLY PCP - General Senior Art Director 02/25/24
--- OUTSIDE RECORDS SUMMARY | 2024-05-01 16:31 | XMS_ITS | Encounter Summary ---
Author Organization [facility] Address [address] [place] [address] Care Team Providers Care Accounts Receivable Coordinator Name Role Phone Isaac Alaniz MD, Alex Tariq Primary Care Provider [phone]- [phone] Encounter Details Date Type Department Care Team (Late st Contact Info) Description 01/03/2024 Procedure Pass [facility] [address] [place] [address] Social History Tobacco Use Types Packs/Day Years Used Date Smoking Tobacco: Every Day Cigarettes Smokeless Tobacco: Never Comments:vape Alcohol Use Standard Drinks/Week Comments Not Currently 4 (1 standard drink = 0.6 oz pur e alcohol) Housing Stability - SDOH Screener Answer Date Recorded What is your living situation today? Unsteady ho using 01/02/2024 Do you need help with Housing/Care Home resources? Not on file 01/02/2024 Patient [...] on filedocumented in this encounter Care Teams Accounts Receivable Coordinator Relationship Specialty Start Date End Date Alex Gray Jr., MD [address] [place] [phone] PCP - General Internal Medicine 08/15/18 documented as of this encounter
--- OUTSIDE RECORDS SUMMARY | 2024-05-01 16:31 | XMS_ITS | Encounter Summary ---
Author Organization [facility] Address [address] [place] [address] Care Team Providers Care Punch Hand Name Role Phone Isaac Alaniz MD, Alex Tariq Primary Care Provider +1- [phone] Encounter Details Date Type Department Care Team (Late st Contact Info) Description 01/06/2024 Procedure Pass [facility] [address] [place] [address] Social History Tobacco Use Types Packs/Day Years Used Date Smoking Tobacco: Every Day Cigarettes Smokeless Tobacco: Never Comments:vape Alcohol Use Standard Drinks/Week Comments Not Currently 4 (1 standard drink = 0.6 oz pur e alcohol) Housing Stability - SDOH Screener Answer Date Recorded What is your living situation today? Unsteady ho using 01/02/2024 Do you need help with Housing/[facility] resources? Not on file 01/02/2024 Patient indicated [...] on filedocumented in this encounter Care Teams Punch Hand Relationship Specialty Start Date End Date Alex Gray Jr., MD [address] [place] [phone] PCP - General Internal Medicine 08/15/18 documented as of this encounter
--- OUTSIDE RECORDS SUMMARY | 2024-05-01 16:31 | XMS_ITS | Clinical Summary ---
Author Organization [facility] Address [address] [facility] Main Number: [phone] (26/10) [place] [address] Care Team Providers Care Aircraft Manager Name Role Phone Alex Gray MD Primary Care Provider [phone] Allergies No known active allergies Medications Medication [...] Type Department Care Team Description [facility] [address] [facility] [place] [address] Charlee Patterson LICSW from Last 3 Months [...] age to complete this topic Care Teams Aircraft Manager Relationship Specialty Start Date End Date Alex Gray MD [address] [place] [address] PCP - General 01/28/23
--- OUTSIDE RECORDS SUMMARY | 2024-05-01 16:31 | XMS_ITS | Encounter Summary ---
Author Organization [facility] Address [address] [place] [address] Care Team Providers Care Commercial Lease Administrator Name Role Phone Isaac Alaniz MD, Alex Tariq Primary Care Provider [phone]- [phone] Encounter Details Date Type Department Care Team (Late st Contact Info) Description 04/10/2019 Lab Requisition [address] [phone] Unknown Illness, unspecified Social History Tobacco Use [...] documented as of this encounter Care Teams Commercial Lease Administrator Relationship Specialty Start Date End Date Alex Gray Jr., MD [address] [place] [phone] PCP - General Internal Medicine 08/15/18 documented as of this encounter
--- OUTSIDE RECORDS SUMMARY | 2024-05-01 16:31 | XMS_ITS | Encounter Summary ---
Author Organization [facility] Address [address] [place] [address] Care Team Providers Care Patient Care Manager Name Role Phone Isaac Alaniz MD, Alex Tariq Primary Care Provider [phone]- [phone] Encounter Details Date Type Department Care Team (Late st Contact Info) Description 01/11/2024 [facility] [address] [place] [address] Social History Tobacco Use Types Packs/Day Years Used Date Smoking Tobacco: Every Day Cigarettes Smokeless Tobacco: Never Comments:vape Alcohol Use Standard Drinks/Week Comments Not Currently 4 (1 standard drink = 0.6 oz pur e alcohol) Housing Stability - SDOH Screener Answer Date Recorded What is your living situation today? Unsteady ho using 01/02/2024 Do you need help with Housing/Halfway resources? Not on file 01/02/2024 Patient indicated [...] on filedocumented in this encounter Care Teams Patient Care Manager Relationship Specialty Start Date End Date Alex Gray Jr., MD [address] [place] [phone] PCP - General Internal Medicine 08/15/18 documented as of this encounter
--- OUTSIDE RECORDS SUMMARY | 2024-05-01 16:31 | XMS_ITS | Encounter Summary ---
Author Organization [facility] Address [address] [place] [address] Care Team Providers Care Mustanger Name Role Phone Isaac Alaniz MD, Alex Tariq Primary Care Provider [phone]- [phone] Encounter Details Date Type Department Care Team (Late st Contact Info) Description 03/23/2019 Lab Requisition [address] [phone] Unknown Illness, unspecified Social History Tobacco Use [...] 0 - 2 HPF 03/23/2019 8:30 AM COUNT INCLUDES [facility] RBC 0-2 0 - 2 HPF 03/23/2019 8:30 AM COUNT INCLUDES [facility] Squam Epithelial Many(A) Few HPF 03/23/2019 8:30 AM COUNT INCLUDES [facility] [facility] Mucus Few Few HPF 03/23/2019 8:30 AM COUNT INCLUDES [facility] [facility] Ca Oxalate Crystals Few(A) None Seen HPF 03/23/2019 8:30 AM COUNT INCLUDES [facility] [facility] Urine specimen (specimen) Urine specimen / Unknown Collection / Unknown 03/22/2019 8:00 PM EST 03/23/2019 6:46 AM EST us Unknown URINE ORDERABLES Final Result Performing Organization Address City/State/[facility] Co de Phone Number [facility] [address] [place] [address] * (ABNORMAL) Urinalysis, Reflex to Culture (03/22/2019 8:00 PM EST) Color Yellow Yellow 03/23/2019 8:27 AM COUNT INCLUDES [facility] Clarity, UA Slightly Cloudy(A) Clear 03/23/2019 8:27 AM COUNT INCLUDES [facility] Specific [place] 1.024 1.005 - 1.030 03/23/2019 8:27 AM COUNT INCLUDES [facility] pH 6.0 5.0 - 7.0 03/23/2019 8:27 AM COUNT INCLUDES [facility] Protein Negative Negative mg/dL 03/23/2019 8:27 AM COUNT INCLUDES [facility] Glucose Negative Negative mg/dL 03/23/2019 8:27 AM COUNT INCLUDES [facility] Ketones Negative Negative mg/dL 03/23/2019 8:27 AM COUNT INCLUDES [facility] Blood Negative Negative mg/dL 03/23/2019 8:27 AM COUNT INCLUDES [facility] Bilirubin UA Negative Negative mg/dL 03/23/2019 8:27 AM COUNT INCLUDES [facility] Urobilinogen Normal Normal mg/dL 03/23/2019 8:27 AM EST [facility] Nitrite Negative Negative 03/23/2019 8:27 AM EST [facility] Leukocyte Esterase 25(A) Negative Maggie/uL 03/23/2019 8:27 AM EST [facility] Urine specimen (specimen) Urine specimen / Unknown Collection / Unknown 03/22/2019 8:00 PM EST 03/23/2019 6:46 AM EST us Unknown URINE ORDERABLES Final Result [facility] [address] [place], [place] documented in this encounter Visit Diagnoses Diagnosis Illness, unspecified documented in this encounter Additional Health Concerns Infection Onset Date Last Indicated Resolved Time MRSA Comment:Cleared 05/19/21 nf MRSA blood/chin 03/14/19 sa 03/14/2019 03/17/2019 2021 2 :15 PM EST PUI COVID 01/01/2024 01/01/2024 01/01/2024 1:19 PM EDT documented as of this encounter Care Teams Mustanger Relationship Specialty Start Date End Date Alex Gray Jr., MD [address] [place] [phone] PCP - General Internal Medicine 08/15/18 documented as of this encounter
--- OUTSIDE RECORDS SUMMARY | 2024-05-01 16:31 | XMS_ITS | Encounter Summary ---
Author Organization [facility] Address [address] [place] [address] Care Team Providers Care Drink Mixer Name Role Phone Isaac Alaniz MD, Alex Tariq Primary Care Provider +1- [phone] Encounter Details Date Type Department Care Team (Late st Contact Info) Description 03/25/2019 Lab Requisition [address] [phone] Unknown Illness, unspecified Social History Tobacco Use [...] - 20.0 ug/mL 03/25/2019 7:31 AM EST [facility] Blood specimen (specimen) Non-SHG Collection / Unknown 03/25/2019 5:00 AM EST 03/25/2019 7:02 AM EST us Unknown LAB BLOOD ORDERABLES Final Resul t Performing Organization Address City/State/[facility] Co de Phone Number [facility] [address] [place], [place] documented in this encounter Visit Diagnoses Diagnosis Illness, unspecified documented in this encounter Additional Health Concerns Infection Onset Date Last Indicated Resolved Time MRSA Comment:Cleared 05/19/21 nf MRSA blood/chin 03/14/19 sa 03/14/2019 03/17/2019 2021 2 :15 PM EST PUI COVID 01/01/2024 01/01/2024 01/01/2024 1:19 PM EDT documented as of this encounter Care Teams Drink Mixer Relationship Specialty Start Date End Date Alex Gray Jr., MD [address] [place] [phone] PCP - General Internal Medicine 08/15/18 documented as of this encounter
--- OUTSIDE RECORDS SUMMARY | 2024-05-01 16:32 | XMS_ITS | Encounter Summary ---
Author Organization [facility] Address [address] [place] [address] Care Team Providers Care Feltmaker And Weigher Name Role Phone Isaac Alaniz MD, Alex Tariq Primary Care Provider [phone]- [phone] Encounter Details Date Type Department Care Team (Late st Contact Info) Description 01/13/2023 Lab Requisition [facility] [address] [place] [phone] Woo Gran[employer] [address] [facility], [address] [place], [place] Illness, unspecified Social History Tobacco Use [...] - 11.2 10*3/??L 01/13/2023 8:31 AM EDT [facility] RBC 3.74 3.60 - 5.40 10*6/??L 01/13/2023 8:31 AM EDT [facility] HGB 10.6(L) 12.0 - 15.8 g/dL 01/13/2023 8:31 AM EDT [facility] HCT 32.0(L) 36.0 - 48.0 % 01/13/2023 8:31 AM EDT [facility] MCV 85.7 82.0 - 98.0 fL 01/13/2023 8:31 AM EDT [facility] MCH 28.5 27.0 - 35.0 pg 01/13/2023 8:31 AM EDT [facility] MCHC 33.2 32.0 - 37.0 g/dL 01/13/2023 8:31 AM EDT [facility] RDW 13.6 12.0 - 15.0 % 01/13/2023 8:31 AM EDT [facility] PLT 219 150 - 400 10*3/??L 01/13/2023 8:31 AM EDT [facility] MPV 7.5 7.0 - 14.0 fL 01/13/2023 8:31 AM EDT [facility] Neut % 38.5(L) 45.0 - 85.0 % 01/13/2023 8:31 AM EDT [facility] Lymph % 43.2 15.0 - 45.0 % 01/13/2023 8:31 AM EDT [facility] Napa % 11.2 0.0 - 12.0 % 01/13/2023 8:31 AM EDT [facility] Eos % 6.7 0.0 - 7.0 % 01/13/2023 8:31 AM EDT [facility] Baso % 0.4 0.0 - 3.0 % 01/13/2023 8:31 AM EDT [facility] NRBC% 0 0 /100 WBC /100 WBC 01/13/2023 8:31 AM EDT [facility] Neut # 2.5 2.2 - 9.5 10*3/??L 01/13/2023 8:31 AM EDT [facility] Lym # 2.7 0.7 - 5.0 10*3/??L 01/13/2023 8:31 AM EDT [facility] [place] # 0.7 0.0 - 1.3 10*3/??L 01/13/2023 8:31 AM EDT [facility] Eos # 0.4 0.0 - 0.4 10*3/??L 01/13/2023 8:31 AM EDT [facility] Baso # 0.0 0.0 - 0.3 10*3/??L 01/13/2023 8:31 AM EDT [facility] Blood Venipuncture / Unknown 01/13/2023 6:57 AM EDT 01/13/2023 8:10 AM EDT us Woo Granados LAB BLOOD ORDERABLES Fin al Result [facility] [address] [place] [address] * (ABNORMAL) Comprehensive metabolic panel (01/13/2023 6:57 AM EDT) Sodium 137 136 - 145 mEq/L 01/13/2023 8:54 AM EDT [facility] Potassium 4.2 3.5 - 5.1 mEq/L 01/13/2023 8:54 AM EDT [facility] Chloride 103 98 - 107 mEq/L 01/13/2023 8:54 AM EDT [facility] CO2 28 20 - 31 mEq/L 01/13/2023 8:54 AM EDT [facility] Anion Gap 6 4 - 15 mEq/L 01/13/2023 8:54 AM EDT [facility] Glucose 111(H) 70 - 100 mg/dL 01/13/2023 8:54 AM EDT [facility] Creatinine 0.63 0.50 - 1.00 mg/dL 01/13/2023 8:54 AM EDT [facility] eGFR (Female) >60 60 - 115 mL/min 01/13/2023 8:54 AM EDT [facility] BUN 10 9 - 23 mg/dL 01/13/2023 8:54 AM T [facility] Calcium 9.2 8.7 - 10.4 mg/dL 01/13/2023 8:54 AM T [facility] Total Protein 7.9 5.7 - 8.2 g/dL 01/13/2023 8:54 AM T [facility] Albumin 3.6 3.2 - 4.8 g/dL 01/13/2023 8:54 AM T [facility] A/G Ratio 0.8(L) 1.0 - 2.3 01/13/2023 8:54 AM EDT [facility] Total Bilirubin 0.2 0.2 - 1.0 mg/dL 01/13/2023 8:54 AM EDT [facility] AST 19 13 - 40 U/L 01/13/2023 8:54 AM EDT [facility] Alkaline Phosphatase 118(H) 46 - 116 IU/L 01/13/2023 8:54 AM EDT [facility] ALT 19 7 - 40 U/L 01/13/2023 8:54 AM EDT [facility] Blood Venipuncture / Unknown 01/13/2023 6:57 AM EDT 01/13/2023 8:10 AM EDT [employer] LAB BLOOD ORDERABLES Fin al Result Performing Organization Address City/[facility] de Phone Number [facility] [address] [place] [phone] * Magnesium (01/13/2023 6:57 AM EDT) Magnesium 1.8 1.6 - 2.6 mg/dL 01/13/2023 8:54 AM EDT [facility] Blood Venipuncture / Unknown 01/13/2023 6:57 AM EDT 01/13/2023 8:10 AM EDT [employer] LAB BLOOD ORDERABLES Fin al Result Performing Organization Address [facility] de Phone Number [facility] [address] [place] [phone] * Phosphorus (01/13/2023 6:57 AM EDT) Phosphorus 4.4 2.4 - 5.1 mg/dL 01/13/2023 8:54 AM EDT [facility] Blood Venipuncture / Unknown 01/13/2023 6:57 AM EDT 01/13/2023 8:10 AM EDT [employer] LAB BLOOD ORDERABLES Fin al Result Performing Organization Address [facility] de Phone Number [facility] [address] [place] [phone] * (ABNORMAL) CRP, Inflammation (01/13/2023 6:57 AM EDT) CRP, Inflammation 10.44(H) 0.00 - 3.00 mg/L 01/13/2023 9:18 AM EDT [facility] Blood Venipuncture / Unknown 01/13/2023 6:57 AM EDT 01/13/2023 8:10 AM EDT Narrative [facility] - 01/13/2023 9:18 AM EDT >10.0 ?Consider infection/inflammation [employer] LAB BLOOD ORDERABLES Fin al Result Performing Organization Address City/[facility] de Phone Number [facility] [address] [place] [phone] * (ABNORMAL) Sedimentation Rate, automated (01/13/2023 6:57 AM EDT) Sed Rate >130(H) 0 - 20 mm/hr 01/13/2023 8:43 AM EDT [facility] Blood Venipuncture / Unknown 01/13/2023 6:57 AM EDT 01/13/2023 8:10 AM EDT [place] [employer] LAB BLOOD ORDERABLES Fin al Result Performing Organization Address [facility] de Phone Number [facility] [address] [place] [phone] documented in this encounter Visit Diagnoses Diagnosis Illness, unspecified documented in this encounter Additional Health Concerns Infection Onset Date Last Indicated Resolved Time PUI COVID 01/01/2024 01/01/2024 01/01/2024 1:19 PM EDT documented as of this encounter Care Teams Feltmaker And Weigher Relationship Specialty Start Date End Date Alex Gray Jr., MD [address] [place] [phone] PCP - General Internal Medicine 08/15/18 documented as of this encounter
--- OUTSIDE RECORDS SUMMARY | 2024-05-01 16:32 | XMS_ITS | Encounter Summary ---
Author Organization [facility] Address [address] [place] [address] Care Team Providers Care Tool And Gauge Inspector Name Role Phone Isaac Alaniz MD, Alex Tariq Primary Care Provider [phone]- [phone] Encounter Details Date Type Department Care Team (Late st Contact Info) Description 12/14/2022 Lab Requisition [address] [phone] Demetria Garner, BREADING MACHINE TENDER [address] [place] [address] Illness, unspecified Social History Tobacco [...] - 145 mEq/L 12/14/2022 11:28 AM EDT [facility] Potassium 3.6 3.5 - 5.1 mEq/L 12/14/2022 11:28 AM EDT [facility] Chloride 103 98 - 107 mEq/L 12/14/2022 11:28 AM EDT [facility] CO2 23 20 - 31 mEq/L 12/14/2022 11:28 AM EDT [facility] Anion Gap 8 4 - 15 mEq/L 12/14/2022 11:28 AM EDT [facility] Glucose 107(H) 70 - 100 mg/dL 12/14/2022 11:28 AM EDT [facility] Creatinine 0.63 0.50 - 1.00 mg/dL 12/14/2022 11:28 AM EDT [facility] eGFR (Female) >60 60 - 115 mL/min 12/14/2022 11:28 AM EDT [facility] BUN 13 9 - 23 mg/dL 12/14/2022 11:28 AM EDT [facility] Calcium 9.4 8.7 - 10.4 mg/dL 12/14/2022 11:28 AM EDT [facility] Total Protein 8.7(H) 5.7 - 8.2 g/dL 12/14/2022 11:28 AM EDT [facility] Albumin 3.7 3.2 - 4.8 g/dL 12/14/2022 11:28 AM EDT [facility] A/G Ratio 0.7(L) 1.0 - 2.3 12/14/2022 11:28 AM EDT [facility] Total Bilirubin 0.3 0.2 - 1.0 mg/dL 12/14/2022 11:28 AM EDT [facility] AST 36 13 - 40 U/L 12/14/2022 11:28 AM EDT [facility] Alkaline Phosphatase 134(H) 46 - 116 IU/L 12/14/2022 11:28 AM EDT [facility] ALT 46(H) 7 - 40 U/L 12/14/2022 11:28 AM EDT [facility] Blood Venipuncture / Unknown 12/14/2022 5:47 AM EDT 12/14/2022 7:17 AM EDT Demetria Garner NP LAB BLOOD ORDERABLES Final Result Performing Organization Address City/[facility]/ZIP Co de Phone Number [facility] [address] [place] [phone] * (ABNORMAL) CRP, Inflammation (12/14/2022 5:47 AM EDT) CRP, Inflammation 53.51(H) 0.00 - 3.00 mg/L 12/14/2022 11:36 AM EDT [facility] Blood Venipuncture / Unknown 12/14/2022 5:47 AM EDT 12/14/2022 7:17 AM EDT Narrative [facility] - 12/14/2022 11:36 AM EDT >10.0 ?Consider infection/inflammation Demetria Garner NP LAB BLOOD ORDERABLES Final Result [facility] [address] [place] [phone] * Magnesium (12/14/2022 5:47 AM EDT) Magnesium 1.9 1.6 - 2.6 mg/dL 12/14/2022 11:21 AM EDT [facility] Blood Venipuncture / Unknown 12/14/2022 5:47 AM EDT 12/14/2022 7:17 AM EDT Demetria Garner BREADING MACHINE TENDER LAB BLOOD ORDERABLES Final Result Performing Organization Address [facility] Co de Phone Number [facility] [address] [place] [phone] * (ABNORMAL) Phosphorus (12/14/2022 5:47 AM EDT) Phosphorus 5.6(H) 2.4 - 5.1 mg/dL 12/14/2022 11:21 AM EDT [facility] Blood Venipuncture / Unknown 12/14/2022 5:47 AM EDT 12/14/2022 7:17 AM EDT [facility] Oneyda Garner BREADING MACHINE TENDER LAB BLOOD ORDERABLES Final Result Performing Organization Address [facility] de Phone Number [facility] [address] [place] [phone] * (ABNORMAL) CBC and Auto Differential (12/14/2022 5:47 AM EDT) WBC 7.8 4.8 - 11.2 10*3/??L 12/14/2022 7:55 AM EDT [facility] RBC 3.66 3.60 - 5.40 10*6/??L 12/14/2022 7:55 AM EDT [facility] HGB 10.8(L) 12.0 - 15.8 g/dL 12/14/2022 7:55 AM EDT [facility] HCT 32.0(L) 36.0 - 48.0 % 12/14/2022 7:55 AM EDT [facility] MCV 87.4 82.0 - 98.0 fL 12/14/2022 7:55 AM EDT [facility] MCH 29.6 27.0 - 35.0 pg 12/14/2022 7:55 AM EDT [facility] MCHC 33.8 32.0 - 37.0 g/dL 12/14/2022 7:55 AM EDT [facility] RDW 13.0 12.0 - 15.0 % 12/14/2022 7:55 AM EDT [facility] PLT 258 150 - 400 10*3/??L 12/14/2022 7:55 AM EDT [facility] MPV 8.4 7.0 - 14.0 fL 12/14/2022 7:55 AM EDT [facility] Neut % 51.4 45.0 - 85.0 % 12/14/2022 7:55 AM EDT [facility] Lymph % 35.4 15.0 - 45.0 % 12/14/2022 7:55 AM EDT [facility] Isabella % 10.8 0.0 - 12.0 % 12/14/2022 7:55 AM EDT [facility] Eos % 1.9 0.0 - 7.0 % 12/14/2022 7:55 AM EDT [facility] Baso % 0.5 0.0 - 3.0 % 12/14/2022 7:55 AM EDT [facility] NRBC% 0 0 /100 WBC /100 WBC 12/14/2022 7:55 AM EDT [facility] Neut # 4.0 2.2 - 9.5 10*3/??L 12/14/2022 7:55 AM EDT [facility] Lym # 2.8 0.7 - 5.0 10*3/??L 12/14/2022 7:55 AM EDT [facility] Isabella # 0.8 0.0 - 1.3 10*3/??L 12/14/2022 7:55 AM EDT [facility] Eos # 0.1 0.0 - 0.4 10*3/??L 12/14/2022 7:55 AM EDT [facility] Baso # 0.0 0.0 - 0.3 10*3/??L 12/14/2022 7:55 AM EDT [facility] Blood Venipuncture / Unknown 12/14/2022 5:47 AM EDT 12/14/2022 7:17 AM EDT Demetria Garner BREADING MACHINE TENDER LAB BLOOD ORDERABLES Final Result [facility] [address] [place] [address] documented in this encounter Visit Diagnoses Diagnosis Illness, unspecified documented in this encounter Additional Health Concerns Infection Onset Date Last Indicated Resolved Time PUI COVID 01/01/2024 01/01/2024 01/01/2024 1:19 PM EDT documented as of this encounter Care Teams Tool And Gauge Inspector Relationship Specialty Start Date End Date Alex Gray Jr., MD [address] [place] [phone] PCP - General Internal Medicine 08/15/18 documented as of this encounter
--- OUTSIDE RECORDS SUMMARY | 2024-05-01 16:32 | XMS_ITS | Encounter Summary ---
Author Organization [facility] Address [address] [place] [address] Care Team Providers Care Fabricator Foam Rubber Name Role Phone Isaac Alaniz MD, Alex Tariq Primary Care Provider [phone]- [phone] Encounter Details Date Type Department Care Team (Late st Contact Info) Description 01/18/2023 Lab Requisition [address] [phone] Demetria Garner, GETTER OPERATOR [address] [place] [address] Illness, unspecified Social History Tobacco [...] - 145 mEq/L 01/18/2023 8:12 AM EDT [facility] Potassium 3.7 3.5 - 5.1 mEq/L 01/18/2023 8:12 AM EDT [facility] Chloride 102 98 - 107 mEq/L 01/18/2023 8:12 AM EDT [facility] CO2 28 20 - 31 mEq/L 01/18/2023 8:12 AM EDT [facility] Anion Gap 7 4 - 15 mEq/L 01/18/2023 8:12 AM EDT [facility] Glucose 140(H) 70 - 100 mg/dL 01/18/2023 8:12 AM EDT [facility] Creatinine 0.62 0.50 - 1.00 mg/dL 01/18/2023 8:12 AM EDT [facility] eGFR (Female) >60 60 - 115 mL/min 01/18/2023 8:12 AM EDT [facility] BUN 9 9 - 23 mg/dL 01/18/2023 8:12 AM EDT [facility] Calcium 9.6 8.7 - 10.4 mg/dL 01/18/2023 8:12 AM EDT [facility] Total Protein 8.4(H) 5.7 - 8.2 g/dL 01/18/2023 8:12 AM EDT [facility] Albumin 3.9 3.2 - 4.8 g/dL 01/18/2023 8:12 AM EDT [facility] A/G Ratio 0.9(L) 1.0 - 2.3 01/18/2023 8:12 AM EDT [facility] Total Bilirubin 0.3 0.2 - 1.0 mg/dL 01/18/2023 8:12 AM EDT [facility] AST 18 13 - 40 U/L 01/18/2023 8:12 AM EDT [facility] Alkaline Phosphatase 104 46 - 116 IU/L 01/18/2023 8:12 AM EDT [facility] ALT 13 7 - 40 U/L 01/18/2023 8:12 AM EDT [facility] Blood Venipuncture / Unknown 01/18/2023 5:20 AM EDT 01/18/2023 7:26 AM EDT Demetria Garner GETTER OPERATOR LAB BLOOD ORDERABLES Final Result Performing Organization Address City/[facility]/ZIP Co de Phone Number [facility] [address] [place] [phone] * CRP, Inflammation (01/18/2023 5:20 AM EDT) CRP, Inflammation 2.95 0.00 - 3.00 mg/L 01/18/2023 8:12 AM EDT [facility] Blood Venipuncture / Unknown 01/18/2023 5:20 AM EDT 01/18/2023 7:26 AM EDT [facility]ner GETTER OPERATOR LAB BLOOD ORDERABLES Final Result [facility] [address] [place] [phone] * Magnesium (01/18/2023 5:20 AM EDT) Magnesium 1.6 1.6 - 2.6 mg/dL 01/18/2023 8:12 AM EDT [facility] Blood Venipuncture / Unknown 01/18/2023 5:20 AM EDT 01/18/2023 7:26 AM EDT Demetria Garner GETTER OPERATOR LAB BLOOD ORDERABLES Final Result Performing Organization Address City/[facility]/ZIP Co de Phone Number [facility] [address] [place] [address] * Phosphorus (01/18/2023 5:20 AM EDT) Phosphorus 4.9 2.4 - 5.1 mg/dL 01/18/2023 8:12 AM EDT [facility] Blood Venipuncture / Unknown 01/18/2023 5:20 AM EDT 01/18/2023 7:26 AM EDT [facility] Oneyda MarianoGarner GETTER OPERATOR LAB BLOOD ORDERABLES Final Result Performing Organization Address [facility] de Phone Number [facility] [address] [place] [phone] * (ABNORMAL) CBC and Auto Differential (01/18/2023 5:20 AM EDT) Pathologist [facility] [place] WBC 6.1 4.8 - 11.2 10*3/??L 01/18/2023 7:42 AM EDT [facility] RBC 3.88 3.60 - 5.40 10*6/??L 01/18/2023 7:42 AM EDT [facility] HGB 11.0(L) 12.0 - 15.8 g/dL 01/18/2023 7:42 AM EDT [facility] HCT 33.5(L) 36.0 - 48.0 % 01/18/2023 7:42 AM EDT [facility] MCV 86.2 82.0 - 98.0 fL 01/18/2023 7:42 AM EDT [facility] MCH 28.4 27.0 - 35.0 pg 01/18/2023 7:42 AM EDT [facility] MCHC 33.0 32.0 - 37.0 g/dL 01/18/2023 7:42 AM EDT [facility] RDW 13.8 12.0 - 15.0 % 01/18/2023 7:42 AM EDT [facility] PLT 171 150 - 400 10*3/??L 01/18/2023 7:42 AM EDT [facility] MPV 8.0 7.0 - 14.0 fL 01/18/2023 7:42 AM EDT [facility] Neut % 37.1(L) 45.0 - 85.0 % 01/18/2023 7:42 AM EDT [facility] Lymph % 47.2(H) 15.0 - 45.0 % 01/18/2023 7:42 AM EDT [facility] Cloud % 9.2 0.0 - 12.0 % 01/18/2023 7:42 AM EDT [facility] Eos % 6.1 0.0 - 7.0 % 01/18/2023 7:42 AM EDT [facility] Baso % 0.4 0.0 - 3.0 % 01/18/2023 7:42 AM EDT [facility] NRBC% 0 0 /100 WBC /100 WBC 01/18/2023 7:42 AM EDT [facility] Neut # 2.3 2.2 - 9.5 10*3/??L 01/18/2023 7:42 AM EDT [facility] Lym # 2.9 0.7 - 5.0 10*3/??L 01/18/2023 7:42 AM EDT [facility] Cloud # 0.6 0.0 - 1.3 10*3/??L 01/18/2023 7:42 AM EDT [facility] Eos # 0.4 0.0 - 0.4 10*3/??L 01/18/2023 7:42 AM EDT [facility] Baso # 0.0 0.0 - 0.3 10*3/??L 01/18/2023 7:42 AM EDT [facility] Blood Venipuncture / Unknown 01/18/2023 5:20 AM EDT 01/18/2023 7:26 AM EDT us Demetria Garner GETTER OPERATOR LAB BLOOD ORDERABLES Final Result [facility] [address] [place] [address] documented in this encounter Visit Diagnoses Diagnosis Illness, unspecified documented in this encounter Additional Health Concerns Infection Onset Date Last Indicated Resolved Time PUI COVID 01/01/2024 01/01/2024 01/01/2024 1:19 PM EDT documented as of this encounter Care Teams Fabricator Foam Rubber Relationship Specialty Start Date End Date Alex Gray Jr., MD [address] [place] [phone] PCP - General Internal Medicine 08/15/18 documented as of this encounter
--- OUTSIDE RECORDS SUMMARY | 2024-05-01 16:32 | XMS_ITS | Encounter Summary ---
Author Organization [facility] Address [address] [place] [address] Care Team Providers Care Teachers Assistant Name Role Phone Isaac Alaniz MD, Alex Tariq Primary Care Provider [phone]- [phone] Reason for Visit * Reason Onset Date Comments Appointment Time Question Or Need To Reschedule 01/04/2023 Encounter Details Date Type Department Care Team ([facility] Contact Info) Description 01/04/2023 Telephone [facility] [address] [place] [id number] Angelito Aguilar MD [address] [facility] [place] [address] Appointment Time Question Or Need To Reschedule [...] 10:31 AM EDT Spoke to the nurse residential case manager at the number below and was able to rebook this apt for 02/02 in the [place] office for an in person visit. * Telephone Encounter - Violetta Dumont NP - 01/05/2023 9:41 AM EDT Please reschedule patient MD postop appointment until after he is DC from [email or web address]. See prior call. Thank you * Telephone Encounter - Db Guerra - 01/04/2023 4:27 PM EDT Patient's nurse residential case manager calling from [email or web address] in [place]. Patient won't be discharged before 01/25. Wanted to know if it was possible to make appointment telehealth or if not to postpone after that date. Please advise. P: [phone] documented in this encounter Plan of Treatment Not on file documented as of this encounter Visit Diagnoses Not on filedocumented in this encounter Additional Health Concerns Infection Onset Date Last Indicated Resolved Time PUI COVID 01/01/2024 01/01/2024 01/01/2024 1:19 PM EDT documented as of this encounter Care Teams Teachers Assistant Relationship Specialty Start Date End Date Alex Gray Jr., MD [address] [place] [phone] PCP - General Internal Medicine 08/15/18 documented as of this encounter
--- OUTSIDE RECORDS SUMMARY | 2024-05-01 16:32 | XMS_ITS | Encounter Summary ---
Author Organization [facility] Address [address] [place] [address] Care Team Providers Care Government Contracts Manager Name Role Phone Isaac Alaniz MD, Alex Tariq Primary Care Provider [phone]- [phone] Encounter Details Date Type Department Care Team (Late st Contact Info) Description 12/21/2022 Lab Requisition [address] [phone] Demetria Garner, ASSOCIATE DIRECTOR CAREER SERVICES [address] [place] [address] Illness, unspecified Social History Tobacco [...] mg/dL 12/21/2022 8:23 AM EDT [facility] Blood Venipuncture / Unknown 12/21/2022 5:12 AM EDT 12/21/2022 7:33 AM EDT [facility] Oneyda Garner LAB BLOOD ORDERABLES Final Result Performing Organization Address City/[facility] Co de Phone Number [facility] [address] [place] [address] * Magnesium (12/21/2022 5:12 AM EDT) Pathologist [facility] Magnesium 1.7 1.6 - 2.6 mg/dL 12/21/2022 8:23 AM EDT [facility] Blood Venipuncture / Unknown 12/21/2022 5:12 AM EDT 12/21/2022 7:33 AM EDT [facility] ASSOCIATE DIRECTOR CAREER SERVICES LAB BLOOD ORDERABLES Final Result [facility] [address] [place] [phone] * (ABNORMAL) CRP, Inflammation (12/21/2022 5:12 AM EDT) CRP, Inflammation 54.43(H) 0.00 - 3.00 mg/L 12/21/2022 8:[address] [facility] Blood Venipuncture / Unknown 12/21/2022 5:12 AM EDT 12/21/2022 7:33 AM EDT Narrative [facility] - 12/21/2022 8:24 AM EDT >10.0 ?Consider infection/inflammation Demetria Garner NP LAB BLOOD ORDERABLES Final Result [facility] [address] [place] [address] * (ABNORMAL) CBC and Auto Differential (12/21/2022 5:12 AM EDT) WBC 8.7 4.8 - 11.2 10*3/??L 12/21/2022 7:56 AM EDT [facility] RBC 3.63 3.60 - 5.40 10*6/??L 12/21/2022 7:56 AM EDT [facility] HGB 10.5(L) 12.0 - 15.8 g/dL 12/21/2022 7:56 AM EDT [facility] HCT 31.7(L) 36.0 - 48.0 % 12/21/2022 7:56 AM EDT [facility] MCV 87.4 82.0 - 98.0 fL 12/21/2022 7:56 AM EDT [facility] MCH 28.9 27.0 - 35.0 pg 12/21/2022 7:56 AM EDT [facility] MCHC 33.1 32.0 - 37.0 g/dL 12/21/2022 7:56 AM EDT [facility] RDW 13.0 12.0 - 15.0 % 12/21/2022 7:56 AM EDT [facility] PLT 270 150 - 400 10*3/??L 12/21/2022 7:56 AM EDT [facility] MPV 8.1 7.0 - 14.0 fL 12/21/2022 7:56 AM EDT [facility] Neut % 57.0 45.0 - 85.0 % 12/21/2022 7:56 AM EDT [facility] Lymph % 29.7 15.0 - 45.0 % 12/21/2022 7:56 AM EDT [facility] Bremer % 10.5 0.0 - 12.0 % 12/21/2022 7:56 AM EDT [facility] Eos % 2.5 0.0 - 7.0 % 12/21/2022 7:56 AM EDT [facility] Baso % 0.3 0.0 - 3.0 % 12/21/2022 7:56 AM EDT [facility] NRBC% 0 0 /100 WBC /100 WBC 12/21/2022 7:56 AM EDT [facility] Neut # 5.0 2.2 - 9.5 10*3/??L 12/21/2022 7:56 AM EDT [facility] Lym # 2.6 0.7 - 5.0 10*3/??L 12/21/2022 7:56 AM EDT [facility] Bremer # 0.9 0.0 - 1.3 10*3/??L 12/21/2022 7:56 AM EDT [facility] Eos # 0.2 0.0 - 0.4 10*3/??L 12/21/2022 7:56 AM EDT [facility] Baso # 0.0 0.0 - 0.3 10*3/??L 12/21/2022 7:56 AM EDT [facility] Blood Venipuncture / Unknown 12/21/2022 5:12 AM EDT 12/21/2022 7:33 AM EDT us Demetria Garner NP LAB BLOOD ORDERABLES Final Result [facility] [address] [place] [address] * (ABNORMAL) Comprehensive metabolic panel (12/21/2022 5:12 AM EDT) Sodium 133(L) 136 - 145 mEq/L 12/21/2022 8:24 AM EDT [facility] Potassium 3.9 3.5 - 5.1 mEq/L 12/21/2022 8:24 AM EDT [facility] Chloride 100 98 - 107 mEq/L 12/21/2022 8:24 AM EDT [facility] CO2 24 20 - 31 mEq/L 12/21/2022 8:24 AM EDT [facility] Anion Gap 9 4 - 15 mEq/L 12/21/2022 8:24 AM EDT [facility] Glucose 132(H) 70 - 100 mg/dL 12/21/2022 8:24 AM EDT [facility] Creatinine 0.57 0.50 - 1.00 mg/dL 12/21/2022 8:24 AM T [facility] eGFR (Female) >60 60 - 115 mL/min 12/21/2022 8:24 AM EDT [facility] BUN 12 9 - 23 mg/dL 12/21/2022 8:24 AM EDT [facility] Calcium 9.3 8.7 - 10.4 mg/dL 12/21/2022 8:24 AM T [facility] Total Protein 8.5(H) 5.7 - 8.2 g/dL 12/21/2022 8:24 AM T [facility] Albumin 3.7 3.2 - 4.8 g/dL 12/21/2022 8:24 AM T [facility] A/G Ratio 0.8(L) 1.0 - 2.3 12/21/2022 8:24 AM EDT [facility] Total Bilirubin 0.2 0.2 - 1.0 mg/dL 12/21/2022 8:24 AM EDT [facility] AST 35 13 - 40 U/L 12/21/2022 8:24 AM EDT [facility] Alkaline Phosphatase 132(H) 46 - 116 IU/L 12/21/2022 8:24 AM EDT [facility] ALT 40 7 - 40 U/L 12/21/2022 8:24 AM T [facility] Blood Venipuncture / Unknown 12/21/2022 5:12 AM EDT 12/21/2022 7:33 AM EDT us Demetria Garner ASSOCIATE DIRECTOR CAREER SERVICES LAB BLOOD ORDERABLES Final Result [facility] [address] [place] [address] documented in this encounter Visit Diagnoses Diagnosis Illness, unspecified documented in this encounter Additional Health Concerns Infection Onset Date Last Indicated Resolved Time PUI COVID 01/01/2024 01/01/2024 01/01/2024 1:19 PM EDT documented as of this encounter Care Teams Government Contracts Manager Relationship Specialty Start Date End Date Alex Gray Jr., MD [address] [place] [phone] PCP - General Internal Medicine 08/15/18 documented as of this encounter
--- OUTSIDE RECORDS SUMMARY | 2024-05-01 16:32 | XMS_ITS | Encounter Summary ---
Author Organization [facility] Address [address] [place] [address] Care Team Providers Care Svp Research & Ebusiness Operations Name Role Phone Isaac Alaniz MD, Alex Tariq Primary Care Provider [phone]- [phone] Encounter Details Date Type Department Care Team (Late st Contact Info) Description 12/23/2022 Lab Requisition [address] [phone] Raúl Vides, CERTIFIED DENTAL ASSISTANT [address] [place] [phone] Illness, unspecified Social History Tobacco Use [...] - 2 HPF 12/23/2022 11:57 AM EDT [facility] RBC 0-2 0 - 2 HPF 12/23/2022 11:57 AM EDT [facility] Squam Epithelial Few Few HPF 12/23/2022 11:57 AM EDT [facility] Mucus Few Few HPF 12/23/2022 11:57 AM EDT [facility] Hyaline Casts UA 6-10(A) 0 - 2 LPF 12/23/2022 11:57 AM EDT [facility] Uric Acid Crystals Few(A) None Seen HPF 12/23/2022 11:57 AM EDT [facility] Urine Urine specimen obtained by clean catch procedure / Unknown Collection / Unknown 12/22/2022 10:00 PM EDT 12/23/2022 9:29 AM EDT us Raúl Vides CERTIFIED DENTAL ASSISTANT URINE ORDERABLES Final Resul t [facility] [address] [place] [address] * Urine Culture and Hiram Count (12/22/2022 10:00 PM EDT) Culture No Growth at 18-24 hrs. SUSCEPTIBILI TY TESTING 12/24/2022 12:19 PM EDT [facility] Urine Urine specimen obtained by clean catch procedure / Unknown Collection / Unknown 12/22/2022 10:00 PM EDT 12/23/2022 11:15 AM EDT Narrative [facility] - 12/24/2022 12:19 PM EDT < 1,000 colonies/ml or No Growth us Raúl Vides NP MICROBIOLOGY - GENERAL ORDER RADHA Final Result [facility] [address] [place] [address] * (ABNORMAL) Urinalysis (NO reflex to culture) (12/22/2022 10:00 PM EDT) Color Yellow Yellow 12/23/2022 11:33 AM EDT [facility] Clarity, UA Slightly Cloudy(A) Clear 12/23/2022 11:33 AM EDT [facility] Specific [place] 1.020 1.005 - 1.030 12/23/2022 11:33 AM EDT [facility] pH 5.0 5.0 - 7.0 12/23/2022 11:33 AM EDT [facility] Protein Negative Negative mg/dL 12/23/2022 11:33 AM EDT [facility] Glucose Negative Negative mg/dL 12/23/2022 11:33 AM EDT [facility] Ketones Negative Negative mg/dL 12/23/2022 11:33 AM EDT [facility] Blood Negative Negative mg/dL 12/23/2022 11:33 AM EDT [facility] Bilirubin UA Negative Negative mg/dL 12/23/2022 11:33 AM EDT [facility] Urobilinogen Normal Normal mg/dL 12/23/2022 11:33 AM EDT [facility] Nitrite Negative Negative 12/23/2022 11:33 AM EDT [facility] Leukocyte Esterase 25(A) Negative Maggie/uL 12/23/2022 11:33 AM EDT [facility] Urine Urine specimen obtained by clean catch procedure / Unknown Collection / Unknown 12/22/2022 10:00 PM EDT 12/23/2022 9:29 AM EDT us Raúl Vides NP URINE ORDERABLES Final Resul t [facility] [address] [place] [address] documented in this encounter Visit Diagnoses Diagnosis Illness, unspecified documented in this encounter Additional Health Concerns Infection Onset Date Last Indicated Resolved Time PUI COVID 01/01/2024 01/01/2024 01/01/2024 1:19 PM EDT documented as of this encounter Care Teams Svp Research & Ebusiness Operations Relationship Specialty Start Date End Date Alex Gray Jr., MD [address] [place] [phone] PCP - General Internal Medicine 08/15/18 documented as of this encounter
--- OUTSIDE RECORDS SUMMARY | 2024-05-01 16:32 | XMS_ITS | Encounter Summary ---
Author Organization [facility] Address [address] [place] [address] Care Team Providers Care Cider Maker Name Role Phone Isaac Alaniz MD, Alex Tariq Primary Care Provider [phone]- [phone] Encounter Details Date Type Department Care Team (Late st Contact Info) Description 01/04/2023 Lab Requisition [address] [phone] Demetria Garner, AD OPERATIONS ASSOCIATE [address] [place] [address] Illness, unspecified Social History Tobacco [...] - 3.00 mg/L 01/04/2023 8:52 AM EDT [facility] Blood Venipuncture / Unknown 01/04/2023 5:30 AM EDT 01/04/2023 7:41 AM EDT Narrative [facility] - 01/04/2023 8:52 AM EDT >10.0 ?Consider infection/inflammation Demetria Garner AD OPERATIONS ASSOCIATE LAB BLOOD ORDERABLES Final Result Performing Organization Address [facility]/ZIP Co de Phone Number [facility] [address] [place] [phone] * Phosphorus (01/04/2023 5:30 AM EDT) Pathologist [facility] Phosphorus 4.8 2.4 - 5.1 mg/dL 01/04/2023 8:42 AM EDT [facility] Blood Venipuncture / Unknown 01/04/2023 5:30 AM EDT 01/04/2023 7:41 AM EDT Demetria Garner AD OPERATIONS ASSOCIATE LAB BLOOD ORDERABLES Final Result Performing Organization Address City/[facility]/ZIP Co de Phone Number [facility] [address] [place] [phone] * Magnesium (01/04/2023 5:30 AM EDT) Magnesium 1.8 1.6 - 2.6 mg/dL 01/04/2023 8:42 AM EDT [facility] Blood Venipuncture / Unknown 01/04/2023 5:30 AM EDT 01/04/2023 7:41 AM EDT Demetria Garner NP LAB BLOOD ORDERABLES Final Result [facility] [address] [place] [address] * (ABNORMAL) CBC and Auto Differential (01/04/2023 5:30 AM EDT) WBC 6.4 4.8 - 11.2 10*3/??L 01/04/2023 7:52 AM EDT [facility] RBC 3.66 3.60 - 5.40 10*6/??L 01/04/2023 7:52 AM EDT [facility] HGB 10.6(L) 12.0 - 15.8 g/dL 01/04/2023 7:52 AM EDT [facility] HCT 31.5(L) 36.0 - 48.0 % 01/04/2023 7:52 AM EDT [facility] MCV 86.1 82.0 - 98.0 fL 01/04/2023 7:52 AM EDT [facility] MCH 29.0 27.0 - 35.0 pg 01/04/2023 7:52 AM EDT [facility] MCHC 33.6 32.0 - 37.0 g/dL 01/04/2023 7:52 AM EDT [facility] RDW 13.4 12.0 - 15.0 % 01/04/2023 7:52 AM EDT [facility] PLT 215 150 - 400 10*3/??L 01/04/2023 7:52 AM EDT [facility] MPV 8.0 7.0 - 14.0 fL 01/04/2023 7:52 AM EDT [facility] Neut % 32.0(L) 45.0 - 85.0 % 01/04/2023 7:52 AM EDT [facility] Lymph % 48.7(H) 15.0 - 45.0 % 01/04/2023 7:52 AM EDT [facility] Gladwin % 11.5 0.0 - 12.0 % 01/04/2023 7:52 AM EDT [facility] Eos % 7.2(H) 0.0 - 7.0 % 01/04/2023 7:52 AM EDT [facility] Baso % 0.6 0.0 - 3.0 % 01/04/2023 7:52 AM EDT [facility] NRBC% 0 0 /100 WBC /100 WBC 01/04/2023 7:52 AM EDT [facility] Neut # 2.0(L) 2.2 - 9.5 10*3/??L 01/04/2023 7:52 AM EDT [facility] Lym # 3.1 0.7 - 5.0 10*3/??L 01/04/2023 7:52 AM EDT [facility] Gladwin # 0.7 0.0 - 1.3 10*3/??L 01/04/2023 7:52 AM EDT [facility] Eos # 0.5(H) 0.0 - 0.4 10*3/??L 01/04/2023 7:52 AM EDT [facility] Baso # 0.0 0.0 - 0.3 10*3/??L 01/04/2023 7:52 AM EDT [facility] Blood Venipuncture / Unknown 01/04/2023 5:30 AM EDT 01/04/2023 7:41 AM EDT Demetria Garner NP LAB BLOOD ORDERABLES Final Result [facility] [address] [place] [address] * (ABNORMAL) Comprehensive metabolic panel (01/04/2023 5:30 AM EDT) Sodium 136 136 - 145 mEq/L 01/04/2023 8:42 AM EDT [facility] Potassium 4.0 3.5 - 5.1 mEq/L 01/04/2023 8:42 AM EDT [facility] Chloride 101 98 - 107 mEq/L 01/04/2023 8:42 AM EDT [facility] CO2 26 20 - 31 mEq/L 01/04/2023 8:42 AM EDT [facility] Anion Gap 9 4 - 15 mEq/L 01/04/2023 8:42 AM EDT [facility] Glucose 118(H) 70 - 100 mg/dL 01/04/2023 8:42 AM EDT [facility] Creatinine 0.63 0.50 - 1.00 mg/dL 01/04/2023 8:42 AM EDT [facility] eGFR (Female) >60 60 - 115 mL/min 01/04/2023 8:42 AM EDT [facility] BUN 9 9 - 23 mg/dL 01/04/2023 8:42 AM EDT [facility] Calcium 9.6 8.7 - 10.4 mg/dL 01/04/2023 8:42 AM EDT [facility] Total Protein 8.4(H) 5.7 - 8.2 g/dL 01/04/2023 8:42 AM EDT [facility] Albumin 3.7 3.2 - 4.8 g/dL 01/04/2023 8:42 AM EDT [facility] A/G Ratio 0.8(L) 1.0 - 2.3 01/04/2023 8:42 AM EDT [facility] Total Bilirubin <0.2(L) 0.2 - 1.0 mg/dL 01/04/2023 8:42 AM EDT [facility] AST 39 13 - 40 U/L 01/04/2023 8:42 AM EDT [facility] Alkaline Phosphatase 119(H) 46 - 116 IU/L 01/04/2023 8:42 AM EDT [facility] ALT 34 7 - 40 U/L 01/04/2023 8:42 AM EDT [facility] Blood Venipuncture / Unknown 01/04/2023 5:30 AM EDT 01/04/2023 7:41 AM EDT us Demetria Garner AD OPERATIONS ASSOCIATE LAB BLOOD ORDERABLES Final Result [facility] [address] [place] [address] documented in this encounter Visit Diagnoses Diagnosis Illness, unspecified documented in this encounter Additional Health Concerns Infection Onset Date Last Indicated Resolved Time PUI COVID 01/01/2024 01/01/2024 01/01/2024 1:19 PM EDT documented as of this encounter Care Teams Cider Maker Relationship Specialty Start Date End Date Alex Gray Jr., MD [address] [place] [phone] PCP - General Internal Medicine 08/15/18 documented as of this encounter
--- OUTSIDE RECORDS SUMMARY | 2024-05-01 16:32 | XMS_ITS | Encounter Summary ---
Author Organization [facility] Address [address] [place] [address] Care Team Providers Care Creative/Art Director Name Role Phone Isaac Alaniz MD, Alex Tariq Primary Care Provider [phone]- [phone] Encounter Details Date Type Department Care Team (Late st Contact Info) Description 12/28/2022 Lab Requisition [address] [phone] Demetria Garner, AIRPLANE CHARTER CLERK [address] [place] [address] Illness, unspecified Social History Tobacco [...] mEq/L 12/28/2022 10:14 AM EDT [facility] Potassium 3.6 3.5 - 5.1 mEq/L 12/28/2022 10:14 AM EDT [facility] Chloride 103 98 - 107 mEq/L 12/28/2022 10:14 AM EDT [facility] CO2 28 20 - 31 mEq/L 12/28/2022 10:14 AM EDT [facility] Anion Gap 6 4 - 15 mEq/L 12/28/2022 10:14 AM EDT [facility] Glucose 104(H) 70 - 100 mg/dL 12/28/2022 10:14 AM EDT [facility] Creatinine 0.62 0.50 - 1.00 mg/dL 12/28/2022 10:14 AM EDT [facility] eGFR (Female) >60 60 - 115 mL/min 12/28/2022 10:14 AM EDT [facility] BUN 14 9 - 23 mg/dL 12/28/2022 10:14 AM EDT [facility] Calcium 9.3 8.7 - 10.4 mg/dL 12/28/2022 10:14 AM T [facility] Total Protein 8.5(H) 5.7 - 8.2 g/dL 12/28/2022 10:14 AM EDT [facility] Albumin 3.5 3.2 - 4.8 g/dL 12/28/2022 10:14 AM EDT [facility] A/G Ratio 0.7(L) 1.0 - 2.3 12/28/2022 10:14 AM EDT [facility] Total Bilirubin 0.2 0.2 - 1.0 mg/dL 12/28/2022 10:14 AM EDT [facility] AST 32 13 - 40 U/L 12/28/2022 10:14 AM EDT [facility] Alkaline Phosphatase 119(H) 46 - 116 IU/L 12/28/2022 10:14 AM EDT [facility] ALT 33 7 - 40 U/L 12/28/2022 10:14 AM EDT [facility] Blood Venipuncture / Unknown 12/28/2022 6:26 AM EDT 12/28/2022 7:27 AM EDT Demetria Garner AIRPLANE CHARTER CLERK LAB BLOOD ORDERABLES Final Result Performing Organization Address City/[facility] Co de Phone Number [facility] [address] [place] [phone] * (ABNORMAL) CRP, Inflammation (12/28/2022 6:26 AM EDT) CRP, Inflammation 34.24(H) 0.00 - 3.00 mg/L 12/28/2022 10:15 AM EDT [facility] Blood Venipuncture / Unknown 12/28/2022 6:26 AM EDT 12/28/2022 7:27 AM EDT Narrative [facility] - 12/28/2022 10:15 AM EDT >10.0 ?Consider infection/inflammation Demetira Garner AIRPLANE CHARTER CLERK LAB BLOOD ORDERABLES Final Result [facility] [address] [place] [phone] * Magnesium (12/28/2022 6:26 AM EDT) Magnesium 1.8 1.6 - 2.6 mg/dL 12/28/2022 10:14 AM EDT [facility] Blood Venipuncture / Unknown 12/28/2022 6:26 AM EDT 12/28/2022 7:27 AM EDT Demetriaher Oneyda Garner AIRPLANE CHARTER CLERK LAB BLOOD ORDERABLES Final Result Performing Organization Address [facility] de Phone Number [facility] [address] [place] [phone] * Phosphorus (12/28/2022 6:26 AM EDT) Phosphorus 4.8 2.4 - 5.1 mg/dL 12/28/2022 10:14 AM EDT [facility] Blood Venipuncture / Unknown 12/28/2022 6:26 AM EDT 12/28/2022 7:27 AM [facility]T [facility] AIRPLANE CHARTER CLERK LAB BLOOD ORDERABLES Final Result Performing Organization Address [facility] Phone Number [facility] [address] [place] [phone] * (ABNORMAL) CBC and Auto Differential (12/28/2022 6:26 AM EDT) WBC 7.1 4.8 - 11.2 10*3/??L 12/28/2022 7:38 AM EDT [facility] RBC 3.59(L) 3.60 - 5.40 10*6/??L 12/28/2022 7:38 AM EDT [facility] HGB 10.3(L) 12.0 - 15.8 g/dL 12/28/2022 7:38 AM EDT [facility] HCT 31.0(L) 36.0 - 48.0 % 12/28/2022 7:38 AM EDT [facility] MCV 86.3 82.0 - 98.0 fL 12/28/2022 7:38 AM EDT [facility] MCH 28.8 27.0 - 35.0 pg 12/28/2022 7:38 AM EDT [facility] MCHC 33.3 32.0 - 37.0 g/dL 12/28/2022 7:38 AM EDT [facility] RDW 13.0 12.0 - 15.0 % 12/28/2022 7:38 AM EDT [facility] PLT 228 150 - 400 10*3/??L 12/28/2022 7:38 AM EDT [facility] MPV 7.4 7.0 - 14.0 fL 12/28/2022 7:38 AM EDT [facility] Neut % 44.3(L) 45.0 - 85.0 % 12/28/2022 7:38 AM EDT [facility] Lymph % 38.7 15.0 - 45.0 % 12/28/2022 7:38 AM EDT [facility] Gonzales % 12.4(H) 0.0 - 12.0 % 12/28/2022 7:38 AM EDT [facility] Eos % 4.3 0.0 - 7.0 % 12/28/2022 7:38 AM EDT [facility] Baso % 0.3 0.0 - 3.0 % 12/28/2022 7:38 AM EDT [facility] NRBC% 0 0 /100 WBC /100 WBC 12/28/2022 7:38 AM EDT [facility] Neut # 3.2 2.2 - 9.5 10*3/??L 12/28/2022 7:38 AM EDT [facility] Lym # 2.8 0.7 - 5.0 10*3/??L 12/28/2022 7:38 AM EDT [facility] Gonzales # 0.9 0.0 - 1.3 10*3/??L 12/28/2022 7:38 AM EDT [facility] Eos # 0.3 0.0 - 0.4 10*3/??L 12/28/2022 7:38 AM EDT [facility] Baso # 0.0 0.0 - 0.3 10*3/??L 12/28/2022 7:38 AM EDT [facility] Blood Venipuncture / Unknown 12/28/2022 6:26 AM EDT 12/28/2022 7:27 AM EDT us Demetria Garner [employer] LAB BLOOD ORDERABLES Final Result [facility] [address] [place] [address] documented in this encounter Visit Diagnoses Diagnosis Illness, unspecified documented in this encounter Additional Health Concerns Infection Onset Date Last Indicated Resolved Time PUI COVID 01/01/2024 01/01/2024 01/01/2024 1:19 PM EDT documented as of this encounter Care Teams Creative/Art Director Relationship Specialty Start Date End Date Alex Gray Jr., MD [address] [place] [phone] PCP - General Internal Medicine 08/15/18 documented as of this encounter
== END 2024-05-01 13:32 | disposition home or self-care (01) ==
PROVIDERS: Emergency Provider Emergency Medicine
DX: J06.9 Acute upper respiratory infection, unspecified (principal); R05.9 Cough, unspecified; R50.9 Fever, unspecified; J44.9 Chronic obstructive pulmonary disease, unspecified; E27.1 Primary adrenocortical insufficiency; Z91.148 Patient's other noncompliance with medication regimen for other reason; Z03.818 Encounter for observation for suspected exposure to other biological agents ruled out
CPT/HCPCS: 0241U; 71046; 87651; 99282; 99283

== ENCOUNTER → 2024-05-01 11:33 | Outpatient (BNV) | payer OTHER, SELFPAY | PROVIDERS: Emergency Provider Emergency Medicine; Visit Provider Radiology Diagnostic Radiology | DX: R05.9 Cough, unspecified (principal) | CPT/HCPCS: 71046 ==